=== PATIENT | male | born 1960 | race Caucasian/White ===

== ENCOUNTER 2021-11-18 15:20 | Outpatient (REF) | payer OTHER, SELFPAY ==
--- NOTE | ~2021-11-18 | XR_ITS ---
EXAMINATION: XR CHEST CLINICAL INFORMATION: Acute respiratory infection. COMPARISON: None TECHNIQUE: 2 views of the chest were obtained. FINDINGS: The lungs are well-expanded and clear of acute process. The heart size and pulmonary vascularity is normal. No gross bony abnormality seen. XR/XR chest 2V IMPRESSION: Unremarkable chest exam.
[2021-11-18 17:33] LABS: Influenza A PCR NEGATIVE (Negative); Influenza B PCR NEGATIVE (Negative); Resp Syncy Virus RNA Qual PCR NEGATIVE (Negative); SARS COV2 PCR INHOUSE NEGATIVE (Negative)
== END 2021-11-18 15:21 | disposition home or self-care (01) ==
LOC: HO.HMGCX 15:20
PROVIDERS: PCP Internal Medicine; Visit Provider Physician Assistant
DX: Z20.822 Contact with and (suspected) exposure to COVID-19 (principal); J06.9 Acute upper respiratory infection, unspecified
CPT/HCPCS: 0241U; 71046

== ENCOUNTER 2023-05-04 12:38 | Outpatient (AMB) | payer OTHER, SELFPAY ==
--- OUTSIDE RECORDS SUMMARY | 2023-05-04 12:39 | XMS_ITS | Continuity of Care Document ---
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 Name Role Phone Domenico Whitfield MD Primary Care Physician [facility]counter [facility] Date(s): 07/25/19 - 11/22/19 [facility] [place] Adult [address] [place] [address]- [facility] Attending Physician: Domenico Whitfield MD Allergies, Adverse Reactions, Alerts Substance Reaction Severity Status Bee Stings Active Immunizations Given and Recorded Vaccine Date Status Refusal Reason Influenza Virus Vaccine (oldterm) 04/22/19 Recorde d Influenza Virus Vaccine (oldterm) 1 04/14/09 Given zoster vaccine, inactivated 08/28/18 Recorded Hepatitis A Adult Vaccine 08/14/18 Given Hepatitis A Adult Vaccine 2 08/06/17 Given pneumococcal 13-valent vaccine 03/08/18 Given influenza virus vaccine, inactivated 3 03/08/18 Re corded influenza virus vaccine, inactivated 4 05/06/17 Re corded influenza virus vaccine, inactivated 5 03/14/15 Re corded influenza virus vaccine, inactivated 07/16/13 Give n tetanus/diphtheria/pertussis, acel(Tdap) 07/18/12 Given FluLaval (oldterm) 04/15/10 Given Pneumococcal Vaccine (oldterm) 6 04/29/08 Given Influenza Inactive (IM) (oldterm) 7 04/02/08 Given Influenza Inactive (IM) (oldterm) 8 04/30/07 Given Tetanus Toxoid Vaccine (oldterm) 06/11/00 Given 1Admin Note: rcvd at work 2Result Comment: [08/06/2017] [facility] [id number] 3Result Comment: [03/08/2018] [facility]-[id number] 4Result Comment: [08/06/2017] [facility] 5Result Comment: [03/16/2015] HIGH DOSE, RECIEVED AT [facility] 6Admin Note: rcvd at work 7Admin Note: rcvd elsewhere 8Admin Note: rcvd at work Medications AndroGel Pump 20.25 mg/actuation (1.62%) transdermal gel = 40.5 mg, Topically, Daily in AM, apply to clean, dry, intact skin, wash hands thoroughly after application, # 75 Gm, 2 Refills, Maintenance, 07/11/19 16:03:00 EST, [facility]/pharmacy #[id number], 177, cm, 06/16/19 11:25:00 EST, Height, 70.8, kg, 06/14/19 0:02:... Start Date: 07/11/19 Status: Ordered atovaquone 750 mg/5 mL oral suspension 10 mL = 1,500 mg, By Mouth, Daily, # 210 mL, 0 Refills, Maintenance, 06/13/19 2:10:00 EST, Suspension Start Date: 06/13/19 Status: Ordered budesonide 3 mg oral delayed release capsule 1 capsule = 3 mg, By Mouth, 3 times a day, # 180 capsule, 0 Refills, Maintenance, 04/23/19 9:50:07 EST, CR Capsule Start Date: 04/23/19 Status: Ordered cholecalciferol 50,000 intl units oral capsule 1 capsule = 50,000 International_Units, By Mouth, Every week, # 100 capsule, 0 Refills, Maintenance, 04/23/19 9:50:39 EST, Capsule Start Date: 04/23/19 Status: Ordered Compazine Tablet = 10 mg, By Mouth, Daily, 0 Refills, Maintenance, 06/13/19 2:13:00 EST, Tablet Start Date: 06/13/19 Status: Ordered decitabine 50 mg intravenous injection IV Infusion, Every 8 hours, 0 Refills, Maintenance, 08/14/18 7:12:16 EST Start Date: 08/14/18 Status: Ordered docusate sodium 100 mg oral tablet 1 tablet = 100 mg, By Mouth, 3 times a day, PRN for constipation, # 60 tablet, 0 Refills, Maintenance, 06/13/19 2:11:00 EST, Tablet Start Date: 06/13/19 Status: Ordered EpiPen 2-Jackson 0.3 mg injectable kit See Instructions, Intramuscular Once;if anaphylaxis lip tongue swelling;wheezing etc, # 1 each, 0 Refills, Soft Stop, 11/02/17 11:11:11 EDT Start Date: 11/02/17 Status: Ordered folic acid 1 mg oral tablet 1 mg, 1, tablet, By Mouth, Daily, Refills 0, Maintenance, 04/23/19 9:51:01 EST Start Date: 04/23/19 Status: Ordered Insulin NPH = 20 units, Subcutaneous Infusion, Daily in AM, U100, 0 Refills, Maintenance, 08/02/19 11:10:00 EST Start Date: 08/02/19 Status: Ordered LORazepam 0.5 mg oral tablet 1 tablet = 0.5 mg, By Mouth, 3 times a day, 0 Refills, Maintenance, 04/23/19 9:51:37 EST Start Date: 04/23/19 Status: Ordered magnesium citrate 133.3 mg oral capsule 2 capsule = 266.6 mg, By Mouth, Daily, 0 Refills, Maintenance, 04/23/19 9:52:14 EST Start Date: 04/23/19 Status: Ordered Noxafil 100 mg oral delayed release tablet 3 tablet = 300 mg, By Mouth, Daily, 0 Refills, Maintenance, 04/23/19 9:52:48 EST Start Date: 04/23/19 Status: Ordered Noxafil 100 mg oral delayed release tablet 3 tablet = 300 mg, By Mouth, Daily, # 90 tablet, 0 Refills, Maintenance, 06/13/19 2:12:00 EST, CR Tablet Start Date: 06/13/19 Status: Ordered pantoprazole 40 mg oral delayed release tablet 1 tablet = 40 mg, By Mouth, 2 times a day, # 60 tablet, 0 Refills, Maintenance, 04/23/19 9:53:21 EST, CR Tablet Start Date: 04/23/19 Status: Ordered predniSONE 10 mg oral tablet 1 tablet = 10 mg, By Mouth, 2 times a day, # 10 tablet, 0 Refills, Maintenance, 06/13/19 2:15:00 EST, Tablet Start Date: 06/13/19 Status: Ordered ruxolitinib 5 mg oral tablet 1 tablet = 5 mg, By Mouth, 2 times a day, # 60 tablet, 0 Refills, Maintenance, 06/13/19 2:08:00 EST, Tablet Start Date: 06/13/19 Status: Ordered sertraline 100 mg oral tablet 1 tablet = 100 mg, By Mouth, 2 times a day, # 30 tablet, 0 Refills, Maintenance, 06/13/19 2:09:00 EST, Tablet Start Date: 06/13/19 Status: Ordered tacrolimus 0.5 mg oral capsule 2 capsule = 1 mg, By Mouth, Daily, 0 Refills, Maintenance, 04/23/19 9:54:45 EST Start Date: 04/23/19 Status: Ordered traZODone 100 mg oral tablet 100 mg, 1, tablet, By Mouth, Daily at bedtime, PRN, # 60 tablet, Refills 0, Maintenance, Sleep, 06/13/19 2:10:00 EST Start Date: 06/13/19 Status: Ordered triamcinolone 0.1% topical cream 1 application, Topically, 2 times a day, # 15 Gm, 0 Refills, Maintenance, 06/13/19 2:13:00 EST, Cream Start Date: 06/13/19 Stop Date: 06/27/19 Status: Ordered ursodiol 300 mg oral capsule 300 mg, 1, capsule, By Mouth, 3 times a day, # 60 capsule, Refills 0, Maintenance, 06/13/19 2:13:00EST Start Date: 06/13/19 Status: Ordered valACYclovir 500 mg oral tablet 500 mg, 1, tablet, By Mouth, Daily, Refills 0, Maintenance, 04/23/19 9:55:17 EST Start Date: 04/23/19 Status: Ordered Problem List Condition Effective Dates Status Health Status Inform ant Adenomatous polyp of colon(C onfirmed) 1, 2, 3 Active Bee sting allergy(Confirmed) Active Cheilitis(Confirmed) Active CRD (chronic renal disease), stage III(Confirmed) Active Low vitamin D level(Confirmed) Active Ex-cigarette smoker referred LDCT no show(Confirmed) 4, 5 Active Familial hyperlipidemia(Confirmed) Active Hx of stem cell transplant;david(Confirmed) 11/29/18 Active Impaired fasting glucose(Con firmed) 6, 7 Active Klinefelter's Syndrome(Confirmed) 8 Active Multiple lipomas(Confirmed) 9 Active Hypogonadism, male(Confirmed) Active Cancer of prostate turp 2018(Confirmed) Active MDS (myelodysplastic syndrom e)/stem cell transplant 2018(Confirmed) 10 Active Pneumonia RUL(Confirmed) 06/12/19 Active Psoriasis(Confirmed) Active Fatty liver(Confirmed) 11, 12 Active 1+2014 2refer GI colonoscopy 3tubular adenoma 4quit 2012 [id number] kit 6reminded 7new onset;to contact advise of pre diabetes;increased risk diabetes 8758.7 9back,abd 10refer bone marrow biopsy [facility] 11Negative hepatitis C antibody negative hepatitis C surface antigen positive hepatitis B surface antibody, negative CHARLEE, normal SPEP, normal iron 12Sonogram May 2017 Procedures Procedure Date Related Diagnosis Body Site Status Reference laboratory A1c 7.3 08/01/19 Completed Social History Social History Type Response Smoking Status Current every day teri maldonado; Other: e-cig; entered on: 08/06/17 Sex
--- OUTSIDE RECORDS SUMMARY | 2023-05-04 12:39 | XMS_ITS | Continuity of Care Document ---
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 Name Role Phone Domenico Whitfield MD Primary Care Physician [facility]counter [facility] Date(s): 01/22/20 - 01/29/20 [facility] Adult [address] [place] [address]- [facility] Encounter Diagnosis Physical exam(Discharge Diagnosis) - 01/22/20 Steroid-induced diabetes [facility](Discharge Diagnosis) - 01/22/20 Familial hyperlipidemia(Discharge Diagnosis) - 01/22/20 Fatty liver(Discharge Diagnosis) - 01/22/20 Cancer of prostate turp 2019(Discharge Diagnosis) - 01/22/20 MDS (myelodysplastic syndrome)/stem cell transplant 2019(Discharge Diagnosis) - 01/22/20 Hx of stem cell transplant;mercy(Discharge Diagnosis) - 01/22/20 Ex-cigarette smoker referred LDCT no show(Discharge Diagnosis) - 01/22/20 Adenomatous polyp of colon(Discharge Diagnosis) - 01/22/20 Klinefelter's Syndrome(Discharge Diagnosis) - 01/22/20 Chronic kidney disease, stage 4 (severe)(Discharge Diagnosis) - 01/22/20 Attending Physician: Domenico Whitfield MD Allergies, Adverse [...] Note: rcvd at work 2Result Comment: [08/06/2017] [facility] [id number] 3Result Comment: [03/08/2018] [facility]-[id number] 4Result Comment: [08/06/2017] [facility] 5Result Comment: [03/16/2015] HIGH DOSE, RECIEVED AT [facility] [address] 6Admin Note: rcvd at work 7Admin Note: rcvd elsewhere 8Admin Note: rcvd at work Medications AndroGel Pump 20.25 mg/actuation (1.62%) transdermal gel = 40.5 mg, Topically, Daily in AM, apply to clean, dry, intact skin, wash hands thoroughly after application, # 75 Gm, 2 Refills, Maintenance, 07/11/19 16:03:00 EST, [facility]/pharmacy #[id number], 177, cm, 06/16/19 11:25:00 EST, Height, [...] Active Bee sting allergy(Confirmed) Active Cheilitis(Confirmed) Active Chronic kidney disease, stag e 4 (severe)(Confirmed) Active Low vitamin D level(Confirmed) Active Ex-cigarette smoker referred LDCT no show(Confirmed) 4, 5 Active Familial hyperlipidemia(Confirmed) Active Hx of stem cell transplant;mercy(Confirmed) 11/29/18 Active Klinefelter's Syndrome(Confirmed) 6 Active Multiple lipomas(Confirmed) 7 Active Hypogonadism, male(Confirmed) Active Cancer of prostate turp 2018(Confirmed) Active MDS (myelodysplastic syndrom e)/stem cell transplant 2018(Confirmed) 8 Active Pneumonia RUL(Confirmed) 06/12/19 Active Psoriasis(Confirmed) Active Fatty liver(Confirmed) 9, 10 [facility] Active 1+2014 2refer GI colonoscopy 3tubular adenoma 4quit 2012 [id number] kit 6758.7 7back,abd 8refer bone marrow biopsy [facility] 9Negative hepatitis C antibody negative hepatitis C surface antigen positive hepatitis B surface antibody, negative CHARLEE, normal SPEP, normal iron 10SonMay 2017 Diagnosis Diagnosis Type Effective Dates Health Status Clinical Service Informant Physical exam Discharge Diagnosis 01/22/20 Steroid-induced diabetes [facility] Discharge Diagnosis 01/22/20 Familial hyperlipidemia Discharge Diagnosis 01/22/20 Fatty liver Discharge Diagnosis 01/22/20 Cancer of prostate turp 2019 Discharge Diagnosis 01/22/20 MDS (myelodysplastic syndrome)/stem cell transplant 2019 Discharge Diagnosis 01/22/20 Hx of stem cell transplant;mercy Discharge Diagnosis 01/22/20 Ex-cigarette smoker referred LDCT no show Discharge Diagnosis 01/22/20 Adenomatous polyp of colon Discharge Diagnosis 01/22/20 Klinefelter's Syndrome Discharge Diagnosis 01/22/20 Chronic kidney disease, stage 4 (severe) Discharge Diagnosis 01/22/20 Vital Signs Most recent to oldest [Reference Range]: 1 Height 177 cm (01/22/20 3:15 PM) Weight 82.2 kg (01/22/20 3:15 PM) Pulse Rate [55-90 bpm] 90 bpm (01/22/20 3:15 PM) Body Mass Index [18.5-24.99] 26.24 *H* (01/22/20 3:15 PM) Blood Pressure [90-138/55-84 mm Hg] 106/ 60mm Hg (01/22/20 3:15 PM) Respiratory Rate [16-30 br/min] 18 br/mi n (01/22/20 3:15 PM) Temperature [96.8-100.4 DegF] 98.3 DegF (01/22/20 3:15 PM) Blood pressure sites Arm, left (01/22/20 3:15 PM) Temperature Route Oral (01/22/20 3:15 PM) Social History Social History Type Response Smoking Status Former smoker, quit more than 30 days ago entered on: 01/22/20 Sex
--- OUTSIDE RECORDS SUMMARY | 2023-05-04 12:39 | XMS_ITS | Continuity of Care Document ---
Author Name Unknown Organization [facility] ter Address [address] [place] [address]- Care Team Providers Care Edge Stainer Name Role Phone Roseann DILLON, Domenico Ramirez Primary Care Physician Encounter [facility] Date(s): 06/13/19 - 06/16/[address] [address] En[facility] Diagnosis Pneumonia(Final) - 06/12/19 Discharge Disposition: [facility] Attending Physician: Alex Burciaga Sr, MD Admitting Physician: Eduardo Das MD Referring Physician: Not on Staff, Referring MD Allergies, Adverse Reactions, Alerts Substance Reaction [...] Note: rcvd at work 2Result Comment: [08/06/2017] [facility] [id number] 3Result Comment: [03/08/2018] [facility]-[id number] 4Result Comment: [08/06/2017] [facility] 5Result Comment: [03/16/2015] HIGH DOSE, RECIEVED AT [facility] 6Admin Note: rcvd at work 7Admin Note: rcvd elsewhere 8Admin Note: rcvd at work Medications AndroGel Pump 20.25 mg/actuation (1.62%) transdermal gel = 40.5 mg, Topically, Daily in AM, apply to clean, dry, intact skin, wash hands thoroughly after application, # 75 Gm, 2 Refills, Maintenance, 11/14/18 12:13:29 EDT Start Date: 11/14/18 Status: Ordered atovaquone 750 mg/5 mL oral [...] 9:51:01 EST Start Date: 04/23/19 Status: Ordered LORazepam 0.5 mg oral tablet [...] Active MDS (myelodysplastic syndrom e)/stem cell transplant 2019(Confirmed) 10 Active Pneumonia RUL(Confirmed) 06/12/19 Active Psoriasis(Confirmed) Active Fatty liver(Confirmed) 11, 12 Active 1 2refer GI colonoscopy 3tubular adenoma 4quit 2012 [id number] kit 6reminded 7new onset;to contact advise of pre diabetes;increased risk diabetes 8758.7 9back,abd 10refer bone marrow biopsy [facility] 11Negative hepatitis C antibody negative hepatitis C surface antigen positive hepatitis B surface antibody, negative CHARLEE, normal SPEP, normal iron 12May 2017 Results Orders for Microbiology Reports Name Date AFB Culture w/ AFB Smear, Respiratory 06/15/19 Blood Culture 06/13/19 Blood Culture #2 06/13/19 Blood Culture 06/12/19 Blood Culture #2 06/12/19 Microbiology Reports TEST:AFB Culture w/AFB Smear, Respiratory STATUS:Unauthenticated BODY SITE: SOURCE:EXPECT COLLECTED DATE/TIME:06/15/19 10:49 AM AFB Culture w/AFB Smear, Respiratory SPECIMEN DESCRIPTION : EXPECTORATED SPUTUM SPUTUM SPECIAL REQUESTS : NONE DIRECT EXAM : NO ACID FAST BACILLI SEEN ON DIRECT SMEAR, TEST PERFORMED AT [facility] CULTURE : SPECIMEN SENT TO [facility], [place], [place] REPORT STATUS : PRELIMINARY REPORT TEST:Blood Culture, Second Order STATUS:Unauthenticated BODY SITE: SOURCE:Blood COLLECTED DATE/TIME:06/13/19 10:11 AM Blood Culture, Second Order SPECIMEN DESCRIPTION : BLOOD SPECIAL REQUESTS : NONE CULTURE : NO GROWTH 3 DAYS REPORT STATUS : PRELIMINARY REPORT TEST:Blood Culture STATUS:Unauthenticated BODY SITE: SOURCE:Blood COLLECTED DATE/TIME:06/13/19 9:40 AM Blood Culture SPECIMEN DESCRIPTION : BLOOD RIGHT ARM SPECIAL REQUESTS : NONE CULTURE : NO GROWTH 3 DAYS REPORT STATUS : PRELIMINARY REPORT TEST:Blood Culture, Second Order STATUS:Unauthenticated BODY SITE: SOURCE:Blood COLLECTED DATE/TIME:06/12/19 9:16 PM Blood Culture, Second Order SPECIMEN DESCRIPTION : BLOOD L SPECIAL REQUESTS : NONE CULTURE : NO GROWTH 4 DAYS REPORT STATUS : PRELIMINARY REPORT TEST:Blood Culture STATUS:Unauthenticated BODY SITE: SOURCE:Blood COLLECTED DATE/TIME:06/12/19 9:14 PM Blood Culture SPECIMEN DESCRIPTION : BLOOD LAC SPECIAL REQUESTS : NONE CULTURE : NO GROWTH 4 DAYS REPORT STATUS : PRELIMINARY REPORT Vital Signs Most recent to oldest [Reference Range]: 1 2 3 Height 177 cm (06/16/19 11:25 AM) 177 cm (06/16/19 4:01 AM) 177 cm (06/16/19 12:39 AM) Weight 69.2 kg (06/16/19 4:01 AM) 69.0 kg (06/15/19 5:45 AM) 69.4 kg (06/15/19 2:11 AM) Oxygen Saturation [94-100 %] 96 % (06/16/19 11:25 AM) 94 % (06/16/19 4:01 AM) 94 % (06/16/19 12:39 AM) Pulse Rate [55-90 bpm] 92 bpm *H* (06/16/19 11:25 AM) 79 bpm (06/16/19 4:01 AM) 84 bpm (06/16/19 12:39 AM) Body Mass Index [18.5-24.99] 22.09 (06/16/19 4:01 AM) 22.02 (06/15/19 5:45 AM) 22.15 (06/15/19 2:11 AM) Blood Pressure [90-138/55-84 mm Hg] 139/81mm Hg *H* (06/16/19 11:25 AM) 139/80mm Hg *H* (06/16/19 4:01 AM) 137/81mm Hg (06/16/19 12:39 AM) Respiratory Rate [16-30 br/min] 18 br/min (06/16/19 11:25 AM) 16 br/min (06/16/19 4:01 AM) 18 br/min (06/16/19 12:39 AM) Temperature [96.8-100.4 DegF] 98.3 DegF (06/16/19 11:25 AM) 98.2 DegF (06/16/19 4:01 AM) 99.1 DegF (06/16/19 12:39 AM) Mode of Delivery (Oxygen) Room air (06/16/19 11:25 AM) Room air (06/16/19 4:01 AM) Room air (06/16/19 12:39 AM) Blood pressure sites Arm, right (06/16/19 11:25 AM) Arm, right (06/16/19 4:01 AM) Arm, right (06/16/19 12:39 AM) Temperature Route Oral (06/16/19 11:25 AM) Oral (06/16/19 4:01 AM) Oral (06/16/19 12:39 AM) Dry Weight 70.8 kg (06/13/19 9:26 PM) Weight Obtained Via Bed scale (06/16/19 4:01 AM) Bed scale (06/15/19 5:45 AM) Bed scale (06/15/19 2:11 AM) Sensory deficits None (06/13/19 9:26 PM) Mobility assistance Independent (06/13/19 9:26 PM) Social History Social History Type Response Smoking Status Current every day teri maldonado; Other: e-cig; entered on: 08/06/17 Sex
--- OUTSIDE RECORDS SUMMARY | 2023-05-04 12:39 | XMS_ITS | Continuity of Care Document ---
Author Name Unknown Organization [facility] Address [address] [place] [address]- Care Team Providers Care Radio News Writer Name Role Phone Roseann DILLON, Domenico Ramirez Primary Care Physician Encounter [facility] [place] Date(s): 02/03/21 - 03/05/[address] [address] Attending Physician: Yefri Griggs Admitting Physician: AdmtrYefri Referring Physician: Admtr, Ar8 Allergies, Adverse Reactions, Alerts Substance Reaction Severity Status Bee Stings Active Immunizations Given and Recorded Vaccine Date Status Refusal Reason SARS-CoV-2 (COVID-19) mRNA BNT-162b2 vac 01/25/21 Recorded pneumococcal 13-valent vaccine 11/09/20 Recorded pneumococcal 13-valent vaccine 05/28/20 Recorded pneumococcal 13-valent vaccine 12/30/19 Recorded pneumococcal 13-valent vaccine 03/08/18 Given Measles/Mumps/Rubella Virus Vaccine 11/09/20 Recor ded Hepatitis A Adult Vaccine 11/09/20 Recorded Hepatitis A Adult Vaccine 12/30/19 Recorded Hepatitis A Adult Vaccine 08/14/18 Given Hepatitis A Adult Vaccine 1 08/06/17 Given Diphth/haemophilus/pertussis/tet/polio 11/09/20 Re corded Diphth/haemophilus/pertussis/tet/polio 05/28/20 Re corded Diphth/haemophilus/pertussis/tet/polio 12/30/19 Re corded zoster vaccine, inactivated 05/28/20 Recorded zoster vaccine, inactivated 12/30/19 Recorded zoster vaccine, inactivated 08/28/18 Recorded Meningococcal Conjugate Vaccine 05/28/20 Recorded Meningococcal Conjugate Vaccine 12/30/19 Recorded hepatitis B adult vaccine 05/28/20 Recorded hepatitis B adult vaccine 12/30/19 Recorded Influenza Virus Vaccine (oldterm) 04/22/19 Recorde d Influenza Virus Vaccine (oldterm) 2 04/14/09 Given influenza virus vaccine, inactivated 3 03/08/18 [...] Given Tetanus Toxoid Vaccine (oldterm) 06/11/00 Given 1Result Comment: [08/06/2017] [facility] [id number] 2Admin Note: rcvd at work 3Result Comment: [03/08/2018] [facility]-[id number] 4Result Comment: [08/06/2017] [facility] 5Result Comment: [03/16/2015] HIGH DOSE, RECIEVED AT [facility] [address] 6Admin Note: rcvd at work 7Admin Note: rcvd elsewhere 8Admin Note: rcvd at work Medications AndroGel Pump 20.25 mg/actuation (1.62%) transdermal gel = 40.5 mg, Topically, Daily in AM, apply to clean, dry, intact skin, wash hands thoroughly after application, # 75 Gm, 2 Refills, Maintenance, 07/11/19 16:03:00 EST, [facility]/pharmacy #[id number], 177, cm, 06/16/19 11:25:00 EST, Height, 70.8, kg, 06/14/19 0:02:... Start Date: 07/11/19 Status: Ordered atorvastatin 40 mg oral tablet 1 tablet = 40 mg, By Mouth, Daily, # 30 tablet, 6 Refills, Maintenance, 08/12/20 9:28:00 EST, Tablet, [facility]/pharmacy #[id number], Partial fill upon patient request if the prescription is for a schedule II opioid drug., 177, cm, 08/02/20 15:21:00 EST, Height,... Start Date: 08/12/20 Status: Ordered budesonide 3 mg oral delayed [...] EST, Capsule Start Date: 04/23/19 Status: Ordered docusate sodium 100 mg oral [...] 9:51:01 EST Start Date: 04/23/19 Status: Ordered Jakafi 5 mg oral tablet 1 tablet = 5 mg, By Mouth, 2 times a day, # 60 tablet, 0 Refills, Maintenance, 08/02/20 15:28:00 EST, Tablet, Partial fill upon patient request if the prescription is for a schedule II opioid drug. Start Date: 08/02/20 Status: Ordered LORazepam 0.5 mg oral tablet 1 tablet = 0.5 mg, By Mouth, 3 times a day, 0 Refills, Maintenance, 04/23/19 9:51:37 EST Start Date: 04/23/19 Status: Ordered predniSONE 10 mg oral tablet 1 tablet = 10 mg, By Mouth, 2 times a day, # 10 tablet, 0 Refills, Maintenance, 06/13/19 2:15:00 EST, Tablet Start Date: 06/13/19 Status: Ordered predniSONE 5 mg oral tablet 1 tablet = 5 mg, By Mouth, Daily, 0 Refills, Maintenance, 08/02/20 15:42:00 EST, Partial fill upon patient request if the prescription is for a schedule II opioid drug. Start Date: 08/02/20 Status: Ordered Procrit 91436 u/ml injectable solution = 2,000 units, Subcutaneous Injection, 0 Refills, Maintenance, 08/02/20 15:28:00 EST, Partial fill upon patient request if the prescription is for a schedule II opioid drug. Start Date: 08/02/20 Status: Ordered sertraline 100 mg oral tablet 1 tablet = 100 mg, By Mouth, 2 times a day, # 30 tablet, 0 Refills, Maintenance, 06/13/19 2:09:00 EST, Tablet Start Date: 06/13/19 Status: Ordered tacrolimus 0.5 mg oral capsule 2 capsule = 1 mg, By Mouth, Daily, 0 Refills, Maintenance, 04/23/19 9:54:45 EST Start Date: 04/23/19 Status: Ordered ursodiol 300 mg oral capsule 300 mg, 1, capsule, By Mouth, 3 times a day, # 60 capsule, Refills 0, Maintenance, 06/13/19 2:13:00EST Start Date: 06/13/19 Status: Ordered Problem List Condition Effective Dates Status Health Status Inform ant Adenomatous polyp of colon/c olonoscopy 2014(Confirmed) 1, 2, 3 Active Bee sting allergy(Confirmed) Active Cheilitis(Confirmed) Active Low vitamin D level(Confirmed) Active Ex-cigarette smoker referred LDCT no show(Confirmed) 4, 5 Active Familial hyperlipidemia(Confirmed) Active Hx of stem cell transplant [facility] 2018(Confirmed) 11/29/18 Active H/O prostate cancer TURP 2018(Confirmed) Active Impaired fasting blood sugar(Confirmed) Active Klinefelter's Syndrome(Confirmed) 6 Active Multiple lipomas(Confirmed) 7 Active Hypogonadism, male(Confirmed) Active MDS (myelodysplastic syndrom e)/stem cell transplant 2018(Confirmed) 8 Active Pneumonia RUL(Confirmed) 06/12/19 Active Psoriasis(Confirmed) Active Fatty liver(Confirmed) 9, 10 Active 1+2014 2refer GI colonoscopy 3tubular adenoma 4quit 2012 [id number] kit 6758.7 7back,abd 8refer bone marrow biopsy [facility] 9Negative hepatitis C antibody negative hepatitis C surface antigen positive hepatitis B surface antibody, negative CHARLEE, normal SPEP, normal iron 10Sonogram May 2017 Social History Social History Type Response Smoking Status Former smoker, quit more than 30 days ago entered on: 01/22/20 Sex
--- NOTE | 2023-05-04 12:40 | MHC.OFFWIV ---
Intake Vital Signs 05/04/23 12:42 Height 5 ft 10 in Weight 160 lb BMI 23.0 BP 122/72 Blood Pressure Location Lt brachial Position Sitting Pulse 126 H Pulse Source Pulse Oximeter Temp 98.3 F Temp Source Temporal Artery Scan Pulse Oximetry (%) 97 Oxygen Delivery Method Room Air Intake Visit Reasons: EP Diff breathing/Chest pain 3 days Intake Note: pt is here for c/o difficulty breathing, chest pain/tightness 3x days Patient Tobacco Use Status: Never used Tobacco Allergies No Known Allergies Allergy (Verified 05/04/23 13:09) Medication List - Last Reconciled 05/04/23 by Devon Nava MD amlodipine 10 mg PO DAILY budesonide ER mg PO DAILY PRN ergocalciferol (vitamin D2) PO folic acid 1 mg PO DAILY lorazepam mg PO neomycin-polymyxin B-dexameth 3.5 mg/g-10,000 unit/g-0.1 % ophthalmic (eye) BID prednisone mg PO ruxolitinib (Jakafi) 5 mg PO DAILY PRN sertraline 200 mg PO BEDTIME tacrolimus 0.5 mg PO DAILY PRN testosterone 40.5 mg topical QAM ursodiol 300 mg PO DAILY Do you need a note to return to daycare/school/sports/work: Yes HPI EP Diff breathing/Chest pain 3 days HPI Details 63-year-old male presents to the office for a sick visit. He is accompanied by his . Patient is experiencing sharp pain on breathing and on exertion. Symptoms have been going on for the past month or so and he has been reluctant to seek attention. Patient has had MDS and is status post a stem cell transplant. Taking a deep breath or cough provokes a very sharp pain in the chest. Patient is feeling tired. [facility] Patient Tobacco Use Status: Never used Tobacco Physical Exam Vital Signs: Last Vital Signs Temp 98.3 F 05/04/23 12:42 Pulse 126 H 05/04/23 12:42 BP 122/72 05/04/23 12:42 Pulse Ox 97 05/04/23 12:42 Oxygen Delivery Method Room Air 05/04/23 12:42 BMI result Body Mass Index 23.0 Const General: cooperative and healthy appearing Nutritional Appearance: well nourished Orientation/consciousness: patient oriented x3 Limitations: no limitations HEENT Head: Yes normal to inspection Eyes General: appearance normal, both eyes and all related structures Neck Neck: Yes normal visual inspection Chest Chest palpation & inspection: normal palpation of entire chest wall Resp Other: Diminished breath sounds on the right base Cardio Other: Tachycardia. Neuro General: patient oriented x3 Assessment & Plan Assessment & Plan (1) Chest pain: Code(s): R07.9 - Chest pain, unspecified Plan: Chest x-ray shows a large infiltrate on the right side. Bilateral pleural effusion. A large consolidation on the right lung. Patient needs an urgent CT scan head and has been referred to the emergency room for further evaluation. Triage nurse in the ER notified of patients arrival. Orders: Orders XR chest 2V Today R05.9 - Cough, unspecified AMB EKG-In Office Today R07.9 - Chest pain, unspecified Coding Level of Care Code Est Pt Level 4 (53057) Diagnoses Chest pain R07.9
--- OUTSIDE RECORDS SUMMARY | 2023-05-04 12:40 | XMS_ITS | Continuity of Care Document ---
Author Name Unknown Organization [facility] Address [address] [place] [address]- Care Team Providers Care Pail Tester Name Role Phone Roseann DILLON, Domenico Ramirez Primary Care Physician [place] [facility] [place]/22 [facility] [address] [place] [address]- Attending Physician: Not on Staff, Attending MD Allergies, Adverse Reactions, Alerts Substance Reaction [...] Vaccine (oldterm) 06/11/00 Given 1Result Comment: [08/06/2017] [facility] [id number] 2Admin Note: rcvd at work 3Result Comment: [03/08/2018] [facility]-[id number] 4Result Comment: [08/06/2017] [facility] 5Result Comment: [03/16/2015] HIGH DOSE, RECIEVED AT [facility] [address] 6Admin Note: rcvd at work 7Admin Note: rcvd elsewhere 8Admin Note: rcvd at work Medications AndroGel Pump 20.25 mg/actuation (1.62%) transdermal gel = 40.5 mg, Topically, Daily in AM, apply to clean, dry, intact skin, wash hands thoroughly after application, # 75 Gm, 2 Refills, Maintenance, 07/11/19 16:03:00 EST, [facility]/pharmacy #[id number], 177, cm, 06/16/19 11:25:00 EST, Height, 70.8, kg, 06/14/19 0:02:... Start Date: 07/11/19 Status: Ordered atorvastatin 40 mg oral tablet 1 tablet = 40 mg, By Mouth, Daily, # 30 tablet, 6 Refills, Maintenance, 08/12/20 9:28:00 EST, Tablet, [facility]/pharmacy #[id number], Partial fill upon patient [...] drug. Start Date: 08/02/20 Status: Ordered Procrit 45352 u/ml injectable solution = 2,000 units, Subcutaneous [...] Effective Dates Status Health Status Inform ant Acute COVID-(Confirmed) 02/06/22 Active Adenomatous polyp of colon/c olonoscopy 2014(Confirmed) 1, [...] 2refer GI colonoscopy 3tubular adenoma 4quit 2012 5muokuwpOsp4vykn kit 6758.7 7back,abd 8refer bone marrow biopsy [facility] 9Negative hepatitis C antibody negative hepatitis C surface antigen positive hepatitis B surface antibody, negative CHARLEE, normal SPEP, normal iron 10SonMay 2017 Social History Social History Type Response Smoking Status Former smoker, quit more than 30 days ago entered on: 01/22/20 Sex Care Team Personnel Name: Roseann DILLON, Domenico Ramirez Address: [address] [place] [address]
--- OUTSIDE RECORDS SUMMARY | 2023-05-04 12:40 | XMS_ITS | Continuity of Care Document ---
Author Name Unknown Organization [facility] Address [address] [place] [address]- Care Team Providers Care Bar Hostess Name Role Phone Roseann DILLON, Domenico Ramirez Primary Care Physician [phone] Encounter [facility] Date(s): 06/12/19 - 06/22/19 [facility] Adult [address] [place] [address]- [facility] Attending Physician: Admtr, Ar8 Allergies, Adverse Reactions, Alerts [...] Note: rcvd at work 2Result Comment: [08/06/2017] [facility] [id number] 3Result Comment: [03/08/2018] [facility]-[id number] 4Result Comment: [08/06/2017] [facility] 5Result Comment: [03/16/2015] HIGH DOSE, RECIEVED AT [facility] [address] 6Admin Note: rcvd at [...] Psoriasis(Confirmed) Active Fatty liver(Confirmed) 11, 12 Active +2014 2refer GI colonoscopy 3tubular adenoma 4quit 2012 2cgnquomEoo0rkoa kit 6reminded 7new onset;to contact advise of pre diabetes;increased risk diabetes 8758.7 9back,abd 10refer bone marrow biopsy [facility] 11Negative hepatitis C antibody negative hepatitis C surface antigen positive hepatitis B surface antibody, negative CHARLEE, normal SPEP, normal iron 12Sonogram May 2017 Procedures Procedure Date Related Diagnosis Body Site Status Colonoscopy, flexible, proxi mal to splenic flexure; diagnostic, with or without collection of specimen(s) by brushing or washing, with or without colon decompression (separate procedure) 1 07/02/11 Completed Reference (Outside) Laboratory 2 08/18/10 Completed laboratory 3 03/19/09 Completed 1large bsessile polyp 2low testosterone 3fbs 103,LDL 169, TC 281,TG 266,HDL 41 Social History Social History Type Response Smoking Status Current every day teri maldonado; Other: e-cig; entered on: 08/06/17 Sex
--- OUTSIDE RECORDS SUMMARY | 2023-05-04 12:40 | XMS_ITS | Continuity of Care Document ---
Author Name Unknown Organization [facility] Address [address] [place] [address]- Care Team Providers Care Web Services Developer Name Role Phone Roseann DILLON, Domenico Ramirez Primary Care Physician Encounter [facility] [place] Date(s): 01/20/21 - 03/10/[address] [address] [place] Discharge Disposition: A-D/C Home Attending Physician: Galilea Cardona NP Admitting Physician: Galilea Cardona NP Referring Physician: Galilea Cardona NP Allergies, Adverse Reactions, Alerts Substance Reaction Severity [...] vaccine, inactivated 12/30/19 Recorded zoster vaccine, inactivated 3/20/19 Recorded Meningococcal Conjugate Vaccine 05/28/20 Recorded Meningococcal [...] Vaccine (oldterm) 06/11/00 Given 1Result Comment: [08/06/2017] [facility] [id number] 2Admin Note: rcvd at work 3Result Comment: [03/08/2018] [facility]-[id number] 4Result Comment: [08/06/2017] [facility] 5Result Comment: [03/16/2015] HIGH DOSE, RECIEVED AT [facility] [address] 6Admin Note: rcvd at work 7Admin Note: rcvd elsewhere 8Admin Note: rcvd at work Medications AndroGel Pump 20.25 mg/actuation (1.62%) transdermal gel = 40.5 mg, Topically, Daily in AM, apply to clean, dry, intact skin, wash hands thoroughly after application, # 75 Gm, 2 Refills, Maintenance, 07/11/19 16:03:00 EST, [facility]/pharmacy #[id number], 177, cm, 06/16/19 11:25:00 EST, Height, 70.8, kg, 06/14/19 0:02:... Start Date: 07/11/19 Status: Ordered atorvastatin 40 mg oral tablet 1 tablet = 40 mg, By Mouth, Daily, # 30 tablet, 6 Refills, Maintenance, 08/12/20 9:28:00 EST, Tablet, [facility]/pharmacy #[id number], Partial fill upon patient request if [...] drug. Start Date: 08/02/20 Status: Ordered Procrit 92474 u/ml injectable solution = 2,000 units, Subcutaneous [...] Hx of stem cell transplant [facility] 2019(Confirmed) 11/29/18 Active H/O prostate cancer TURP 2019(Confirmed) Active Impaired fasting blood sugar(Confirmed) Active Klinefelter's Syndrome(Confirmed) 6 Active Multiple lipomas(Confirmed) 7 Active Hypogonadism, male(Confirmed) Active MDS (myelodysplastic syndrom e)/stem cell transplant 2018(Confirmed) 8 Active Pneumonia RUL(Confirmed) 06/12/19 Active Psoriasis(Confirmed) Active Fatty liver(Confirmed) 9, 10 Active 1+2014 2refer GI colonoscopy 3tubular adenoma 4quit 2012 4qiazqtfGxs9vamj kit 6758.7 7back,abd 8refer bone marrow biopsy [facility] 9Negative hepatitis C antibody negative hepatitis C surface antigen positive hepatitis B surface antibody, negative CHARLEE, normal SPEP, normal iron 10Sonogram May 2017 Social History Social History Type Response Smoking Status Former smoker, quit more than 30 days ago entered on: 01/22/20 Sex
--- OUTSIDE RECORDS SUMMARY | 2023-05-04 12:40 | XMS_ITS | Continuity of Care Document ---
Author Name Unknown Organization [facility] Address [address] [place] [address]- Care Team Providers Care Meat Cooler Name Role Phone Roseann DILLON, Domenico Ramirez Primary Care Physician Encounter [facility] Date(s): 08/08/19 - 10/10/19 [facility] Adult [address] [place] [address]- [facility] Attending Physician: Not on Staff, Attending MD [...] Note: rcvd at work 2Result Comment: [08/06/2017] [facility] [id number] 3Result Comment: [03/08/2018] [facility]-[id number] 4Result Comment: [08/06/2017] [facility] 5Result Comment: [03/16/2015] HIGH DOSE, RECIEVED AT [facility] [address] 6Admin Note: rcvd at work 7Admin Note: rcvd elsewhere 8Admin Note: rcvd at work Medications AndroGel Pump 20.25 mg/actuation (1.62%) transdermal gel = 40.5 mg, Topically, Daily in AM, apply to clean, dry, intact skin, wash hands thoroughly after application, # 75 Gm, 2 Refills, Maintenance, 07/11/19 16:03:00 EST, [facility]/pharmacy #[id number], 177, cm, 06/16/19 11:25:00 [...] 2refer GI colonoscopy 3tubular adenoma 4quit 2012 5zluvgvxXck1wctb kit 6reminded 7new onset;to contact advise of pre diabetes;increased risk diabetes 8758.7 9back,abd 10refer bone marrow biopsy [facility] 11Negative hepatitis C antibody negative hepatitis C surface antigen positive hepatitis B surface antibody, negative CHARLEE, normal SPEP, normal iron 12Sonogram May 2017 Social History Social History Type Response Smoking Status Current every day teri maldonado; Other: e-cig; entered on: 08/06/17 Sex
--- OUTSIDE RECORDS SUMMARY | 2023-05-04 12:40 | XMS_ITS | Continuity of Care Document ---
Author Name Unknown Organization [facility] Address [address] [place] [address]- Care Team Providers Care Chief Hydroelectric Station Operator Name Role Phone Roseann DILLON, Domenico Ramirez Primary Care Physician [phone] [place] [facility] [place]28[place] - 02/27/21 [facility] Adult [address] [place] [address]- Attending Physician: Admtr, Ar8 Allergies, Adverse Reactions, [...] Vaccine (oldterm) 06/11/00 Given 1Result Comment: [08/06/2017] [facility] [id number] 2Admin Note: rcvd at work 3Result Comment: [03/08/2018] [facility]-[id number] 4Result Comment: [08/06/2017] [facility] 5Result Comment: [03/16/2015] HIGH DOSE, RECIEVED AT [facility] [address] 6Admin Note: rcvd at work 7Admin Note: rcvd elsewhere 8Admin Note: rcvd at work Medications AndroGel Pump 20.25 mg/actuation (1.62%) transdermal gel = 40.5 mg, Topically, Daily in AM, apply to clean, dry, intact skin, wash hands thoroughly after application, # 75 Gm, 2 Refills, Maintenance, 07/11/19 16:03:00 EST, [facility]/pharmacy #[id number], 177, cm, 06/16/19 11:25:00 EST, Height, 70.8, kg, 06/14/19 0:02:... Start Date: 07/11/19 Status: Ordered atorvastatin 40 mg oral tablet 1 tablet = 40 mg, By Mouth, Daily, # 30 tablet, 6 Refills, Maintenance, 08/12/20 9:28:00 EST, Tablet, [facility]/pharmacy #[id number], Partial fill upon patient [...] drug. Start Date: 08/02/20 Status: Ordered Procrit 08717 u/ml injectable solution = 2,000 units, Subcutaneous [...] 2refer GI colonoscopy 3tubular adenoma 4quit 2012 7cgywzxtCqg2svrt kit 6758.7 7back,abd 8refer bone marrow biopsy [facility] 9Negative hepatitis C antibody negative hepatitis C surface antigen positive hepatitis B surface antibody, negative CHARLEE, normal SPEP, normal iron 10Sonogram May 2017 Procedures Procedure Date Related Diagnosis Body Site Status Bone marrow biopsy 01/03/21 Comple [facility] Reference laboratory a1c 6.0 1 01/03/21 Completed Reference laboratory 2 09/14/20 Co mpleted Colonoscopy, flexible, proxi mal to splenic flexure; diagnostic, with or without collection of specimen(s) by brushing or washing, with or without colon decompression (separate procedure) 3 07/02/11 Completed Reference (Outside) Laboratory 4 08/18/10 Completed laboratory 5 03/19/09 Completed 1Outside labs January 03, 2021 [facility] vitamin D 25-hydroxy is 30 sodium 138 potassium 3.7 chloride 106 bicarb 22 random glucose 130 creatinine 2.04 EGFR 34 calcium 9.1 total protein 6.3 AST elevated 46 ALT elevated 47 BUN 39 cholesterol total 257 triglycerides 264 HDL 60 LDL 144 non-HDL 197 white count 6.2 hemoglobin 10.1 platelets 200 and 1K A1c 6.0 2Blood work [facility] September 14, 2020 white count 4.9 hemoglobin 10.6 platelet one 84,000 sodium 139 potassium 4.2 chloride 108 bicarb 26 glucose 93 creatinine 1.84 liver function normal BUN 38 EGFR 38 magnesium 1.8 ABO blood type is O LDH 194 Testosterone low 48.2 3large bsessile polyp 4low testosterone 5fbs 103,LDL 169, TC 281,TG 266,HDL 41 Social History Social History Type Response Smoking Status Former smoker, quit more than 30 days ago entered on: 01/22/20 Sex
--- OUTSIDE RECORDS SUMMARY | 2023-05-04 12:40 | XMS_ITS | Continuity of Care Document ---
Author Name Unknown Organization [facility] Address [address] [place] [address]- Care Team Providers Care Milk House Worker Name Role Phone Tiago Greenberg DO Primary Care Physician Encounter [facility] Date(s): 03/02/23 - 04/01/23 [facility] Adult [address] [place] [address]- Attending Physician: Admtr, Ar8 Allergies, Adverse Reactions, [...] Vaccine (oldterm) 06/11/00 Given 1Result Comment: [08/06/2017] [facility] [id number] 2Admin Note: rcvd at work 3Result Comment: [03/08/2018] [facility]-[id number] 4Result Comment: [08/06/2017] [facility] 5Result Comment: [03/16/2015] HIGH DOSE, RECIEVED AT [facility] [address] 6Admin Note: rcvd at work 7Admin Note: rcvd elsewhere 8Admin Note: rcvd at work Medications AndroGel Pump 20.25 mg/actuation (1.62%) transdermal gel = 40.5 mg, Topically, Daily in AM, apply to clean, dry, intact skin, wash hands thoroughly after application, # 75 Gm, 2 Refills, Maintenance, 07/11/19 16:03:00 EST, [facility]/pharmacy #[id number], 177, cm, 06/16/19 11:25:00 EST, Height, 70.8, kg, 06/14/19 0:02:... Start Date: 07/11/19 Status: Ordered atorvastatin 40 mg oral tablet 1 tablet = 40 mg, By Mouth, Daily, # 30 tablet, 6 Refills, Maintenance, 08/12/20 9:28:00 EST, Tablet, [facility]/pharmacy #[id number], Partial fill upon patient request if [...] drug. Start Date: 08/02/20 Status: Ordered Procrit 70034 u/ml injectable solution = 2,000 units, Subcutaneous [...] Date: 06/13/19 Status: Ordered Problem List Condition Confirmation Course Effective Dates Status H ealth Status Informant Acute COVID-19 Confirmed 02/06/22 Active Adenomatous polyp of colon/colonoscopy 2014 1, 2, 3 Confirmed Active Bee sting allergy Confirmed Active Cheilitis Confirmed Active Low vitamin D level Confirmed Active Ex-cigarette smoker referred LDCT no show 4, 5 Confirmed Active Familial hyperlipidemia Confirmed Active Hx of stem cell transplant [facility] 2019 Confirmed 11/29/18 Active H/O prostate cancer TURP 2018 Confirmed Active Impaired fasting blood sugar Confirmed Active Klinefelter's Syndrome 6 Confirmed Active Multiple lipomas 7 Confirmed Active Hypogonadism, male Confirmed Active MDS (myelodysplastic syndrome)/stem cell transplant 2018 8 Confirmed Active Pneumonia RUL Confirmed 06/12/19 Active Psoriasis Confirmed Active Fatty liver 9, 10 Confirmed Active 1+2014 2refer GI colonoscopy 3tubular adenoma 4quit 2012 0xfldrogQrl4hixm kit 6758.7 7back,abd 8refer bone marrow biopsy [facility] 9Negative hepatitis C antibody negative hepatitis C surface antigen positive hepatitis B surface antibody, negative CHARLEE, normal SPEP, normal iron May 2017 Procedures Procedure Date Related Diagnosis [...] 03/19/09 Completed 1Outside labs January 03, 2021 [facility] [email or web address]] vitamin D 25-hydroxy is 30 sodium 138 potassium 3.7 chloride 106 bicarb 22 random glucose 130 creatinine 2.04 EGFR 34 calcium 9.1 total protein 6.3 AST elevated 46 ALT elevated 47 BUN 39 cholesterol total 257 triglycerides 264 HDL 60 LDL 144 non-HDL 197 white count 6.2 hemoglobin 10.1 platelets 200 and 1K A1c 6.0 2Blood work [facility] September 14, 2020 white count 4.9 [...] 30 days ago entered on: 01/22/20 Sex Cardiology * Event Display: Cardiology Office Note, Non-BH Authored Date: * Event Display: Non BH Cardiovascular Results Authored Date: * Event Display: Non BH Cardiovascular Results Authored Date: Laboratory * Event Display: Laboratory Result Scanned Authored Date: * Event Display: Non BH Lab Results Authored Date: * Event Display: Non BH Lab Results Authored Date: Radiology * Event Display: X-Ray Chest, Non- BH Authored Date: * Event Display: Ultrasound Lower Extremity, Non-BH Authored Date: * Event Display: IR Special Procedures, Non- Authored Date: * Event Display: Radiology Result Scanned Authored Date: * Larissa Lafleur: PERFORM Event Display: Radiology Results Scanned Authored Date: [id number] Patient Care team information Care Team Personnel Name: Susana Mariee RN Position: S RN Member Role: Primary Care Nurse Name: Christin Godinez NP Position: [facility] PCO Associate Professional Member Role: Lifetime Consulting Provider Address: Address: [address] [place] [address] - [place] Name: Tate Guerra MD Position: [facility] Renal MD Member Role: Lifetime Consulting Physician Address: Address: [address] [place] [address], [address] [facility] [place] [address]- [place] Name: Ramiro De RN Position: [facility] RN Member Role: Primary Care Nurse Name: Hannah Torres RN Position: [facility] ED RN W/OE and Tasks Member Role: Primary Care Nurse Name: Tiago Greenberg DO Position: [facility] Physician - Primary Care Member Role: PCP Address: Address: [address] [place] [address] [facility] [place], [place] - [place] Name: Litzy Ibarra RN Position: [facility] RN Member Role: Primary Care Nurse Care Team Related Persons Name: NANCY AVILA Address: [address] [place] [address]
--- OUTSIDE RECORDS SUMMARY | 2023-05-04 12:40 | XMS_ITS | Continuity of Care Document ---
Author Name Unknown Organization [facility] Dhaval lt Address [address] [place] [address]- Care Team Providers Care Machinist/Machine Builder Name Role Phone Tiago Greenberg DO Primary Care Physician [phone] [facility] Date(s): 03/01/23 - 03/31/23 [facility] Adult [address] [place] [address]- Allergies, Adverse Reactions, Alerts Substance Reaction Severity [...] Vaccine (oldterm) 06/11/00 Given 1Result Comment: [08/06/2017] [facility] 52008-261-93 2Admin Note: rcvd at work 3Result Comment: [03/08/2018] [facility]-[id number] 4Result Comment: [08/06/2017] [facility] 5Result Comment: [03/16/2015] HIGH DOSE, RECIEVED AT [facility] 6Admin Note: rcvd at work 7Admin Note: rcvd elsewhere 8Admin Note: rcvd at work Medications AndroGel Pump 20.25 mg/actuation (1.62%) transdermal gel = 40.5 mg, Topically, Daily in AM, apply to clean, dry, intact skin, wash hands thoroughly after application, # 75 Gm, 2 Refills, Maintenance, 07/11/19 16:03:00 EST, [facility]/pharmacy #[id number], 177, cm, 06/16/19 11:25:00 EST, Height, 70.8, kg, 06/14/19 0:02:... Start Date: 07/11/19 Status: Ordered atorvastatin 40 mg oral tablet 1 tablet = 40 mg, By Mouth, Daily, # 30 tablet, 6 Refills, Maintenance, 08/12/20 9:28:00 EST, Tablet, [facility]/pharmacy #[id number], Partial fill upon patient request [...] drug. Start Date: 08/02/20 Status: Ordered Procrit 91384 u/ml injectable solution = 2,000 units, Subcutaneous [...] 2refer GI colonoscopy 3tubular adenoma 4quit 2012 2adnhzojDlo6azqb kit 6758.7 7back,abd 8refer bone marrow biopsy [place] 9Negative hepatitis C antibody negative hepatitis C surface antigen positive hepatitis B surface antibody, negative CHARLEE, normal SPEP, normal iron 10Sonogram May 2017 Social History Social History Type Response Smoking Status Former smoker, quit more than 30 days ago entered on: 01/22/20 Sex Patient Care team information Care Team Personnel Name: Susana Mariee RN Position: [facility] RN Member Role: Primary Care Nurse Name: Christin Godinez NP Position: [facility] PCO Associate Professional Member Role: Lifetime Consulting Provider Address: Address: [address] [place] [address]- [place] Name: Tate Guerra MD Position: [facility] Renal MD Member Role: Lifetime Consulting Physician Address: Address: [address] [place] [address], [address] [facility] [place] [address]- [place] Name: Ramiro De RN Position: [facility] RN Member Role: Primary Care Nurse Name: Hannah Torres RN Position: [facility] ED RN W/OE and Tasks Member Role: Primary Care Nurse Name: Tiago Greenberg DO Position: [facility] Physician - Primary Care Member Role: PCP Address: Address: [address] [place] [address] [place] [address]- [place] Name: Litzy Ibarra RN Position: [facility] RN Member Role: Primary Care Nurse Care Team Related Persons Name: NANCY AVILA Address: home [address] [place] [address]
--- OUTSIDE RECORDS SUMMARY | 2023-05-04 12:40 | XMS_ITS | Continuity of Care Document ---
Author Name Unknown Organization [facility] Dhaval lt Address [address] [place] [address]- Care Team Providers Care 911 Emergency Dispatcher Name Role Phone Roseann DILLON, Domenico Ramirez Primary Care Physician [phone] [facility]counter [facility] Date(s): 06/09/21 - 07/09/21 [facility] Adult [address] [place] [address]- Allergies, Adverse Reactions, Alerts Substance Reaction Severity [...] Vaccine (oldterm) 06/11/00 Given 1Result Comment: [08/06/2017] [facility] [id number] 2Admin Note: rcvd at work 3Result Comment: [03/08/2018] [facility]-[id number] 4Result Comment: [08/06/2017] [facility] 5Result Comment: [03/16/2015] HIGH DOSE, RECIEVED AT [facility] 6Admin Note: rcvd at work 7Admin Note: rcvd elsewhere 8Admin Note: rcvd at work Medications AndroGel Pump 20.25 mg/actuation (1.62%) transdermal gel = 40.5 mg, Topically, Daily in AM, apply to clean, dry, intact skin, wash hands thoroughly after application, # 75 Gm, 2 Refills, Maintenance, 07/11/19 16:03:00 EST, [facility]/pharmacy #[id number], 177, cm, 06/16/19 11:25:00 EST, Height, 70.8, kg, 06/14/19 0:02:... Start Date: 07/11/19 Status: Ordered atorvastatin 40 mg oral tablet 1 tablet = 40 mg, By Mouth, Daily, # 30 tablet, 6 Refills, Maintenance, 08/12/20 9:28:00 EST, Tablet, [facility]/pharmacy #[id number], Partial fill upon patient request if [...] drug. Start Date: 08/02/20 Status: Ordered Procrit 58145 u/ml injectable solution = 2,000 units, Subcutaneous [...] MDS (myelodysplastic syndrom e)/stem cell transplant 2019(Confirmed) 8 Active Pneumonia RUL(Confirmed) 06/12/19 Active Psoriasis(Confirmed) Active Fatty liver(Confirmed) 9, 10 Active 1+2014 2refer GI colonoscopy 3tubular adenoma 4quit 2012 6ubttfckGmb9abok kit 6758.7 7back,abd 8refer bone marrow biopsy [place] 9Negative hepatitis C antibody negative hepatitis C surface antigen positive hepatitis B surface antibody, negative CHARLEE, normal SPEP, normal iron 10SonMay 2017 Social History Social History Type Response Smoking Status Former smoker, quit more than 30 days ago entered on: 01/22/20 Sex
--- OUTSIDE RECORDS SUMMARY | 2023-05-04 12:40 | XMS_ITS | Continuity of Care Document ---
Author Name Unknown Organization [facility] Address [address] [place] [address]- Care Team Providers Care Process Eng Name Role Phone Domenico Whitfield MD Primary Care Physician [facility] 07[facility]11[facility]19 - 08/14/19 [facility] [address] [place] [address]- [facility] Attending Physician: Johann Costa MD Admitting Physician: Johann Costa MD Referring Physician: Domenico Whitfield MD Allergies, Adverse Reactions, [...] Note: rcvd at work 2Result Comment: [08/06/2017] [facility] [id number] 3Result Comment: [03/08/2018] [facility]-[id number] 4Result Comment: [08/06/2017] [facility] 5Result Comment: [03/16/2015] HIGH DOSE, RECIEVED AT [facility] 6Admin Note: rcvd at work 7Admin Note: rcvd elsewhere 8Admin Note: rcvd at work Medications AndroGel Pump 20.25 mg/actuation (1.62%) transdermal gel = 40.5 mg, Topically, Daily in AM, apply to clean, dry, intact skin, wash hands thoroughly after application, # 75 Gm, 2 Refills, Maintenance, 07/11/19 16:03:00 EST, [facility]/pharmacy #[id number], 177, cm, 06/16/19 11:25:00 [...] 2refer GI colonoscopy 3tubular adenoma 4quit 2012 0lmvddtlZfd5muck kit 6reminded 7new onset;to contact advise of [...]
--- OUTSIDE RECORDS SUMMARY | 2023-05-04 12:40 | XMS_ITS | Continuity of Care Document ---
Author Name Unknown Organization [facility] Dhaval lt Address [address] [place] [address]- Care Team Providers Care Mid Level Game Designer Name Role Phone Roseann DILLON, Domenico Ramirez Primary Care Physician [facility] Date(s): 02/10/22 - 03/12/22 [facility] Adult [address] [place] [address]- Allergies, Adverse Reactions, Alerts Substance Reaction Severity [...] vaccine 05/28/20 Recorded hepatitis B adult vaccine 7/21/20 Recorded Influenza Virus Vaccine (oldterm) 04/22/19 Recorde [...] Vaccine (oldterm) 06/11/00 Given 1Result Comment: [08/06/2017] [facility] [id number] 2Admin Note: rcvd at work 3Result Comment: [03/08/2018] [facility]-[id number] 4Result Comment: [08/06/2017] [facility] 5Result Comment: [03/16/2015] HIGH DOSE, RECIEVED AT [facility] 6Admin Note: rcvd at work 7Admin Note: rcvd elsewhere 8Admin Note: rcvd at work Medications AndroGel Pump 20.25 mg/actuation (1.62%) transdermal gel = 40.5 mg, Topically, Daily in AM, apply to clean, dry, intact skin, wash hands thoroughly after application, # 75 Gm, 2 Refills, Maintenance, 07/11/19 16:03:00 EST, [facility]/pharmacy #[id number], 177, cm, 06/16/19 11:25:00 EST, Height, 70.8, kg, 06/14/19 0:02:... Start Date: 07/11/19 Status: Ordered atorvastatin 40 mg oral tablet 1 tablet = 40 mg, By Mouth, Daily, # 30 tablet, 6 Refills, Maintenance, 08/12/20 9:28:00 EST, Tablet, [facility]/pharmacy #[id number], Partial fill upon patient [...] drug. Start Date: 08/02/20 Status: Ordered Procrit 17702 u/ml injectable solution = 2,000 units, Subcutaneous [...] 2refer GI colonoscopy 3tubular adenoma 4quit 2012 2iyoqnabQfn4gerc kit 6758.7 7back,abd 8refer bone marrow biopsy [place] 9Negative hepatitis C antibody negative hepatitis C surface antigen positive hepatitis B surface antibody, negative CHARLEE, normal SPEP, normal iron 10SonMay 2017 Social History Social History Type Response Smoking Status Former smoker, quit more than 30 days ago entered on: 01/22/20 Sex Patient Care team information Personnel Name: Roseann DILLON, Domenico Ramirez Address: Address: [address] [place] [id number]
--- OUTSIDE RECORDS SUMMARY | 2023-05-04 12:40 | XMS_ITS | Continuity of Care Document ---
Author Name Unknown Organization [facility] Dhaval lt Address [address] [place] [address]- Care Team Providers Care Sales Service Professional Name Role Phone Tiago Greenberg DO Primary Care Physician [phone] [facility] Date(s): 03/02/23 - 04/01/23 [facility] Adult [address] [place] [address]- Allergies, Adverse Reactions, Alerts Substance Reaction Severity [...] Vaccine (oldterm) 06/11/00 Given 1Result Comment: [08/06/2017] [facility] [id number] 2Admin Note: rcvd at work 3Result Comment: [03/08/2018] [facility]-[id number] 4Result Comment: [08/06/2017] [facility] 5Result Comment: [03/16/2015] HIGH DOSE, RECIEVED AT [facility] 6Admin Note: rcvd at work 7Admin Note: rcvd elsewhere 8Admin Note: rcvd at work Medications AndroGel Pump 20.25 mg/actuation (1.62%) transdermal gel = 40.5 mg, Topically, Daily in AM, apply to clean, dry, intact skin, wash hands thoroughly after application, # 75 Gm, 2 Refills, Maintenance, 07/11/19 16:03:00 EST, [facility]/pharmacy #[id number], 177, cm, 06/16/19 11:25:00 EST, Height, 70.8, kg, 06/14/19 0:02:... Start Date: 07/11/19 Status: Ordered atorvastatin 40 mg oral tablet 1 tablet = 40 mg, By Mouth, Daily, # 30 tablet, 6 Refills, Maintenance, 08/12/20 9:28:00 EST, Tablet, [facility]/pharmacy #[id number], Partial fill upon [...] drug. Start Date: 08/02/20 Status: Ordered Procrit 91378 u/ml injectable solution = 2,000 units, Subcutaneous [...] 2refer GI colonoscopy 3tubular adenoma 4quit 2012 3snxgovqSuk7ezem kit 6758.7 7back,abd 8refer bone marrow biopsy [place] 9Negative hepatitis C antibody negative hepatitis C surface antigen positive hepatitis B surface antibody, negative CHARLEE, normal SPEP, normal iron 10SonMay 2017 Social History Social History Type Response Smoking Status Former smoker, quit more than 30 days ago entered on: 01/22/20 Sex Patient Care team information Care Team Personnel Name: Susana Mariee RN Position: [facility] RN Member Role: Primary Care Nurse Name: Christin Godinez NP Position: [facility] PCO Associate Professional Member Role: Lifetime Consulting Provider Address: Address: [address] [place] [address]- [place] Name: Tate Guerra MD Position: [facility] Renal MD Member Role: Lifetime Consulting Physician Address: Address: [address] [place] [address], [address] [facility] [address]- [place] Name: Ramiro De RN Position: [facility] RN Member Role: Primary Care Nurse Name: Hannah Torres RN Position: [facility] ED RN W/OE and Tasks Member Role: Primary Care Nurse Name: Tiago Greenberg DO Position: [facility] Physician - Primary Care Member Role: PCP Address: Address: [address] [place] [address] [place] [address]- [place] Name: Litzy Ibarra RN Position: [facility] RN Member Role: Primary Care Nurse Care Team Related Persons Name: NANCY AVILA Address: home [address] [place] [address] [place] [address]
--- OUTSIDE RECORDS SUMMARY | 2023-05-04 12:40 | XMS_ITS | Continuity of Care Document ---
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) - 08/01/20 Familial hyperlipidemia(Discharge Diagnosis) - 08/01/20 Adenomatous polyp of colon(Discharge Diagnosis) - 08/01/20 Fatty liver(Discharge Diagnosis) - 08/01/20 Hx of stem cell transplant;[facility]cy(Discharge Diagnosis) - 08/01/20 MDS (myelodysplastic syndrome)/stem cell transplant 2019(Discharge Diagnosis) - 08/01/20 Low vitamin D level(Discharge Diagnosis) - 08/01/20 Chronic renal impairment, stage 3 (moderate)(Discharge Diagnosis) - 08/02/20 Attending Physician: Domenico Whitfield MD Allergies, Adverse [...] Note: rcvd at work 2Result Comment: [08/06/2017] [facility] [id number] 3Result Comment: [03/08/2018] [facility]-[id number] 4Result Comment: [08/06/2017] [facility] 5Result Comment: [03/16/2015] HIGH DOSE, RECIEVED AT [...] 06/14/19 0:02:... Start Date: 07/11/19 Status: Ordered budesonide 3 mg oral delayed [...] drug. Start Date: 08/02/20 Status: Ordered Procrit 02123 u/ml injectable solution = 2,000 units, Subcutaneous [...] Hx of stem cell transplant;mercy(Confirmed) 11/29/18 Active Impaired fasting blood sugar(Confirmed) Active Klinefelter's Syndrome(Confirmed) 6 Active Multiple lipomas(Confirmed) 7 Active Hypogonadism, male(Confirmed) Active Cancer of prostate turp 2018(Confirmed) Active MDS (myelodysplastic syndrom e)/stem cell transplant 2019(Confirmed) 8 Active Pneumonia RUL(Confirmed) 06/12/19 Active Psoriasis(Confirmed) Active Fatty liver(Confirmed) 9, 10 Active 1+2014 2refer GI colonoscopy 3tubular adenoma 4quit 2012 7xtjhagcVlw1rewx kit 6758.7 7back,abd 8refer bone marrow biopsy [facility] 9Negative hepatitis C antibody negative hepatitis C surface antigen positive hepatitis B surface antibody, negative CHARLEE, normal SPEP, normal iron May 2017 Diagnosis Diagnosis Type Effective Dates Health Status Clinical Service Informant Steroid-induced diabetes [place] Discharge Diagnosis 08/01/20 Fatty liver Discharge Diagnosis 08/01/20 Adenomatous polyp of colon Discharge Diagnosis 08/01/20 Familial hyperlipidemia Discharge Diagnosis 08/01/20 Low vitamin D level Discharge Diagnosis 08/01/20 MDS (myelodysplastic syndrome)/stem cell transplant 2019 Discharge Diagnosis 08/01/20 Hx of stem cell transplant;mercy Discharge Diagnosis 08/01/20 Chronic renal impairment, stage 3 (moderate) Discharge Diagnosis 08/02/20 Procedures Procedure Date Related Diagnosis Body Site Status Reference laboratory 1 01/22/20 Co mpleted Reference laboratory 2 07/20/19 Co mpleted 1Labs drawn January 22, 2020 Sodium 138 potassium 4.2 chloride 107 bicarb 21 glucose 86 creatinine 2.53 EGFR 26 total cholesterol 284 triglycerides 334 LDL 159 2wbc 4.1 hg b8.8 plt 181 bun 34 creat 2.01 egfr 35 niesha 8.9alk phos 123 ast 38 alt 39 Vital Signs Most recent to oldest [Reference Range]: 1 Height 177 cm (08/02/20 3:21 PM) Weight 78.3 kg (08/02/20 3:21 PM) Oxygen Saturation [94-100 %] 98 % (08/02/20 3:21 PM) Pulse Rate [55-90 bpm] 84 bpm (08/02/20 3:21 PM) Body Mass Index [18.5-24.99] 24.99 (08/02/20 3:21 PM) Blood Pressure [90-138/55-84 mm Hg] 124/ 76mm Hg (08/02/20 3:21 PM) Respiratory Rate [16-30 br/min] 16 br/mi n (08/02/20 3:21 PM) Blood pressure sites Arm, left (08/02/20 3:21 PM) Social History Social History Type Response Smoking Status Former smoker, quit more than 30 days ago entered on: 01/22/20 Sex
--- OUTSIDE RECORDS SUMMARY | 2023-05-04 12:40 | XMS_ITS | Continuity of Care Document ---
Author Name Unknown Organization [facility] Dhaval lt Address [address] [place] [address]- Care Team Providers Care Test Fixture Designer Name Role Phone Roseann DILLON, Domenico Ramirez Primary Care Physician [phone] [facility] Date(s): 06/12/19 - 06/19/19 [facility] Adult [address] [place] [address]- [place] Encounter Diagnosis Back pain(Discharge Diagnosis) - 06/12/19 Attending Physician: Not on Staff, Attending MD [...] Note: rcvd at work 2Result Comment: [08/06/2017] [facility] [id number] 3Result Comment: [03/08/2018] [facility]-[id number] 4Result Comment: [08/06/2017] [facility] 5Result Comment: [03/16/2015] HIGH DOSE, RECIEVED AT [facility] 6Admin Note: rcvd at [...] 2refer GI colonoscopy 3tubular adenoma 4quit 2012 3nvyszybZhi8kjqe kit 6reminded 7new onset;to contact advise of pre diabetes;increased risk diabetes 8758.7 9back,abd 10refer bone marrow biopsy [place] 11Negative hepatitis C antibody negative hepatitis C surface antigen positive hepatitis B surface antibody, negative CHARLEE, normal SPEP, normal iron 12SonMay 2017 Diagnosis Diagnosis Type Effective Dates Health Status Clini niesha Service Informant Back pain Discharge Diagnosis 06/12/19 Vital Signs Most recent to oldest [Reference Range]: 1 Height 176.5 cm (06/12/19 3:38 PM) Weight 67.5 kg (06/12/19 3:38 PM) Oxygen Saturation [94-100 %] 96 % (06/12/19 3:38 PM) Pulse Rate [55-90 bpm] 118 bpm *H* (06/12/19 3:38 PM) Body Mass Index [18.5-24.99] 21.67 (06/12/19 3:38 PM) Blood Pressure [90-138/55-84 mm Hg] 128/ 84mm Hg (06/12/19 3:38 PM) Temperature [96.8-100.4 DegF] 99.3 DegF (06/12/19 3:38 PM) Blood pressure sites Arm, right (06/12/19 3:38 PM) Temperature Route Oral (06/12/19 3:38 PM) Social History Social History Type Response Smoking Status Current every day sm oker; Other: e-cig; entered on: 08/06/17 Sex
--- OUTSIDE RECORDS SUMMARY | 2023-05-04 12:40 | XMS_ITS | Continuity of Care Document ---
Author Name Unknown Organization [facility] Dhaval lt Address [address] [place] [address]- Care Team Providers Care Assistant Sales Center Manager Name Role Phone Roseann DILLON, Domenico Ramirez Primary Care Physician [facility] Date(s): 07/30/20 - 08/29/20 [facility] Adult [address] [place] [address]- Allergies, Adverse Reactions, Alerts Substance Reaction Severity [...] Note: rcvd at work 2Result Comment: [08/06/2017] [facility] [id number] 3Result Comment: [03/08/2018] [facility]-[id number] 4Result Comment: [08/06/2017] [facility] 5Result Comment: [03/16/2015] HIGH DOSE, RECIEVED AT [facility] 6Admin Note: rcvd at work 7Admin Note: rcvd elsewhere 8Admin Note: rcvd at work Medications AndroGel Pump 20.25 mg/actuation (1.62%) transdermal gel = 40.5 mg, Topically, Daily in AM, apply to clean, dry, intact skin, wash hands thoroughly after application, # 75 Gm, 2 Refills, Maintenance, 07/11/19 16:03:00 EST, [facility]/pharmacy #[id number], 177, cm, 06/16/19 11:25:00 EST, Height, 70.8, kg, 06/14/19 0:02:... Start Date: 07/11/19 Status: Ordered atorvastatin 40 mg oral tablet 1 tablet = 40 mg, By Mouth, Daily, # 30 tablet, 6 Refills, Maintenance, 08/12/20 9:28:00 EST, Tablet, [facility]/pharmacy #[id number], Partial fill upon patient request [...] drug. Start Date: 08/02/20 Status: Ordered Procrit 59472 u/ml injectable solution = 2,000 units, Subcutaneous [...] stem cell transplant;david(Confirmed) 11/29/18 Active Impaired fasting blood sugar(Confirmed) Active Klinefelter's Syndrome(Confirmed) 6 Active Multiple lipomas(Confirmed) 7 Active Hypogonadism, male(Confirmed) Active Cancer of prostate turp 2018(Confirmed) Active MDS (myelodysplastic syndrom e)/stem cell transplant 2018(Confirmed) 8 Active Pneumonia RUL(Confirmed) 06/12/19 Active Psoriasis(Confirmed) Active Fatty liver(Confirmed) 9, 10 Active 1+2014 2refer GI colonoscopy 3tubular adenoma 4quit 2012 5urqsywkGhy1qzwy kit 6758.7 7back,abd 8refer bone marrow biopsy [place] 9Negative hepatitis C antibody negative hepatitis C surface antigen positive hepatitis B surface antibody, negative CHARLEE, normal SPEP, normal iron 10Sonogram May 2017 Social History Social History Type Response Smoking Status Former smoker, quit more than 30 days ago entered on: 01/22/20 Sex
--- OUTSIDE RECORDS SUMMARY | 2023-05-04 12:40 | XMS_ITS | Continuity of Care Document ---
Author Name Unknown Organization [facility] Dhaval lt Address [address] [place] [address]- Care Team Providers Care Teacher Instrumental Name Role Phone Domenico Whitfield MD Primary Care Physician [facility] Date(s): 07/07/19 - 08/22/19 [facility] Adult [address] [place] [address]- [facility] Attending Physician: Domenico Whitfield MD Allergies, [...] Note: rcvd at work 2Result Comment: [08/06/2017] [facility] [id number] 3Result Comment: [03/08/2018] [facility]-[id number] 4Result Comment: [08/06/2017] [facility] 5Result Comment: [03/16/2015] HIGH DOSE, RECIEVED AT [facility] 6Admin Note: rcvd at work 7Admin Note: rcvd elsewhere 8Admin Note: rcvd at work Medications AndroGel Pump 20.25 mg/actuation (1.62%) transdermal gel = 40.5 mg, Topically, Daily in AM, apply to clean, dry, intact skin, wash hands thoroughly after application, # 75 Gm, 2 Refills, Maintenance, 07/11/19 16:03:00 EST, [facility]/pharmacy #[id number], 177, cm, 06/16/19 11:25:00 EST, Height, [...] 2refer GI colonoscopy 3tubular adenoma 4quit 2012 4oynycdhNig3uhyj kit 6reminded 7new onset;to contact advise of [...]
--- OUTSIDE RECORDS SUMMARY | 2023-05-04 12:40 | XMS_ITS | Continuity of Care Document ---
Author Name Unknown Organization [facility] Dhaval lt Address [address] [place] [address]- Care Team Providers Care Dealer Card Room Name Role Phone Tiago Greenberg DO Primary Care Physician Encounter [facility] Date(s): 03/02/23 - 03/09/23 [facility] Adult [address] [place] [address]- Encounter Diagnosis Acute cough(Discharge Diagnosis) - 03/02/23 Attending Physician: Not on Staff, Attending MD [...] Vaccine (oldterm) 06/11/00 Given 1Result Comment: [08/06/2017] [facility] [id number] 2Admin Note: rcvd at work 3Result Comment: [03/08/2018] [facility]-[id number] 4Result Comment: [08/06/2017] [facility] 5Result Comment: [03/16/2015] HIGH DOSE, RECIEVED AT [facility] 6Admin Note: rcvd at work 7Admin Note: rcvd elsewhere 8Admin Note: rcvd at work Medications AndroGel Pump 20.25 mg/actuation (1.62%) transdermal gel = 40.5 mg, Topically, Daily in AM, apply to clean, dry, intact skin, wash hands thoroughly after application, # 75 Gm, 2 Refills, Maintenance, 07/11/19 16:03:00 EST, [facility]/pharmacy #[id number], 177, cm, 06/16/19 11:25:00 EST, Height, 70.8, kg, 06/14/19 0:02:... Start Date: 07/11/19 Status: Ordered atorvastatin 40 mg oral tablet 1 tablet = 40 mg, By Mouth, Daily, # 30 tablet, 6 Refills, Maintenance, 08/12/20 9:28:00 EST, Tablet, [facility]/pharmacy #[id number], Partial fill upon patient request [...] drug. Start Date: 08/02/20 Status: Ordered Procrit 42753 u/ml injectable solution = 2,000 units, Subcutaneous [...] Confirmed 11/29/18 Active H/O prostate cancer TURP 2019 Confirmed Active Impaired fasting blood sugar Confirmed Active Klinefelter's Syndrome 6 Confirmed Active Multiple lipomas 7 Confirmed Active Hypogonadism, male Confirmed Active MDS (myelodysplastic syndrome)/stem cell transplant 2018 8 Confirmed Active Pneumonia RUL Confirmed 06/12/19 Active Psoriasis Confirmed Active Fatty liver 9, 10 Confirmed Active 1+2014 2refer GI colonoscopy 3tubular adenoma 4quit 2012 2pkwedsgSly6gtbq kit 6758.7 7back,abd 8refer bone marrow biopsy [place] 9Negative hepatitis C antibody negative hepatitis C surface antigen positive hepatitis B surface antibody, negative CHARLEE, normal SPEP, normal iron 10SonMay 2017 Diagnosis Diagnosis Type Effective Dates Health Status Clini niesha Service Informant Acute cough Discharge Diagnosis 03/02/23 Vital Signs Most recent to oldest [Reference Range]: 1 Height 177 cm (03/02/23 6:51 AM) Weight 75.2 kg (03/02/23 6:51 AM) Oxygen Saturation [94-100 %] 99 % (03/02/23 6:51 AM) Pulse Rate [55-90 bpm] 113 bpm *H* (03/02/23 6:51 AM) Body Mass Index [18.5-24.99 kg/m2] 24 kg /m2 (03/02/23 6:51 AM) Blood Pressure [90-138/55-84 mm Hg] 114/ 66mm Hg (03/02/23 6:51 AM) Temperature [96.8-100.4 DegF] 98.9 DegF (03/02/23 6:51 AM) Blood pressure sites Arm, left (03/02/23 6:51 AM) Temperature Route Oral (03/02/23 6:51 AM) Weight Obtained Via Standing scale (03/02/23 6:51 AM) Social History Social History Type Response Smoking Status Former smoker, quit more than 30 days ago entered on: 01/22/20 Sex Patient Care team information Care Team Personnel Name: Susana Mariee RN Position: [facility] RN Member Role: Primary Care Nurse Name: Christin Godinez NP Position: [facility] PCO Associate Professional Member Role: Lifetime Consulting Provider Address: Address: [address] [place] [address]- Name: Tate Guerra MD Position: [facility] Renal MD Member Role: Lifetime Consulting Physician Address: Address: [address] [place] [address], [address] [facility] [place], [place] [address] Name: Ramiro De RN Position: [facility] RN Member Role: Primary Care Nurse Name: Hannah Torres RN Position: [facility] ED RN W/OE and Tasks Member Role: Primary Care Nurse Name: Tiago Greenberg DO Position: [facility] Physician - Primary Care Member Role: PCP Address: Address: [address] [place] [address] Adult [place], [place] [address] Name: Litzy Ibarra RN Position: [facility] RN Member Role: Primary Care Nurse Care Team Related Persons Name: NANCY AVILA Address: home [address] [place] [place] [address]
--- OUTSIDE RECORDS SUMMARY | 2023-05-04 12:40 | XMS_ITS | Continuity of Care Document ---
Author Name Unknown Organization [facility] Ray Dhaval lt Address [address] [place] [address]- Care Team Providers Care Field Installer Name Role Phone Domenico Whitfield MD Primary Care Physician Encounter [facility] Date(s): 01/19/21 - 01/26/21 [facility] Adult [address] [place] [address]- Encounter Diagnosis Low back pain(Discharge Diagnosis) - 01/19/21 Attending Physician: Not on Staff, Attending MD Referring Physician: Domenico Whitfield MD Allergies, Adverse Reactions, Alerts Substance Reaction Severity Status Bee Stings Active Immunizations Given and Recorded Vaccine Date Status Refusal Reason pneumococcal 13-valent vaccine 11/09/20 Recorded pneumococcal 13-valent [...] Given 1Result Comment: [08/06/2017] [facility] [id number] 2Admin Note: rcvd at work 3Result Comment: [03/08/2018] [facility]-[id number] 4Result Comment: [08/06/2017] [facility] 5Result Comment: [03/16/2015] HIGH DOSE, RECIEVED AT [facility] [address] 6Admin Note: rcvd at work 7Admin Note: rcvd elsewhere 8Admin Note: rcvd at work Medications AndroGel Pump 20.25 mg/actuation (1.62%) transdermal gel = 40.5 mg, Topically, Daily in AM, apply to clean, dry, intact skin, wash hands thoroughly after application, # 75 Gm, 2 Refills, Maintenance, 07/11/19 16:03:00 EST, [facility]/pharmacy #[id number], 177, cm, 06/16/19 11:25:00 EST, Height, 70.8, kg, 06/14/19 0:02:... Start Date: 07/11/19 Status: Ordered atorvastatin 40 mg oral tablet 1 tablet = 40 mg, By Mouth, Daily, # 30 tablet, 6 Refills, Maintenance, 08/12/20 9:28:00 EST, Tablet, [facility]/pharmacy #[id number], Partial fill upon patient request if [...] EST, Capsule Start Date: 04/23/19 Status: Ordered cyclobenzaprine 10 mg oral tablet 10 mg, 1, tablet, By Mouth, 3 times a day, PRN, for 10 days, # 30 tablet, Refills 0, Tot. Refills 0, Acute 01/29/21 11:42:00 EDT, for spasm, 01/19/21 11:42:00 EDT, Route to Pharmacy Electronically, [facility]/pharmacy #[id number], Partial fill upon patient request... Start Date: 01/19/21 Stop Date: 01/29/21 Status: Ordered docusate sodium 100 mg oral [...] drug. Start Date: 08/02/20 Status: Ordered Procrit 74386 u/ml injectable solution = 2,000 units, Subcutaneous [...] 2refer GI colonoscopy 3tubular adenoma 4quit 2012 7ulvviixXsu1xyva kit 6758.7 7back,abd 8refer bone marrow biopsy [place] 9Negative hepatitis C antibody negative hepatitis C surface antigen positive hepatitis B surface antibody, negative CHARLEE, normal SPEP, normal iron 10SonMay 2017 Diagnosis Diagnosis Type Effective Dates Health Status Cl inical Service Informant Low back pain Discharge Diagnosis 01/19/21 Vital Signs Most recent to oldest [Reference Range]: 1 Height 177 cm (01/19/21 11:05 AM) Weight 78.7 kg (01/19/21 11:05 AM) Oxygen Saturation [94-100 %] 99 % (01/19/21 11:05 AM) Pulse Rate [55-90 bpm] 98 bpm *H* (01/19/21 11:05 AM) Body Mass Index [18.5-24.99] 25.12 *H* (01/19/21 11:05 AM) Blood Pressure [90-138/55-84 mm Hg] 129/ 84mm Hg (01/19/21 11:05 AM) Temperature [96.8-100.4 DegF] 97.7 DegF (01/19/21 11:05 AM) Blood pressure sites Arm, right (01/19/21 11:05 AM) Temperature Route Oral (01/19/21 11:05 AM) Weight Obtained Via Standing scale (01/19/21 11:05 AM) Social History Social History Type Response Smoking Status Former smoker, quit more than 30 days ago entered on: 01/22/20 Sex
--- OUTSIDE RECORDS SUMMARY | 2023-05-04 12:40 | XMS_ITS | Continuity of Care Document ---
Author Name Unknown Organization [facility] Dhaval lt Address [address] [place] [address]- Care Team Providers Care Land Surveyor Manager Name Role Phone Roseann DILLON, Domenico Ramirez Primary Care Physician [facility]counter [facility] Date(s): 02/07/22 - 03/09/22 [facility] Adult [address] [place] [address]- Allergies, Adverse Reactions, Alerts Substance Reaction Severity [...] Vaccine (oldterm) 06/11/00 Given 1Result Comment: [08/06/2017] [facility] [id number] 2Admin Note: rcvd at work 3Result Comment: [03/08/2018] [facility]-[id number] 4Result Comment: [08/06/2017] [facility] 5Result Comment: [03/16/2015] HIGH DOSE, RECIEVED AT [facility] 6Admin Note: rcvd at work 7Admin Note: rcvd elsewhere 8Admin Note: rcvd at work Medications AndroGel Pump 20.25 mg/actuation (1.62%) transdermal gel = 40.5 mg, Topically, Daily in AM, apply to clean, dry, intact skin, wash hands thoroughly after application, # 75 Gm, 2 Refills, Maintenance, 07/11/19 16:03:00 EST, [facility]/pharmacy #[id number], 177, cm, 06/16/19 11:25:00 EST, Height, 70.8, kg, 06/14/19 0:02:... Start Date: 07/11/19 Status: Ordered atorvastatin 40 mg oral tablet 1 tablet = 40 mg, By Mouth, Daily, # 30 tablet, 6 Refills, Maintenance, 08/12/20 9:28:00 EST, Tablet, [facility]/pharmacy #[id number], Partial fill upon [...] drug. Start Date: 08/02/20 Status: Ordered Procrit 11263 u/ml injectable solution = 2,000 units, Subcutaneous [...] 2refer GI colonoscopy 3tubular adenoma 4quit 2012 5ihddimmMgq6alpl kit 6758.7 7back,abd 8refer bone marrow biopsy [place] 9Negative hepatitis C antibody negative hepatitis C surface antigen positive hepatitis B surface antibody, negative CHARLEE, normal SPEP, normal iron 10SonMay 2017 Social History Social History Type Response Smoking Status Former smoker, quit more than 30 days ago entered on: 01/22/20 Sex Patient Care team information Personnel Name: Roseann DILLON, Domenico Ramirez Address: Address: [address] [place] [id number]
--- OUTSIDE RECORDS SUMMARY | 2023-05-04 12:40 | XMS_ITS | Continuity of Care Document ---
Author Name Unknown Organization [facility] Dhaval lt Address [address] [place] [address]- Care Team Providers Care Piano Mechanic Name Role Phone Tiago Greenberg DO Primary Care Physician [phone] Encounter [facility] Date(s): 03/02/23 - 04/01/23 [facility] Adult [address] [place] [address]- Allergies, Adverse Reactions, Alerts Substance Reaction Severity [...] Vaccine (oldterm) 06/11/00 Given 1Result Comment: [08/06/2017] [facility] [id number] 2Admin Note: rcvd at work 3Result Comment: [03/08/2018] [facility]-[id number] 4Result Comment: [08/06/2017] [facility] 5Result Comment: [03/16/2015] HIGH DOSE, RECIEVED AT [facility] 6Admin Note: rcvd at work 7Admin Note: rcvd elsewhere 8Admin Note: rcvd at work Medications AndroGel Pump 20.25 mg/actuation (1.62%) transdermal gel = 40.5 mg, Topically, Daily in AM, apply to clean, dry, intact skin, wash hands thoroughly after application, # 75 Gm, 2 Refills, Maintenance, 07/11/19 16:03:00 EST, [facility]/pharmacy #[id number], 177, cm, 06/16/19 11:25:00 EST, Height, 70.8, kg, 06/14/19 0:02:... Start Date: 07/11/19 Status: Ordered atorvastatin 40 mg oral tablet 1 tablet = 40 mg, By Mouth, Daily, # 30 tablet, 6 Refills, Maintenance, 08/12/20 9:28:00 EST, Tablet, [facility]/pharmacy #[id number], Partial fill upon patient [...] drug. Start Date: 08/02/20 Status: Ordered Procrit 08032 u/ml injectable solution = 2,000 units, Subcutaneous [...] 2refer GI colonoscopy 3tubular adenoma 4quit 2012 1conxtwhKcl6mrgu kit 6758.7 7back,abd 8refer bone marrow biopsy [place] 9Negative hepatitis C antibody negative hepatitis C surface antigen positive hepatitis B surface antibody, negative CHARLEE, normal SPEP, normal iron 10SonMay 2017 Social History Social History Type Response Smoking Status Former smoker, quit more than 30 days ago entered on: 01/22/20 Sex Patient Care team information Care Team Personnel Name: Susana Mariee RN Position: [facility] RN Member Role: Primary Care Nurse Name: Christin Godinez NP Position: [facility] PCO Associate Professional Member Role: Lifetime Consulting Provider Address: Address: [address] [place] [address]- [place] Name: Tate Guerra MD Position: [facility] Renal MD Member Role: Lifetime Consulting Physician Address: Address: [address] [place] [address], [address] [facility] [place] [address]- [place] Name: Ramiro De RN Position: [facility] RN Member Role: Primary Care Nurse Name: Hannah Torres RN Position: [facility] ED RN W/OE and Tasks Member Role: Primary Care Nurse Name: Tiago Greenberg DO Position: [facility] Physician - Primary Care Member Role: PCP Address: Address: [address] [place] [address] [place] [address]- [place] Name: Litzy Ibarra RN Position: [facility] RN Member Role: Primary Care Nurse Care Team Related Persons Name: NANCY AVILA Address: home [address] [place] [address] [place] [address]
--- OUTSIDE RECORDS SUMMARY | 2023-05-04 12:40 | XMS_ITS | Continuity of Care Document ---
Author Name Unknown Organization [facility] Dhaval lt Address [address] [place] [address]- Care Team Providers Care Wind Turbine Mechanical Engineer Name Role Phone Roseann DILLON, Domenico Ramirez Primary Care Physician [facility]counter [facility] Date(s): 08/02/20 - 09/01/20 [facility] Adult [address] [place] [address]- Allergies, Adverse Reactions, Alerts Substance Reaction Severity [...] Note: rcvd at work 2Result Comment: [08/06/2017] [facility] [id number] 3Result Comment: [03/08/2018] [facility]-[id number] 4Result Comment: [08/06/2017] [facility] 5Result Comment: [03/16/2015] HIGH DOSE, RECIEVED AT [facility] 6Admin Note: rcvd at work 7Admin Note: rcvd elsewhere 8Admin Note: rcvd at work Medications AndroGel Pump 20.25 mg/actuation (1.62%) transdermal gel = 40.5 mg, Topically, Daily in AM, apply to clean, dry, intact skin, wash hands thoroughly after application, # 75 Gm, 2 Refills, Maintenance, 07/11/19 16:03:00 EST, [facility]/pharmacy #[id number], 177, cm, 06/16/19 11:25:00 EST, Height, 70.8, kg, 06/14/19 0:02:... Start Date: 07/11/19 Status: Ordered atorvastatin 40 mg oral tablet 1 tablet = 40 mg, By Mouth, Daily, # 30 tablet, 6 Refills, Maintenance, 08/12/20 9:28:00 EST, Tablet, [facility]/pharmacy #[id number], Partial fill upon patient request if [...] drug. Start Date: 08/02/20 Status: Ordered Procrit 03073 u/ml injectable solution = 2,000 units, Subcutaneous [...] Familial hyperlipidemia(Confirmed) Active Hx of stem cell transplant;mercjerilyn(Confirmed) 11/29/18 Active Impaired fasting blood sugar(Confirmed) Active Klinefelter's Syndrome(Confirmed) 6 Active Multiple lipomas(Confirmed) 7 Active Hypogonadism, male(Confirmed) Active Cancer of prostate turp 2018(Confirmed) Active MDS (myelodysplastic syndrom e)/stem cell transplant 2018(Confirmed) 8 Active Pneumonia RUL(Confirmed) 06/12/19 Active Psoriasis(Confirmed) Active Fatty liver(Confirmed) 9, 10 Active 1+2014 2refer GI colonoscopy 3tubular adenoma 4quit 2012 6fbgzakpTmy8iwjs kit 6758.7 7back,abd 8refer bone marrow biopsy [place] 9Negative hepatitis C antibody negative hepatitis C surface antigen positive hepatitis B surface antibody, negative CHARLEE, normal SPEP, normal iron 10SonMay 2017 Social History Social History Type Response Smoking Status Former smoker, quit more than 30 days ago entered on: 01/22/20 Sex
--- OUTSIDE RECORDS SUMMARY | 2023-05-04 12:41 | XMS_ITS | Continuity of Care Document ---
Author Name Unknown Organization [facility] Dhaval lt Address [address] [place] [address]- Care Team Providers Care Diamond Polisher Name Role Phone Roseann DILLON, Domenico Ramirez Primary Care Physician [phone] [facility]counter [facility] Date(s): 06/14/21 - 07/14/21 [facility] Adult [address] [place] [address]- Allergies, Adverse Reactions, Alerts Substance Reaction Severity [...] Vaccine (oldterm) 06/11/00 Given 1Result Comment: [08/06/2017] [facility] [id number] 2Admin Note: rcvd at work 3Result Comment: [03/08/2018] [facility]-[id number] 4Result Comment: [08/06/2017] [facility] 5Result Comment: [03/16/2015] HIGH DOSE, RECIEVED AT [facility] [address] 6Admin Note: rcvd at work 7Admin Note: rcvd elsewhere 8Admin Note: rcvd at work Medications AndroGel Pump 20.25 mg/actuation (1.62%) transdermal gel = 40.5 mg, Topically, Daily in AM, apply to clean, dry, intact skin, wash hands thoroughly after application, # 75 Gm, 2 Refills, Maintenance, 07/11/19 16:03:00 EST, [facility]/pharmacy #[id number], 177, cm, 06/16/19 11:25:00 EST, Height, 70.8, kg, 06/14/19 0:02:... Start Date: 07/11/19 Status: Ordered atorvastatin 40 mg oral tablet 1 tablet = 40 mg, By Mouth, Daily, # 30 tablet, 6 Refills, Maintenance, 08/12/20 9:28:00 EST, Tablet, [facility]/pharmacy #[id number], Partial fill upon patient [...] drug. Start Date: 08/02/20 Status: Ordered Procrit 85912 u/ml injectable solution = 2,000 units, Subcutaneous [...] 2refer GI colonoscopy 3tubular adenoma 4quit 2012 4kydcysdGpb5knnw kit 6758.7 7back,abd 8refer bone marrow biopsy [place] 9Negative hepatitis C antibody negative hepatitis C surface antigen positive hepatitis B surface antibody, negative CHARLEE, normal SPEP, normal iron 10SonMay 2017 Social History Social History Type Response Smoking Status Former smoker, quit more than 30 days ago entered on: 01/22/20 Sex
--- OUTSIDE RECORDS SUMMARY | 2023-05-04 12:41 | XMS_ITS | Continuity of Care Document ---
Author Name Unknown Organization [facility] Adult Address [address] [place] [address]- Care Team Providers Care Devulcanizer Head Name Role Phone Roseann DILLON, Domenico Ramirez Primary Care Physician [facility] Date[facility]s): 08/12/20 - 09/11/20 [facility] Adult [address] [place] [address]- Allergies, Adverse Reactions, Alerts Substance Reaction Severity [...] Note: rcvd at work 2Result Comment: [08/06/2017] [facility] [id number] 3Result Comment: [03/08/2018] [facility]-[id number] 4Result Comment: [08/06/2017] [facility] 5Result Comment: [03/16/2015] HIGH DOSE, RECIEVED AT [facility] 6Admin Note: rcvd at work 7Admin Note: rcvd elsewhere 8Admin Note: rcvd at work Medications AndroGel Pump 20.25 mg/actuation (1.62%) transdermal gel = 40.5 mg, Topically, Daily in AM, apply to clean, dry, intact skin, wash hands thoroughly after application, # 75 Gm, 2 Refills, Maintenance, 07/11/19 16:03:00 EST, [facility]/pharmacy #[id number], 177, cm, 06/16/19 11:25:00 EST, Height, 70.8, kg, 06/14/19 0:02:... Start Date: 07/11/19 Status: Ordered atorvastatin 40 mg oral tablet 1 tablet = 40 mg, By Mouth, Daily, # 30 tablet, 6 Refills, Maintenance, 08/12/20 9:28:00 EST, Tablet, [facility]/pharmacy #[id number], Partial fill upon patient [...] drug. Start Date: 08/02/20 Status: Ordered Procrit 72382 u/ml injectable solution = 2,000 units, Subcutaneous [...] 2refer GI colonoscopy 3tubular adenoma 4quit 2012 1stmqqqyVst6ikvn kit 6758.7 7back,abd 8refer bone marrow biopsy [place] 9Negative hepatitis C antibody negative hepatitis C surface antigen positive hepatitis B surface antibody, negative CHARLEE, normal SPEP, normal iron 10SonMay 2017 Social History Social History Type Response Smoking Status Former smoker, quit more than 30 days ago entered on: 01/22/20 Sex
--- OUTSIDE RECORDS SUMMARY | 2023-05-04 12:41 | XMS_ITS | Continuity of Care Document ---
Author Name Unknown Organization [facility] Ray Dhaval lt Address [address] [place] [address]- Care Team Providers Care Ladder Operator Name Role Phone Roseann DILLON, Domenico Ramirez Primary Care Physician [facility] Date[facility]s): 09/10/19 - 09/20/19 [facility] Adult [address] [place] [address]- [facility] Attending Physician: Admtr, Ar8 Allergies, Adverse Reactions, [...] Comment: [08/06/2017] [facility] [id number] 3Result Comment: [03/08/2018] [facility]-[id number] 4Result Comment: [08/06/2017] [facility] 5Result Comment: [03/16/2015] HIGH DOSE, RECIEVED AT [facility] [address] 6Admin Note: rcvd [...] 2refer GI colonoscopy 3tubular adenoma 4quit 2012 3ctxcgxmJpm4vjka kit 6reminded 7new onset;to contact advise of [...]
--- OUTSIDE RECORDS SUMMARY | 2023-05-04 12:41 | XMS_ITS | Continuity of Care Document ---
Author Name Unknown Organization [facility] Address [address] [place] [address]- Care Team Providers Care Lacemaker Name Role Phone Roseann DILLON, Domenico Ramirez Primary Care Physician Encounter [facility] Date(s): 07/15/19 - 07/25/19 [facility] [address] [place] [address]- [facility] Attending Physician: Yefri Griggs Admitting Physician: AdmYefri rosas Referring Physician: AdmtrYefri Allergies, Adverse Reactions, Alerts Substance Reaction Severity [...] Note: rcvd at work 2Result Comment: [08/06/2017] [facility] [id number] 3Result Comment: [03/08/2018] [facility][NOTE 3]-[id number] 4Result Comment: [08/06/2017] [facility] 5Result Comment: [03/16/2015] HIGH DOSE, RECIEVED AT [facility] [address] 6Admin Note: rcvd at work 7Admin Note: rcvd elsewhere 8Admin Note: rcvd at work Medications AndroGel Pump 20.25 mg/actuation (1.62%) transdermal gel = 40.5 mg, Topically, Daily in AM, apply to clean, dry, intact skin, wash hands thoroughly after application, # 75 Gm, 2 Refills, Maintenance, 07/11/19 16:03:00 EST, [facility]/pharmacy #[id number], 177, cm, 06/16/19 11:25:00 EST, [...] 2refer GI colonoscopy 3tubular adenoma 4quit 2012 [id number] kit 6reminded 7new onset;to contact advise of pre diabetes;increased risk diabetes 8758.7 9back,abd 10refer bone marrow biopsy [facility] 11Negative hepatitis C antibody negative hepatitis C surface antigen positive hepatitis B surface antibody, negative CHARLEE, normal SPEP, normal iron 12Sonogram May 2017 Procedures Procedure Date Related Diagnosis Body Site Status Bone marrow biopsy 1 11/12/18 Comp leted Echocardiogram 2 11/12/18 Complete d 1maturing trilineage hematopoiesis with relative erythroid hyperplasia, atypical megakaryocytes and increased reticulin fibrosis 2normal LV systolic function. EF 51%, no significant valvular disease Social History Social History Type Response Smoking Status Current every day sm oker; Other: e-cig; entered on: 08/06/17 Sex
--- OUTSIDE RECORDS SUMMARY | 2023-05-04 12:41 | XMS_ITS | Continuity of Care Document ---
Author Name Unknown Organization [facility] Address [address] [place] [address]- Care Team Providers Care Clinical Associate Name Role Phone Roseann DILLON, Domenico Ramirez Primary Care Physician Encounter [facility] Date(s): 10/23/19 - 11/22/19 [facility] Adult [address] [place] [address]- [facility] Attending Physician: Admtr, Ar8 Allergies, Adverse Reactions, [...] Note: rcvd at work 2Result Comment: [08/06/2017] [facility] [place] [id number] 3Result Comment: [03/08/2018] [facility]-[id number] 4Result Comment: [08/06/2017] [facility] 5Result Comment: [03/16/2015] HIGH DOSE, RECIEVED AT [facility] 6Admin Note: rcvd at [...] 2refer GI colonoscopy 3tubular adenoma 4quit 2012 [id number] kit 6reminded 7new onset;to contact advise of pre diabetes;increased risk diabetes 8758.7 9back,abd 10refer bone marrow biopsy [facility] 11Negative hepatitis C antibody negative hepatitis C surface antigen positive hepatitis B surface antibody, negative CAHRLEE, normal SPEP, normal iron 12Sonogram May 2017 [...]
--- OUTSIDE RECORDS SUMMARY | 2023-05-04 12:41 | XMS_ITS | Continuity of Care Document ---
Author Name Unknown Organization [facility] Address [address] [place] [address]- Care Team Providers Care Toe Laster Name Role Phone Roseann DILLON, Domenico Ramirez Primary Care Physician Encounter [facility] Date(s): 02/07/22 - 03/09/22 [facility] [address] [place] [address]- Attending Physician: Yefri Griggs Admitting Physician: AdmYefri [...] Vaccine (oldterm) 06/11/00 Given 1Result Comment: [08/06/2017] [facility] [id number] 2Admin Note: rcvd at work 3Result Comment: [03/08/2018] [facility]-[id number] 4Result Comment: [08/06/2017] [facility] 5Result Comment: [03/16/2015] HIGH DOSE, RECIEVED AT [facility] [address] 6Admin Note: rcvd at work 7Admin Note: rcvd elsewhere 8Admin Note: rcvd at work Medications AndroGel Pump 20.25 mg/actuation (1.62%) transdermal gel = 40.5 mg, Topically, Daily in AM, apply to clean, dry, intact skin, wash hands thoroughly after application, # 75 Gm, 2 Refills, Maintenance, 07/11/19 16:03:00 EST, [facility]/pharmacy #[id number], 177, cm, 06/16/19 11:25:00 EST, Height, 70.8, kg, 06/14/19 0:02:... Start Date: 07/11/19 Status: Ordered atorvastatin 40 mg oral tablet 1 tablet = 40 mg, By Mouth, Daily, # 30 tablet, 6 Refills, Maintenance, 08/12/20 9:28:00 EST, Tablet, [facility]/pharmacy #[id number], Partial fill upon patient [...] drug. Start Date: 08/02/20 Status: Ordered Procrit 19002 u/ml injectable solution = 2,000 units, Subcutaneous [...] 2refer GI colonoscopy 3tubular adenoma 4quit 2012 [id number] kit 6758.7 7back,abd 8refer bone marrow biopsy [place] 9Negative hepatitis C antibody negative hepatitis C surface antigen positive hepatitis B surface antibody, negative CHARLEE, normal SPEP, normal iron 10Sonogram May 2017 Social History Social History Type Response Smoking Status Former smoker, quit more than 30 days ago entered on: 01/22/20 Sex Patient Care team information Personnel Name: Roseann DILLON, Domenico Ramirez Address: Address: [address] [place] [id number]
--- OUTSIDE RECORDS SUMMARY | 2023-05-04 12:41 | XMS_ITS | Continuity of Care Document ---
Author Name Unknown Organization [facility] Address [address] [place] [address]- Care Team Providers Care Watch Crystal Cutter Name Role Phone Domenico Whitfield MD Primary Care Physician [phone] Encounter [facility] Date(s): 10/30/20 - 02/27/21 [facility] Adult [address] [place] [address]- Encounter Diagnosis Physical exam(Discharge Diagnosis) - 01/25/21 MDS (myelodysplastic syndrome)/stem cell transplant 2018(Discharge Diagnosis) - 01/25/21 H/O prostate cancer TURP 2019(Discharge Diagnosis) - 01/25/21 Klinefelter's Syndrome(Discharge Diagnosis) - 01/25/21 Impaired fasting blood sugar(Discharge Diagnosis) - 01/25/21 Familial hyperlipidemia(Discharge Diagnosis) - 01/25/21 Fatty liver(Discharge Diagnosis) - 01/25/21 Adenomatous polyp of colon/colonoscopy 2014(Discharge Diagnosis) - 01/25/21 Attending Physician: Domenico Whitfield MD Allergies, Adverse [...] Vaccine (oldterm) 06/11/00 Given 1Result Comment: [08/06/2017] [facility] [id number] 2Admin Note: rcvd at work 3Result Comment: [03/08/2018] [facility]-[id number] 4Result Comment: [08/06/2017] [facility] 5Result Comment: [03/16/2015] HIGH DOSE, RECIEVED AT [facility] [address] 6Admin Note: rcvd at work 7Admin Note: rcvd elsewhere 8Admin Note: rcvd at work Medications AndroGel Pump 20.25 mg/actuation (1.62%) transdermal gel = 40.5 mg, Topically, Daily in AM, apply to clean, dry, intact skin, wash hands thoroughly after application, # 75 Gm, 2 Refills, Maintenance, 07/11/19 16:03:00 EST, [facility]/pharmacy #[id number], 177, cm, 06/16/19 11:25:00 EST, Height, 70.8, kg, 06/14/19 0:02:... Start Date: 07/11/19 Status: Ordered atorvastatin 40 mg oral tablet 1 tablet = 40 mg, By Mouth, Daily, # 30 tablet, 6 Refills, Maintenance, 08/12/20 9:28:00 EST, Tablet, [facility]/pharmacy #[id number], Partial fill upon patient request if [...] drug. Start Date: 08/02/20 Status: Ordered Procrit 70659 u/ml injectable solution = 2,000 units, Subcutaneous [...] 2018(Confirmed) 11/29/18 Active H/O prostate cancer TURP 2019(Confirmed) Active Impaired fasting blood sugar(Confirmed) Active Klinefelter's Syndrome(Confirmed) 6 Active Multiple lipomas(Confirmed) 7 Active Hypogonadism, male(Confirmed) Active MDS (myelodysplastic syndrom e)/stem cell transplant 2018(Confirmed) 8 Active Pneumonia RUL(Confirmed) 06/12/19 Active Psoriasis(Confirmed) Active Fatty liver(Confirmed) 9, 10 Active 1+2014 2refer GI colonoscopy 3tubular adenoma 4quit 2012 [id number] kit 6758.7 7back,abd 8refer bone marrow biopsy [place] 9Negative hepatitis C antibody negative hepatitis C surface antigen positive hepatitis B surface antibody, negative CHARLEE, normal SPEP, normal iron 10SonMay 2017 Diagnosis Diagnosis Type Effective Dates Health Status Clinical Service Informant Physical exam Discharge Diagnosis 01/25/21 MDS (myelodysplastic syndrome)/stem cell transplant 2018 Discharge Diagnosis 01/25/21 H/O prostate cancer TURP 2018 Discharge Diagnosis 01/25/21 Klinefelter's Syndrome Discharge Diagnosis 01/25/21 Impaired fasting blood sugar Discharge Diagnosis 01/25/21 Familial hyperlipidemia Discharge Diagnosis 01/25/21 Fatty liver Discharge Diagnosis 01/25/21 Adenomatous polyp of colon/colonoscopy 2014 Discharge Diagnosis 01/25/21 Social History Social History Type Response Smoking Status Former smoker, quit more than 30 days ago entered on: 01/22/20 Sex
[2023-05-04 12:42] VITALS: BP 122/72; PULSE 126; TEMP 36.8; O2SAT 97; BMI 23.0
== END 2023-05-04 13:53 | disposition home or self-care (01) ==
PROVIDERS: Visit Provider Internal Medicine
DX: R07.9 Chest pain, unspecified (principal)
CPT/HCPCS: 93000; 99214

== ENCOUNTER 2023-05-04 13:02 | Outpatient (REF) | payer OTHER, SELFPAY ==
--- NOTE | ~2023-05-04 | XR_ITS ---
EXAMINATION: XR CHEST CLINICAL INFORMATION: Cough. COMPARISON: None available. TECHNIQUE: 2 views of the chest were obtained. FINDINGS: There is blunting of bilateral CP angle from pleural effusion slightly greater on the right side. There is underlying atelectasis. The lungs are expanded and clear. Heart size is enlarged. Pulmonary vascularity is normal. No gross bony abnormality seen. XR/XR chest 2V IMPRESSION: Bilateral pleural effusions slightly greater on the right with underlying atelectasis. Mild cardiomegaly. The lungs are clear.
--- NOTE | 2023-05-04 19:24 | P.OP_ITS ---
Operative Note Operative Note Date of Service: 05/04/23 Narrative: Preoperative diagnosis: [] Massive pericardial effusion, early tamponade Postop diagnosis: [] Same Procedure [] subxiphoid pericardial window Surgeon: [] Kalen Chief Ultrasound Technologist: [] Roshan Type of Anesthesia: [] MAC Indication for surgery: [] Approximately 1500 cc of serous fluid was retrieved. Specimens sent for variety of cultures, cytology, pericardium sent for permanent pathology. Findings: [] Patient brought to the operating room, placed on operative table supine position, after adequate level of MAC anesthesia was induced, the patient's lower chest and upper abdomen were prepped and draped in usual sterile fashion. Proposed incision site was infiltrated 0.5% Marcaine/1% lidocaine. Using upper midline incision extending just to the left of midline, this carried down through skin, subcutaneous tissue, or extra perineal dissection to the subxiphoid area was approached. Pericardium was entered sharply were approximately 1500 cc total of fluid serous colored was retrieved. Right of cultures were sent as noted above. A small pericardial window was fascia using Bovie. Specimen sent to pathology. Through a separate left upper quadrant stab wound incision, 24 [place] Island[place] 5 cc balloon Portillo was placed into the pericardium, and secured to the skin using 2-0 nylon. Wound was irrigated, secured hemostasis. The was closed in mass closure fashion using looped PDS suture. Skin was closed using interrupted inverted dermal 3-0 Vicryl sutures followed by Steri-Strips and sterile dressings. Patient tolerated procedure well and emerged from anesthesia stable condition. EBL minimal
[2023-05-04 19:25] VITALS: BP 133/94; PULSE 133; RESP 25; TEMP 37; O2SAT 91
[2023-05-04 19:30] VITALS: BP 127/82; PULSE 125; RESP 28; O2SAT 87
[2023-05-04 19:35] VITALS: BP 133/80; PULSE 122; RESP 12; O2SAT 88
[2023-05-04 19:40] VITALS: BP 134/78; PULSE 123; RESP 16; TEMP 36.8; O2SAT 92
[2023-05-04 19:45] VITALS: BP 133/81; PULSE 120; RESP 18; O2SAT 94
[2023-05-04 19:50] VITALS: BP 144/84; PULSE 120; RESP 15; O2SAT 93
== END 2023-05-04 13:03 | disposition home or self-care (01) ==
LOC: HO.HMGCX 13:02
PROVIDERS: Surgery; Visit Provider Internal Medicine
PROC: (CPT 33025; principal; 2023-05-04 18:00)
DX: R05.9 Cough, unspecified (principal)
CPT/HCPCS: 71046; 87070; 87073; 87205; 88112; 88305

== ENCOUNTER 2023-05-04 13:45 | Inpatient (IN) | payer OTHER, MEDICARE, SELFPAY ==
[2023-05-04] VITALS (8 sets, daily range): BP systolic 114–132; BP diastolic 48–83; PULSE 108–125; RESP 16–31; TEMP 36.5–37.6; O2SAT 93–96; BMI 24.1; BMI 16.6; BMI 24.3
--- NOTE | 2023-05-04 | ECG_ITS ---
Test Reason : post op Blood Pressure : / mmHG Vent. Rate : 123 BPM Atrial Rate : 123 BPM P-R Int : 116 ms QRS Dur : 078 ms QT Int : 308 ms P-R-T Axes : 041 050 007 degrees QTc Int : 440 ms Sinus tachycardia Nonspecific ST abnormality Abnormal ECG ST more depressed Inferior leads Anterolateral leads Referred By: Sunshine Mckeon Electronically Signed By:DIAZ MENENDEZ MD
--- NOTE | ~2023-05-04 | XR_ITS ---
EXAMINATION: XR CHEST CLINICAL INFORMATION: Post pericardial window COMPARISON: 05/04/2023 TECHNIQUE: Frontal view of the chest was obtained. FINDINGS: Lungs are hypoinflated. Small pleural effusions appear to have decreased compared to 05/04/2023. No pneumothorax. Cardiomediastinal silhouette is enlarged and similar in size and contour compared to prior exam. Drainage tube projects over the lower mediastinum. Pulmonary vasculature and interstitium are not well evaluated due to the degree of lung hypoinflation. Hazy opacities at the bases are likely from layering of the small effusions and likely atelectasis. XR/XR chest 1V IMPRESSION: * The evaluation of the lungs is partially limited by hypoinflation. * Interval decrease in bilateral pleural effusions. * Large cardiopericardial silhouette is unchanged in size compared 05/04/2023.
--- NOTE | ~2023-05-04 | XR_ITS ---
EXAMINATION: XR CHEST CLINICAL INFORMATION: Follow-up shortness of breath. COMPARISON: 05/05/2023 TECHNIQUE: Frontal view of the chest was obtained. FINDINGS: Several EKG wires overlie the chest. Lungs are mildly hypoinflated. The large cardiopericardial silhouette has a stable appearance. Mild prominence of central pulmonary vessels without overt edema. Again noted is hazy opacity of the left mid and lower lung, likely due to combination of the small layering pleural effusion and lower lobe atelectasis. There appears to be linear opacity of atelectasis in the right perihilar area. The right lateral costophrenic sulcus is blunted from a persistent small pleural effusion. Drainage tube again seen projecting over the lower mediastinum. XR/XR chest 1V IMPRESSION: * Overall, no significant change compared to 05/05/2023. * Persistent small pleural effusions (left larger than right). The opacity in the retrocardiac region is likely from the pleural effusion and associated lobe passive atelectasis. * There is stable enlargement of the cardiopericardial silhouette in this patient who has undergone pericardial window for pericardial effusion.
--- NOTE | ~2023-05-04 | CT_ITS ---
EXAMINATION: CT CHEST WITHOUT CONTRAST CLINICAL INFORMATION: Cough, pleuritic left-sided pain COMPARISON: Chest x-ray 05/04/2023 TECHNIQUE: Multidetector volumetric CT imaging of the chest was done. Axial MIP volume rendering provided. Sagittal and coronal reformatted images were obtained. This CT examination was performed using dose optimization techniques as appropriate, variously including the following: *Automated exposure control *Adjustment of mA and/or kV according to patient size (this includes techniques or standardized protocols for targeted exams where dose is matched to indication/reason for exam; i.e. extremities or head) *Use of iterative reconstruction technique DLP: 461 mGy-cm FINDINGS: MANAGER SKILLED: Cardiac silhouette is enlarged. Right pleural effusion. LUNGS: Airspace and groundglass opacity in the posterior aspects of the bilateral lower lungs, adjacent to the pleural effusion, suggestive of atelectasis. Component of inflammatory/infectious process cannot be excluded. Peribronchial thickening and band of linear opacity in the right upper lobe, could be related to inflammatory/infectious process versus atelectasis/scarring. Emphysema in bilateral upper lobes.. MEDIASTINUM: Streak artifact limiting evaluation of the thyroid glands. Apparent hypodensity in the right thyroid gland could be artifactual versus nonspecific nodule, statistically likely to be nonaggressive. No adenopathy is identified in the mediastinum or dale. Moderate-large pericardial effusion. The heart size appears within normal limits. Valvular calcification present. CORONARY ARTERY CALCIFICATION: None visualized on this study. PLEURA: Small-moderate bilateral pleural effusions. AXILLA: No lymphadenopathy. UPPER ABDOMEN: Gallstone. No obvious pericholecystic inflammatory changes are seen. Fatty atrophy of the pancreas. No acute findings otherwise seen in the upper abdomen. OSSEOUS STRUCTURES: No acute fractures identified. Multilevel degenerative changes in the spine. No vertebral compression fractures is seen. CT/CT chest wo IV con IMPRESSION: 1. Moderate-large pericardial effusion. 2. Peribronchial thickening and linear band of opacity in the right upper lobe, could reflect infectious/inflammatory process versus atelectasis/scarring. 3. Small-moderate bilateral pleural effusions. Subjacent airspace opacities suggestive of atelectasis versus inflammatory/infectious process. 4. Gallstone. No obvious pericholecystic inflammatory changes seen. 5. Additional findings and details as above. Fleischner guidelines were followed.
--- NOTE | 2023-05-04 13:47 | ED_ITS ---
HPI - General Adult General Chief complaint: Dyspnea Stated complaint: fluid in lungs, sent by urgent care Time Seen by Provider: 05/04/23 13:59 Source: patient and family Mode of arrival: ambulatory Limitations: no limitations History of Present Illness HPI narrative: 63 yo male with PMH of HTN, anxiety, s/p stem cell transplant 2019 for MDS at [facility] who is on daily prednisone 5mg and tacrolimus. Follows with [facility] regularly. He notes 2 weeks ago developed cough and URI symptoms, seemed to be okay had a CXR with PCP and started on tessalon. This Sunday noted chills, increased shortness of breath, pleuritic L sided chest pain. Sent by who noted bilateral pleural effusions and ? possible mass on new side. MD complaint: pleuritic L sided chest pain Onset (ago): day(s) (4) Location: chest Radiation: non-radiation Severity: moderate Quality: stabbing Pain Consistency: intermittent Relieving factors: rest Exacerbating factors: movement and other (breathing) Related Data Home Medications Medication Instructions Recorded Confirmed amlodipine 10 mg tablet 10 mg PO DAILY 11/18/21 budesonide 3 mg mg PO DAILY PRN 11/18/21 capsule,delayed,extended release ergocalciferol (vitamin D2) 1,250 PO 11/18/21 mcg (50,000 unit) capsule folic acid 1 mg tablet 1 mg PO DAILY 11/18/21 lorazepam 0.5 mg tablet mg PO 11/18/21 neomycin 3.5 mg/g-polymyxin B ophthalmic (eye) BID 11/18/21 10,000 unit/g-dexameth 0.1 % eye oint prednisone 5 mg tablet mg PO 11/18/21 ruxolitinib 5 mg tablet (Jakafi) 5 mg PO DAILY PRN 11/18/21 sertraline 100 mg tablet 200 mg PO BEDTIME 11/18/21 tacrolimus 0.5 mg capsule, 0.5 mg PO DAILY PRN 11/18/21 immediate-release testosterone 40.5 mg topical QAM 11/18/21 ursodiol 300 mg capsule 300 mg PO DAILY 05/04/23 Allergies Allergy/AdvReac Type Severity Reaction Status Date / Time No Known Allergies Allergy Verified 05/04/23 13:52 Review of Systems 2 Review of Systems: Constitutional : No Weight loss, No Fever, pos Chills ENT/Mouth : No sore throat, No Rhinorrhea Eyes: No Eye Pain, No Swelling Cardiovascular : pos Chest Pain, pos SOB, no Dyspnea on Exertion, No Orthopnea, No Edema, No Palpitations Respiratory : No Cough, No Sputum Gastrointestinal : pos Nausea, No Vomiting, No Diarrhea, No abdominal Pain, No Hematochezia, No Melena Genitourinary : No Dysuria, No Urinary Frequency Musculoskeletal : No joint pain, No Myalgias, No Joint Swelling Skin : No Skin Lesions, No rash Neuro : No Weakness, No Numbness, No Dizziness, No Headache Psych : No Anxiety/Panic, No Depression Heme/Lymph: No Bruising, No Lymphadenopathy Endocrine : No Polyuria, No Polydipsia All other systems reviewed and are negative [facility] Past Medical History Attestation statement: The following information was validated with the patient. Medical History (Updated 05/04/23 @ 15:54 by Ramona Rojo DO) Anxiety HTN (hypertension) MDS (myelodysplastic syndrome) Surgical History (Updated 05/04/23 @ 14:53 by Ramona Rojo DO) H/O stem cell transplant Social History Patient Tobacco Use Status: Never used Tobacco Advance Directives: No Advance Directives Information Provided: No Physical Exam ED Vital Signs: Vital Signs - 24 hr 05/04/23 13:49 05/04/23 13:53 05/04/23 15:48 Temperature 98.2 F 99.6 F Pulse Rate 125 H 108 H Respiratory Rate 20 16 Blood Pressure 117/77 120/78 Pulse Oximetry 95 93 Oxygen Delivery Method Room Air Room Air BMI result Body Mass Index 16.6 Appearance: Alert. Oriented X3. No acute distress. Eyes: Pupils equal, round and reactive to light. ENT: Pharynx normal. Neck: Normal inspection. Neck supple. CVS: tachycardic heart rate and rhythm. decreased heart sounds. Pulses normal. Respiratory: No respiratory distress. Breath sounds diminished L side with splinting Abdomen: Soft and nontender. Skin: Skin warm and dry. Normal skin color. Normal skin turgor. Extremities: No lower extremity edema. No calf ttp Neuro: Oriented X 3. No motor deficit. No sensory deficit. Course Course Course Narrative: This is a rapid medical exam: Additional HPI, ROS, PE not included below will be deferred to primary provider. Patient is a 63-year-old male with history of CKD, stem cell transplant currently on anti-rejection medications presenting to the ED from urgent care with complaint of left sided pain and worsening shortness of breath. States it is difficult to breathe due to pain. Patient had a chest x-ray at which showed bilateral effusions. Patient denies fevers. States has not taken any of his medications in 3 days. Tachycardic in triage, normotensive, afebrile. Plan: EKG, labs including cultures, relief charge nurse notified and patient brought directly to main ED Reevaluation(s) Reevaluation #1: on review of dry CT scan I can see pericardial effusion moderate with left sided effusion and likely consolidation given these findings will touch base with thoracic/cards - no signs of clinical tamponade at this time Reevaluation #2: discussed with Kalen will get ECHO and see if we can manage here, message sent to Dr. Jaramillo can get ECHO now Reevaluation #3: signed out to Dr. Murrieta Medications Administered Discontinued Medications Generic Name Dose Route Start Last Admin Trade Name Camille PRN Reason Stop Dose Admin Acetaminophen 650 mg 05/04/23 14:35 05/04/23 14:48 Acetaminophen 325 Mg Tablet PO 05/04/23 14:36 650 mg ONCE ONE Administration Hydromorphone HCl 0.5 mg 05/04/23 14:35 05/04/23 14:50 Hydromorphone Hcl 0.5 Mg/0.5 Ml Syringe IVPUSH 05/04/23 14:36 0.5 mg ONCE ONE Administration Protocol Cefepime HCl 2 gm/ Sodium 50 mls @ 100 mls/hr 05/04/23 14:22 05/04/23 15:23 Chloride IV 05/04/23 14:51 Infused ONCE ONE Infusion Sodium Chloride 500 mls @ 500 mls/hr 05/04/23 14:45 05/04/23 15:51 Ns IV 05/04/23 15:44 Infused .Q1H SOLE Infusion Medical Decision Making Medical Decision Making MDM Narrative: 63 yo male with PMH of HTN, anxiety, s/p stem cell transplant 2019 for MDS at [facility] who is on daily prednisone 5mg and tacrolimus here with recent URI that resolved now 4 days of worsening dyspnea, L sided pleuritic chest pain he is tachycardic with low grade temps - at this time labs, EKG, CT scan - need to obtain basic labs from [facility], will need VQ scan as well, empiric cefepime, Likely admit possible mass/pneumonia/VTE. Differential Diagnosis Differential Diagnoses: The differential diagnosis associated with the presentation includes mass, pneumonia, VTE Admission/Observation Consideration of admission/observation: Escalation of care including admission/observation considered Consult Healthcare Provider Management of the patient was discussed with: Labor Delivery Specialist Lab Data MDM Lab Attestation statement: I reviewed the patient's lab results. 05/04/23 14:06 05/04/23 14:06 Labs: Lab Results 05/04/23 05/04/23 Range/Units 14:06 14:39 WBC 14.6 H (4.8-10.8) X10*3/uL RBC 3.32 L (4.60-5.80) X10*6/uL Hgb 10.7 L (14.0-18.0) g/dl Hct 32.4 L (42.0-52.0) % MCV 97.6 (80.0-98.0) fL MCH 32.2 (27.0-33.0) pg MCHC 33.0 (31.0-36.0) g/dl RDW 14.2 (11.0-16.0) % Plt Count 348 (160-400) X10*3/uL MPV 9.6 (9.4-12.4) fL Immature Gran % (Auto) 0.8 H (0.0-0.4) % Neut % (Auto) 78.3 H (45-73) % Lymph % (Auto) 10.3 L (20-40) % [place] % (Auto) 9.8 (2-11) % Eos % (Auto) 0.5 (0-4) % Baso % (Auto) 0.3 (0-2) % Lymph # (Auto) 1.5 (1.2-4.9) X10*3/uL [place] # (Auto) 1.4 H (0.1-1.2) X10*3/uL Eos # (Auto) 0.1 (0.0-0.4) X10*3/uL Baso # (Auto) 0.0 (0.0-0.2) X10*3/uL Abs Immat Gran (auto) 0.12 H (0.00-0.03) X10*3/uL Absolute Neuts (auto) 11.4 H (2.0-8.3) x10*3/uL Absolute Nucleated RBC 0.000 (0.0-0.012) X10*3/uL Nucleated RBC % (auto) 0.0 (0.0-0.2) /100WBC Sodium 137 (135-145) mmol/L Potassium 4.4 (3.3-5.1) mmol/L Chloride 104 (96-108) mmol/L Carbon Dioxide 22 (22-29) mmol/L Anion Gap 15 (12-20) BUN 41 H (9-16) mg/dL Creatinine 2.06 H (0.5-1.4) mg/dL Estim Creat Clear Calc 26.6 Estimated GFR 33 Random Glucose 179 H (60-115) mg/dL Lactic Acid 1.5 (0.5-2.0) mmol/L Calcium 9.5 (8.4-10.2) mg/dL Total Bilirubin 0.5 (0.0-1.0) mg/dL AST 25 (5-37) U/L ALT 20 (0-40) U/L Alkaline Phosphatase 111 (39-117) U/L B-Natriuretic Peptide 152 H (<100) pg/mL Total Protein 8.4 H (6.5-8.0) g/dL Albumin 3.5 (3.5-5.0) g/dL Procalcitonin 1.27 ng/mL Influenza Type A (PCR) NEGATIVE (Negative) Influenza Type B (PCR) NEGATIVE (Negative) RSV RNA Qual (PCR) NEGATIVE (Negative) SARS-CoV-2 RNA (RT-PCR) NEGATIVE (Negative) Independent Interpretation I performed an independent interpretation of an: EKG (sinus tachycardia) and CT Scan (pericardial effusion) Interpretation: Rate: 121 Rhythm: sinus tachycardia [place]: normal Normal P waves. Normal DAGOBERTO. Normal QRS complex. ST T wave : no SHER, nonspecific ST T wave changes inf leads qTC: normal prior studies: tachycardia no ischemia The study has been interpreted contemporaneously by me. . Radiology Impression Discussion of test interpretation with radiology: I have reviewed the radiologist's reading. Independent Historian Clinical information obtained from an independent historian. History obtained from or confirmed by: Spouse Critical Care Time Critical Care Time Critical Care Time: Yes Total Critical Care Time: 35 Attestation: medical consults, IV dilaudid improved pain I attest to this time spent taking care of the patient Discharge Plan Discharge Clinical Impression: Chest pain, pleuritic, Acute pericardial effusion Patient Disposition: Still a Patient Prescriptions: No Action ursodiol 300 mg capsule 300 mg PO DAILY Jakafi 5 mg tablet 5 mg PO DAILY PRN ergocalciferol (vitamin D2) 1,250 mcg (50,000 unit) capsule PO tacrolimus 0.5 mg capsule 0.5 mg PO DAILY PRN lorazepam 0.5 mg tablet PO budesonide 3 mg capsule,delayed,extend.release PO DAILY PRN folic acid 1 mg tablet 1 mg PO DAILY amlodipine 10 mg tablet 10 mg PO DAILY prednisone 5 mg tablet PO testosterone 20.25 mg/1.25 gram (1.62 %) gel in metered-dose pump 40.5 mg topical QAM sertraline 100 mg tablet 200 mg PO BEDTIME neomycin-polymyxin B-dexameth 3.5 mg/g-10,000 unit/g-0.1 % ointment ophthalmic (eye) BID
--- NOTE | 2023-05-04 13:51 | ECG_ITS ---
Test Reason : DYSPNEA Blood Pressure : / mmHG Vent. Rate : 121 BPM Atrial Rate : 121 BPM P-R Int : 114 ms QRS Dur : 078 ms QT Int : 316 ms P-R-T Axes : 034 046 -27 degrees QTc Int : 448 ms Sinus tachycardia Nonspecific T wave abnormality Abnormal ECG No previous ECGs available Referred By: Clare Boyd Electronically Signed By:DIAZ MENENDEZ MD
[2023-05-04 14:12] LABS: MANUAL DIFF FLAG NO
[2023-05-04 14:13] LABS: Basophils Percent Auto 0.3 % (0-2); Eosinophils Absolute Auto 0.1 X10*3/uL (0.0-0.4); Eosinophils Percent Auto 0.5 % (0-4); Hematocrit 32.4 % (42.0-52.0); Hemoglobin 10.7 g/dl (14.0-18.0); Imm Gran Abs Auto 0.12 X10*3/uL (0.00-0.03); Imm Gran Pct Auto 0.8 % (0.0-0.4); Lymphocytes Absolute Auto 1.5 X10*3/uL (1.2-4.9); Lymphocytes Percent Auto 10.3 % (20-40); Mean Corpuscular Hemoglobin 32.2 pg (27.0-33.0); Mean Corpuscular Volume 97.6 fL (80.0-98.0); Mean Platelet Volume 9.6 fL (9.4-12.4); Monocytes Absolute Auto 1.4 X10*3/uL (0.1-1.2); Monocytes Percent Auto 9.8 % (2-11); Neutrophils Absolute Auto 11.4 x10*3/uL (2.0-8.3); Neutrophils Percent Auto 78.3 % (45-73); Platelet Count 348 X10*3/uL (160-400); Red Blood Count 3.32 X10*6/uL (4.60-5.80); Red Cell Distribution Width 14.2 % (11.0-16.0); White Blood Count 14.6 X10*3/uL (4.8-10.8)
[2023-05-04 14:32] LABS: Alanine Aminotransferase 20 U/L (0-40); Albumin Level 3.5 g/dL (3.5-5.0); Alkaline Phosphatase 111 U/L (39-117); Anion Gap 15 (12-20); Aspartate Amino Transferase 25 U/L (5-37); Bilirubin Total 0.5 mg/dL (0.0-1.0); Blood Urea Nitrogen 41 mg/dL (9-16); Calcium 9.5 mg/dL (8.4-10.2); Carbon Dioxide 22 mmol/L (22-29); Chloride 104 mmol/L (96-108); Creatinine Clr Calc Pharmacy 26.6; Estimated Glomerular Filt Rate 33; Glucose Random 179 mg/dL (60-115); Potassium 4.4 mmol/L (3.3-5.1); Sodium 137 mmol/L (135-145); Total Protein 8.4 g/dL (6.5-8.0)
[2023-05-04 14:38] LABS: B Type Natriuretic Peptide 152 pg/mL (<100)
[2023-05-04] MEDS: 0.9 % Sodium Chloride 500 ML IV (14:47)
[2023-05-04] MEDS: Acetaminophen 325 MG TABLET 650 MG PO (14:48)
[2023-05-04 14:49] LABS: Influenza A PCR NEGATIVE (Negative); Influenza B PCR NEGATIVE (Negative); Resp Syncy Virus RNA Qual PCR NEGATIVE (Negative); SARS COV2 PCR INHOUSE NEGATIVE (Negative)
[2023-05-04] MEDS: HYDROmorphone HCl 0.5 MG/0.5 ML SYRINGE IVPUSH ×2 (14:50→21:36)
[2023-05-04] MEDS: cefEPime HCl 2 GM in 0.9 % Sodium Chloride 50 ML IV (14:52)
--- NOTE | 2023-05-04 14:52 | PC.NURSE ---
pt reports 10/10 when breathing, which usually happens several hours post exertion. IV started - 20g left AC. medicated for pain. Oral temp 98.7 - per DO hold rectal temp and medicate per AUG with tylenol for presumed fever.
[2023-05-04 14:55] LABS: Lactic Acid 1.5 mmol/L (0.5-2.0)
[2023-05-04 15:20] LABS: Procalcitonin 1.27 ng/mL
--- NOTE | 2023-05-04 15:46 | CA_ITS ---
Transthoracic Echocardiogram Patient (Last, First, Middle): Carrington Rogers J Gender: Male Date of : 1960 Age: 63 Procedure Date: 05/04/2023 Procedure Type: Transthoracic Echocardiogram Location: ER Height: 177.8 cm Weight: 52.62 kg BSA: 1.66 m2 Heart Rate: bpm BP: 120 / 78 mmHg Personal Counselor: TO Referring MD: Ramona Rojo DO Symptoms: pericardial effusion, dyspnea Study Quality: Fair Conclusions: - Normal left ventricular size, thickness, systolic function, and wall motion. The visually estimated ejection fraction is between 55-60%. - Normal right ventricular cavity size and systolic function. - There is a large circumferential pericardial effusion. There are echocardiographic findings consistent with tamponade physiology. The inferior vena cava is dilated with reduced respiratory variability. Findings Left Ventricle Normal left ventricular size, thickness, systolic function, and wall motion. The visually estimated ejection fraction is between 55-60%. Diastolic function is indeterminate on the basis of available data. Right Ventricle Normal right ventricular cavity size and systolic function. Atria The left atrium was not well visualized. Aortic Valve There is moderate calcification of the aortic valve. Mitral Valve Normal mitral valve structure and function. There is no mitral valve regurgitation. There is no mitral valve stenosis. Pulmonic Valve The pulmonic valve was not well visualized. Tricuspid Valve Normal tricuspid valve structure. There is trace tricuspid valve regurgitation. Tricuspid regurgitation envelope is inadequate for calculation of right ventricular systolic pressure. Significantly elevated right atrial pressure. Great Vessels All visible segments of the aorta are normal in size. Venous The inferior vena cava is dilated and does not collapse with inspiration. Pericardium/Pleural There is a large circumferential pericardial effusion. There are echocardiographic findings consistent with tamponade physiology. The inferior vena cava is dilated with reduced respiratory variability. Prior Study Comparison No prior study available for comparison. Measurements 2D Linear Measurements IVSd: 0.98 0.6-0.9/0.6-1.0 cm LVIDd: 4.17 3.9-5.3/4.2-5.9 cm LVIDd Index: 2.51 2.4-3.2/2.2-3.1 cm/m2 LVIDs: 3.27 2.0-3.6 cm LVPWd: 0.96 0.7-1.1 cm LA Diam: 2.80 2.7-3.8/3.0-4.0 cm LAIDs Index: 1.69 1.5-2.3 cm/m2 LV Mass: 161.58 67-162/88-224 g LV Mass Index: 97.34 43-95/49-115 g/m2 LVOT Diam: 2.00 3.0+(-)1.3 cm LVOT LVOT Pk Ward: 1.00 LVOT Mn Ward: 0.64 LVOT VTI: 0.14 LVOT Pk Grad: 4.00 LVOT Mn Grad: 2.00 LVOT Diam: 2.00 LVOT Area: 3.14 Right Ventricle TAPSE (mm): 18.00 TVS' Ward: 14.70 Tricuspid Valve RA Press: 15.00 Great Vessels Aorta Sinus of Valsalva: 3.08 2.0-3.5 cm Ao Asc: 2.50 2.1-3.4 cm Updated in Other Vendor System with Status of Final Juvenal Jaramillo MD electronically signed on 05/04/2023 9:41:51 PM with status of Final
[2023-05-04 17:14] LABS: INTERNATIONAL NORM RATIO 1.2 (0.9-1.1); Prothrombin Time 14.1 SEC (11.1-13.3)
[2023-05-04 17:16] LABS: Partial Thromboplastin Time 28.7 SEC (26.0-36.4)
[2023-05-04 17:19] LABS: Troponin-I High Sensitivity 19.3 ng/L (<3.5-35.0)
--- NOTE | 2023-05-04 17:57 | P.CONAN_ITS ---
HPI - Anesthesia Eval Consult details Narrative: Pericardial tamponade PMFSH Active Problems Active Problems: All Active Problems (Updated 05/04/23 @ 15:54 by Ramona Rojo DO) Acute pericardial effusion (Acute) Chest pain, pleuritic (Acute) Past Medical History Medical History (Updated 05/04/23 @ 20:22 by Sunshine Mckeon NP) Anxiety HTN (hypertension) MDS (myelodysplastic syndrome) Family History Family history of problems with anesthesia: No Surgical History Surgical History (Updated 05/04/23 @ 14:53 by Ramona Rojo DO) H/O stem cell transplant History of Problems with Anesthesia: No Social History Household Members: Spouse Housing: House Do you presently have visiting nurse or other home services: No Patient Tobacco Use Status: Never used Tobacco Use of substances other than those prescribed or required for medical reasons: No Have you been hit, kicked, punched, or otherwise hurt by someone within the past year? If so, by whom?: No Do you feel safe in your current relationship?: No Is there a partner from a previous relationship who is making you feel unsafe now?: No Are you made to feel afraid or neglected: No Advance Directives: No Advance Directives Information Provided: No Do you have thoughts of harming others: None Do you have a plan to hurt others: No Plan Poor oral hygiene: No Meds Allergies Allergy/AdvReac Type Severity Reaction Status Date / Time No Known Allergies Allergy Verified 05/04/23 13:52 Home Medications Medication Instructions Recorded Confirmed Last Taken Type amlodipine 10 mg tablet 10 mg PO DAILY 11/18/21 05/04/23 04/30/23 History budesonide 3 mg 3 mg PO TID 11/18/21 05/04/23 04/30/23 History capsule,delayed,extended release ergocalciferol (vitamin D2) 1,250 1,250 mcg PO Mo@1200 11/18/21 05/04/23 04/30/23 History mcg (50,000 unit) capsule folic acid 1 mg tablet 1 mg PO DAILY 11/18/21 05/04/23 04/30/23 History lorazepam 0.5 mg tablet 0.5 mg PO Q6H PRN ANXIETY 11/18/21 05/04/2305/02/23 History prednisone 5 mg tablet 5 mg PO Q48H 11/18/21 05/04/23 04/30/23 History sertraline 100 mg tablet 200 mg PO BEDTIME 11/18/21 05/04/23 04/30/23 History testosterone 40.5 mg topical DAILY 11/18/21 05/04/23 04/30/23 History ruxolitinib 5 mg tablet (Jakafi) 5 mg PO DAILY 05/04/23 05/04/23 04/30/23 History tacrolimus 0.5 mg capsule, 0.5 mg PO DAILY@1200 05/04/23 05/04/23 04/30/23 History immediate-release ursodiol 300 mg capsule 300 mg PO DAILY@1200 05/04/23 05/04/23 04/30/23 History Exam Airway Mallampati Class: II TM Dist: >3cm Neck ROM: Full Loose/Missing/Broken Teeth: No Heart: RRR Lungs: CTA Assessment and Plan Assessment Anesthesia Assessment: Anesthesia Plan Discussed and Chart Reviewed Final Anesthetic Review Family History of Problems with Anesthesia: No History of Problems with Anesthesia: No NPO: No ASA Class: III and Emergency Final Preanesthetic Review: No Changes in Pt Med Stat, Meds/Allgs Chart Reviewed, Consent Obtained/Reviewed and Anes Risks/Benef Reviewed Patient Risk: Intermediate Procedure Risk: Intermediate Anesthetic Plan Anesthetic Plan: GA Disposition: Standard PACU
--- NOTE | 2023-05-04 18:00 | HO.THORCONS ---
History of Present Illness Consult details Consult date: 05/04/23 Narrative: Patient is a 63-year-old male with a plethora of medical problems including stem cell transplant was on his immunosuppression. He has been sick for approximately 2 weeks time with a viral-like syndrome. Presents emerged department because of progressive symptoms, pleuritic chest pain and on workup was found have significant pericardial effusion. Further workup leading cardiac echo demonstrated tamponade findings. Patient presents for emergent pericardial window . Chart was reviewed patient evaluated [facility] Past Medical History Medical History (Updated 05/04/23 @ 18:02 by Freeman Higuera MD) Anxiety HTN (hypertension) MDS (myelodysplastic syndrome) Surgical History Surgical History (Updated 05/04/23 @ 14:53 by Ramona Rojo DO) H/O stem cell transplant Social History Patient Tobacco Use Status: Never used Tobacco Advance Directives: No Advance Directives Information Provided: No Meds Allergies Allergy/AdvReac Type Severity Reaction Status Date / Time No Known Allergies Allergy Verified 05/04/23 13:52 Home Medications Medication Instructions Recorded Confirmed Last Taken Type amlodipine 10 mg tablet 10 mg PO DAILY 11/18/21 Unknown History budesonide 3 mg mg PO DAILY PRN 11/18/21 Unknown History capsule,delayed,extended release ergocalciferol (vitamin D2) 1,250 PO 11/18/21 Unknown History mcg (50,000 unit) capsule folic acid 1 mg tablet 1 mg PO DAILY 11/18/21 Unknown History lorazepam 0.5 mg tablet mg PO 11/18/21 Unknown History neomycin 3.5 mg/g-polymyxin B ophthalmic (eye) BID 11/18/21 Unknown History 10,000 unit/g-dexameth 0.1 % eye oint prednisone 5 mg tablet mg PO 11/18/21 Unknown History ruxolitinib 5 mg tablet (Jakafi) 5 mg PO DAILY PRN 11/18/21 Unknown History sertraline 100 mg tablet 200 mg PO BEDTIME 11/18/21 Unknown History tacrolimus 0.5 mg capsule, 0.5 mg PO DAILY PRN 11/18/21 Unknown History immediate-release testosterone 40.5 mg topical QAM 11/18/21 Unknown History ursodiol 300 mg capsule 300 mg PO DAILY 05/04/23 Unknown History Physical Exam Vital Signs: Vital Signs: Last Vital Signs Temp 99.6 F 05/04/23 13:53 Pulse 108 H 05/04/23 15:48 Resp 16 05/04/23 15:48 BP 120/78 05/04/23 15:48 Pulse Ox 93 05/04/23 15:48 O2 Del Method Room Air 05/04/23 15:48 BMI result Body Mass Index 16.6 Chest: Other: Chest sounds bilaterally, HS 1 and 2. No significant JVD. GI: Other: Abdomen soft, benign Extrem: Other: Grossly intact Results Labs 05/04/23 14:06 05/04/23 14:06 Labs: Abnormal lab results 05/04/23 05/04/23 Range/Units 14:06 16:54 WBC 14.6 H (4.8-10.8) X10*3/uL RBC 3.32 L (4.60-5.80) X10*6/uL Hgb 10.7 L (14.0-18.0) g/dl Hct 32.4 L (42.0-52.0) % Immature Gran % (Auto) 0.8 H (0.0-0.4) % Neut % (Auto) 78.3 H (45-73) % Lymph % (Auto) 10.3 L (20-40) % [place] # (Auto) 1.4 H (0.1-1.2) X10*3/uL Abs Immat Gran (auto) 0.12 H (0.00-0.03) X10*3/uL Absolute Neuts (auto) 11.4 H (2.0-8.3) x10*3/uL PT 14.1 H (11.1-13.3) SEC INR 1.2 H (0.9-1.1) BUN 41 H (9-16) mg/dL Creatinine 2.06 H (0.5-1.4) mg/dL Random Glucose 179 H (60-115) mg/dL B-Natriuretic Peptide 152 H (<100) pg/mL Total Protein 8.4 H (6.5-8.0) g/dL Short CBC 05/04/23 Range/Units 14:06 WBC 14.6 H (4.8-10.8) X10*3/uL Hgb 10.7 L (14.0-18.0) g/dl Hct 32.4 L (42.0-52.0) % Plt Count 348 (160-400) X10*3/uL BMP 05/04/23 14:06 Sodium 137 Potassium 4.4 Chloride 104 Carbon Dioxide 22 BUN 41 H Creatinine 2.06 H Calcium 9.5 Liver Function 05/04/23 Range/Units 14:06 Total Bilirubin 0.5 (0.0-1.0) mg/dL AST 25 (5-37) U/L ALT 20 (0-40) U/L Alkaline Phosphatase 111 (39-117) U/L Albumin 3.5 (3.5-5.0) g/dL All other labs normal. Assessment and Plan (1) Acute pericardial effusion: Status: Acute (2) Pericardial effusion with cardiac tamponade: Status: Acute Plan Patient and patient's was also present and I discussed the risks, benefits, alternatives of subxiphoid pericardial window which included but not limited to bleeding, infection, recurrence, numbness, pain, scarring the patient was to proceed. All questions were answered. Imp range meds for emergent pericardial window will be made for this late afternoon. Procedures Date of Service Date of Service: 05/04/23
--- NOTE | 2023-05-04 19:24 | P.OP_ITS ---
Operative Note Operative Note Date of Service: 05/04/23 Narrative: Preoperative diagnosis: [] Massive pericardial effusion, early tamponade Postop diagnosis: [] Same Procedure [] subxiphoid pericardial window Surgeon: [] Kalen Histologist: [] Roshan Type of Anesthesia: [] MAC Indication for surgery: [] Approximately 1500 cc of serous fluid was retrieved. Specimens sent for variety of cultures, cytology, pericardium sent for permanent pathology. Findings: [] Patient brought to the operating room, placed on operative table supine position, after adequate level of MAC anesthesia was induced, the patient's lower chest and upper abdomen were prepped and draped in usual sterile fashion. Proposed incision site was infiltrated 0.5% Marcaine/1% lidocaine. Using upper midline incision extending just to the left of midline, this carried down through skin, subcutaneous tissue, or extra perineal dissection to the subxiphoid area was approached. Pericardium was entered sharply were approximately 1500 cc total of fluid serous colored was retrieved. Right of cultures were sent as noted above. A small pericardial window was fascia using Bovie. Specimen sent to pathology. Through a separate left upper quadrant stab wound incision, 24 [place] 5 cc balloon Portillo was placed into the pericardium, and secured to the skin using 2-0 nylon. Wound was irrigated, secured hemostasis. The was closed in mass closure fashion using looped PDS suture. Skin was closed using interrupted inverted dermal 3-0 Vicryl sutures followed by Steri-Strips and sterile dressings. Patient tolerated procedure well and emerged from anesthesia stable condition. EBL minimal
--- NOTE | 2023-05-04 20:17 | P.HPCC_ITS ---
History of Present Illness Date of Service: 05/04/23 <Sunshine Mckeon NP - Last Filed: 05/04/23 20:25> Attending physician on admission: Dontrell Bradford <Sunshine Mckeon NP - Last Filed: 05/04/23 20:25> Chief Complaint: Viral symptoms <Sunshine Mckeon NP - Last Filed: 05/04/23 20:25> ?The patient is a 63-year-old male with a past medical history? of hypertension, anxiety? and myelodysplastic syndromes s/p stem cell transplant ( 2019)? who presented to the emergency room with evaluation of 2 weeks of viral- like symptoms.? Patient reported fatigue, pleuritic chest pain x4 days? that is worse when laying down and when coughing.?? CTA of chest? revealed a large left-sided pleural effusion.? Cardiologists,? Dr Gage,? consulted by the emergency room staff and performed an echo that showed cardiac tamponade.? Thoracic surgeon, Dr Higuera,? consulted,? and took the patient to the operating room for a subxiphoid pericardial window? where he drained approximately 1500 ml of serous fluid.? ?Patient admitted to ICU for hemodynamically monitoring <Sunshine Mckeon NP - Last Filed: 05/04/23 20:25> Review of Systems 2 Review of Systems: As per HPI <Sunshine Mckeon NP - Last Filed: 05/04/23 20:25> Yes all other systems are reviewed and are negative <Sunshine Mckeon NP - Last Filed: 05/04/23 20:25> PMFSH Past Medical History Medical History: Medical History (Updated 05/04/23 @ 20:22 by Sunshine Mckeon NP) Anxiety HTN (hypertension) MDS (myelodysplastic syndrome) <Sunshine Mckeon NP - Last Filed: 05/04/23 20:25> Surgical History Surgical History: Surgical History (Updated 05/04/23 @ 14:53 by Ramona Rojo DO) H/O stem cell transplant <Sunshine Mckeon NP - Last Filed: 05/04/23 20:25> Social History Social History: Household Members: Spouse Housing: House Do you presently have visiting nurse or other home services: No Patient Tobacco Use Status: Never used Tobacco Use of substances other than those prescribed or required for medical reasons: No Currently Displaying Signs/Symptoms of Drug Intoxication Withdrawal: No Have you been hit, kicked, punched, or otherwise hurt by someone within the past year? If so, by whom?: No Do you feel safe in your current relationship?: No Is there a partner from a previous relationship who is making you feel unsafe now?: No Are you made to feel afraid or neglected: No Advance Directives: No Advance Directives Information Provided: No Do you have thoughts of harming others: None Do you have a plan to hurt others: No Plan Poor oral hygiene: No <Sunshine Mckeon NP - Last Filed: 05/04/23 20:25> Meds Allergies/Adverse reactions: Allergies Allergy/AdvReac Type Severity Reaction Status Date / Time No Known Allergies Allergy Verified 05/04/23 13:52 <Sunshine Mckeon NP - Last Filed: 05/04/23 20:25> Active Medications: Current Medications Diphenhydramine HCl (Diphenhydramine Hcl 50 Mg/Ml Vial) 25 mg IVPUSH Q4H PRN PRN Reason: Itching Fentanyl (Fentanyl Citrate/Pf 100 Mcg/2 Ml Vial) 50 mcg IVPUSH Q5M PRN; Protocol PRN Reason: Pain, Severe (Pain Scale 7-10) Fentanyl (Fentanyl Citrate/Pf 100 Mcg/2 Ml Vial) 50 mcg IVPUSH Q5M PRN; Protocol PRN Reason: Pain, Severe (Pain Scale 7-10) Hydromorphone HCl (Hydromorphone Hcl 0.5 Mg/0.5 Ml Syringe) 0.5 mg IVPUSH Q5M PRN; Protocol PRN Reason: Pain, Severe (Pain Scale 7-10) Hydromorphone HCl (Hydromorphone Hcl 0.5 Mg/0.5 Ml Syringe) 0.5 mg IVPUSH Q5M PRN; Protocol PRN Reason: Pain, Severe (Pain Scale 7-10) Promethazine HCl 12.5 mg/ (Sodium Chloride) 50.5 mls @ 202 mls/hr IV ONCE PRN PRN Reason: Nausea and Vomiting <Sunshine Mckeon NP - Last Filed: 05/04/23 20:25> Home medications: Home Medications Medication Instructions Recorded Confirmed Last Taken Type amlodipine 10 mg tablet 10 mg PO DAILY 11/18/21 05/04/23 04/30/23 History budesonide 3 mg 3 mg PO TID 11/18/21 05/04/23 04/30/23 History capsule,delayed,extended release ergocalciferol (vitamin D2) 1,250 1,250 mcg PO Mo@1200 11/18/21 05/04/23 04/30/23 History mcg (50,000 unit) capsule folic acid 1 mg tablet 1 mg PO DAILY 11/18/21 05/04/23 04/30/23 History lorazepam 0.5 mg tablet 0.5 mg PO Q6H PRN ANXIETY 11/18/21 05/04/23 05/02/23 History prednisone 5 mg tablet 5 mg PO Q48H 11/18/21 05/04/23 04/30/23 History sertraline 100 mg tablet 200 mg PO BEDTIME 11/18/21 05/04/23 04/30/23 History testosterone 40.5 mg topical DAILY 11/18/21 05/04/23 04/30/23 History ruxolitinib 5 mg tablet (Jakafi) 5 mg PO DAILY 05/04/23 05/04/23 04/30/23 History tacrolimus 0.5 mg capsule, 0.5 mg PO DAILY@1200 05/04/23 05/04/23 04/30/23 History immediate-release ursodiol 300 mg capsule 300 mg PO DAILY@1200 05/04/23 05/04/23 04/30/23 History <Sunshine Mckeon NP - Last Filed: 05/04/23 20:25> Physical Exam 2 Vital Signs: Vital Signs: Last Vital Signs Temp 99.6 F 05/04/23 13:53 Pulse 108 H 05/04/23 15:48 Resp 16 05/04/23 15:48 BP 120/78 05/04/23 15:48 Pulse Ox 93 05/04/23 15:48 O2 Del Method Room Air 05/04/23 15:48 BMI result Body Mass Index 16.6 <Sunshine Mckeon NP - Last Filed: 05/04/23 20:25> ?General:? Alert oriented x3 no acute distress.? Speaking full sentences.? Speech is well articulated, thought process is coherent.? Following all commands. ?HEENT:? Head is normocephalic, atraumatic, pupils equal round reactive to light accommodation bilaterally.? Extraocular movements appear intact.? Buccal mucosa is moist, Neck is supple ?Cardiac:? sinus tachycardia 110 - 120s. Clear S1-S2, no murmurs rubs or gallops. No edema ?Pulmonary:? Clear to auscultation, no wheezes, rales or rhonchi. ?Abdomen:? ?Abdomen soft, non-tender, non-distended. Normal bowel sounds. No pulsatile mass. No hepatosplenomegaly. ?Musculoskeletal:? Moving all 4 extremities upon request a major joints, there is no crepitus or tenderness.? The strength is 5/5 bilaterally and throughout all 4 extremities.? Gait not assessed at this point. ?Neurologic:? cranial nerves 2-12 are grossly intact.? No focal deficits noted.Motor strength as above.?? ?Skin:?Post surgical drain anterior chest. No ulcers Vascular:? 2+ pulses upper and lower extremities distally.? <Sunshine Mckeon NP - Last Filed: 05/04/23 20:25> Results Labs CBC and Chem 7: 05/05/23 05:18 05/05/23 05:18 <Sunshine Mckeon NP - Last Filed: 05/04/23 20:25> Labs: Laboratory Results - last 24 hr 05/04/23 05/04/23 05/04/23 14:06 14:39 16:54 MCV 97.6 MCH 32.2 MCHC 33.0 RDW 14.2 Plt Count 348 MPV 9.6 Immature Gran % (Auto) 0.8 H Neut % (Auto) 78.3 H Lymph % (Auto) 10.3 L [place] % (Auto) 9.8 Eos % (Auto) 0.5 Baso % (Auto) 0.3 Lymph # (Auto) 1.5 [place] # (Auto) 1.4 H Eos # (Auto) 0.1 Baso # (Auto) 0.0 Abs Immat Gran (auto) 0.12 H Absolute Neuts (auto) 11.4 H Absolute Nucleated RBC 0.000 Nucleated RBC % (auto) 0.0 PT 14.1 H INR APTT Anion Gap 15 Estim Creat Clear Calc 26.6 Estimated GFR 33 Random Glucose 179 H Lactic Acid 1.5 Calcium 9.5 Total Bilirubin 0.5 AST 25 ALT 20 Alkaline Phosphatase 111 B-Natriuretic Peptide 152 H Total Protein 8.4 H Albumin 3.5 Procalcitonin 1.27 Influenza Type A (PCR) NEGATIVE Influenza Type B (PCR) NEGATIVE RSV RNA Qual (PCR) NEGATIVE SARS-CoV-2 RNA (RT-PCR) NEGATIVE Blood Type Antibody Screen 05/04/23 05/04/23 05/04/23 16:54 16:54 16:54 MCV MCH MCHC RDW Plt Count MPV Immature Gran % (Auto) Neut % (Auto) Lymph % (Auto) [place] % (Auto) Eos % (Auto) Baso % (Auto) Lymph # (Auto) [place] # (Auto) Eos # (Auto) Baso # (Auto) Abs Immat Gran (auto) Absolute Neuts (auto) Absolute Nucleated RBC Nucleated RBC % (auto) PT Cancelled INR 1.2 H Cancelled APTT 28.7 Cancelled Anion Gap Estim Creat Clear Calc Estimated GFR Random Glucose Lactic Acid Calcium Total Bilirubin AST ALT Alkaline Phosphatase B-Natriuretic Peptide Total Protein Albumin Procalcitonin Influenza Type A (PCR) Influenza Type B (PCR) RSV RNA Qual (PCR) SARS-CoV-2 RNA (RT-PCR) Blood Type Antibody Screen 05/04/23 16:59 MCV MCH MCHC RDW Plt Count MPV Immature Gran % (Auto) Neut % (Auto) Lymph % (Auto) [place] % (Auto) Eos % (Auto) Baso % (Auto) Lymph # (Auto) [place] # (Auto) Eos # (Auto) Baso # (Auto) Abs Immat Gran (auto) Absolute Neuts (auto) Absolute Nucleated RBC Nucleated RBC % (auto) PT INR APTT Anion Gap Estim Creat Clear Calc Estimated GFR Random Glucose Lactic Acid Calcium Total Bilirubin AST ALT Alkaline Phosphatase B-Natriuretic Peptide Total Protein Albumin Procalcitonin Influenza Type A (PCR) Influenza Type B (PCR) RSV RNA Qual (PCR) SARS-CoV-2 RNA (RT-PCR) Blood Type O Positive Antibody Screen NEGATIVE <Sunshine Mckeon NP - Last Filed: 05/04/23 20:25> Imaging Radiologist's Impressions: Impressions Chest CT 05/04/23 15:33 IMPRESSION: 1. Moderate-large pericardial effusion. 2. Peribronchial thickening and linear band of opacity in the right upper lobe, could reflect infectious/inflammatory process versus atelectasis/scarring. 3. Small-moderate bilateral pleural effusions. Subjacent airspace opacities suggestive of atelectasis versus inflammatory/infectious process. 4. Gallstone. No obvious pericholecystic inflammatory changes seen. 5. Additional findings and details as above. Fleischner guidelines were followed. <Sunshine Mckeon NP - Last Filed: 05/04/23 20:25> Assessment and Plan (1) Pericardial effusion with cardiac tamponade: Status: Acute <Sunshine Mckeon NP - Last Filed: 05/04/23 20:25> (2) ODESSA (acute kidney injury): Status: Acute <Sunshine Mckeon NP - Last Filed: 05/04/23 20:25> 63-year-old male past medical history of hypertension, myelodysplastic syndromes s/p stem cell transplant in 2019, and anxiety who presented with cardiac tamponade with pericardial effusion s/p pericardial window Neuro:? No acute issues. Cardiac:?? Cardiac tamponade with pericardial effusion- ? pericardial effusion noted on? CTA,? cardiac tamponade evident on echocardiogram, ? patient now is status post pericardial window but approximately 1500 ML output? by Dr. Higuera.? Appreciate surgical and? cardiology? recommendations.? Will continue to monitor closely.? Repeat EKG? and labs? Pulmonary:? ?No acute issues Renal:? ODESSA-? ? nonoliguric. ? Due to? hypoperfusion.? Continue to monitor renal indices Endo:? No acute issues.?? GI:? No acute issues. ID:? ? leukocytosis-? no evidence of acute infection,? lactic is normal, vitals are normal. Will cont to trend? Heme/Onc:? No acute issues. Psych:? No acute issues. Miscellaneous:? No acute issues. Prophylaxis: ? compression therapy Diet:? per surgery? Critical care time spent:? 30 minutes Case discussed with Dr Bradford <Sunshine Mckeon NP - Last Filed: 05/04/23 20:25> 63-year-old male past medical history of hypertension, myelodysplastic syndromes s/p stem cell transplant in 2019, and anxiety who presented with cardiac tamponade with pericardial effusion s/p pericardial window Neuro:? No acute issues. Cardiac:?? Cardiac tamponade with pericardial effusion- ? pericardial effusion noted on? CTA,? cardiac tamponade evident on echocardiogram, ? patient now is status post pericardial window but approximately 1500 ML output? by Dr. Higuera.? Appreciate surgical and? cardiology? recommendations.? Will continue to monitor closely.? Repeat EKG? and labs? Pulmonary:? ?No acute issues Renal:? ODESSA-? ? nonoliguric. ? Due to? hypoperfusion.? Continue to monitor renal indices Endo:? No acute issues.?? GI:? No acute issues. ID:? ? leukocytosis-? no evidence of acute infection,? lactic is normal, vitals are normal. Will cont to trend? Heme/Onc:? No acute issues. Psych:? No acute issues. Miscellaneous:? No acute issues. Prophylaxis: ? compression therapy Diet:? per surgery? Case discussed with Dr Bradford <Dontrell Bradford MD - Last Filed: 05/05/23 10:04>
[2023-05-04] MEDS: diphenhydrAMINE HCL 50 MG/ML VIAL 25 MG IVPUSH (20:24)
[2023-05-04 20:25] LABS: MANUAL DIFF FLAG NO
[2023-05-04 20:26] LABS: Basophils Percent Auto 0.2 % (0-2); Eosinophils Absolute Auto 0.1 X10*3/uL (0.0-0.4); Eosinophils Percent Auto 0.7 % (0-4); Hematocrit 33.3 % (42.0-52.0); Imm Gran Abs Auto 0.14 X10*3/uL (0.00-0.03); Imm Gran Pct Auto 1.2 % (0.0-0.4); Lymphocytes Absolute Auto 0.8 X10*3/uL (1.2-4.9); Lymphocytes Percent Auto 6.2 % (20-40); Mean Corpuscular Hemoglobin 32.1 pg (27.0-33.0); Mean Corpuscular Volume 97.1 fL (80.0-98.0); Mean Platelet Volume 9.4 fL (9.4-12.4); Monocytes Absolute Auto 0.5 X10*3/uL (0.1-1.2); Neutrophils Absolute Auto 10.7 x10*3/uL (2.0-8.3); Neutrophils Percent Auto 87.7 % (45-73); Platelet Count 320 X10*3/uL (160-400); Red Blood Count 3.43 X10*6/uL (4.60-5.80); Red Cell Distribution Width 14.2 % (11.0-16.0); White Blood Count 12.1 X10*3/uL (4.8-10.8)
[2023-05-04 20:33] LABS: INTERNATIONAL NORM RATIO 1.1 (0.9-1.1); Prothrombin Time 13.8 SEC (11.1-13.3)
[2023-05-04 20:43] LABS: Alanine Aminotransferase 30 U/L (0-40); Albumin Level 3.3 g/dL (3.5-5.0); Alkaline Phosphatase 122 U/L (39-117); Anion Gap 13 (12-20); Aspartate Amino Transferase 43 U/L (5-37); Bilirubin Total 0.6 mg/dL (0.0-1.0); Blood Urea Nitrogen 37 mg/dL (9-16); Carbon Dioxide 21 mmol/L (22-29); Chloride 106 mmol/L (96-108); Creatinine Clr Calc Pharmacy 29.6; Estimated Glomerular Filt Rate 37; Glucose Random 107 mg/dL (60-115); Magnesium 1.9 mg/dL (1.6-2.6); Phosphorus 4.4 mg/dL (2.7-4.5); Potassium 3.8 mmol/L (3.3-5.1); Sodium 136 mmol/L (135-145); Total Protein 7.7 g/dL (6.5-8.0)
--- NOTE | 2023-05-04 20:55 | PHA.MEDREC ---
Pharmacy Consult ? Medication Reconciliation Pharmacy has completed the medication reconciliation.SPOKE TO PT AND NANCY AT [facility]EDSIDE ([phone]) TO CONFIRM MEDICATIONS. PT HAS NOT FELT WELL FOR SOME TIME SO HASN'T TAKEN HOME MEDS SINCE SUNDAY. SAYS WE CAN CALL HER WITH QUESTIONS. SHE IS AWARE WE WILL PROBABLY ASK HER TO BRING IN JAKAFI AND IS BRINGING IT IN TOMORROW.
[2023-05-04] MEDS: Albumin Human 25 % 100 ML IV (21:35)
[2023-05-05] VITALS (21 sets, daily range): BP systolic 85–147; BP diastolic 44–77; PULSE 110–130; RESP 14–28; TEMP 36.2–38.6; O2SAT 90–95; BMI 24.1
[2023-05-05] MEDS: HYDROmorphone HCl 0.5 MG/0.5 ML SYRINGE IVPUSH ×3 (00:31→08:43)
[2023-05-05] MEDS: Albumin Human 25 % 100 ML IV ×3 (03:29→15:06)
[2023-05-05 05:26] LABS: MANUAL DIFF FLAG NO
[2023-05-05 05:27] LABS: VBG Base Excess -5.7 mmol/L; VBG HCO3 18 mmol/L (22-26); VBG pCO2 32 mmHg; VBG pH 7.36 (7.32-7.43); VBG pO2 32 mmHg
[2023-05-05 05:30] LABS: Venous Blood Gas Refer to POC result
[2023-05-05 05:31] LABS: Basophils Percent Auto 0.2 % (0-2); Eosinophils Absolute Auto 0.1 X10*3/uL (0.0-0.4); Eosinophils Percent Auto 0.7 % (0-4); Hematocrit 27.8 % (42.0-52.0); Hemoglobin 9.4 g/dl (14.0-18.0); Imm Gran Abs Auto 0.16 X10*3/uL (0.00-0.03); Imm Gran Pct Auto 1.1 % (0.0-0.4); Lymphocytes Absolute Auto 0.6 X10*3/uL (1.2-4.9); Lymphocytes Percent Auto 3.9 % (20-40); Mean Corpuscular HGB Conc 33.8 g/dl (31.0-36.0); Mean Corpuscular Hemoglobin 33.3 pg (27.0-33.0); Mean Corpuscular Volume 98.6 fL (80.0-98.0); Mean Platelet Volume 9.9 fL (9.4-12.4); Monocytes Absolute Auto 0.6 X10*3/uL (0.1-1.2); Monocytes Percent Auto 4.4 % (2-11); Neutrophils Absolute Auto 12.9 x10*3/uL (2.0-8.3); Neutrophils Percent Auto 89.7 % (45-73); Platelet Count 248 X10*3/uL (160-400); Red Blood Count 2.82 X10*6/uL (4.60-5.80); Red Cell Distribution Width 14.1 % (11.0-16.0); White Blood Count 14.4 X10*3/uL (4.8-10.8)
[2023-05-05 05:37] LABS: INTERNATIONAL NORM RATIO 1.3 (0.9-1.1); Prothrombin Time 15.6 SEC (11.1-13.3)
[2023-05-05 05:45] LABS: Alanine Aminotransferase 21 U/L (0-40); Albumin Level 3.6 g/dL (3.5-5.0); Alkaline Phosphatase 84 U/L (39-117); Anion Gap 14 (12-20); Aspartate Amino Transferase 32 U/L (5-37); Bilirubin Total 1.2 mg/dL (0.0-1.0); Blood Urea Nitrogen 38 mg/dL (9-16); Calcium 8.5 mg/dL (8.4-10.2); Carbon Dioxide 18 mmol/L (22-29); Chloride 104 mmol/L (96-108); Creatinine Clr Calc Pharmacy 36.5; Estimated Glomerular Filt Rate 32; Glucose Random 97 mg/dL (60-115); Magnesium 1.9 mg/dL (1.6-2.6); Phosphorus 4.1 mg/dL (2.7-4.5); Potassium 4.3 mmol/L (3.3-5.1); Sodium 132 mmol/L (135-145); Total Protein 6.8 g/dL (6.5-8.0)
[2023-05-05 05:51] LABS: B Type Natriuretic Peptide 373 pg/mL (<100)
--- NOTE | 2023-05-05 05:55 | PC.NURSE ---
ASSUMED CARE OF PT AT 0000. PT A&O X3. NO RESP DISTRESS. O2 ON AT 6L VIA NC. O2 SAT 92-95%. RESP RATE MID TO UPPER 20'S. LUNGS CLEAR. PERICARDIAL DRAIN IN PLACE MID ANTERIOR CHEST. DRAINED 100 ML SINCE ARRIVAL TO ICU APPROXIMATELY 1999. DSG IS D&I. SLIGHT SWELLING TO LEFT CHEST NOTED BUT DID NOT INCREASE OVERNIGHT. ICE PACK APPLIED. SBP 110'S-140'S BUT PRESENTLY 106/58. MONITOR SHOWS ST, RATE 110'S-120'S. PT VOIDING IN URINOL. PROVIDER AWARE OF TACHYPNEA, TACHYCARDIA AND DROP IN BP. LABS ORDERED WITH PCXR THIS MORNING.
--- NOTE | 2023-05-05 08:57 | P.POSTANES_ITS ---
Post Anesthesia Evaluation Post Anesthesia Evaluation Date of Service: 05/05/23 Anesthesia: Monitored Mental Status: Awake Pain Control: Satisfactory Nausea/Vomiting: None Hydration: Adequate Anesthesia-Related Issues: No Anes. Related Issues
--- NOTE | 2023-05-05 10:09 | PM.CCPN ---
Subjective Subjective Date of Service: 05/05/23 Interval History: 63-year-old gentleman with underlying history of myelodysplastic syndrome status post stem cell transplant in 2019, hypertension diet admitted 05/04/2023 with 2 weeks of viral like syndrome with and worsening dyspnea. On ER evaluation patient with large pericardial effusion with tamponade t signs on 2D echocardiogram. Patient taken to OR for pericardial window with drainage of approximately 1.5 L of pericardial fluid with fluid studies sent. Patient monitored in the intensive care unit postprocedure. Empirically covered with broad-spectrum antibiotics. No events overnight. Critical Care Time (minutes): 0 Physical Exam Vital Signs: Vital Signs: Last Vital Signs Temp 98.4 F 05/05/23 08:00 Pulse 120 H 05/05/23 09:00 Resp 16 05/05/23 09:00 BP 101/61 05/05/23 09:00 Pulse Ox 91 L 05/05/23 09:00 O2 Del Method Nasal Cannula 05/05/23 09:00 O2 Flow Rate 6 05/05/23 09:00 Oxygen Flow Rate 6 05/04/23 19:27 BMI result Body Mass Index 24.1 Const: General: no acute distress, alert and awake Eyes: Sclerae: sclerae normal EOM: EOMs intact bilaterally Neck: Neck: Yes no lymphadenopathy, Yes trachea midline and Yes supple Chest: Chest palpation & inspection: other ( pericardial drain with serous output) Resp: Effort & Inspection: normal respiratory effort and no respiratory distress Auscultation: crackles ( bilateral) Cardio: Rate: tachycardic Rhythm: regular rhythm Heart sounds: no gallops, no murmurs and no rubs GI: Palpation (GI): Soft to palpation and Other GI palpation findings present ( Nontender) Auscultation: normal bowel sounds Extrem: General: Yes no pedal edema, No clubbing and No cyanosis Objective Data Labs 05/05/23 05:18 05/05/23 05:18 Labs: Laboratory Results - last 24 hr 05/04/23 05/04/23 05/04/23 14:06 14:39 16:54 WBC 14.6 H RBC 3.32 L Hgb 10.7 L Hct 32.4 L MCV 97.6 MCH 32.2 MCHC 33.0 RDW 14.2 Plt Count 348 MPV 9.6 Immature Gran % (Auto) 0.8 H Neut % (Auto) 78.3 H Lymph % (Auto) 10.3 L Mason % (Auto) 9.8 Eos % (Auto) 0.5 Baso % (Auto) 0.3 Lymph # (Auto) 1.5 Mason # (Auto) 1.4 H Eos # (Auto) 0.1 Baso # (Auto) 0.0 Abs Immat Gran (auto) 0.12 H Absolute Neuts (auto) 11.4 H Absolute Nucleated RBC 0.000 Nucleated RBC % (auto) 0.0 PT 14.1 H INR APTT VBG pH VBG pCO2 VBG pO2 VBG HCO3 VBG O2 Saturation VBG Base Excess Sodium 137 Potassium 4.4 Chloride 104 Carbon Dioxide 22 Anion Gap 15 BUN 41 H Creatinine 2.06 H Estim Creat Clear Calc 26.6 Estimated GFR 33 Random Glucose 179 H Lactic Acid 1.5 Calcium 9.5 Phosphorus Magnesium Total Bilirubin 0.5 AST 25 ALT 20 Alkaline Phosphatase 111 Troponin I High Sens 19.3 B-Natriuretic Peptide 152 H Total Protein 8.4 H Albumin 3.5 Procalcitonin 1.27 Influenza Type A (PCR) NEGATIVE Influenza Type B (PCR) NEGATIVE RSV RNA Qual (PCR) NEGATIVE SARS-CoV-2 RNA (RT-PCR) NEGATIVE Blood Type Antibody Screen 05/04/23 05/04/23 05/04/23 16:54 16:54 16:54 WBC RBC Hgb Hct MCV MCH MCHC RDW Plt Count MPV Immature Gran % (Auto) Neut % (Auto) Lymph % (Auto) [place] % (Auto) Eos % (Auto) Baso % (Auto) Lymph # (Auto) Mason # (Auto) Eos # (Auto) Baso # (Auto) Abs Immat Gran (auto) Absolute Neuts (auto) Absolute Nucleated RBC Nucleated RBC % (auto) PT Cancelled INR 1.2 H Cancelled APTT 28.7 Cancelled VBG pH VBG pCO2 VBG pO2 VBG HCO3 VBG O2 Saturation VBG Base Excess Sodium Potassium Chloride Carbon Dioxide Anion Gap BUN Creatinine Estim Creat Clear Calc Estimated GFR Random Glucose Lactic Acid Calcium Phosphorus Magnesium Total Bilirubin AST ALT Alkaline Phosphatase Troponin I High Sens B-Natriuretic Peptide Total Protein Albumin Procalcitonin Influenza Type A (PCR) Influenza Type B (PCR) RSV RNA Qual (PCR) SARS-CoV-2 RNA (RT-PCR) Blood Type Antibody Screen 05/04/23 05/04/23 05/05/23 16:59 20:19 05:18 WBC 12.1 H 14.4 H RBC 3.43 L 2.82 L Hgb 11.0 L 9.4 L Hct 33.3 L 27.8 L MCV 97.1 98.6 H MCH 32.1 33.3 H MCHC 33.0 33.8 RDW 14.2 14.1 Plt Count 320 248 MPV 9.4 9.9 Immature Gran % (Auto) 1.2 H 1.1 H Neut % (Auto) 87.7 H 89.7 H Lymph % (Auto) 6.2 L 3.9 L Mason % (Auto) 4.0 4.4 Eos % (Auto) 0.7 0.7 Baso % (Auto) 0.2 0.2 Lymph # (Auto) 0.8 L 0.6 L Mason # (Auto) 0.5 0.6 Eos # (Auto) 0.1 0.1 Baso # (Auto) 0.0 0.0 Abs Immat Gran (auto) 0.14 H 0.16 H Absolute Neuts (auto) 10.7 H 12.9 H Absolute Nucleated RBC 0.000 0.000 Nucleated RBC % (auto) 0.0 0.0 PT 13.8 H 15.6 H INR 1.1 1.3 H APTT VBG pH VBG pCO2 VBG pO2 VBG HCO3 VBG O2 Saturation VBG Base Excess Sodium 136 132 L Potassium 3.8 4.3 Chloride 106 104 Carbon Dioxide 21 L 18 L Anion Gap 13 14 BUN 37 H 38 H Creatinine 1.85 H 2.08 H Estim Creat Clear Calc 29.6 36.5 Estimated GFR 37 32 Random Glucose 107 97 Lactic Acid Calcium 9.0 8.5 Phosphorus 4.4 4.1 Magnesium 1.9 1.9 Total Bilirubin 0.6 1.2 H AST 43 H 32 ALT 30 21 Alkaline Phosphatase 122 H 84 Troponin I High Sens B-Natriuretic Peptide 373 H Total Protein 7.7 6.8 Albumin 3.3 L 3.6 Procalcitonin Influenza Type A (PCR) Influenza Type B (PCR) RSV RNA Qual (PCR) SARS-CoV-2 RNA (RT-PCR) Blood Type O Positive Antibody Screen NEGATIVE 05/05/23 05:21 WBC RBC Hgb Hct MCV MCH MCHC RDW Plt Count MPV Immature Gran % (Auto) Neut % (Auto) Lymph % (Auto) Mason % (Auto) Eos % (Auto) Baso % (Auto) Lymph # (Auto) Mason # (Auto) Eos # (Auto) Baso # (Auto) Abs Immat Gran (auto) Absolute Neuts (auto) Absolute Nucleated RBC Nucleated RBC % (auto) PT INR APTT VBG pH 7.36 VBG pCO2 32 VBG pO2 32 VBG HCO3 18 L VBG O2 Saturation 57.0 VBG Base Excess -5.7 Sodium Potassium Chloride Carbon Dioxide Anion Gap BUN Creatinine Estim Creat Clear Calc Estimated GFR Random Glucose Lactic Acid Calcium Phosphorus Magnesium Total Bilirubin AST ALT Alkaline Phosphatase Troponin I High Sens B-Natriuretic Peptide Total Protein Albumin Procalcitonin Influenza Type A (PCR) Influenza Type B (PCR) RSV RNA Qual (PCR) SARS-CoV-2 RNA (RT-PCR) Blood Type Antibody Screen Progress Note: A&P Assessment and plan (1) ODESSA (acute kidney injury): Status: Acute (2) Pericardial effusion with cardiac tamponade: Status: Acute (3) Pulmonary edema: Status: Acute (4) MDS (myelodysplastic syndrome): Status: Acute Plan Assessment: 63-year-old gentleman admitted with large pericardial effusion with early signs of tamponade, now status post pericardial window Plan: Neuro: No acute issues. Cardiac: large pericardial effusion, likely secondary to pericarditis. Status post pericardial window with drainage of approximately on 0.5 L of cells fluid. Thoracic surgery and cardiology services care appreciated. Pulmonary: acute hypoxic respiratory failure secondary to pulmonary edema on the background of initial tamponade. Diuresis is limited by requirements for opioids for pain control. Renal: No acute issues. Endo: No acute issues. GI: No acute issues. ID: Empirically covered with broad-spectrum antibiotics. Cultures are pending. Heme/Onc: Underlying history of mild dysplastic syndrome status post stem cell transplant. Continue on home regimen. Psych: No acute issues. Miscellaneous: No acute issues. Prophylaxis: Pneumatic compression Diet: regular Quality Stroke Does the patient have a stroke diagnosis?: No VTE Prior VTE?: No VTE Risk Level:: Medical - moderate - high VTE Device Contraindication: N/A - Device Ordered VTE Drug Contraindication: Treatment Not Indicated
[2023-05-05] MEDS: cefEPime HCl 1 GM in 0.9 % Sodium Chloride 50 ML IV ×2 (10:22→20:32)
[2023-05-05] MEDS: fentaNYL citrate/PF 100 MCG/2 ML VIAL 50 MCG IVPUSH ×2 (12:04→17:14)
[2023-05-05] MEDS: predniSONE 5 MG TABLET PO (16:35)
[2023-05-05] MEDS: Tacrolimus 0.5 MG CAPSULE PO (16:35)
[2023-05-05] MEDS: UrsodioL 300 MG CAPSULE PO (16:35)
[2023-05-05] MEDS: Acetaminophen 325 MG TABLET 650 MG PO (17:14)
[2023-05-05] MEDS: Sertraline HCL 100 MG TABLET 200 MG PO (20:32)
--- NOTE | 2023-05-05 22:00 | PM.PNGS ---
Subjective Subjective Date of Service: 05/06/23 Interval history: pt doing well Physical Exam Vital Signs: Vital Signs: Last Vital Signs Temp 97.2 F 05/05/23 19:29 Pulse 110 H 05/05/23 19:29 Resp 20 05/05/23 19:29 BP 112/55 L 05/05/23 19:29 Pulse Ox 94 05/05/23 19:29 O2 Del Method Nasal Cannula 05/05/23 19:29 O2 Flow Rate 9.0 05/05/23 19:29 Oxygen Flow Rate 6 05/05/23 18:01 BMI result Body Mass Index 24.1 Chest: Other: pericardial drain IN PLACE DRESSINGS CLEAN Objective Data Active Medications Acetaminophen (Acetaminophen 325 Mg Tablet) 650 mg PO Q4H PRN PRN Reason: fever Last Admin: 05/05/23 17:14 Dose: 650 mg Documented By: LAXMI Diphenhydramine HCl (Diphenhydramine Hcl 50 Mg/Ml Vial) 25 mg IVPUSH Q4H PRN PRN Reason: Itching Last Admin: 05/04/23 20:24 Dose: 25 mg Documented By: YNES Fentanyl (Fentanyl Citrate/Pf 100 Mcg/2 Ml Vial) 50 mcg IVPUSH Q2H PRN; Protocol PRN Reason: Pain, Moderate(Pain Scale 4-6) Last Admin: 05/05/23 17:14 Dose: 50 mcg Documented By: LAXMI Folic Acid (Folic Acid 1 Mg Tablet) 1 mg PO DAILY [facility] Cefepime HCl 1 gm/ Sodium (Chloride) 50 mls @ 100 mls/hr IV Q12H [facility] Last Infusion: 05/05/23 21:16 Dose: Infused Documented By: PRIMO Morphine Sulfate (Morphine Sulfate 2 Mg/Ml Cartridge) 2 mg IVPUSH Q2H PRN; Protocol PRN Reason: moderate pain Non-Formulary Medication (Budesonide) 3 mg PO TID [facility] Non-Formulary Medication (Ruxolitinib [Jakafi]) 5 mg PO DAILY [facility] Prednisone (Prednisone 5 Mg Tablet) 5 mg PO Q48H [facility] Last Admin: 05/05/23 16:35 Dose: 5 mg Documented By: LAXMI Sertraline HCl (Sertraline Hcl 100 Mg Tablet) 200 mg PO BEDTIME [facility] Last Admin: 05/05/23 20:32 Dose: 200 mg Documented By: PRIMO Tacrolimus (Tacrolimus 0.5 Mg Capsule) 0.5 mg PO DAILY@1200 SOLE Last Admin: 05/05/23 16:35 Dose: 0.5 mg Documented By: LAXMI Ursodiol (Ursodiol 300 Mg Capsule) 300 mg PO DAILY@1200 SOLE Last Admin: 05/05/23 16:35 Dose: 300 mg Documented By: LAXMI Labs 05/06/23 05:45 05/06/23 05:45 Labs: Laboratory Results - last 24 hr 05/05/23 05/05/23 05:18 05:21 MCV 98.6 H MCH 33.3 H MCHC 33.8 RDW 14.1 Plt Count 248 MPV 9.9 Immature Gran % (Auto) 1.1 H Neut % (Auto) 89.7 H Lymph % (Auto) 3.9 L [place] % (Auto) 4.4 Eos % (Auto) 0.7 Baso % (Auto) 0.2 Lymph # (Auto) 0.6 L [place] # (Auto) 0.6 Eos # (Auto) 0.1 Baso # (Auto) 0.0 Abs Immat Gran (auto) 0.16 H Absolute Neuts (auto) 12.9 H Absolute Nucleated RBC 0.000 Nucleated RBC % (auto) 0.0 PT 15.6 H INR 1.3 H VBG pH 7.36 VBG pCO2 32 VBG pO2 32 VBG HCO3 18 L VBG O2 Saturation 57.0 VBG Base Excess -5.7 Anion Gap 14 Estim Creat Clear Calc 36.5 Estimated GFR 32 Random Glucose 97 Calcium 8.5 Phosphorus 4.1 Magnesium 1.9 Total Bilirubin 1.2 H AST 32 ALT 21 Alkaline Phosphatase 84 B-Natriuretic Peptide 373 H Total Protein 6.8 Albumin 3.6 Microbiology Microbiology Results: Microbiology 05/04/23 14:39 Blood Culture - Preliminary Blood - Venous No growth after 24 hours. 05/04/23 14:06 Blood Culture - Preliminary Blood - Venous No growth after 24 hours. Procedures Date of Service Date of Service: 05/06/23 Progress Note: A&P Assessment and plan (1) Pericardial effusion with cardiac tamponade: Status: Acute Assessment and Plan: pt s/p pericardial window for pericardial tamponade- doing well, HD stable Time Spent With Patient Time: Total time managing care of this patient today ____ minutes. Quality Stroke Does the patient have a stroke diagnosis?: No VTE Prior VTE?: No VTE Risk Level:: Medical - moderate - high VTE Device Contraindication: N/A - Device Ordered VTE Drug Contraindication: Treatment Not Indicated
[2023-05-06] VITALS (9 sets, daily range): BP systolic 102–133; BP diastolic 53–67; PULSE 94–190; RESP 18–20; TEMP 36.1–37.5; O2SAT 91–96
--- NOTE | 2023-05-06 | ECG_ITS ---
Test Reason : cp Blood Pressure : / mmHG Vent. Rate : 173 BPM Atrial Rate : 000 BPM P-R Int : 000 ms QRS Dur : 082 ms QT Int : 248 ms P-R-T Axes : 000 036 257 degrees QTc Int : 420 ms Atrial fibrillation with rapid ventricular response ST & T wave abnormality, consider inferior ischemia ST & T wave abnormality, consider anterolateral ischemia Abnormal ECG When compared with ECG of 04-MAY-2023 20:05, Atrial fibrillation has replaced Sinus rhythm T wave inversion now evident in Inferior leads T wave inversion now evident in Anterolateral leads Heart rate has increased Referred By: Hayden Ge Electronically Signed By:DIAZ MEENNDEZ MD
[2023-05-06] MEDS: diphenhydrAMINE HCL 50 MG/ML VIAL 25 MG IVPUSH (00:35)
[2023-05-06 06:44] LABS: Basophils Absolute Auto 0.1 X10*3/uL (0.0-0.2); Basophils Percent Auto 0.3 % (0-2); Eosinophils Absolute Auto 0.3 X10*3/uL (0.0-0.4); Eosinophils Percent Auto 2.2 % (0-4); Hematocrit 28.9 % (42.0-52.0); Hemoglobin 9.7 g/dl (14.0-18.0); Imm Gran Abs Auto 0.12 X10*3/uL (0.00-0.03); Imm Gran Pct Auto 0.8 % (0.0-0.4); Lymphocytes Absolute Auto 0.3 X10*3/uL (1.2-4.9); MANUAL DIFF FLAG SCAN; Mean Corpuscular HGB Conc 33.6 g/dl (31.0-36.0); Mean Corpuscular Hemoglobin 31.9 pg (27.0-33.0); Mean Corpuscular Volume 95.1 fL (80.0-98.0); Mean Platelet Volume 10.2 fL (9.4-12.4); Monocytes Absolute Auto 0.4 X10*3/uL (0.1-1.2); Monocytes Percent Auto 2.6 % (2-11); Neutrophils Absolute Auto 13.2 x10*3/uL (2.0-8.3); Neutrophils Percent Auto 92.1 % (45-73); Platelet Count 238 X10*3/uL (160-400); Red Blood Count 3.04 X10*6/uL (4.60-5.80); Red Cell Distribution Width 13.9 % (11.0-16.0); SCAN SMEAR FLAG 1; White Blood Count 14.3 X10*3/uL (4.8-10.8)
[2023-05-06 06:45] LABS: Anion Gap 15 (12-20); Blood Urea Nitrogen 49 mg/dL (9-16); Calcium 8.7 mg/dL (8.4-10.2); Carbon Dioxide 18 mmol/L (22-29); Chloride 103 mmol/L (96-108); Creatinine Clr Calc Pharmacy 30.2; Estimated Glomerular Filt Rate 26; Glucose Random 110 mg/dL (60-115); Potassium 4.2 mmol/L (3.3-5.1); Sodium 132 mmol/L (135-145)
[2023-05-06 07:25] LABS: SLIDE REVIEW VERIFIED
--- NOTE | 2023-05-06 08:51 | HO.PM.IMPN ---
Subjective Subjective Date of Service: 05/06/23 Interval History: sob, epigastric and chest pain Physical Exam Vital Signs: Vital Signs: Last Vital Signs Temp 97.7 F 05/06/23 07:33 Pulse 125 H 05/06/23 07:33 Resp 20 05/06/23 07:33 BP 130/67 05/06/23 07:33 Pulse Ox 94 05/06/23 07:33 O2 Del Method Nasal Cannula 05/06/23 07:33 O2 Flow Rate 9 05/06/23 07:33 Oxygen Flow Rate 6 05/05/23 18:01 BMI result Body Mass Index 24.1 General: AO X 3, in some discomfort Resp: CTA bilateral, no accessory muscles used CVS: S1,S2,RRR, pericardial drain in place GI: soft, non tender, non distended Neuro: motor grossly intact, alert Psych: appropriate affect, appropriate insight Objective Data Active Medications Acetaminophen (Acetaminophen 325 Mg Tablet) 650 mg PO Q4H PRN PRN Reason: fever Last Admin: 05/05/23 17:14 Dose: 650 mg Documented By: LAXMI Diphenhydramine HCl (Diphenhydramine Hcl 50 Mg/Ml Vial) 25 mg IVPUSH Q4H PRN PRN Reason: Itching Last Admin: 05/06/23 00:35 Dose: 25 mg Documented By: MARY GRACE Fentanyl (Fentanyl Citrate/Pf 100 Mcg/2 Ml Vial) 50 mcg IVPUSH Q2H PRN; Protocol PRN Reason: Pain, Moderate(Pain Scale 4-6) Last Admin: 05/05/23 17:14 Dose: 50 mcg Documented By: LAXMI Folic Acid (Folic Acid 1 Mg Tablet) 1 mg PO DAILY [facility] Cefepime HCl 1 gm/ Sodium (Chloride) 50 mls @ 100 mls/hr IV Q12H [facility] Last Infusion: 05/05/23 21:16 Dose: Infused Documented By: PRIMO Morphine Sulfate (Morphine Sulfate 2 Mg/Ml Cartridge) 2 mg IVPUSH Q2H PRN; Protocol PRN Reason: moderate pain Non-Formulary Medication (Budesonide) 3 mg PO TID [facility] Non-Formulary Medication (Ruxolitinib [Jakafi]) 5 mg PO DAILY [facility] Prednisone (Prednisone 5 Mg Tablet) 5 mg PO Q48H [facility] Last Admin: 05/05/23 16:35 Dose: 5 mg Documented By: LAXMI Sertraline HCl (Sertraline Hcl 100 Mg Tablet) 200 mg PO BEDTIME [facility] Last Admin: 05/05/23 20:32 Dose: 200 mg Documented By: PRIMO Tacrolimus (Tacrolimus 0.5 Mg Capsule) 0.5 mg PO DAILY@1200 SOLE Last Admin: 05/05/23 16:35 Dose: 0.5 mg Documented By: LAXMI Ursodiol (Ursodiol 300 Mg Capsule) 300 mg PO DAILY@1200 SOLE Last Admin: 05/05/23 16:35 Dose: 300 mg Documented By: LAXMI Labs 05/06/23 05:45 05/06/23 05:45 Labs: Laboratory Results - last 24 hr 05/06/23 05:45 MCV 95.1 MCH 31.9 MCHC 33.6 RDW 13.9 Plt Count 238 MPV 10.2 Immature Gran % (Auto) 0.8 H Neut % (Auto) 92.1 H Lymph % (Auto) 2.0 L [place] % (Auto) 2.6 Eos % (Auto) 2.2 Baso % (Auto) 0.3 Lymph # (Auto) 0.3 L [place] # (Auto) 0.4 Eos # (Auto) 0.3 Baso # (Auto) 0.1 Abs Immat Gran (auto) 0.12 H Absolute Neuts (auto) 13.2 H Absolute Nucleated RBC 0.000 Nucleated RBC % (auto) 0.0 Smear Tech's Comments VERIFIED Anion Gap 15 Estim Creat Clear Calc 30.2 Estimated GFR 26 Random Glucose 110 Calcium 8.7 Phosphorus 5.0 H Magnesium 2.0 Microbiology Microbiology Results: Microbiology 05/04/23 14:39 Blood Culture - Preliminary Blood - Venous No growth after 24 hours. 05/04/23 14:06 Blood Culture - Preliminary Blood - Venous No growth after 24 hours. 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 due to viral pericarditis follow up cardio thoracic MDS s/p transplant continue immunosuppresant and jakafi dvt prophylaxis - mechanical due to pericardial window full code reason for continued hospitalization:managing pericardial effusion Quality Stroke Does the patient have a stroke diagnosis?: No VTE Prior VTE?: No VTE Risk Level:: Medical - moderate - high VTE Device Contraindication: N/A - Device Ordered VTE Drug Contraindication: Treatment Not Indicated
[2023-05-06] MEDS: cefEPime HCl 1 GM in 0.9 % Sodium Chloride 50 ML IV ×2 (09:03→22:17)
[2023-05-06] MEDS: Folic Acid 1 MG TABLET PO (09:04)
--- NOTE | 2023-05-06 09:25 | MHC.CM.PN ---
Interview conducted w/; Pt lives w/. Owns a walker but does not use it, he is independent. He drives himself to where he needs to go. No previous services. No designated PCP; but he is an active Pt w/[facility]. D/C plan is return home w/ via . CM to follow.
[2023-05-06] MEDS: Tacrolimus 0.5 MG CAPSULE PO (12:32)
[2023-05-06] MEDS: UrsodioL 300 MG CAPSULE PO (12:32)
--- NOTE | 2023-05-06 12:44 | P.CONCA_ITS ---
History of Present Illness History of Present Illness Date of Service: 05/06/23 Requesting physician: Hayden Ge Chief complaint: CARDIAC TAMPONADE Narrative: [age] gentleman who was known history of MDS with previous stem cell transplant and chronic immunosuppression. He is presenting for sharp chest pains and shortness of breath which is ongoing for [address] scan followed by echocardiography showing large pericardial effusion with tamponade physiology. He was subsequently taken by thoracic surgery for pericardial window. We have been asked to help management of pericardial effusion. It appears this started few weeks ago and potentially this is secondary to viral illness. He did not have any LV dysfunction or any signs of myocarditis. He is short of breath and the ICU documentation is that he had some pulmonary edema after the pericardial window to. His blood pressure was not high and he did not get significant diuresis at that time. He is short of breath but mostly in pain on the left side after surgery. He is unable to take deep breaths. He also has been empirically treated in the ICU with cefepime and continues to get that. [facility] Past Medical History Medical History (Updated 05/06/23 @ 08:50 by Hayden Ge MD) Chronic kidney disease, stage IV (severe) Anxiety HTN (hypertension) MDS (myelodysplastic syndrome) Surgical History Surgical History (Updated 05/04/23 @ 14:53 by Ramona Rojo DO) H/O stem cell transplant Social History Household Members: Spouse Housing: House Do you presently have visiting nurse or other home services: No Patient Tobacco Use Status: Never used Tobacco Use of substances other than those prescribed or required for medical reasons: No Currently Displaying Signs/Symptoms of Drug Intoxication Withdrawal: No Have you been hit, kicked, punched, or otherwise hurt by someone within the past year? If so, by whom?: No Do you feel safe in your current relationship?: No Is there a partner from a previous relationship who is making you feel unsafe now?: No Are you made to feel afraid or neglected: No Advance Directives: No Advance Directives Information Provided: No Do you have thoughts of harming others: None Do you have a plan to hurt others: No Plan Poor oral hygiene: No Meds Allergies Allergy/AdvReac Type Severity Reaction Status Date / Time No Known Allergies Allergy Verified 05/04/23 13:52 Active Medications: Current Medications Acetaminophen (Acetaminophen 325 Mg Tablet) 650 mg PO Q4H PRN PRN Reason: fever Last Admin: 05/05/23 17:14 Dose: 650 mg Diphenhydramine HCl (Diphenhydramine Hcl 50 Mg/Ml Vial) 25 mg IVPUSH Q4H PRN PRN Reason: Itching Last Admin: 05/06/23 00:35 Dose: 25 mg Fentanyl (Fentanyl Citrate/Pf 100 Mcg/2 Ml Vial) 50 mcg IVPUSH Q2H PRN; Protocol PRN Reason: Pain, Moderate(Pain Scale 4-6) Last Admin: 05/05/23 17:14 Dose: 50 mcg Folic Acid (Folic Acid 1 Mg Tablet) 1 mg PO DAILY [facility] Last Admin: 05/06/23 09:04 Dose: 1 mg Cefepime HCl 1 gm/ Sodium (Chloride) 50 mls @ 100 mls/hr IV Q12H [facility] Last Infusion: 05/06/23 09:36 Dose: Infused Morphine Sulfate (Morphine Sulfate 2 Mg/Ml Cartridge) 2 mg IVPUSH Q2H PRN; Protocol PRN Reason: moderate pain Non-Formulary Medication (Budesonide) 3 mg PO TID [facility] Non-Formulary Medication (Ruxolitinib [Jakafi]) 5 mg PO DAILY [facility] Last Admin: 05/06/23 09:04 Dose: 5 mg Prednisone (Prednisone 5 Mg Tablet) 5 mg PO Q48H [facility] Last Admin: 05/05/23 16:35 Dose: 5 mg Sertraline HCl (Sertraline Hcl 100 Mg Tablet) 200 mg PO BEDTIME [facility] Last Admin: 05/05/23 20:32 Dose: 200 mg Tacrolimus (Tacrolimus 0.5 Mg Capsule) 0.5 mg PO DAILY@1200 [facility] Last Admin: 05/06/23 12:32 Dose: 0.5 mg Ursodiol (Ursodiol 300 Mg Capsule) 300 mg PO DAILY@1200 [facility] Last Admin: 05/06/23 12:32 Dose: 300 mg Home Medications Medication Instructions Recorded Confirmed Last Taken Type amlodipine 10 mg tablet 10 mg PO DAILY 11/18/21 05/04/23 04/30/23 History budesonide 3 mg 3 mg PO TID 11/18/21 05/04/23 04/30/23 History capsule,delayed,extended release ergocalciferol (vitamin D2) 1,250 1,250 mcg PO Mo@1200 11/18/21 05/04/23 04/30/23 History mcg (50,000 unit) capsule folic acid 1 mg tablet 1 mg PO DAILY 11/18/21 05/04/23 04/30/23 History lorazepam 0.5 mg tablet 0.5 mg PO Q6H PRN ANXIETY 11/18/21 05/04/23 05/02/23 History prednisone 5 mg tablet 5 mg PO Q48H 11/18/21 05/04/23 04/30/23 History sertraline 100 mg tablet 200 mg PO BEDTIME 11/18/21 05/04/23 04/30/23 History testosterone 40.5 mg topical DAILY 11/18/21 05/04/23 04/30/23 History ruxolitinib 5 mg tablet (Jakafi) 5 mg PO DAILY 05/04/23 05/04/23 04/30/23 History tacrolimus 0.5 mg capsule, 0.5 mg PO DAILY@1200 05/04/23 05/04/23 04/30/23 History immediate-release ursodiol 300 mg capsule 300 mg PO DAILY@1200 05/04/23 05/04/23 04/30/23 History Physical Exam 2 Vital Signs: Vital Signs: Last Vital Signs Temp 99.5 F 05/06/23 11:21 Pulse 114 H 05/06/23 11:21 Resp 20 05/06/23 11:21 BP 102/58 L 05/06/23 11:21 Pulse Ox 93 05/06/23 11:21 O2 Del Method Oxymask 05/06/23 11:21 O2 Flow Rate 4 05/06/23 11:21 Oxygen Flow Rate 6 05/05/23 18:01 BMI result Body Mass Index 24.1 GENERAL APPEARANCE: Short of breath, on supplemental oxygen. NECK: no carotid bruit, ++ jugular venous distention. SKIN: no suspicious lesions, warm and dry. HEART: no murmurs, regular rate and rhythm. Tachycardic. LUNGS: clear to auscultation bilaterally. ABDOMEN: soft, nontender. EXTREMITIES: no edema. PERIPHERAL PULSES: equal. NEUROLOGIC: No gross deficits, AAO X 3 Objective Labs and Meds 05/06/23 05:45 11/26/23 05:45 Lab results: Laboratory Results - last 24 hr 05/06/23 05:45 WBC 14.3 H RBC 3.04 L Hgb 9.7 L Hct 28.9 L MCV 95.1 MCH 31.9 MCHC 33.6 RDW 13.9 Plt Count 238 MPV 10.2 Immature Gran % (Auto) 0.8 H Neut % (Auto) 92.1 H Lymph % (Auto) 2.0 L Bent % (Auto) 2.6 Eos % (Auto) 2.2 Baso % (Auto) 0.3 Lymph # (Auto) 0.3 L Bent # (Auto) 0.4 Eos # (Auto) 0.3 Baso # (Auto) 0.1 Abs Immat Gran (auto) 0.12 H Absolute Neuts (auto) 13.2 H Absolute Nucleated RBC 0.000 Nucleated RBC % (auto) 0.0 Smear Tech's Comments VERIFIED Sodium 132 L Potassium 4.2 Chloride 103 Carbon Dioxide 18 L Anion Gap 15 BUN 49 H Creatinine 2.51 H Estim Creat Clear Calc 30.2 Estimated GFR 26 Random Glucose 110 Calcium 8.7 Phosphorus 5.0 H Magnesium 2.0 Assessment and Plan (1) Chronic kidney disease, stage IV (severe): Status: Acute (2) Pericardial effusion with cardiac tamponade: Status: Acute Plan 63-year-old gentleman who is presenting for sharp chest pains and shortness of breath ongoing for few weeks. He was noticed to have a large pericardial effusion and went pericardial window by thoracic surgery. He continues to have distended neck veins and blood pressure is borderline low. He is getting empiric antibiotics given immunosuppressed state. Lungs are clear to auscultation but he has distended neck veins. Would avoid diuretics currently. Check a chest x-ray to rule out any infection. I have advised him to use incentive spirometry as much as he can. Add colchicine if there is no interaction with other medications. We will do a limited echocardiogram tomorrow morning. Thank you for allowing me to participate in the care of your patient. Please feel free to contact me if you have any questions. Procedures Date of Service Date of Service: 05/06/23
[2023-05-06] MEDS: Colchicine 0.6 MG TABLET 0.3 MG PO (12:52)
--- NOTE | 2023-05-06 14:47 | PM.PNGS ---
Subjective Subjective Date of Service: 05/06/23 Interval history: patient is feeling well definitely more awake and alert today denies any chest pain no shortness of breath. Physical Exam Vital Signs: Vital Signs: Last Vital Signs Temp 99.5 F 05/06/23 11:21 Pulse 114 H 05/06/23 11:21 Resp 20 05/06/23 11:21 BP 102/58 L 05/06/23 11:21 Pulse Ox 93 05/06/23 11:21 O2 Del Method Oxymask 05/06/23 11:21 O2 Flow Rate 4 05/06/23 11:21 Oxygen Flow Rate 6 05/05/23 18:01 BMI result Body Mass Index 24.1 Cardio: Rate: regular rate Rhythm: regular rhythm Objective Data Active Medications Acetaminophen (Acetaminophen 325 Mg Tablet) 650 mg PO Q4H PRN PRN Reason: fever Last Admin: 05/05/23 17:14 Dose: 650 mg Documented By: LAXMI Colchicine (Colchicine 0.6 Mg Tablet) 0.3 mg PO DAILY [facility] Last Admin: 05/06/23 12:52 Dose: 0.3 mg Documented By: LAXMI Diphenhydramine HCl (Diphenhydramine Hcl 50 Mg/Ml Vial) 25 mg IVPUSH Q4H PRN PRN Reason: Itching Last Admin: 05/06/23 00:35 Dose: 25 mg Documented By: MARY GRACE Fentanyl (Fentanyl Citrate/Pf 100 Mcg/2 Ml Vial) 50 mcg IVPUSH Q2H PRN; Protocol PRN Reason: Pain, Moderate(Pain Scale 4-6) Last Admin: 05/05/23 17:14 Dose: 50 mcg Documented By: LAXMI Folic Acid (Folic Acid 1 Mg Tablet) 1 mg PO DAILY [facility] Last Admin: 05/06/23 09:04 Dose: 1 mg Documented By: LAXMI Cefepime HCl 1 gm/ Sodium (Chloride) 50 mls @ 100 mls/hr IV Q12H [facility] Last Infusion: 05/06/23 09:36 Dose: Infused Documented By: LAXMI Morphine Sulfate (Morphine Sulfate 2 Mg/Ml Cartridge) 2 mg IVPUSH Q2H PRN; Protocol PRN Reason: moderate pain Non-Formulary Medication (Budesonide) 3 mg PO TID [facility] Non-Formulary Medication (Ruxolitinib [Jakafi]) 5 mg PO DAILY [facility] Last Admin: 05/06/23 09:04 Dose: 5 mg Documented By: LAXMI Prednisone (Prednisone 5 Mg Tablet) 5 mg PO Q48H [facility] Last Admin: 05/05/23 16:35 Dose: 5 mg Documented By: LAXMI Sertraline HCl (Sertraline Hcl 100 Mg Tablet) 200 mg PO BEDTIME [facility] Last Admin: 05/05/23 20:32 Dose: 200 mg Documented By: PRIMO Tacrolimus (Tacrolimus 0.5 Mg Capsule) 0.5 mg PO DAILY@1200 [facility] Last Admin: 05/06/23 12:32 Dose: 0.5 mg Documented By: LAXMI Ursodiol (Ursodiol 300 Mg Capsule) 300 mg PO DAILY@1200 [facility] Last Admin: 05/06/23 12:32 Dose: 300 mg Documented By: LAXMI Labs 05/06/23 05:45 05/06/23 05:45 Labs: Laboratory Results - last 24 hr 05/06/23 05:45 MCV 95.1 MCH 31.9 MCHC 33.6 RDW 13.9 Plt Count 238 MPV 10.2 Immature Gran % (Auto) 0.8 H Neut % (Auto) 92.1 H Lymph % (Auto) 2.0 L [place] % (Auto) 2.6 Eos % (Auto) 2.2 Baso % (Auto) 0.3 Lymph # (Auto) 0.3 L [place] # (Auto) 0.4 Eos # (Auto) 0.3 Baso # (Auto) 0.1 Abs Immat Gran (auto) 0.12 H Absolute Neuts (auto) 13.2 H Absolute Nucleated RBC 0.000 Nucleated RBC % (auto) 0.0 Smear Tech's Comments VERIFIED Anion Gap 15 Estim Creat Clear Calc 30.2 Estimated GFR 26 Random Glucose 110 Calcium 8.7 Phosphorus 5.0 H Magnesium 2.0 Microbiology Microbiology Results: Microbiology 05/04/23 14:39 Blood Culture - Preliminary Blood - Venous No growth after 24 hours. 05/04/23 14:06 Blood Culture - Preliminary Blood - Venous No growth after 24 hours. Procedures Date of Service Date of Service: 05/06/23 Progress Note: A&P Assessment and plan (1) Pericardial effusion with cardiac tamponade: Status: Acute Assessment and Plan: Patient is a 63-year-old male who is status post 2 days now from pericardial window after earlycardiac tamponade-- he is doing very well and denies any symptoms of concern. The drain continues to be in place and there is some serosanguineous fluid more serous coming out into the bag. Uncertain total volume as it seems like nursing has not been documenting that totals but will have them continue to do that from now on. Time Spent With Patient Time: Total time managing care of this patient today ____ minutes. Quality Stroke Does the patient have a stroke diagnosis?: No VTE Prior VTE?: No VTE Risk Level:: Medical - moderate - high VTE Device Contraindication: N/A - Device Ordered VTE Drug Contraindication: Treatment Not Indicated
--- NOTE | 2023-05-06 17:57 | PC.NURSE ---
Assumed care 0700- patient maintaining Sinus tach 100s-120s, no ectopy. Approx 1615 pt. HR up afib 140s-160s with frequent PVCs- non sustained, breaking back to sinus tach 100s-Patient asymptomatic, MD notified. Patient with 5 beat run VT-MD notified, no new orders at this time.
[2023-05-06] MEDS: Sertraline HCL 100 MG TABLET 200 MG PO (22:17)
[2023-05-06] MEDS: Morphine Sulfate 2 MG/ML CARTRIDGE IVPUSH (22:27)
[2023-05-06 23:51] LABS: Glucose, Whole Blood 110 mg/dL (60-115)
[2023-05-07] VITALS (12 sets, daily range): BP systolic 95–120; BP diastolic 53–68; PULSE 76–177; RESP 18–112; TEMP 36–37.5; O2SAT 90–93
[2023-05-07] MEDS: Digoxin 0.5 MG/2 ML AMPUL 0.25 MG IVPUSH (00:10)
[2023-05-07] MEDS: dilTIAZem HCL 125 MG in 0.9 % Sodium Chloride 100 ML IVCONT ×2 (01:16→16:08)
--- NOTE | 2023-05-07 06:18 | PM.EVENT ---
Event Note Date of Service: 05/07/23 Event Note: Response was called overnight for this patient for tachycardia with SVT heart rate reaching 200s. Patient was hemodynamically stable throughout, awake, conversing. Received metoprolol which reduced his heart rate slightly, an EKG was obtained which showed AFib. Adenosine was not administered, patient was started on diltiazem and was given 1 L of fluid after his blood pressure slightly became soft. His heart rate improved, as well as blood pressure stabilized. Patient is now on diltiazem, Cardiology is already on consult Time Spent With Patient Time: Total time managing care of this patient today ____ minutes.
[2023-05-07 06:51] LABS: Hemoglobin 9.4 g/dl (14.0-18.0); Mean Corpuscular HGB Conc 34.8 g/dl (31.0-36.0); Mean Corpuscular Hemoglobin 32.2 pg (27.0-33.0); Mean Corpuscular Volume 92.5 fL (80.0-98.0); Mean Platelet Volume 10.2 fL (9.4-12.4); NRBC Pct Auto 0.1 /100WBC (0.0-0.2); Platelet Count 215 X10*3/uL (160-400); Red Blood Count 2.92 X10*6/uL (4.60-5.80); Red Cell Distribution Width 13.5 % (11.0-16.0); White Blood Count 14.2 X10*3/uL (4.8-10.8)
--- NOTE | 2023-05-07 07:00 | CA_ITS ---
Transthoracic Echocardiogram Patient (Last, First, Middle): Carrington Rogers J Gender: Male Date of : 1960 Age: 63 Procedure Date: 05/07/2023 Procedure Type: Transthoracic [place] [facility] [place]: 177.8 cm Weight: 75.75 kg BSA: 1.93 m2 Heart Rate: bpm Ob/Gyn Nurse: SB Referring MD: Hayden Ge MD Marketing Secretary: Elliott Villegas MD Symptoms: pericardial effusion Study Quality: Technically Difficult/supine/limited ordered ECG Rhythm: Tachycardia Conclusions: - 1. Normal LV ejection fraction of 65-70% 2. Small pericardial effusion with collapsible IVC Findings Procedure Information The quality of the study was technically difficult. The study quality is limited by the presence of bandages and the presence of chest tubes. Left Ventricle The visually estimated ejection fraction is between 65-70%. Regional wall motion abnormalities can not be excluded due to suboptimal endocardial definition. Pericardium/Pleural There is a small circumferential pericardial effusion. There is a left sided pleural effusion. There are no definitive echocardiographic findings of tamponade physiology. The inferior vena cava is normal in size with preserved respiratory variability. Prior Study Comparison Changes noted compared to prior study dated: 05/04/2023. Significant improvement in pericardial effusion with no tamponade physiology on this study Measurements 2D Linear Measurements IVSd: 0.96 0.6-0.9/0.6-1.0 cm LVIDd: 4.54 3.9-5.3/4.2-5.9 cm LVIDd Index: 2.35 2.4-3.2/2.2-3.1 cm/m2 LVIDs: 2.72 2.0-3.6 cm LVPWd: 0.90 0.7-1.1 cm LV Mass: 175.57 67-162/88-224 g LV Mass Index: 90.97 43-95/49-115 g/m2 LVOT Diam: 2.00 3.0+(-)1.3 cm 2D Systolic Function EF Teich: 70.00 >55% Mitral Valve MV Pk E: 0.69 E'Lateral: 5.98 E'Medial: 6.20 E/E' Med: 11.20 E/E' Lat: 11.60 LVOT LVOT Pk Ward: 0.95 LVOT Mn Ward: 0.63 LVOT VTI: 0.15 LVOT Pk Grad: 4.00 LVOT Mn Grad: 2.00 LVOT Diam: 2.00 LVOT Area: 3.14 Diastolic Function MV Pk E: 0.69 E'Medial: 6.20 E/E' Med: 11.20 E' Laterial: 5.98 E/E' Lat: 11.60 Tricuspid Valve RA Press: 3.00 Updated in Other Vendor System with Status of Final Elliott Villegas MD electronically signed on 05/07/2023 11:18:50 AM with status of Final
[2023-05-07 07:04] LABS: Anion Gap 13 (12-20); Blood Urea Nitrogen 52 mg/dL (9-16); C Reactive Protein 20.42 mg/dL (< or = 0.50); Calcium 8.4 mg/dL (8.4-10.2); Carbon Dioxide 17 mmol/L (22-29); Chloride 103 mmol/L (96-108); Creatinine Clr Calc Pharmacy 35.2; Estimated Glomerular Filt Rate 31; Glucose Fasting 103 mg/dL (60-99); Potassium 3.9 mmol/L (3.3-5.1); Sodium 129 mmol/L (135-145)
[2023-05-07 07:10] LABS: B Type Natriuretic Peptide 501 pg/mL (<100)
--- NOTE | 2023-05-07 07:30 | PC.NURSE ---
Pt. Stach with PAC's freq. Pt. with 5 bt. run of vtach, last evening, reported to Dr. Mcginnis last night. Pt. HR 120 but goies up to 140-170 ?afib. Pt. denies symptoms. 2353 Metoprolol 5mg IV given with some decresase in HR. Dig 0.25mg IV given at 0010. Pt. converted to SR 90's on monitor but then SR with freq PAC with rate back up to 110's. At 0116, started on Cardizem drip and by 0540 pt. at 10mg/hr d/t HR ST with freq. PAC with HR 110. .
[2023-05-07] MEDS: Colchicine 0.6 MG TABLET 0.3 MG PO (07:58)
[2023-05-07] MEDS: cefEPime HCl 1 GM in 0.9 % Sodium Chloride 50 ML IV ×2 (07:58→20:56)
[2023-05-07] MEDS: Folic Acid 1 MG TABLET PO (07:58)
--- NOTE | 2023-05-07 10:39 | HE.PHANOTE ---
RE: amiodarone/diltiazem drip Dr. Ge called to clarify the diltiazem drip will be D/C'd today but first dose of amiodarone is wanted now
--- NOTE | 2023-05-07 10:49 | HO.PM.IMPN ---
Subjective Subjective Date of Service: 05/07/23 Interval History: sob, in rapid afib Physical Exam Vital Signs: Vital Signs: Last Vital Signs Temp 98.9 F 05/07/23 07:21 Pulse 107 H 05/07/23 07:21 Resp 20 05/07/23 07:21 BP 108/57 L 05/07/23 07:21 Pulse Ox 91 L 05/07/23 07:21 O2 Del Method Nasal Cannula 05/07/23 07:21 O2 Flow Rate 3 05/07/23 07:21 Oxygen Flow Rate 2.5 05/07/23 00:46 BMI result Body Mass Index 24.1 General: AO X 3, in some discomfort, ill appearing Resp: CTA bilateral, no accessory muscles used CVS: S1,S2, irregular, pericardial drain in place GI: soft, non tender, non distended Neuro: motor grossly intact, alert Psych: appropriate affect, appropriate insight Objective Data Active Medications Acetaminophen (Acetaminophen 325 Mg Tablet) 650 mg PO Q4H PRN PRN Reason: fever Last Admin: 05/05/23 17:14 Dose: 650 mg Documented By: LAXMI Amiodarone HCl (Amiodarone Hcl 200 Mg Tablet) 400 mg PO BID [facility] Diphenhydramine HCl (Diphenhydramine Hcl 50 Mg/Ml Vial) 25 mg IVPUSH Q4H PRN PRN Reason: Itching Last Admin: 05/06/23 00:35 Dose: 25 mg Documented By: MARY GRACE Fentanyl (Fentanyl Citrate/Pf 100 Mcg/2 Ml Vial) 50 mcg IVPUSH Q2H PRN; Protocol PRN Reason: Pain, Moderate(Pain Scale 4-6) Last Admin: 05/05/23 17:14 Dose: 50 mcg Documented By: LAXMI Folic Acid (Folic Acid 1 Mg Tablet) 1 mg PO DAILY [facility] Last Admin: 05/07/23 07:58 Dose: 1 mg Documented By: JUAN Cefepime HCl 1 gm/ Sodium (Chloride) 50 mls @ 100 mls/hr IV Q12H [facility] Last Infusion: 05/07/23 08:37 Dose: Infused Documented By: JUAN Diltiazem HCl 125 mg/ Sodium (Chloride) 125 mls @ 0 mls/hr IVCONT .Q0M [facility]; Protocol Last Titration: 05/07/23 05:40 Dose: 10 mg/hr, 10 mls/hr Documented By: DURAN Morphine Sulfate (Morphine Sulfate 2 Mg/Ml Cartridge) 2 mg IVPUSH Q2H PRN; Protocol PRN Reason: moderate pain Last Admin: 05/06/23 22:27 Dose: 2 mg Documented By: DURAN Non-Formulary Medication (Budesonide) 3 mg PO TID [facility] Non-Formulary Medication (Ruxolitinib [Jakafi]) 5 mg PO DAILY [facility] Last Admin: 05/07/23 07:58 Dose: 5 mg Documented By: JUAN Prednisone (Prednisone 20 Mg Tablet) 40 mg PO DAILY [facility] Sertraline HCl (Sertraline Hcl 100 Mg Tablet) 200 mg PO BEDTIME [facility] Last Admin: 05/06/23 22:17 Dose: 200 mg Documented By: DURAN Tacrolimus (Tacrolimus 0.5 Mg Capsule) 0.5 mg PO DAILY@1200 [facility] Last Admin: 05/06/23 12:32 Dose: 0.5 mg Documented By: LAXMI Ursodiol (Ursodiol 300 Mg Capsule) 300 mg PO DAILY@1200 [facility] Last Admin: 05/06/23 12:32 Dose: 300 mg Documented By: LAXMI Labs 05/07/23 06:34 05/07/23 06:34 Labs: Laboratory Results - last 24 hr 05/06/23 05/07/23 23:47 06:34 MCV 92.5 MCH 32.2 MCHC 34.8 RDW 13.5 Plt Count 215 MPV 10.2 Absolute Nucleated RBC 0.020 H Nucleated RBC % (auto) 0.1 Anion Gap 13 Estim Creat Clear Calc 35.2 Estimated GFR 31 POC Glucose 110 Fasting Glucose 103 H Calcium 8.4 C-Reactive Protein 20.42 H B-Natriuretic Peptide 501 H Microbiology Microbiology Results: Microbiology 05/04/23 14:39 Blood Culture - Preliminary Blood - Venous No growth after 48 hours. 05/04/23 14:06 Blood Culture - Preliminary Blood - Venous No growth after 48 hours. 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 due to viral pericarditis vs mds thoracic following stop colchiicne, start prednisone 40mg daily new onset afib with rvr amio load MDS s/p transplant continue immunosuppresant and jakafi dvt prophylaxis - mechanical due to pericardial window full code reason for continued hospitalization:managing pericardial effusion Quality Stroke Does the patient have a stroke diagnosis?: No VTE Prior VTE?: No VTE Risk Level:: Medical - moderate - high VTE Device Contraindication: N/A - Device Ordered VTE Drug Contraindication: Treatment Not Indicated
--- NOTE | 2023-05-07 10:58 | P.PNCA_ITS ---
Subjective Subjective Date of Service: 05/07/23 Principal diagnosis: Paroxysmal atrial fibrillation, pericardial effusion. Interval history: Patient overnight developed rapid heart rate with, consider currently noted to have atrial fibrillation. Started on IV Cardizem drip. Overnight converted back to sinus rhythm. Does not have any symptoms at current time. Denies any significant chest pain at this point time. Blood pressure is stable. Review of Systems Constitutional: Reports weakness Eyes: Reports no additional eye complaints Reports system reviewed and no additional complaints, except as documented Cardiovascular: Reports no additional cardiovascular complaints Respiratory: Reports no additional respiratory complaints Reports system reviewed and no additional complaints, except as documented and Reports weakness Physical Exam Vital Signs: Last Vital Signs Temp 97.9 F 05/07/23 10:53 Pulse 92 05/07/23 10:53 Resp 20 05/07/23 10:53 BP 111/57 L 05/07/23 10:53 Pulse Ox 92 05/07/23 10:53 O2 Del Method Nasal Cannula 05/07/23 10:53 O2 Flow Rate 3 05/07/23 10:53 Oxygen Flow Rate 2.5 05/07/23 00:46 BMI result Body Mass Index 24.1 GENERAL APPEARANCE: Short of breath, on supplemental oxygen. NECK: no carotid bruit, ++ jugular venous distention. SKIN: no suspicious lesions, warm and dry. HEART: no murmurs, regular rate and rhythm. Tachycardic. LUNGS: clear to auscultation bilaterally. ABDOMEN: soft, nontender. EXTREMITIES: no edema. PERIPHERAL PULSES: equal. NEUROLOGIC: No gross deficits, AAO X 3 Const General: ill appearing Objective Labs and Meds 05/07/23 06:34 05/07/23 06:34 Lab results: Laboratory Results - last 24 hr 05/06/23 05/07/23 23:47 06:34 WBC 14.2 H RBC 2.92 L Hgb 9.4 L Hct 27.0 L MCV 92.5 MCH 32.2 MCHC 34.8 RDW 13.5 Plt Count 215 MPV 10.2 Absolute Nucleated RBC 0.020 H Nucleated RBC % (auto) 0.1 Sodium 129 L Potassium 3.9 Chloride 103 Carbon Dioxide 17 L Anion Gap 13 BUN 52 H Creatinine 2.16 H Estim Creat Clear Calc 35.2 Estimated GFR 31 POC Glucose 110 Fasting Glucose 103 H Calcium 8.4 C-Reactive Protein 20.42 H B-Natriuretic Peptide 501 H Imaging Radiologist's impression: Impressions Chest X-Ray 05/06/23 13:05 IMPRESSION: * Overall, no significant change compared to 05/05/2023. * Persistent small pleural effusions (left larger than right). The opacity in the retrocardiac region is likely from the pleural effusion and associated lobe passive atelectasis. * There is stable enlargement of the cardiopericardial silhouette in this patient who has undergone pericardial window for pericardial effusion. Progress Note: A&P Assessment and plan (1) Pericardial effusion with cardiac tamponade: Status: Acute Assessment and Plan: Patient present with chest pain with pericardial tamponade with large pericardial effusion status post pericardial window and drain. Has presence of drain. Bedside echocardiogram shows small effusion, limited study due to surgical bandages. Most likely inflammatory pericardial effusion given high CRP. Require anti-inflammatory therapy. 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 Consider stopping colchicine in that scenario. Once anti-inflammatory therapy is been started would consider repeating limited echo in 1-2 days and consider removing his pericardial drain if he has truly going to window. There were no cytology or cell count sent with pericardial fluid. Pericardial pathology specimen reports are pending. (2) Paroxysmal atrial fibrillation: Status: Acute Assessment and Plan: Paroxysmal atrial fibrillation secondary to pericardial inflammation and pericardial drain. Would like to suppressed with antiarrhythmic drug therapy to avoid recurrent atrial fibrillation. Confirm with pharmacy about use of amiodarone therapy which would be ideal. Also consider early removal of his pericardial drain to reduce mechanical irritation. Given transient nature of atrial fibrillation and secondary to underlying pericardial involvement would hold off on oral anticoagulation therapy given his multiple comorbidities including advanced kidney disease, recent surgery as well as anemia. Will follow up with the patient Time Spent With Patient Time: Total time managing care of this patient today ____ minutes. Progress Note: Quality Stroke Does the patient have a stroke diagnosis?: No Procedures Date of Service Date of Service: 05/07/23
[2023-05-07] MEDS: UrsodioL 300 MG CAPSULE PO (11:03)
[2023-05-07] MEDS: predniSONE 20 MG TABLET 40 MG PO (11:03)
[2023-05-07] MEDS: Amiodarone HCL 200 MG TABLET 400 MG PO ×2 (11:03→20:56)
--- NOTE | 2023-05-07 11:09 | MHC.CM.PN ---
EMR reviewed and per MD rounds, pt is not medically cleared for D/C due to continued management of pericardial effusion. CM will continue to follow.
[2023-05-07] MEDS: Morphine Sulfate 2 MG/ML CARTRIDGE IVPUSH ×2 (11:12→16:07)
[2023-05-07] MEDS: Tacrolimus 0.5 MG CAPSULE PO (12:37)
--- NOTE | 2023-05-07 12:50 | P.PNGS_ITS ---
Subjective Subjective Date of Service: 05/07/23 Interval history: Feeling better. Denies shortness of breath. Tolerating some solid food but no appetite. Has not been OOB yet. Physical Exam 2 Vital Signs: Vital Signs: Last Vital Signs Temp 97.9 F 05/07/23 10:53 Pulse 92 05/07/23 10:53 Resp 20 05/07/23 10:53 BP 111/57 L 05/07/23 10:53 Pulse Ox 92 05/07/23 10:53 O2 Del Method Nasal Cannula 05/07/23 10:53 O2 Flow Rate 3 05/07/23 10:53 Oxygen Flow Rate 2.5 05/07/23 00:46 BMI result Body Mass Index 24.1 Const: General: comfortable, no acute distress and alert O rientation/consciousness: patient oriented x3 Chest: Other: pericardial drainage remains moderate, serosanguineous subxyphoid incision clean, steris intact Resp: Effort & Inspection: normal respiratory effort Skin: General skin exam: no rashes or lesions noted Neuro: General: patient oriented x3 Objective Data Active Medications Acetaminophen (Acetaminophen 325 Mg Tablet) 650 mg PO Q4H PRN PRN Reason: fever Last Admin: 05/05/23 17:14 Dose: 650 mg Documented By: LAXMI Amiodarone HCl (Amiodarone Hcl 200 Mg Tablet) 400 mg PO BID [facility] Last Admin: 05/07/23 11:03 Dose: 400 mg Documented By: JUAN Diphenhydramine HCl (Diphenhydramine Hcl 50 Mg/Ml Vial) 25 mg IVPUSH Q4H PRN PRN Reason: Itching Last Admin: 05/06/23 00:35 Dose: 25 mg Documented By: MARY GRACE Fentanyl (Fentanyl Citrate/Pf 100 Mcg/2 Ml Vial) 50 mcg IVPUSH Q2H PRN; Protocol PRN Reason: Pain, Moderate(Pain Scale 4-6) Last Admin: 05/05/23 17:14 Dose: 50 mcg Documented By: LAXMI Folic Acid (Folic Acid 1 Mg Tablet) 1 mg PO DAILY [facility] Last Admin: 05/07/23 07:58 Dose: 1 mg Documented By: JUAN Cefepime HCl 1 gm/ Sodium (Chloride) 50 mls @ 100 mls/hr IV Q12H [facility] Last Infusion: 05/07/23 08:37 Dose: Infused Documented By: JUAN Diltiazem HCl 125 mg/ Sodium (Chloride) 125 mls @ 0 mls/hr IVCONT .Q0M [facility]; Protocol Last Titration: 05/07/23 12:24 Dose: 8.5 mg/hr, 8.5 mls/hr Documented By: JUAN Morphine Sulfate (Morphine Sulfate 2 Mg/Ml Cartridge) 2 mg IVPUSH Q2H PRN; Protocol PRN Reason: moderate pain Last Admin: 05/07/23 11:12 Dose: 2 mg Documented By: JUAN Non-Formulary Medication (Budesonide) 3 mg PO TID [facility] Non-Formulary Medication (Ruxolitinib [Jakafi]) 5 mg PO DAILY [facility] Last Admin: 05/07/23 07:58 Dose: 5 mg Documented By: JUAN Prednisone (Prednisone 20 Mg Tablet) 40 mg PO DAILY [facility] Last Admin: 05/07/23 11:03 Dose: 40 mg Documented By: JUAN Sertraline HCl (Sertraline Hcl 100 Mg Tablet) 200 mg PO BEDTIME [facility] Last Admin: 05/06/23 22:17 Dose: 200 mg Documented By: DURAN Tacrolimus (Tacrolimus 0.5 Mg Capsule) 0.5 mg PO DAILY@1200 [facility] Last Admin: 05/07/23 12:37 Dose: 0.5 mg Documented By: JUAN Ursodiol (Ursodiol 300 Mg Capsule) 300 mg PO DAILY@1200 [facility] Last Admin: 05/07/23 11:03 Dose: 300 mg Documented By: JUAN Labs 05/07/23 06:34 05/07/23 06:34 Labs: Laboratory Results - last 24 hr 05/06/23 05/07/23 23:47 06:34 MCV 92.5 MCH 32.2 MCHC 34.8 RDW 13.5 Plt Count 215 MPV 10.2 Absolute Nucleated RBC 0.020 H Nucleated RBC % (auto) 0.1 Anion Gap 13 Estim Creat Clear Calc 35.2 Estimated GFR 31 POC Glucose 110 Fasting Glucose 103 H Calcium 8.4 C-Reactive Protein 20.42 H B-Natriuretic Peptide 501 H Microbiology Microbiology Results: Microbiology 05/04/23 14:39 Blood Culture - Preliminary Blood - Venous No growth after 48 hours. 05/04/23 14:06 Blood Culture - Preliminary Blood - Venous No growth after 48 hours. Procedures Date of Service Date of Service: 05/07/23 Progress Note: A&P Assessment and plan (1) Pericardial effusion with cardiac tamponade: Status: Acute Plan 63 year old male POD #3 s/p pericardial window. Doing very well post op. Drain output slowly decreasing, likely remove tomorrow am. Encouraged OOB to recliner and ambulation, incentive spirometer. Time Spent With Patient Time: Total time managing care of this patient today ____ minutes. Quality Stroke Does the patient have a stroke diagnosis?: No VTE Prior VTE?: No VTE Risk Level:: Medical - moderate - high VTE Device Contraindication: N/A - Device Ordered VTE Drug Contraindication: Treatment Not Indicated
[2023-05-07] MEDS: Sertraline HCL 100 MG TABLET 200 MG PO (20:56)
[2023-05-08] VITALS (7 sets, daily range): BP systolic 114–140; BP diastolic 59–74; PULSE 80–98; RESP 18–20; TEMP 35.9–36.6; O2SAT 90–96
[2023-05-08 07:31] LABS: Hematocrit 25.3 % (42.0-52.0); Hemoglobin 8.9 g/dl (14.0-18.0); Mean Corpuscular HGB Conc 35.2 g/dl (31.0-36.0); Mean Corpuscular Hemoglobin 31.9 pg (27.0-33.0); Mean Corpuscular Volume 90.7 fL (80.0-98.0); Platelet Count 212 X10*3/uL (160-400); Red Blood Count 2.79 X10*6/uL (4.60-5.80); Red Cell Distribution Width 13.2 % (11.0-16.0); White Blood Count 13.4 X10*3/uL (4.8-10.8)
[2023-05-08 07:54] LABS: Blood Urea Nitrogen 63 mg/dL (9-16); Calcium 8.6 mg/dL (8.4-10.2); Creatinine Clr Calc Pharmacy 37.2; Estimated Glomerular Filt Rate 33; Glucose Fasting 142 mg/dL (60-99)
[2023-05-08 08:46] LABS: Anion Gap 13 (12-20); Carbon Dioxide 18 mmol/L (22-29); Chloride 106 mmol/L (96-108); Potassium 3.6 mmol/L (3.3-5.1); Sodium 133 mmol/L (135-145)
[2023-05-08] MEDS: Amiodarone HCL 200 MG TABLET 400 MG PO ×2 (08:51→21:27)
[2023-05-08] MEDS: predniSONE 20 MG TABLET 40 MG PO (08:51)
[2023-05-08] MEDS: Folic Acid 1 MG TABLET PO (08:51)
[2023-05-08] MEDS: cefEPime HCl 1 GM in 0.9 % Sodium Chloride 50 ML IV (08:52)
--- NOTE | 2023-05-08 08:57 | PM.PNTS ---
Subjective Subjective Date of Service: 05/08/23 Interval history: Feeling a little better this morning. Has yet to get OOB. Physical Exam Vital Signs: Vital Signs: Last Vital Signs Temp 97.8 F 05/08/23 07:40 Pulse 87 05/08/23 07:40 Resp 20 05/08/23 07:40 BP 125/62 05/08/23 07:40 Pulse Ox 94 05/08/23 07:40 O2 Del Method Nasal Cannula 05/08/23 07:40 O2 Flow Rate 4 05/08/23 07:40 Oxygen Flow Rate 4 05/07/23 19:00 BMI result Body Mass Index 24.1 Const: General: comfortable, no acute distress and alert Orientation/consciousness: patient oriented x3 Chest: Other: subxyphoid incision site clean, steris intact; pericardial drain with some serosanguineous output Resp: Effort & Inspection: normal respiratory effort Skin: General skin exam: no rashes or lesions noted Neuro: General: patient oriented x3 and moves all extremities Procedures Date of Service Date of Service: 05/08/23 Progress Note: A&P Assessment and plan (1) Pericardial effusion with cardiac tamponade: Status: Acute Plan 63 year old male POD #4 s/p pericardial window. Doing well post op from surgical standpoint. Incision clean. Drain output decreasing and now low, removed at bedside and sterile dressing placed. Patient tolerated well. Need to increase activity, get OOB at least to recliner today. Time Spent With Patient Time: Total time managing care of this patient today ____ minutes. Quality Stroke Does the patient have a stroke diagnosis?: No VTE Prior VTE?: No VTE Risk Level:: Medical - moderate - high VTE Device Contraindication: N/A - Device Ordered VTE Drug Contraindication: Treatment Not Indicated
--- NOTE | 2023-05-08 09:44 | HO.PM.IMPN ---
Subjective Subjective Date of Service: 05/08/23 Interval History: feeling better today Physical Exam Vital Signs: Vital Signs: Last Vital Signs Temp 97.8 F 05/08/23 07:40 Pulse 87 05/08/23 07:40 Resp 20 05/08/23 07:40 BP 125/62 05/08/23 07:40 Pulse Ox 94 05/08/23 07:40 O2 Del Method Nasal Cannula 05/08/23 07:40 O2 Flow Rate 4 05/08/23 07:40 Oxygen Flow Rate 4 05/07/23 19:00 BMI result Body Mass Index 24.1 General: AO X 3, no acute distress Resp: CTA bilateral, no accessory muscles used CVS: S1,S2,RRR GI: soft, non tender, non distended Neuro: motor grossly intact, alert Psych: appropriate affect, appropriate insight Const: General: comfortable, no acute distress and alert Orientation/consciousness: patient oriented x3 Chest: Other: subxyphoid incision site clean, steris intact; pericardial drain with some serosanguineous output Resp: Effort & Inspection: normal respiratory effort Skin: General skin exam: no rashes or lesions noted Neuro: General: patient oriented x3 and moves all extremities Objective Data Active Medications Acetaminophen (Acetaminophen 325 Mg Tablet) 650 mg PO Q4H PRN PRN Reason: fever Last Admin: 05/05/23 17:14 Dose: 650 mg Documented By: LAXMI Amiodarone HCl (Amiodarone Hcl 200 Mg Tablet) 400 mg PO BID [facility] Last Admin: 05/08/23 08:51 Dose: 400 mg Documented By: JUAN Diphenhydramine HCl (Diphenhydramine Hcl 50 Mg/Ml Vial) 25 mg IVPUSH Q4H PRN PRN Reason: Itching Last Admin: 05/06/23 00:35 Dose: 25 mg Documented By: MARY GRACE Fentanyl (Fentanyl Citrate/Pf 100 Mcg/2 Ml Vial) 50 mcg IVPUSH Q2H PRN; Protocol PRN Reason: Pain, Moderate(Pain Scale 4-6) Last Admin: 05/05/23 17:14 Dose: 50 mcg Documented By: LAXMI Folic Acid (Folic Acid 1 Mg Tablet) 1 mg PO DAILY [facility] Last Admin: 05/08/23 08:51 Dose: 1 mg Documented By: JUAN Cefepime HCl 1 gm/ Sodium (Chloride) 50 mls @ 100 mls/hr IV Q12H [facility] Last Infusion: 05/08/23 09:22 Dose: Infused Documented By: JUAN Diltiazem HCl 125 mg/ Sodium (Chloride) 125 mls @ 0 mls/hr IVCONT .Q0M [facility]; Protocol Last Titration: 05/07/23 21:01 Dose: 0 mg/hr, 0 mls/hr Documented By: ANNALISA Morphine Sulfate (Morphine Sulfate 2 Mg/Ml Cartridge) 2 mg IVPUSH Q2H PRN; Protocol PRN Reason: moderate pain Last Admin: 05/07/23 16:07 Dose: 2 mg Documented By: JUAN Non-Formulary Medication (Budesonide) 3 mg PO TID [facility] Non-Formulary Medication (Ruxolitinib [Jakafi]) 5 mg PO DAILY [facility] Last Admin: 05/08/23 08:51 Dose: 5 mg Documented By: JUAN Prednisone (Prednisone 20 Mg Tablet) 40 mg PO DAILY [facility] Last Admin: 05/08/23 08:51 Dose: 40 mg Documented By: JUAN Sertraline HCl (Sertraline Hcl 100 Mg Tablet) 200 mg PO BEDTIME [facility] Last Admin: 05/07/23 20:56 Dose: 200 mg Documented By: ANNALISA Tacrolimus (Tacrolimus 0.5 Mg Capsule) 0.5 mg PO DAILY@1200 [facility] Last Admin: 05/07/23 12:37 Dose: 0.5 mg Documented By: JUAN Ursodiol (Ursodiol 300 Mg Capsule) 300 mg PO DAILY@1200 [facility] Last Admin: 05/07/23 11:03 Dose: 300 mg Documented By: JUAN Labs 05/08/23 07:17 05/08/23 07:17 Labs: Laboratory Results - last 24 hr 05/08/23 07:17 MCV 90.7 MCH 31.9 MCHC 35.2 RDW 13.2 Plt Count 212 MPV 10.0 Absolute Nucleated RBC 0.000 Nucleated RBC % (auto) 0.0 Anion Gap 13 Estim Creat Clear Calc 37.2 Estimated GFR 33 Fasting Glucose 142 H Calcium 8.6 Assessment and Plan (1) Pericardial effusion with cardiac tamponade: Status: Acute Plan 59M PMH MDS s/p BM stem cell transplant, CKD IV, prostate ca s/p turp, klinefelters on testosterone, preDM, presented with sob, found to have large pericardial effusion with tamponade, was admitted to ICU, underwent pericardial window, now downgraded to medical floor cardiac tamponade with large pericardial effusion ? due to viral pericarditis vs mds POD 4 pericardial window, fluid and blood culture negative - will dc cefepime, sent out for viral pcr (under misc) drain removed at bedside today continue prednisone 40mg daily new onset afib with rvr amio load now in sinus MDS s/p transplant continue immunosuppresant and jakafi dvt prophylaxis - mechanical due to pericardial window full code reason for continued hospitalization:managing pericardial effusion Quality Stroke Does the patient have a stroke diagnosis?: No VTE Prior VTE?: No VTE Risk Level:: Medical - moderate - high VTE Device Contraindication: N/A - Device Ordered VTE Drug Contraindication: Treatment Not Indicated
[2023-05-08] MEDS: Tacrolimus 0.5 MG CAPSULE PO (11:47)
[2023-05-08] MEDS: UrsodioL 300 MG CAPSULE PO (11:47)
--- NOTE | 2023-05-08 14:11 | P.PNCA_ITS ---
Subjective Subjective Date of Service: 05/08/23 Principal diagnosis: Paroxysmal atrial fibrillation, pericardial effusion. Interval history: Patient status post pericardial window. Drain was removed this morning. Overnight no significant arrhythmia or atrial fibrillation. Cardizem drip was stopped last night. Patient has no chest pain. Currently started on prednisone therapy. Tolerating amiodarone therapy. Out of bed to chair and shortness of breath has improved Review of Systems Constitutional: Reports no additional constitutional complaints Eyes: Reports no additional eye complaints Cardiovascular: Denies chest pain, Denies leg edema, Denies lightheadedness and Denies palpitations Gastrointestinal: Reports no additional gastrointestinal complaints Genitourinary: Reports no additional male genitourinary complaints Musculoskeletal: Reports no additional musculoskeletal complaints Skin/Breast: Reports system reviewed and no additional complaints, except as docu Reports system reviewed and no additional complaints, except as documented Psychiatric: Reports no additional psychiatric complaints Endocrine: Denies palpitations Physical Exam Vital Signs: Last Vital Signs Temp 97.2 F 05/08/23 11:38 Pulse 83 05/08/23 11:38 Resp 20 05/08/23 11:38 BP 114/60 05/08/23 11:38 Pulse Ox 95 05/08/23 11:38 O2 Del Method Nasal Cannula 05/08/23 11:38 O2 Flow Rate 4 05/08/23 11:38 Oxygen Flow Rate 4 05/07/23 19:00 BMI result Body Mass Index 24.1 GENERAL APPEARANCE: Short of breath, on supplemental oxygen. NECK: no carotid bruit, ++ jugular venous distention. SKIN: no suspicious lesions, warm and dry. HEART: no murmurs, regular rate and rhythm. Tachycardic. LUNGS: clear to auscultation bilaterally. ABDOMEN: soft, nontender. EXTREMITIES: no edema. PERIPHERAL PULSES: equal. NEUROLOGIC: No gross deficits, AAO X 3 Const General: ill appearing Resp Auscultation: diminished lung sounds Objective Labs and Meds 05/08/23 07:17 05/08/23 07:17 Lab results: Laboratory Results - last 24 hr 05/08/23 07:17 WBC 13.4 H RBC 2.79 L Hgb 8.9 L Hct 25.3 L MCV 90.7 MCH 31.9 MCHC 35.2 RDW 13.2 Plt Count 212 MPV 10.0 Absolute Nucleated RBC 0.000 Nucleated RBC % (auto) 0.0 Sodium 133 L Potassium 3.6 Chloride 106 Carbon Dioxide 18 L Anion Gap 13 BUN 63 H Creatinine 2.04 H Estim Creat Clear Calc 37.2 Estimated GFR 33 Fasting Glucose 142 H Calcium 8.6 Progress Note: A&P Assessment and plan (1) Paroxysmal atrial fibrillation: Status: Acute Assessment and Plan: Patient paroxysmal atrial fibrillation secondary to pericardial inflammation and/or mechanical irritation. Currently doing well on amiodarone therapy will consider amiodarone therapy for about 4-6 weeks and can be followed up with outpatient Holter monitor. Amiodarone is not a long-term treatment for him. Does not require oral anticoagulation was atrial fibrillation with short lasting episodes given his multiple comorbidities. 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 Most likely post viral syndrome. Agree with increasing prednisone does as an anti- inflammatory therapy as her limited other options. She new immunosuppressive therapy. Discussed with transplant service at [facility] regarding his viral infection. Pericardial drain has been removed. Follow-up limited echocardiogram tomorrow. Will continue to follow with you Time Spent With Patient Time: Total time managing care of this patient today ____ minutes. Progress Note: Quality Stroke Does the patient have a stroke diagnosis?: No Procedures Date of Service Date of Service: 05/08/23
[2023-05-08 14:28] LABS: Other Ref Test - Misc SEE COMMENTS
[2023-05-08] MEDS: Sertraline HCL 100 MG TABLET 200 MG PO (21:27)
[2023-05-09] MEDS: Morphine Sulfate 2 MG/ML CARTRIDGE IVPUSH (02:17)
[2023-05-09 03:51] VITALS: BP 137/65; PULSE 96; RESP 18; TEMP 36.8; O2SAT 90
--- NOTE | 2023-05-09 07:00 | CA_ITS ---
Transthoracic Echocardiogram Patient (Last, First, Middle): Carrington Rogers J Gender: Male Date of : 1960 Age: 63 Procedure Date: 05/09/2023 Procedure Type: Transthoracic Echocardiogram Location: [facility] Height: 177.8 cm Weight: 75.75 kg BSA: 1.93 m2 Heart Rate: 92 bpm BP: 136 / 70 mmHg Solar Crew Member: Referring MD: Hayden Ge MD Vehicle Calibration Engineer: Elliott Villegas MD Symptoms: follow up pericardial effusion Study Quality: Adequate ECG Rhythm: Sinus Conclusions: - Trivial pericardial effusion with constrictive physiology Findings Left Ventricle The visually estimated ejection fraction is between 60-65%. Pericardium/Pleural There is a trivial circumferential pericardial effusion. Septal bounce is noted. There is excessive respiratory variation of the mitral valve Doppler velocities. Prior Study Comparison Changes noted compared to prior study dated: 05/07/2023. Pericardial effusion has improved. Constrictive physiology is noted Measurements 2D Linear Measurements IVSd: 0.86 0.6-0.9/0.6-1.0 cm LVIDd: 4.60 3.9-5.3/4.2-5.9 cm LVIDd Index: 2.38 2.4-3.2/2.2-3.1 cm/m2 LVIDs: 3.03 2.0-3.6 cm LVPWd: 0.91 0.7-1.1 cm LV Mass: 167.33 67-162/88-224 g LV Mass Index: 86.70 43-95/49-115 g/m2 Updated in Other Vendor System with Status of Final Elliott Villegas MD electronically signed on 05/09/2023 2:05:01 PM with status of Final
[2023-05-09 07:09] VITALS: BP 136/70; PULSE 94; RESP 18; TEMP 36.9; O2SAT 93
[2023-05-09 07:45] LABS: Hematocrit 25.6 % (42.0-52.0); Hemoglobin 9.1 g/dl (14.0-18.0); Mean Corpuscular HGB Conc 35.5 g/dl (31.0-36.0); Mean Corpuscular Hemoglobin 31.9 pg (27.0-33.0); Mean Corpuscular Volume 89.8 fL (80.0-98.0); Mean Platelet Volume 10.4 fL (9.4-12.4); NRBC Pct Auto 0.1 /100WBC (0.0-0.2); Platelet Count 243 X10*3/uL (160-400); Red Blood Count 2.85 X10*6/uL (4.60-5.80); Red Cell Distribution Width 13.2 % (11.0-16.0); White Blood Count 19.8 X10*3/uL (4.8-10.8)
[2023-05-09 08:03] LABS: Anion Gap 14 (12-20); Blood Urea Nitrogen 69 mg/dL (9-16); Calcium 9.1 mg/dL (8.4-10.2); Carbon Dioxide 17 mmol/L (22-29); Chloride 107 mmol/L (96-108); Estimated Glomerular Filt Rate 36; Glucose Fasting 93 mg/dL (60-99); Potassium 3.5 mmol/L (3.3-5.1); Sodium 134 mmol/L (135-145)
[2023-05-09] MEDS: Amiodarone HCL 200 MG TABLET 400 MG PO (08:51)
[2023-05-09] MEDS: Folic Acid 1 MG TABLET PO (08:51)
[2023-05-09] MEDS: predniSONE 20 MG TABLET 40 MG PO (08:51)
--- NOTE | 2023-05-09 09:49 | PM.PNCARD ---
Subjective Subjective Date of Service: 05/09/23 Principal diagnosis: Paroxysmal atrial fibrillation, pericardial effusion. Interval history: Patient did not sleep well last night due to probably prednisone. Not having any chest pain. Off oxygen currently and breathing well. No recurrent atrial fibrillation. His pericardial fluid PCR was positive for HHV 6. Review of Systems Review of Systems Yes all other systems are reviewed and are negative Physical Exam Vital Signs: Last Vital Signs Temp 98.5 F 05/09/23 07:09 Pulse 94 05/09/23 07:09 Resp 18 05/09/23 07:09 BP 136/70 05/09/23 07:09 Pulse Ox 93 05/09/23 07:09 O2 Del Method Room Air 05/09/23 07:09 O2 Flow Rate 4 05/08/23 19:17 Oxygen Flow Rate 4 05/08/23 19:00 BMI result Body Mass Index 24.1 Const General: cooperative, comfortable, no acute distress, alert and awake Nutritional Appearance: average body habitus Orientation/consciousness: patient oriented x3 Neck Neck: Yes trachea midline, Yes supple and Yes no JVD Resp Effort & Inspection: normal respiratory effort Auscultation: diminished lung sounds bilateral in the lower lung mejia Cardio Jugular venous distension: no JVD Palpation: normal PMI Rate: regular rate Rhythm: regular rhythm Heart sounds: S1 normal heart sound present, S2 normal heart sound present and no click Skin General skin exam: no rashes or lesions noted Neuro General: patient oriented x3 Objective Labs and Meds 05/09/23 06:54 05/09/23 06:54 Lab results: Laboratory Results - last 24 hr 05/07/23 05/09/23 14:23 06:54 WBC 19.8 H RBC 2.85 L Hgb 9.1 L Hct 25.6 L MCV 89.8 MCH 31.9 MCHC 35.5 RDW 13.2 Plt Count 243 MPV 10.4 Absolute Nucleated RBC 0.020 H Nucleated RBC % (auto) 0.1 Sodium 134 L Potassium 3.5 Chloride 107 Carbon Dioxide 17 L Anion Gap 14 BUN 69 H Creatinine 1.90 H Estim Creat Clear Calc 40.0 Estimated GFR 36 Fasting Glucose 93 Calcium 9.1 Ref Lab Test Result SEE COMMENTS Progress Note: A&P Assessment and plan (1) Pericardial effusion with cardiac tamponade: Status: Acute Assessment and Plan: Pericardial effusion related to most likely viral infection with HHV6. He is currently on an 10 fluid therapy with prednisone. Continue with the same and taper over time gradually over the next 6 weeks. Continues other immunosuppressive drug. Status post pericardial window. Repeat limited echo today and if pericardial fluid is stable will potentially plan for discharge later today and follow up with his own primary care physician as outpatient. (2) Paroxysmal atrial fibrillation: Status: Acute Assessment and Plan: Paroxysmal atrial fibrillation due to pericardial irritation inflammation. Continue amiodarone for 4-6 weeks. Follow-up with his primary care physician as outpatient. Will require Holter monitor in in 3-4 weeks. Will set up for outpatient follow-up. No indication for anticoagulation. Thank you for allowing me to partake in his care Time Spent With Patient Time: Total time managing care of this patient today ____ minutes. Progress Note: Quality Stroke Does the patient have a stroke diagnosis?: No Procedures Date of Service Date of Service: 05/09/23
[2023-05-09 11:21] VITALS: BP 158/77; PULSE 88; RESP 18; TEMP 36.6; O2SAT 94
[2023-05-09] MEDS: UrsodioL 300 MG CAPSULE PO (12:10)
[2023-05-09] MEDS: Tacrolimus 0.5 MG CAPSULE PO (12:10)
--- NOTE | 2023-05-09 13:33 | PM.DS ---
DS: Providers Provider Date of Service: 05/09/23 Date of admission: 05/04/23 19:34 Primary care physician: Unknown Physician Consults: 05/06/23 07:03 Consult to Cardiology Routine Consulting Provider: [facility] Cardiovascular Services Reason for consultation: tamponade DS: Diagnosis Discharge Diagnosis (1) Pericardial effusion with cardiac tamponade: Status: Acute (2) Paroxysmal atrial fibrillation: Status: Acute (3) Chest pain, pleuritic: Status: Acute (4) Acute pericardial effusion: Status: Acute DS: Summary Hospital Course Hospital Course: Admission note HPI ?The patient is a 63-year-old male with a past medical history? of hypertension, anxiety? and myelodysplastic syndromes s/p stem cell transplant ( 2019)? who presented to the emergency room with evaluation of 2 weeks of viral-like symptoms.? Patient reported fatigue, pleuritic chest pain x4 days? that is worse when laying down and when coughing.?? CTA of chest? revealed a large left-sided pleural effusion.? Cardiologists,? Dr Gage,? consulted by the emergency room staff and performed an echo that showed cardiac tamponade.? Thoracic surgeon, Dr Higuera,? consulted,? and took the patient to the operating room for a subxiphoid pericardial window? 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 Patient taken to OR for pericardial window with drainage of approximately 1.5 L of pericardial fluid with fluid studies sent for culture and analysis showing inflammatory reaction and Viral panel was positive for HHV-6. fluid and blood culture negative. Was Kept on empirical Cefepime. drain removed at bedside the day before discharge with good tolerance as the ECHO was repeated showing no significant fluid collection around the heart. # new onset afib with rvr He was also diagnosed with brief episode of Afib RvR which was evaluated by loss prevention manager who recommended no blood thinners at this stage and to treat with Amiodarone. Load started with good response as he converted back to sinuse. To follow for Holtor monitoring as outpatient with dr Villegas. Amiodarone 400 mg for 5 more days then 200 mg twice daily until you see Dr Villegas in office Continue tapering dose Prednisone as prescribed Follow with PCP as outpatient come back to the hospital with any chest pain or fever Time Attestation Discharge coordination time: Greater than 30 minutes Quality: Safe Use of Opioids Does Pt have an Active Cancer Diagnosis on the Problem List?: No Quality: Stroke Does the patient have a stroke diagnosis?: No Physical Exam Vital Signs: Vital Signs: Last Vital Signs Temp 97.9 F 05/09/23 11:21 Pulse 88 05/09/23 11:21 Resp 18 05/09/23 11:21 BP 158/77 H 05/09/23 11:21 Pulse Ox 94 05/09/23 11:21 O2 Del Method Room Air 05/09/23 11:21 O2 Flow Rate 4 05/08/23 19:17 Oxygen Flow Rate 4 05/08/23 19:00 BMI result Body Mass Index 24.1 Const: Other: Constitutional : Awake, interactive, not in distress Neck : Normal inspection, Supple Cardiovascular : RRR, no JVP, no lower extremity edema Respiratory : good bilateral air entry, no crackles, wheezes or rhonchi Gastrointestinal: soft, lax, Normal bowel sounds, Non tender Skin : Warm, Dry, epigastric surgical wound covered and clean. Neurological : Alert & oriented x3, No focal deficit DS: Data Data Completed and Pending Labs on day of discharge: Laboratory Results - last 24 hr 05/07/23 05/09/23 14:23 06:54 WBC 19.8 H RBC 2.85 L Hgb 9.1 L Hct 25.6 L MCV 89.8 MCH 31.9 MCHC 35.5 RDW 13.2 Plt Count 243 MPV 10.4 Absolute Nucleated RBC 0.020 H Nucleated RBC % (auto) 0.1 Sodium 134 L Potassium 3.5 Chloride 107 Carbon Dioxide 17 L Anion Gap 14 BUN 69 H Creatinine 1.90 H Estim Creat Clear Calc 40.0 Estimated GFR 36 Fasting Glucose 93 Calcium 9.1 Ref Lab Test Result SEE COMMENTS Preliminary micro results at discharge 05/04/23 14:39 Blood Culture - Preliminary Blood - Venous No growth after 48 hours. 05/04/23 14:06 Blood Culture - Preliminary Blood - Venous No growth after 48 hours. Imaging Chest x-ray: Radiologist's impression: ITS Impressions Chest CT 05/04/23 15:33 IMPRESSION: 1. Moderate-large pericardial effusion. 2. Peribronchial thickening and linear band of opacity in the right upper lobe, could reflect infectious/inflammatory process versus atelectasis/scarring. 3. Small-moderate bilateral pleural effusions. Subjacent airspace opacities suggestive of atelectasis versus inflammatory/infectious process. 4. Gallstone. No obvious pericholecystic inflammatory changes seen. 5. Additional findings and details as above. Fleischner guidelines were followed. Chest X-Ray 05/05/23 06:14 IMPRESSION: * The evaluation of the lungs is partially limited by hypoinflation. * Interval decrease in bilateral pleural effusions. * Large cardiopericardial silhouette is unchanged in size compared 05/04/2023. Chest X-Ray 05/06/23 13:05 IMPRESSION: * Overall, no significant change compared to 05/05/2023. * Persistent small pleural effusions (left larger than right). The opacity in the retrocardiac region is likely from the pleural effusion and associated lobe passive atelectasis. * There is stable enlargement of the cardiopericardial silhouette in this patient who has undergone pericardial window for pericardial effusion. Discharge Plan Discharge Anticipated Discharge Date/Time: 05/09/23 13:18 Patient Disposition: Home, Self-Care Discharge Diagnosis: Pericarditis with cardiac tamponade Referrals: Freeman Higuera MD [Physician] - 1 Week Physician,Maria Eugenia J [Primary Care Provider] - 1 Week Discharge Medications: New amiodarone 200 mg Tablet 400 mg PO BID Qty: 20 0RF amiodarone 200 mg tablet 200 mg PO BID Qty: 60 0RF prednisone 10 mg tablet See Taper PO DIRECTED Qty: 115 0RF Taper: Prednisone 40 mg daily for 7 Days and 0 Hour 35 mg daily for 7 Days and 0 Hour 30 mg daily for 7 Days and 0 Hour 25 mg daily for 7 Days and 0 Hour 20 mg daily for 7 Days and 0 Hour 10 mg daily for 7 Days and 0 Hour Rx Instructions: see taper instructions Continued tacrolimus 0.5 mg capsule 0.5 mg PO DAILY@1200 Jakafi 5 mg tablet 5 mg PO DAILY ursodiol 300 mg capsule 300 mg PO DAILY@1200 ergocalciferol (vitamin D2) 1,250 mcg (50,000 unit) capsule 1,250 mcg PO Mo@1200 lorazepam 0.5 mg tablet 0.5 mg PO Q6H PRN (Reason: ANXIETY ) folic acid 1 mg tablet 1 mg PO DAILY amlodipine 10 mg tablet 10 mg PO DAILY prednisone 5 mg tablet 5 mg PO Q48H testosterone 20.25 mg/1.25 gram (1.62 %) gel in metered-dose pump 40.5 mg topical DAILY sertraline 100 mg tablet 200 mg PO BEDTIME Held budesonide 3 mg capsule,delayed,extend.release 3 mg PO TID Hold Instructions: Hold while on Prednisone. discuss with PCP if to restart it before finishing Prednisone Discharge Orders: Discharge Order (Routine); Ordered 05/09/23 Ordered By: Giulia Garcia Diet: Advance to usual diet Activity on Discharge: No heavy lifting Stand Alone Forms: Patient Portal Discharge page Activity Restrictions/Additional Instructions: Apply an ice pack for short intervals (20 minutes on, followed by at least 20 minutes off). Do not apply heat. Do not use creams, lotions, or topical antibiotics. These can cause infection or allergic reaction. Ok to shower. You have steri strips (small white cloth strips) covering your incision- these will fall off ~1 week. Keep a dressing on the drain site until the site closes or drainage stops. Follow up in office with Dr. Higuera in 1 week. ([phone]) No heavy lifting (>10lbs) or strenuous activity! Call Your Doctor If: -Your temperature exceeds 101.5? F -You experience excessive pain or swelling -You have an unexpected reaction to medication -You have excessive bleeding -You experience continued vomiting/nausea -Your incision begins to separate -Your incision shows signs of infection such as increased redness, swelling, excessive pain, drainage (light blood or clear fluid is normal) or heat Care Plan Goals: Read below Health Concerns: Read below Plan of Treatment: Read below Assessment: You were evaluated for chest pain and found to have fluid collection around your heart that was drained and showed evidence of inflammatory reaction post HumanHerpes virus infection. treated with drainage of the fluids and Steroids therapy as you were monitored by Warehouse Production Worker during hospital stay. Amiodarone 400 mg for 5 more days then 200 mg twice daily until you see Dr Villegas in office Hold Budenoside while on Prednisone Continue tapering dose Prednisone as prescribed Follow with PCP as outpatient come back to the hospital with any chest pain or fever
--- NOTE | 2023-05-09 15:04 | MHC.CM.PN ---
Pt is medically cleared for D/C home self-care. Pts to transport him home.
[2023-05-10 12:03] LABS: CMV DNA PCR Qn Source BLOOD; CMV DNA Qn PCR NOT DETECTED Log IU/mL (NOT DETECTED); CMV DNA Qn Real Time PCR NOT DETECTED (NOT DETECTED)
== END 2023-05-09 15:39 | disposition home or self-care (01) | DRG 270 ==
LOC: HO.ED 16:03 → HO.SSS 17:12 → HO.EDOVER 19:41 → HO.ICU 19:45 → HO.IMC 05-05 16:47
PROVIDERS: Emergency Medicine; Internal Medicine; Internal Medicine Pulmonary Disease; Registered Nurse Community Health; Registered Nurse Emergency; Admitting Provider Surgery; Emergency Provider Emergency Medicine Emergency Medical Services; Visit Provider Student in an Organized Health Care Education/Training Program
DX: I30.1 Infective pericarditis (principal); J96.01 Acute respiratory failure with hypoxia; I12.0 Hypertensive chronic kidney disease with stage 5 chronic kidney disease or end stage renal disease; N18.4 Chronic kidney disease, stage 4 (severe); Z94.84 Stem cells transplant status; N17.9 Acute kidney failure, unspecified; D84.821 Immunodeficiency due to drugs; I47.10 Supraventricular tachycardia, unspecified; A00-B99 Certain infectious and parasitic diseases; I30.9 Acute pericarditis, unspecified; Q98.4 Klinefelter syndrome, unspecified; I31.4 Cardiac tamponade; I48.0 Paroxysmal atrial fibrillation; D46.9 Myelodysplastic syndrome, unspecified; Z20.822 Contact with and (suspected) exposure to COVID-19; Z79.52 Long term (current) use of systemic steroids; Z79.621 Long term (current) use of calcineurin inhibitor; Z79.899 Other long term (current) drug therapy
CPT/HCPCS: 0241U; 36415; 71045; 71046; 71250; 80048; 80053; 82803; 82947; 83605; 83735; 83880; 84100; 84145; 84484; 85025; 85027; 85610; 85730; 86140; 86850; 86900; 86901; 87040; 87070; 87073; 87205; 87483; 87497; 87633; 88112; 88305; 93005; 93306; 93308; 99285; J0665; J0692; J1160; J1170; J1200; J2250; J2270; J2405; J2704; J3010; P9047; Q9957

== ENCOUNTER → 2023-05-04 15:46 | Outpatient (BNV) | payer OTHER, SELFPAY | PROVIDERS: Admitting Provider Surgery; Emergency Provider Emergency Medicine Emergency Medical Services; Visit Provider Internal Medicine Cardiovascular Disease | DX: I31.39 Other pericardial effusion (noninflammatory) (principal); I35.8 Other nonrheumatic aortic valve disorders | CPT/HCPCS: 93306 ==

== ENCOUNTER → 2023-05-04 17:11 | Outpatient (BNV) | payer OTHER, SELFPAY | PROVIDERS: Emergency Provider Emergency Medicine Emergency Medical Services; Visit Provider Surgery | DX: I31.39 Other pericardial effusion (noninflammatory) (principal); I31.4 Cardiac tamponade | CPT/HCPCS: 33025; 99024; 99223 ==

== ENCOUNTER 2023-05-04 19:34 | Outpatient (BNV) | payer OTHER, SELFPAY | END 2023-05-09 07:00 | PROVIDERS: Admitting Provider Surgery; Emergency Provider Emergency Medicine Emergency Medical Services; Visit Provider Internal Medicine Cardiovascular Disease | DX: I31.39 Other pericardial effusion (noninflammatory) (principal) | CPT/HCPCS: 93308 ==

== ENCOUNTER 2023-05-04 19:34 | Outpatient (BNV) | payer OTHER, SELFPAY | END 2023-05-07 07:00 | PROVIDERS: Admitting Provider Surgery; Emergency Provider Emergency Medicine Emergency Medical Services; Visit Provider Internal Medicine Cardiovascular Disease | DX: I31.39 Other pericardial effusion (noninflammatory) (principal) | CPT/HCPCS: 93308 ==

== ENCOUNTER → 2023-05-04 19:34 | Outpatient (BNV) | payer OTHER, SELFPAY | PROVIDERS: Admitting Provider Surgery; Emergency Provider Emergency Medicine Emergency Medical Services; Visit Provider Internal Medicine Pulmonary Disease | DX: N17.9 Acute kidney failure, unspecified (principal); I31.39 Other pericardial effusion (noninflammatory); I31.4 Cardiac tamponade; J81.1 Chronic pulmonary edema; D46.9 Myelodysplastic syndrome, unspecified | CPT/HCPCS: 99232 ==

== ENCOUNTER → 2023-05-04 19:34 | Outpatient (BNV) | payer OTHER, SELFPAY | PROVIDERS: Admitting Provider Surgery; Emergency Provider Emergency Medicine Emergency Medical Services; Visit Provider Internal Medicine | DX: I31.39 Other pericardial effusion (noninflammatory) (principal); I31.4 Cardiac tamponade; I48.0 Paroxysmal atrial fibrillation; R07.81 Pleurodynia; I30.9 Acute pericarditis, unspecified | CPT/HCPCS: 99232; 99233; 99239; 99499 ==

== ENCOUNTER → 2023-05-04 19:34 | Outpatient (BNV) | payer OTHER, SELFPAY | PROVIDERS: Admitting Provider Surgery; Emergency Provider Emergency Medicine Emergency Medical Services; Visit Provider Registered Nurse Community Health | DX: N17.9 Acute kidney failure, unspecified (principal); I31.39 Other pericardial effusion (noninflammatory); I31.4 Cardiac tamponade | CPT/HCPCS: 99222 ==

== ENCOUNTER → 2023-05-04 19:34 | Outpatient (BNV) | payer OTHER, SELFPAY | PROVIDERS: Admitting Provider Surgery; Emergency Provider Emergency Medicine Emergency Medical Services; Visit Provider Internal Medicine Cardiovascular Disease | DX: I31.39 Other pericardial effusion (noninflammatory) (principal); I31.4 Cardiac tamponade; I48.0 Paroxysmal atrial fibrillation | CPT/HCPCS: 99223; 99233 ==

== ENCOUNTER 2023-05-15 15:26 | Outpatient (AMB) | payer OTHER, SELFPAY ==
--- NOTE | 2023-05-15 15:28 | MHC.OFFVIS ---
Intake Vital Signs 05/15/23 15:33 BP 111/56 L Blood Pressure Location Rt brachial Position Sitting Pulse 91 Intake Visit Reasons: s/p subxiphoid pericardial window Allergies No Known Allergies Allergy (Verified 05/11/23 15:04) HPI HPI Comments History of Present Illness Details Patient presents for follow-up. This with his . He is doing quite well status post pericardial window. He is tolerating his diet. Having regular bowel habits daily increase activity level. He has minimal incisional discomfort PFSH Medical History (Updated 05/12/23 @ 00:03 by Lio Hammond) Paroxysmal atrial fibrillation Chronic kidney disease, stage IV (severe) Anxiety HTN (hypertension) MDS (myelodysplastic syndrome) Surgical History (Updated 05/15/23 @ 15:38 by Freeman Higuera MD) H/O stem cell transplant Social History (System 05/11/23 @ 15:04 by Danelle Whipple) Household Members: Spouse Housing: House Do you presently have visiting nurse or other home services: No Patient Tobacco Use Status: Never used Tobacco Physical Exam Vital Signs: Last Vital Signs Pulse 91 05/15/23 15:33 BP 111/56 L 05/15/23 15:33 GI Other: Abdomen soft. Wound clean dry and intact. Assessment & Plan Assessment & Plan (1) Status post creation of pericardial window: Code(s): Z98.890 - Other specified postprocedural states Plan From surgical affective, patient is doing well. He is scheduled to see Cardiology for follow-up a well. Patient has been given local instructions including a stress activities explored 5 weeks and will follow-up with me p.r.n.. All questions answered. Coding Level of Care Code Global (09119) Diagnoses Status post creation of pericardial window Z98.890
[2023-05-15 15:33] VITALS: BP 111/56; PULSE 91
== END 2023-05-15 15:48 | disposition home or self-care (01) ==
PROVIDERS: Visit Provider Surgery
DX: Z98.890 Other specified postprocedural states (principal)
CPT/HCPCS: 99024

== ENCOUNTER → 2023-05-15 15:26 | Outpatient (BNVA) | payer OTHER, SELFPAY | PROVIDERS: Visit Provider Surgery ==

== ENCOUNTER → 2023-05-29 09:54 | Outpatient (REF) | payer OTHER, SELFPAY ==
--- NOTE | 2023-05-29 09:57 | HM_ITS ---
* Total monitoring time 2 days. * Underlying rhythm is sinus with an average rate of 96/Min. Range 77-141/Min. * Rare supraventricular and ventricular ectopy. * No sustained arrhythmias. * No significant pauses or AV blocks. * No patient markers or diary events. MTDD
--- NOTE | 2023-05-29 09:57 | CA_ITS ---
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 Normal LV ejection fraction of 60 65% 2. No significant pericardial effusion Findings Procedure Information Contrast agent, definity, is being given per protocol without apparent complications. Left Ventricle Normal left ventricular size, thickness, and systolic function. The visually estimated ejection fraction is between 60-65%. Spectral Doppler is indicative of an impaired relaxation filling pattern. Pericardium/Pleural There is no evidence of pericardial effusion. Prior Study Comparison Changes noted compared to prior study dated: 05/09/2023. pericardial effusion is improved Measurements 2D Linear Measurements IVSd: 0.98 0.6-0.9/0.6-1.0 cm LVIDd: 4.85 3.9-5.3/4.2-5.9 cm LVIDd Index: 2.61 2.4-3.2/2.2-3.1 cm/m2 LVIDs: 3.54 2.0-3.6 cm LVPWd: 0.92 0.7-1.1 cm LA Diam: 3.20 2.7-3.8/3.0-4.0 cm LAIDs Index: 1.72 1.5-2.3 cm/m2 LV Mass: 201.34 67-162/88-224 g LV Mass Index: 108.25 43-95/49-115 g/m2 LVOT Diam: 2.10 3.0+(-)1.3 cm 2D Systolic Function EF 4C: 54.30 >55% EF 2C: 67.30 >55% EF BiP: 60.60 >55% Mitral Valve MV Pk E: 0.54 MV PK A: 0.61 MV Decel Time: 165.00 E/A: 0.90 E'Lateral: 5.44 E'Medial: 5.00 E/E' Med: 10.90 E/E' Lat: 10.00 PHT: 48.00 MVA PHT: 4.58 Decel Wolfe: 3.30 LVOT LVOT Pk Ward: 0.77 LVOT Mn Ward: 0.51 LVOT VTI: 0.16 LVOT Pk Grad: 2.00 LVOT Mn Grad: 1.00 LVOT Diam: 2.10 LVOT Area: 3.46 Diastolic Function MV Pk E: 0.54 MV Pk A: 0.61 E/A: 0.90 E'Medial: 5.00 E/E' Med: 10.90 E' Laterial: 5.44 E/E' Lat: 10.00 Right Ventricle TAPSE (mm): 18.00 TVS' Ward: 10.70 Tricuspid Valve TR Pk Ward: 2.46 TR Pk Grad: 24.00 Updated in Other Vendor System with Status of Final Elliott Villegas MD electronically signed on 05/30/2023 5:31:58 PM with status of Final
== END ==
LOC: HO.CARD 09:54
PROVIDERS: Visit Provider Internal Medicine Cardiovascular Disease
DX: I48.0 Paroxysmal atrial fibrillation (principal); I30.9 Acute pericarditis, unspecified; J81.1 Chronic pulmonary edema
CPT/HCPCS: 93225; 93308; Q9957

== ENCOUNTER → 2023-05-29 09:57 | Outpatient (BNV) | payer OTHER, SELFPAY | PROVIDERS: Visit Provider Internal Medicine Cardiovascular Disease | DX: I47.10 Supraventricular tachycardia, unspecified (principal) | CPT/HCPCS: 93227; 93308 ==

== ENCOUNTER 2023-07-04 11:11 | Outpatient (AMB) | payer OTHER, SELFPAY ==
--- NOTE | 2023-07-04 11:20 | MHC.OFFVIS ---
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[employer] Erection Required: No Allergies No Known Allergies Allergy (Verified 05/11/23 15:04) Medication List - Last Reconciled 07/04/23 by Elliott Villegas MD amlodipine 10 mg PO DAILY budesonide ER 3 mg PO TID ergocalciferol (vitamin D2) 1,250 mcg PO Mo@1200 folic acid 1 mg PO DAILY lorazepam 0.5 mg PO Q6H PRN prednisone 5 mg PO Q48H ruxolitinib (Jakafi) 5 mg PO DAILY sertraline 200 mg PO BEDTIME tacrolimus 0.5 mg PO DAILY@1200 testosterone 40.5 mg topical DAILY ursodiol 300 mg PO DAILY@1200 HPI HPI Comments History of Present Illness Details Carrington comes for follow-up after hospitalization for pericardial tamponade and requiring pericardial window urgently and then postoperative developing brief episodes of atrial fibrillation. Since then he is currently off amiodarone therapy. He had a Holter monitor in May which had shown no recurrent arrhythmias or atrial fibrillation. Repeat echocardiogram showed no pericardial effusion. He is currently on his immunosuppressive agent for bone marrow transplant. He has not had any recurrent palpitation irregular heartbeat. No shortness of breath or orthopnea PND. He does complain of fatigue. Follows with bone marrow transplant [facility] Medical History Paroxysmal atrial fibrillation Chronic kidney disease, stage IV (severe) Anxiety HTN (hypertension) MDS (myelodysplastic syndrome) Surgical History H/O stem cell transplant Social History Household Members: Spouse Housing: House Do you presently have visiting nurse or other home services: No Patient Tobacco Use Status: Never used Tobacco Review of Systems Const Denies chills, Denies fatigue, Denies fever(s), Denies frequent falls, Denies weakness, Denies weight gain and Denies weight loss ENT Denies dizziness Card Denies chest pain, Denies leg edema, Denies lightheadedness, Denies palpitations, Denies dyspnea, Denies dyspnea on exertion, Denies orthopnea and Denies other (loss of consciousness) Resp Denies cough, Denies dyspnea and Denies dyspnea on exertion GI Denies hematochezia and Denies change in stool character Musc Denies abnormal gait, Denies muscle weakness, Denies numbness, Denies radiating pain into limb and Denies tingling Neuro Denies abnormal gait, Denies dizziness, Denies frequent falls, Denies numbness, Denies tingling and Denies weakness Endo Denies fatigue and Denies palpitations Physical Exam Vital Signs: Last Vital Signs Pulse 95 07/04/23 11:22 BP 114/72 07/04/23 11:22 BMI result Body Mass Index 23.4 Const General: cooperative, comfortable, no acute distress, alert and awake Nutritional Appearance: thin Orientation/consciousness: patient oriented x3 Neck Neck: Yes trachea midline, Yes supple and Yes no JVD Resp Effort & Inspection: normal respiratory effort Auscultation: clear to auscultation bilaterally and diminished lung sounds Cardio Jugular venous distension: no JVD Rate: regular rate Rhythm: regular rhythm Heart sounds: S1 normal heart sound present, S2 normal heart sound present, no click, no gallops, no murmurs and no rubs GI Auscultation: normal bowel sounds Skin General skin exam: no rashes or lesions noted Neuro General: patient oriented x3 and no focal motor deficits Extrem General: Yes no clubbing, cyanosis or edema Office Procedures EKG Details: EKG shows normal sinus rhythm with nonspecific ST T wave changes in inferior leads, could represent repolarization abnormality [id number], Complete Assessment & Plan Assessment & Plan (1) Pericardial effusion: Code(s): I31.39 - Other pericardial effusion (noninflammatory) Plan: 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 Status post pericardial window. Had follow-up echocardiogram shows no pericardial effusion. Currently on low-dose steroids for immunosuppression therapy. Continue the same. Risk of recurrent pericardial tamponade as low due to the presence of window. This was discussed with him. However given his immunocompromised state he remains at risk for infections. This was discussed with him. No further follow-up is indicated at this point in time. (2) Paroxysmal atrial fibrillation: Code(s): I48.0 - Paroxysmal atrial fibrillation Plan: Paroxysmal atrial fibrillation which is not uncommon in patient with pericardial inflammation as well as surgery. This has not recurred since he has been off amiodarone therapy clinically. Signs and symptoms of atrial fibrillation were discussed. Continue aggressive blood pressure control which is optimized. No other interventions required at this point time. No indication for blood thinners. Will follow up in the clinic if need be. Thank you for allowing me to partake in his care Orders: Orders CRP High Sensitivity Today I31.39 - Other pericardial effusion (noninflammatory) B Type Natriuretic Peptide Today I31.39 - Other pericardial effusion (noninflammatory) Coding Level of Care Code Est Pt Level 4 (17080) Diagnoses Pericardial effusion I31.39 Paroxysmal atrial fibrillation I48.0 CPT Codes EKG - CPT: [id number], Complete ([id number])
[2023-07-04 11:22] VITALS: BP 114/72; PULSE 95; BMI 23.4
== END 2023-07-04 11:44 | disposition home or self-care (01) ==
PROVIDERS: Visit Provider Internal Medicine Cardiovascular Disease
DX: I31.39 Other pericardial effusion (noninflammatory) (principal); I48.0 Paroxysmal atrial fibrillation
CPT/HCPCS: 93010; 99214

== ENCOUNTER 2023-07-04 11:11 | Outpatient (REF) | payer OTHER, SELFPAY ==
[2023-07-04 13:51] LABS: B Type Natriuretic Peptide 51 pg/mL (<100)
[2023-07-06 18:28] LABS: CRP High Sensitivity 7.3 mg/L
== END 2023-07-04 11:12 | disposition home or self-care (01) ==
LOC: HO.LAB 11:11
PROVIDERS: Visit Provider Internal Medicine Cardiovascular Disease
DX: I48.0 Paroxysmal atrial fibrillation (principal); I31.39 Other pericardial effusion (noninflammatory); J81.1 Chronic pulmonary edema
CPT/HCPCS: 36415; 83880; 86141; 93005

== ENCOUNTER 2024-02-16 09:26 | Outpatient (AMB) | payer OTHER, SELFPAY ==
--- OUTSIDE RECORDS SUMMARY | 2024-02-16 09:28 | XMS_ITS | Continuity of Care Document ---
Author Organization [facility] Tomy Bell Dhaval lt Address [address] [place] [address]- Care Team Providers Care Planer Operator Name Role Phone Tiago Greenberg DO Primary Care Physician [phone] [facility] Date[facility]s): 05/14/23 - 06/13/23 [facility] Adult [address] [place] [address]- Allergies, Adverse Reactions, Alerts Substance Reaction Severity Status Bee Stings Active Immunizations Given and Recorded Vaccine Date Status Refusal Reason RSV vaccine preF3, recombinant 04/23/23 Recorded SARS-CoV-2(COVID-19)mRNA-LNP vac([id number]) 04/23/23 Recorded [id number] bivalent booster vax 12/23/22 Recorded [id number]-HyR-3wYOA 12y+ bivalent booster vax 06/17/22 Recorded influenza virus vaccine, inactivated 03/14/22 Kush rded influenza virus vaccine, inactivated 1 03/08/18 Re corded influenza virus vaccine, inactivated 2 05/06/17 Re corded influenza virus vaccine, inactivated 3 03/14/15 Re corded influenza virus vaccine, inactivated 07/16/13 Give n SARS-CoV-2 mRNA (ududbkn-ubjb-ubwdc) vax 08/07/21 Recorded pneumococcal 23-valent vaccine 07/01/21 Recorded SARS-CoV-2 (COVID-19) mRNA BNT-162b2 vac 01/25/21 Recorded pneumococcal 13-valent vaccine 11/09/20 Recorded pneumococcal 13-valent vaccine 05/28/20 Recorded pneumococcal 13-valent vaccine 12/30/19 Recorded pneumococcal 13-valent vaccine 03/08/18 Given Measles/Mumps/Rubella Virus Vaccine 11/09/20 Recor ded Hepatitis A Adult Vaccine 11/09/20 Recorded Hepatitis A Adult Vaccine 12/30/19 Recorded Hepatitis A Adult Vaccine 08/14/18 Given Hepatitis A Adult Vaccine 4 08/06/17 Given Diphth/haemophilus/pertussis/tet/polio 11/09/20 Re corded Diphth/haemophilus/pertussis/tet/polio 05/28/20 Re corded Diphth/haemophilus/pertussis/tet/polio 12/30/19 Re corded zoster vaccine, inactivated 05/28/20 Recorded zoster vaccine, inactivated 12/30/19 Recorded zoster vaccine, inactivated 08/28/18 Recorded Meningococcal Conjugate Vaccine 05/28/20 Recorded Meningococcal Conjugate Vaccine 12/30/19 Recorded hepatitis B adult vaccine 05/28/20 Recorded hepatitis B adult vaccine 12/30/19 Recorded Influenza Virus Vaccine (oldterm) 04/22/19 Recorde d Influenza Virus Vaccine (oldterm) 5 04/14/09 Given tetanus/diphtheria/pertussis, acel(Tdap) 07/18/12 Given FluLaval (oldterm) 04/15/10 Given Pneumococcal Vaccine (oldterm) 6 04/29/08 Given Influenza Inactive (IM) (oldterm) 7 04/02/08 Given Influenza Inactive (IM) (oldterm) 8 04/30/07 Given Tetanus Toxoid Vaccine (oldterm) 06/11/00 Given 1Result Comment: [03/08/2018] [facility]-[id number] 2Result Comment: [08/06/2017] [facility] 3Result Comment: [03/16/2015] HIGH DOSE, RECIEVED AT [facility] [address] 4Result Comment: [08/06/2017] [facility] [id number] 5Admin Note: rcvd at work 6Admin Note: rcvd at work 7Admin Note: rcvd elsewhere 8Admin Note: rcvd at work Medications AndroGel Pump 20.25 mg/actuation (1.62%) transdermal gel = 40.5 mg, Topically, Daily in AM, apply to clean, dry, intact skin, wash hands thoroughly after application, # 75 Gm, 2 Refills, Maintenance, 07/11/19 16:03:00 EST, [facility]/pharmacy #[id number], 177, cm, 06/16/19 11:25:00 EST, Height, 70.8, kg, 06/14/19 0:02:... Start Date: 07/11/19 Status: Ordered atorvastatin 40 mg oral tablet 1 tablet = 40 mg, By Mouth, Daily, # 30 tablet, 6 Refills, Maintenance, 08/12/20 9:28:00 EST, Tablet, [facility]/pharmacy #[id number], Partial fill upon [...] EST, Capsule Start Date: 04/23/19 Status: Ordered Crestor 5 mg oral tablet 1 tablet = 5 mg, By Mouth, Daily, # 30 tablet, 0 Refills, Maintenance, 05/28/23 11:28:00 EST, Tablet, [facility]/pharmacy #[id number], Partial fill upon patient request if the prescription is for a schedule II opioid drug., 177, cm, 05/28/23 11:06:00 EST, Height Start Date: 05/28/23 Status: Ordered docusate sodium 100 mg oral [...] drug. Start Date: 08/02/20 Status: Ordered Procrit 24882 u/ml injectable solution = 2,000 units, Subcutaneous [...] Effective Dates Status H ealth Status Informant Adenomatous polyp of colon/colonoscopy 2014 1, 2, 3 Confirmed Active Bee sting allergy Confirmed Active New onset a-fib Confirmed Active Cardiac tamponade Confirmed Active Low vitamin D level Confirmed Active Ex-cigarette smoker referred LDCT no show 4, 5 Confirmed Active Familial hyperlipidemia Confirmed Active TEOFILO (generalized anxiety disorder) Confirmed Active Elevated glucose Confirmed Active Hx of stem cell transplant [facility] 2018 Confirmed 11/29/18 Active H/O prostate cancer T[facility]P 2019 Confirmed Active Impaired fasting blood sugar Confirmed Active Klinefelter's Syndrome 6 Confirmed Active Multiple lipomas 7 Confirmed Active Hypogonadism, male Confirmed Active Mixed hyperlipidemia Confirmed Active MDS (myelodysplastic syndrome)/stem cell transplant 2018 8 Confirmed Active Pericardial effusion Confirmed Active Pneumonia RUL Confirmed 06/12/19 Active Psoriasis Confirmed Active Fatty liver 9, 10 Confirmed Active 1+2014 2refer GI colonoscopy 3tubular adenoma 4quit 2012 9jnnlzddTia5ayxh kit 6758.7 7back,abd 8refer bone marrow biopsy [facility] 9Negative hepatitis C antibody negative hepatitis C surface antigen positive hepatitis B surface antibody, negative CHARLEE, normal SPEP, normal iron 10SonMay 2017 Social History Social History Type Response Smoking Status Former smoker, quit more than 30 days ago entered on: 01/22/20 Sex Patient Care team information Care Team Personnel Name: Susana Mariee RN Position: [facility] RN Member Role: Primary Care Nurse Name: Christin Godinez NP Position: [facility] PCO Associate Professional Member Role: Lifetime Consulting Provider Address: Address: [address] [place] [address]- Name: Tate Guerra MD Position: [facility] Renal MD Member Role: Lifetime Consulting Physician Address: Address: [address] [place] [address] [address] [facility] [place], [place] - Name: Ramiro De RN Position: [facility] RN Member Role: Primary Care Nurse Name: Hannah Torres RN Position: [facility] ED RN W/OE and Tasks Member Role: Primary Care Nurse Name: Tiago Greenberg DO Position: [facility] Physician - Primary Care Member Role: PCP Address: Address: [address] [place] [address] [place] [address]- [place] Name: Litzy Ibarra RN Position: [facility] RN Member Role: Primary Care Nurse Care Team Related Persons Name: NANCY AVILA Address: [address] [address]
--- OUTSIDE RECORDS SUMMARY | 2024-02-16 09:28 | XMS_ITS | Continuity of Care Document ---
Author Organization [facility] Tomy Bell Dhaval Address [address] [place] [address]- Care Team Providers Care [place] Tribunal Member Name Role Phone Tiago Greenberg DO Primary Care Physician Encounter [facility] Date(s): 08/10/23 - 08/17/23 [facility] Tomy Arandaley Adult [address] [place] [address]- Encounter Diagnosis Cough(Discharge Diagnosis) - 08/10/23 Attending Physician: Ada Juarez Allergies, Adverse Reactions, Alerts Substance Reaction Severity Status Bee Stings Active Immunizations Given and Recorded Vaccine Date Status Refusal Reason RSV vaccine preF3, recombinant 04/23/23 Recorded SARS-CoV-2(COVID-19)mRNA-LNP vac([id number]) 04/23/23 Recorded [id number] bivalent booster vax 12/23/22 Recorded HHYJ-KaY-4mGUW 12y+ bivalent booster vax 06/17/22 Recorded influenza virus vaccine, inactivated 03/14/22 Kush rded influenza virus vaccine, inactivated 1 03/08/18 Re corded influenza virus vaccine, inactivated 2 05/06/17 Re corded influenza virus vaccine, inactivated 3 03/14/15 Re corded influenza virus vaccine, inactivated 07/16/13 Give n SARS-CoV-2 mRNA (fsuktqq-rycj-nodla) vax 08/07/21 Recorded pneumococcal 23-valent vaccine 07/01/21 [...] Vaccine (oldterm) 06/11/00 Given 1Result Comment: [03/08/2018] [facility]-[id number] 2Result Comment: [08/06/2017] [facility] 3Result Comment: [03/16/2015] HIGH DOSE, RECIEVED AT [facility] [address] 4Result Comment: [08/06/2017] [facility] [id number] 5Admin Note: rcvd at work 6Admin Note: rcvd at work 7Admin Note: rcvd elsewhere 8Admin Note: rcvd at work Medications AndroGel Pump 20.25 mg/actuation (1.62%) transdermal gel = 40.5 mg, Topically, Daily in AM, apply to clean, dry, intact skin, wash hands thoroughly after application, # 75 Gm, 2 Refills, Maintenance, 07/11/19 16:03:00 EST, [facility]/pharmacy #[id number], 177, cm, 06/16/19 11:25:00 EST, Height, [...] = 5 mg, By Mouth, Daily, # 90 tablet, 1 Refills, Maintenance, 06/24/23 16:50:00 EST, Tablet, [facility]/pharmacy #[id number], Partial fill upon patient request if the prescription is for a schedule II opioid drug., 177, cm, 05/28/23 11:06:00 EST, Height Start Date: 06/24/23 Status: Ordered docusate sodium 100 mg oral [...] drug. Start Date: 08/02/20 Status: Ordered Procrit 11465 u/ml injectable solution = 2,000 units, Subcutaneous [...] 2refer GI colonoscopy 3tubular adenoma 4quit 2012 2sytfaghHuh6xfct kit 6758.7 7back,abd 8refer bone marrow biopsy [facility] 9Negative hepatitis C antibody negative hepatitis C surface antigen positive hepatitis B surface antibody, negative CHARLEE, normal SPEP, normal iron 10Sonogram May 2017 Diagnosis Diagnosis Type Effective Dates Health Status Clini niesha Service Informant Cough Discharge Diagnosis 08/10/23 Vital Signs Most recent to oldest [Reference Range]: 1 Height 177 cm (08/10/23 8:40 AM) Social History Social History Type Response Smoking Status Former smoker, quit more than 30 days ago entered on: 01/22/20 Sex Note * Shayna Giang: PERFORM, SIGN, VERIFY Event Display: Patient Education/Instruction Authored Date: [id number] [facility] *BMP So Ray Alvarado Clinical Summary Name TOMEKA AVILA Age 63 Years 1960 PCP Tiago Greenberg DO PCP Visit Date 08/10/2023 08:40:00 Additional Instructions: Scheduled Appointments?? Future Appointments ?No Future Appointments Scheduled Follow-Up Instructions ?? Diagnosis Cough, unspecified Medications: Please continue your medications until treatment is completed or stopped by your provider. Discuss any questions related to medications with your provider. New Medications [id number], [address] [place] [id number], [phone] Benzonatate (benzonatate 100 mg oral capsule) 1 capsule Oral 3 times a day as needed as needed for cough for 7 Days. Refills: 0. Next Dose: MethylPREDNISolone (Medrol Dosepak 4 mg oral tablet) 1 pack/packet Oral Daily for 6 Days. as directed on package labeling. Refills: 0. Next Dose: Medications to Continue with No Changes These medications were not printed or sent to your pharmacy Budesonide (budesonide 3 mg oral delayed release capsule) 1 capsule Oral 3 times a day. Next Dose: Cholecalciferol (cholecalciferol 50,000 intl units oral capsule) 1 capsule Oral every week. Next Dose: Docusate (docusate sodium 100 mg oral tablet) 1 tab(s) Oral 3 times a day as needed for constipation. Next Dose: Epinephrine (EpiPen 2-Jackson 0.3 mg injectable kit) Intramuscular Once;if anaphylaxis lip tongue swelling;wheezing etc. Refills: 0. Next Dose: Epoetin Jerman (Procrit 07299 u/ml injectable solution) 2,000 unit(s) Subcutaneous Injection. Next Dose: Folic Acid (folic acid 1 mg oral tablet) 1 tab(s) Oral Daily. Next Dose: Lorazepam (LORazepam 0.5 mg oral tablet) 1 tab(s) Oral 3 times a day. Next Dose: PredniSONE (predniSONE 10 mg oral tablet) 1 tab(s) Oral twice a day. Next Dose: PredniSONE (predniSONE 5 mg oral tablet) 1 tab(s) Oral Daily. Next Dose: Rosuvastatin (Crestor 5 mg oral tablet) 1 tab(s) Oral Daily. Refills: 1. Next Dose: ruxolitinib (Jakafi 5 mg oral tablet) 1 tab(s) Oral twice a day. Next Dose: Sertraline (sertraline 100 mg oral tablet) 1 tab(s) Oral twice a day. Next Dose: Tacrolimus (tacrolimus 0.5 mg oral capsule) 2 capsule Oral Daily. Next Dose: Testosterone (AndroGel Pump 20.25 mg/actuation (1.62%) transdermal gel) 40.5 Milligram Topically Daily in the morning. apply to clean, dry, intact skin, wash hands thoroughly after application. Refills: 2. Next Dose: Ursodiol (ursodiol 300 mg oral capsule) 1 capsule Oral 3 times a day. Next Dose: Allergy Info:?? Bee Stings Medications Given This Visit Future Orders ?No future orders Vital Signs Height 177 cm Weight BMI Blood Pressure / Temperature Pulse Rate Respiratory Rate 02 Sat Mode of Delivery / You can now view a summary of your hospital visit from the comfort of your home through a free online portal called [employer]. [employer] is a website that allows you to securely view your medical information including discharge summary, medications and follow-up visits. ??You can alsosend a secure electronic message to your doctor???s office to request appointments, renew medications or just ask a question. You can enroll at [email or web address] or register during your next office visit. Disclaimer:?? The information provided is of a general nature and is intended to be used in conjunction with the recommendations and advice of your health care practitioner. ??Every effort has been made to ensure that the information provided is accurate and complete at the time it is provided to you however, as your needs change, or, as new ??information becomes available, different or additional instructions may be required. If you have questions, please consult with your primary care provider or pharmacist, as appropriate. ??This information is not intended to serve as substitution for assessment and evaluation by a qualified health care provider. If you do not have a primary care provider, you may find a [facility] provider by calling [facility] [employer] at [phone]. [facility], in keeping with [facility] guidance, no longer requires face masks for staff, patientsor visitors in most situations. Similar to time spent indoors at other locations, there is the chance that you were exposed to respiratory viruses during your time with us (such as flu or COVID-19).? If you develop symptoms concerning for a viral respiratory infection, please seek testing (and treatment if indicated) from your medical provider or home test kit. For information about the plan of care including goals and instructions for your diagnosis, please see the patient education orders section of this document. Patient Education Materials?? The content of this educational material or handout may have been modified, supplemented, or adapted from its original content and format to support your individualized medical care. Patient Care team information Care Team Personnel Name: Susana Mariee RN Position: [facility] RN Member Role: Primary Care Nurse Name: Christin Godinez NP Position: [facility] PCO Associate Professional Member Role: Lifetime Consulting Provider Address: Address: [address] [place] [address] - Name: Tate Guerra MD Position: [facility] Renal MD Member Role: Lifetime Consulting Physician Address: Address: [address] [place] [address] [address] [place] [address]- [place] Name: Ramiro De RN Position: [facility] RN Member Role: Primary Care Nurse Name: Hannah Torres RN Position: [facility] ED RN W/OE and Tasks Member Role: Primary Care Nurse Name: Tiago Greenberg DO Position: [facility] Physician - Primary Care Member Role: PCP Address: Address: [address] [place] [address] [place] [address]- Name: Litzy Ibarra RN Position: [facility] RN Member Role: Primary Care Nurse Care Team Related Persons Name: LIDYANANCY COWART Address: home [address] [place] [address]
--- OUTSIDE RECORDS SUMMARY | 2024-02-16 09:29 | XMS_ITS | Continuity of Care Document ---
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 Role Phone Tiago Greenberg DO Primary Care Physician [facility] Date(s): 08/08/23 - 09/07/23 [facility] Adult [address] [place] [address]- Allergies, Adverse Reactions, Alerts Substance Reaction Severity Status Bee Stings Active Immunizations Given and Recorded Vaccine Date Status Refusal Reason RSV vaccine preF3, recombinant 04/23/23 Recorded SARS-CoV-2(COVID-19)mRNA-LNP vac(roc215) 04/23/23 Recorded [id number] bivalent booster vax 12/23/22 Recorded [id number] 12y+ bivalent booster vax 06/17/22 Recorded influenza virus vaccine, inactivated 03/14/22 Kush rded influenza virus vaccine, inactivated 1 03/08/18 Re corded influenza virus vaccine, inactivated 2 05/06/17 Re corded influenza virus vaccine, inactivated 3 03/14/15 Re corded influenza virus vaccine, inactivated 07/16/13 Give n SARS-CoV-2 mRNA (ycxaopn-atwm-gubjr) vax 08/07/21 Recorded pneumococcal 23-valent vaccine 07/01/21 [...] Vaccine (oldterm) 06/11/00 Given 1Result Comment: [03/08/2018] [facility]-[id number] 2Result Comment: [08/06/2017] [facility] 3Result Comment: [03/16/2015] HIGH DOSE, RECIEVED AT [facility] [address] 4Result Comment: [08/06/2017] [facility] [id number] 5Admin Note: rcvd at work 6Admin Note: rcvd at work 7Admin Note: rcvd elsewhere 8Admin Note: rcvd at work Medications AndroGel Pump 20.25 mg/actuation (1.62%) transdermal gel = 40.5 mg, Topically, Daily in AM, apply to clean, dry, intact skin, wash hands thoroughly after application, # 75 Gm, 2 Refills, Maintenance, 07/11/19 16:03:00 EST, [facility]/pharmacy #[id number], 177, cm, 06/16/19 11:25:00 [...] 1 Refills, Maintenance, 06/24/23 16:50:00 EST, Tablet, [facility]/pharmacy #[id number], Partial fill upon patient [...] drug. Start Date: 08/02/20 Status: Ordered Procrit 14910 u/ml injectable solution = 2,000 units, Subcutaneous [...] 2refer GI colonoscopy 3tubular adenoma 4quit 2012 4ysztlifKze1juua kit 6758.7 7back,abd 8refer bone marrow biopsy [facility] 9Negative hepatitis C antibody negative hepatitis C surface antigen positive hepatitis B surface antibody, negative CHARLEE, normal SPEP, normal iron 10SonMay 2017 Social History Social History Type Response Smoking Status Former smoker, quit more than 30 days ago entered on: 01/22/20 Sex Patient Care team information Care Team Personnel Name: Susana Mariee RN Position: [facility] RN Member Role: Primary Care Nurse Name: Christin Godinez NP Position: [facility] PCO Associate Professional Member Role: Lifetime Consulting Provider Address: Address: [address] [place] [address]- [place] Name: Tate Guerra MD Position: [facility] Renal MD Member Role: Lifetime Consulting Physician Address: Address: [address] [place] [address] [address] [place] [address]- [place] Name: Ramiro De RN Position: [facility] RN Member Role: Primary Care Nurse Name: Hannah Torres RN Position: [facility] ED RN W/OE and Tasks Member Role: Primary Care Nurse Name: Tiago Greenberg DO Position: [facility] Physician - Primary Care Member Role: PCP Address: Address: [address] [place] [address] [place] [address]- Name: Litzy Ibarra RN Position: [facility] RN Member Role: Primary Care Nurse Care Team Related Persons Name: NANCY AVILA Address: home [address] [place] [id number]
--- OUTSIDE RECORDS SUMMARY | 2024-02-16 09:29 | XMS_ITS | Continuity of Care Document ---
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 Adult [address] [place] [address]- Encounter Diagnosis Physical exam(Discharge Diagnosis) - 11/26/23 Hx of stem cell transplant [facility] 2019(Discharge Diagnosis) - 11/26/23 MDS (myelodysplastic syndrome)/stem cell transplant 2019(Discharge Diagnosis) - 11/26/23 New onset a-fib(Discharge Diagnosis) - 11/26/23 Pericardial effusion(Discharge Diagnosis) - 11/26/23 Mixed hyperlipidemia(Discharge Diagnosis) - 11/26/23 Impaired fasting blood sugar(Discharge Diagnosis) - 11/26/23 H/O prostate cancer TURP 2018(Discharge Diagnosis) - 11/26/23 TEOFILO (generalized anxiety disorder)(Discharge Diagnosis) - 11/26/23 Adenomatous polyp of colon/colonoscopy 2014(Discharge Diagnosis) - 11/26/23 Ex-cigarette smoker referred LDCT no show(Discharge Diagnosis) - 11/26/23 Attending Physician: Tiago Greenberg DO Allergies, Adverse Reactions, Alerts Substance Reaction Severity Status Bee Stings Active Immunizations Given and Recorded Vaccine Date Status Refusal Reason RSV vaccine preF3, recombinant 04/23/23 Recorded SARS-CoV-2(COVID-19)mRNA-LNP vac([id number]) 04/23/23 Recorded [id number] bivalent booster vax 12/23/22 Recorded LDZU-CpJ-2mLVW 12y+ bivalent booster vax 06/17/22 Recorded influenza virus vaccine, inactivated 03/14/22 Kush rded influenza virus vaccine, inactivated 1 03/08/18 Re corded influenza virus vaccine, inactivated 2 05/06/17 Re corded influenza virus vaccine, inactivated 3 03/14/15 Re corded influenza virus vaccine, inactivated 07/16/13 Give n SARS-CoV-2 mRNA (oaewrlk-wffq-osggn) vax 08/07/21 Recorded pneumococcal 23-valent vaccine 07/01/21 [...] Vaccine (oldterm) 06/11/00 Given 1Result Comment: [03/08/2018] [facility]-[id number] 2Result Comment: [08/06/2017] [facility] 3Result Comment: [03/16/2015] HIGH DOSE, RECIEVED AT [facility] 4Result Comment: [08/06/2017] [facility] [id number] 5Admin Note: rcvd at work 6Admin Note: rcvd at work 7Admin Note: rcvd elsewhere 8Admin Note: rcvd at work Medications AndroGel Pump 20.25 mg/actuation (1.62%) transdermal gel = 40.5 mg, Topically, Daily in AM, apply to clean, dry, intact skin, wash hands thoroughly after application, # 75 Gm, 2 Refills, Maintenance, 07/11/19 16:03:00 EST, [facility]/pharmacy #[id number], 177, cm, 06/16/19 11:25:00 EST, [...] drug. Start Date: 08/02/20 Status: Ordered Procrit 54123 u/ml injectable solution = 2,000 units, Subcutaneous Injection, 0 Refills, Maintenance, 08/02/20 15:28:00 EST, Partial fill upon patient request if the prescription is for a schedule II opioid drug. Start Date: 08/02/20 Status: Ordered rosuvastatin 5 mg oral tablet 1 tablet, By Mouth, Daily, # 90 tablet, 1 Refills, Maintenance, 12/21/23 13:45:00 EDT, [facility] STORE [id number], 177, cm, 08/10/23 8:54:00 EST, Height Start Date: 12/21/23 Status: Ordered sertraline 100 mg oral tablet [...] LDCT no show 4, 5 Confirmed Active TEOFILO (generalized anxiety disorder) Confirmed Active Elevated glucose Confirmed Active Hx of stem cell transplant [facility] 2018 Confirmed 11/29/18 Active H/O prostate cancer TURP 2018 Confirmed Active Impaired fasting blood sugar Confirmed Active Klinefelter's Syndrome 6 Confirmed Active Multiple lipomas 7 Confirmed Active Hypogonadism, male Confirmed Active Mixed hyperlipidemia Confirmed Active MDS (myelodysplastic syndrome)/stem cell transplant 2018 8 Confirmed Active Physical exam Confirmed Active Pericardial effusion Confirmed Active Pneumonia RUL Confirmed 06/12/19 Active Psoriasis Confirmed Active Fatty liver 9, 10 Confirmed Active 1+2014 2refer GI colonoscopy 3tubular adenoma 4quit 2012 3aycprqkMfs3gnae kit 6758.7 7back,abd 8refer bone marrow biopsy [facility] 9Negative hepatitis C antibody negative hepatitis C surface antigen positive hepatitis B surface antibody, negative CHARLEE, normal SPEP, normal iron 10SonMay 2017 Diagnosis Diagnosis Type Effective Dates Health Status Clinical Service Informant Physical exam Discharge Diagnosis 11/26/23 Hx of stem cell transplant [facility] 2018 Discharge Diagnosis 11/26/23 MDS (myelodysplastic syndrome)/stem cell transplant 2018 Discharge Diagnosis 11/26/23 New onset a-fib Discharge Diagnosis 11/26/23 Pericardial effusion Discharge Diagnosis 11/26/23 Mixed hyperlipidemia Discharge Diagnosis 11/26/23 Impaired fasting blood sugar Discharge Diagnosis 11/26/23 H/O prostate cancer TURP 2018 Discharge Diagnosis 11/26/23 TEOFILO (generalized anxiety disorder) Discharge Diagnosis 11/26/23 Adenomatous polyp of colon/colonoscopy 2014 Discharge Diagnosis 11/26/23 Ex-cigarette smoker referred LDCT no show Discharge Diagnosis 11/26/23 Social History Social History Type Response Smoking Status Former smoker, quit more than 30 days ago entered on: 01/22/20 Sex Note * Tiago Greenberg DO: PERFORM Event Display: Patient Education Leaflets Authored Date: [id number] Health Screening??Guidelines, Men Ages 65 and Older ?? [address] Health Screening??Guidelines, Men Ages 65 and Older Screening tests and health counseling are a penny part of managing your health. A screening test is done to find disorders or diseases in people who don't have any symptoms. Screening tests are not used to diagnose. They are used to find out if more testing is needed. The goal may be to find a disease early so it can be treated with more success. Or the goal may be to find a disease early so you can make lifestyle changes. You may need regular checkups to help you reduce your risk of disease. Below are guidelines for men ages 65 and older. Talk with your healthcare provider. Make sure you???re up-to-date on what you need. ?? Screening Who needs it How often Abdominal aortic aneurysm Men ages 65 to 75 who have ever smoked. Men in this age group who have never smoked could still be screened. This depends on their family history or other risk factors they may have. 1-time ultrasound Unhealthy alcohol use All men in this age group At routine exams Blood pressure All men in this age group Once a year if your blood pressure is normal. Normal blood pressure is less than 120/80 mm Hg. If your blood pressure is higher than this, follow the advice of your healthcare provider. Colorectal cancer All men at average risk in this age group through age 75. For men ages 76 to 85, ask your healthcare provider if you need to keep screening. For men older than 85, screening is not advised. Talk with your healthcare provider about which test below is right for you: ??? Colonoscopy every 10 years ??? Flexible sigmoidoscopy every 5 years (or every 10 years with yearly fecal immunochemical test (FIT) stool test) ??? CT colonography (virtual colonoscopy) every 5 years ??? Yearly fecal occult blood test ??? Yearly FIT ??? Stool DNA test every 1 to 3 years If you have a test that is not a colonoscopy and have an abnormal test result, you will need a colonoscopy. You may need to be screened more or less often. This is based on personal or family health history.Talk with your healthcare provider. Depression All men in this age group At routine exams Type 2 diabetes or prediabetes All men up to age 70 who are overweight or obese At least every 3 years (yearly if your blood sugar has already begun to rise) Type 2 diabetes All men with prediabetes Every year Hepatitis C All men ages 18 to 79 At routine exams. Ask your healthcare provider about how often you need to be screened based on your risk factors. High cholesterol or triglycerides All men in this age group At least every 5 years. Ask your healthcare provider about your risk factors. HIV Men at higher risk of infection At routine exams. Talk with your healthcare provider. Lung cancer Men between the ages 50 and 80 who are in fairly good health and who: ??? Smoke or quit in the past 15 years ??? Have a 20-pack per year smoking history (1 pack a day for 20 years or 2 packs a day for 10 years) Expert groups vary in their advice. Talk with your healthcare provider. Yearly lung cancer screening with low-dose CT scan (LDCT). Talk with your healthcare provider aboutyour risk factors. Obesity All men in this age group At yearly routine exams Prostate cancer All men in this age group, talk to your healthcare provider about the risks and benefits of a digital rectal exam (DIANNA) and prostate-specific antigen (PSA) screening1 At routine exams, if you decide to be tested Syphilis Men at higher risk of infection At routine exams. Talk with your healthcare provider. Tuberculosis Men at higher risk of infection Talk with your healthcare provider Vision All men in this age group Every 1 to 2 years. If you have a chronic health condition, ask your healthcare provider if you need exams more often. Health counseling Who needs it How often Diet and exercise All men in this age group At routine exams Fall prevention (exercise, vitamin D supplements) All men in this age group At yearly routine exams Sexually transmitted infection (STI) prevention Men at higher risk for infection At routine exams. Talk with your healthcare provider. Use of tobacco and the health effects it can cause All men in this age group Every visit Last Reviewed Date: 2021 ?? 7816-7770 [employer]. All rights reserved. This information is not intended as a substitute for professional medical care. Always follow your healthcare professional's instructions. ?? Patient Care team information Care Team Personnel Name: Susana Mariee RN Position: [facility] RN Member Role: Primary Care Nurse Name: Christin Godinez NP Position: [facility] PCO Associate Professional Member Role: Lifetime Consulting Provider Address: Address: [address] [place] [address]- Name: Tate Guerra MD Position: [facility] Renal MD Member Role: Lifetime Consulting Physician Address: Address: [address] [place] [address] [address] [facility] [place] [address]- [place] Name: Ramiro De RN Position: S RN Member Role: Primary Care Nurse Name: Hannah Torres RN Position: [facility] ED RN W/OE and Tasks Member Role: Primary Care Nurse Name: Tiago Greenberg DO Position: [facility] Physician - Primary Care Member Role: PCP Address: Address: [address] [place] [address]- [place] Name: Litzy Ibarra RN Position: [facility] RN Member Role: Primary Care Nurse Care Team Related Persons Name: NANCY AVILA Address: home [address] [place] [address]
--- OUTSIDE RECORDS SUMMARY | 2024-02-16 09:29 | XMS_ITS | Continuity of Care Document ---
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 Role Phone Tiago Greenberg DO Primary Care Physician [facility]23 - 07/22/23 [facility] Adult [address] [place] [address]- Allergies, Adverse Reactions, Alerts Substance Reaction Severity Status Bee Stings Active Immunizations Given and Recorded Vaccine Date Status Refusal Reason RSV vaccine preF3, recombinant 04/23/23 Recorded SARS-CoV-2(COVID-19)mRNA-LNP vac([id number]) 04/23/23 Recorded [id number] bivalent booster vax 12/23/22 Recorded RRUH-DyV-9bKOY 12y+ bivalent booster vax 06/17/22 Recorded influenza virus vaccine, inactivated 03/14/22 Kush rded influenza virus vaccine, inactivated 1 03/08/18 Re corded influenza virus vaccine, inactivated 2 05/06/17 Re corded influenza virus vaccine, inactivated 3 03/14/15 Re corded influenza virus vaccine, inactivated 07/16/13 Give n SARS-CoV-2 mRNA (rveukna-yeyy-ozgbu) vax 08/07/21 Recorded pneumococcal 23-valent vaccine 07/01/21 [...] Vaccine (oldterm) 06/11/00 Given 1Result Comment: [03/08/2018] [facility]-[id number] 2Result Comment: [08/06/2017] [facility] 3Result Comment: [03/16/2015] HIGH DOSE, RECIEVED AT [facility] [address] 4Result Comment: [08/06/2017] [facility] [id number] 5Admin Note: rcvd at work 6Admin Note: rcvd at work 7Admin Note: rcvd elsewhere 8Admin Note: rcvd at work Medications AndroGel Pump 20.25 mg/actuation (1.62%) transdermal gel = 40.5 mg, Topically, Daily in AM, apply to clean, dry, intact skin, wash hands thoroughly after application, # 75 Gm, 2 Refills, Maintenance, 07/11/19 16:03:00 EST, [facility]/pharmacy #[id number], 177, cm, 06/16/19 11:25:00 EST, Height, [...] 1 Refills, Maintenance, 06/24/23 16:50:00 EST, Tablet, [facility]/pharmacy #[id number], Partial fill upon patient request if the [...] drug. Start Date: 08/02/20 Status: Ordered Procrit 02213 u/ml injectable solution = 2,000 units, Subcutaneous [...] 2refer GI colonoscopy 3tubular adenoma 4quit 2012 0ksxdtrrQgc4ycgi kit 6758.7 7back,abd 8refer bone marrow biopsy [facility] 9Negative hepatitis C antibody negative hepatitis C surface antigen positive hepatitis B surface antibody, negative CHARLEE, normal SPEP, normal iron 10SonMay 2017 Social History Social History Type Response Smoking Status Former smoker, quit more than 30 days ago entered on: 01/22/20 Sex Patient Care team information Care Team Personnel Name: Susana Mariee RN Position: [facility] RN Member Role: Primary Care Nurse Name: Christin Godinez NP Position: [facility] PCO Associate Professional Member Role: Lifetime Consulting Provider Address: Address: [address] [place] [address]- Name: Tate Guerra MD Position: [facility] Renal MD Member Role: Lifetime Consulting Physician Address: Address: [address] [place] [address] [address] [facility] [address]- [place] Name: Ramiro De RN Position: [facility] RN Member Role: Primary Care Nurse Name: Hannah Torres RN Position: [facility] ED RN W/OE and Tasks Member Role: Primary Care Nurse Name: Tiago Greenberg DO Position: [facility] Physician - Primary Care Member Role: PCP Address: Address: [address] [place] [address] [place] [address]- [place] Name: Litzy Ibarra RN Position: [facility] RN Member Role: Primary Care Nurse Care Team Related Persons Name: NANCY AVILA Address: home [address] [place] [address]
--- OUTSIDE RECORDS SUMMARY | 2024-02-16 09:29 | XMS_ITS | Continuity of Care Document ---
Author Organization [facility] Tomy Bell Dhaval lt Address [address] [place] [address]- Care Team Providers Care Medical Referral Coordinator Name Role Phone Tiago Greenberg DO Primary Care Physician [phone] [facility]23 - 06/04/23 [facility] Tomy Arandaley Adult [address] [place] [address]- Encounter Diagnosis Cardiac tamponade(Discharge Diagnosis) - 05/23/23 New onset a-fib(Discharge Diagnosis) - 05/23/23 Pericardial effusion(Discharge Diagnosis) - 05/23/23 Hx of stem cell transplant [facility] 2019(Discharge Diagnosis) - 05/23/23 MDS (myelodysplastic syndrome)/stem cell transplant 2019(Discharge Diagnosis) - 05/23/23 TEOFILO (generalized anxiety disorder)(Discharge Diagnosis) - 05/23/23 Mixed hyperlipidemia(Discharge Diagnosis) - 05/28/23 Elevated glucose(Discharge Diagnosis) - 05/28/23 Attending Physician: Tiago Greenberg DO Allergies, Adverse Reactions, Alerts Substance Reaction Severity Status Bee Stings Active Immunizations Given and Recorded Vaccine Date Status Refusal Reason RSV vaccine preF3, recombinant 04/23/23 Recorded SARS-CoV-2(COVID-19)mRNA-LNP vac([id number]) 04/23/23 Recorded [id number] bivalent booster vax 12/23/22 Recorded FZBE-VuK-4aZUD 12y+ bivalent booster vax 06/17/22 Recorded influenza virus vaccine, inactivated 03/14/22 Kush rded influenza virus vaccine, inactivated 1 03/08/18 Re corded influenza virus vaccine, inactivated 2 05/06/17 Re corded influenza virus vaccine, inactivated 3 03/14/15 Re corded influenza virus vaccine, inactivated 07/16/13 Give n SARS-CoV-2 mRNA (wwiabyv-zezf-olsxu) vax 08/07/21 Recorded pneumococcal 23-valent vaccine 07/01/21 [...] Vaccine (oldterm) 06/11/00 Given 1Result Comment: [03/08/2018] [facility]-[id number] 2Result Comment: [08/06/2017] [facility] 3Result Comment: [03/16/2015] HIGH DOSE, RECIEVED AT [facility] [address] 4Result Comment: [08/06/2017] [facility] [id number] 5Admin Note: rcvd at work 6Admin Note: rcvd at work 7Admin Note: rcvd elsewhere 8Admin Note: rcvd at work Medications AndroGel Pump 20.25 mg/actuation (1.62%) transdermal gel = 40.5 mg, Topically, Daily in AM, apply to clean, dry, intact skin, wash hands thoroughly after application, # 75 Gm, 2 Refills, Maintenance, 07/11/19 16:03:00 EST, [id number], 177, cm, 06/16/19 11:25:00 EST, Height, 70.8, kg, 06/14/19 0:02:... Start Date: 07/11/19 Status: Ordered atorvastatin 40 mg oral tablet 1 tablet = 40 mg, By Mouth, Daily, # 30 tablet, 6 Refills, Maintenance, 08/12/20 9:28:00 EST, Tablet, [id number], Partial fill upon patient request if [...] 0 Refills, Maintenance, 05/28/23 11:28:00 EST, Tablet, [id number], Partial fill upon patient request if [...] drug. Start Date: 08/02/20 Status: Ordered Procrit 54558 u/ml injectable solution = 2,000 units, Subcutaneous [...] 2refer GI colonoscopy 3tubular adenoma 4quit 2012 3izodfckLqo8nhea kit 6758.7 7back,abd 8refer bone marrow biopsy [facility] 9Negative hepatitis C antibody negative hepatitis C surface antigen positive hepatitis B surface antibody, negative CHARLEE, normal SPEP, normal iron 10Sonogram May 2017 Diagnosis Diagnosis Type Effective Dates Health Status Clinical Service Informant Cardiac tamponade Discharge Diagnosis 05/23/23 New onset a-fib Discharge Diagnosis 05/23/23 Pericardial effusion Discharge Diagnosis 05/23/23 Hx of stem cell transplant [facility] 2018 Discharge Diagnosis 05/23/23 MDS (myelodysplastic syndrome)/stem cell transplant 2019 Discharge Diagnosis 05/23/23 TEOFILO (generalized anxiety disorder) Discharge Diagnosis 05/23/23 Mixed hyperlipidemia Discharge Diagnosis 05/28/23 Elevated glucose Discharge Diagnosis 05/28/23 Vital Signs Most recent to oldest [Reference Range]: 1 Height 177 cm (05/28/23 11:06 AM) Weight 73.8 kg (05/28/23 11:06 AM) Oxygen Saturation [94-100 %] 100 % (05/28/23 11:06 AM) Pulse Rate [55-90 bpm] 91 bpm *H* (05/28/23 11:06 AM) Body Mass Index [18.5-24.99 kg/m2] 23.56 kg/m2 (05/28/23 11:06 AM) Blood Pressure [90-138/55-84 mm Hg] 132/ 88mm Hg (05/28/23 11:06 AM) Blood pressure sites Arm, right (05/28/23 11:06 AM) Social History Social History Type Response Smoking Status Former smoker, quit more than 30 days ago entered on: 01/22/20 Sex Note * Ade David: PERFORM, SIGN, VERIFY Event Display: Patient Education/Instruction Authored Date: [id number] [facility] *BMP So Ray Alvarado Clinical Summary Name TOMEKA AVILA Age 63 Years 1960 PCP Tiago Greenberg DO PCP Visit Date 05/28/2023 10:59:00 Patient Instructions Follow-up with cardiology as planned Seek care if symptoms recur fasting lab in late Jun?? continue to check Home??blood sugars?? Recommend updated flu??And Prevnar 20 vaccines??at your local pharmacy Additional Instructions: Scheduled Appointments?? Future Appointments ?No Future Appointments Scheduled Follow-Up Instructions ?? With: Address: When: 6 months CPE With: Address: When: 6 months CPE Comments: CPE A-fib??mild dysplastic syndrome TEOFILO Diagnosis Myelodysplastic syndrome, unspecified; Mixed hyperlipidemia; Cardiac tamponade; Other pericardial effusion (noninflammatory); Stem cells transplant status; Generalized anxiety disorder; Other abnormal glucose; Unspecified atrial fibrillation Medications: Please continue your medications until treatment is completed or stopped by your provider. Discuss any questions related to medications with your provider. New Medications [facility]/pharmacy #[id number], [address] [place] [phone], [phone] Rosuvastatin (Crestor 5 mg oral tablet) 1 tab(s) Oral Daily. Refills: 0. Next Dose: Medications to Continue with No Changes These medications were not printed or sent to your pharmacy Atorvastatin (atorvastatin 40 mg oral tablet) 1 tab(s) Oral Daily. Refills: 6. Next Dose: Budesonide (budesonide 3 mg oral delayed release [...] Refills: 0. Next Dose: Epoetin Jerman (Procrit 77485 u/ml injectable solution) 2,000 unit(s) Subcutaneous Injection. [...] tablet) 1 tab(s) Oral Daily. Next Dose: ruxolitinib (Jakafi 5 mg oral [...] Stings Medications Given This Visit Future Orders ?Lipid Panel? Order Date:05/28/23?- Complete on or after?05/28/23 ?Comprehensive Metabolic Panel? Order Date:05/28/23?- Complete on or after?05/28/23 Vital Signs Height 177 cm Weight 73.8 kg BMI 23.56 kg/m2 Blood Pressure 132 mm Hg/88 mm Hg Temperature Pulse Rate 91 bpm Respiratory Rate 02 Sat Mode of Delivery 100 %/ You can now view a summary of your hospital visit from the comfort of your home through a free online portal called [employer]. [employer] is a website that allows you to securely view your medical information including discharge summary, medications and follow-up visits. ??You can alsosend a secure electronic message to your doctor???s office to request appointments, renew medications or just ask a question. You can enroll at [email or web address] or register during your next office visit. [...] a [facility] provider by calling [facility] [employer] Link at [phone]. [facility], in keeping with [facility] guidance, no longer requires face [...] Team Personnel Name: Susana Mariee RN Position: [facility] RN Member Role: Primary Care Nurse Name: Christin Godinez NP Position: [facility] PCO Associate Professional Member Role: Lifetime Consulting Provider Address: Address: [address] [place] [address]- [place] Name: Tate Guerra MD Position: [facility] Renal MD Member Role: Lifetime Consulting Physician Address: Address: [address] [place] [address] [address] [facility] [place] [address]- [place] Name: Ramiro De RN Position: S RN Member Role: Primary Care Nurse Name: Hannah Torres RN Position: [facility] ED RN W/OE and Tasks Member Role: Primary Care Nurse Name: Tiago Greenberg DO Position: [facility] Physician - Primary Care Member Role: PCP Address: Address: [address] [place] [address]- Name: Litzy Ibarra RN Position: [facility] RN Member Role: Primary Care Nurse Care Team Related Persons Name: NANCY AVILA Address: [address] [address]
--- OUTSIDE RECORDS SUMMARY | 2024-02-16 09:29 | XMS_ITS | Continuity of Care Document ---
Author Organization [facility] Ray Dhaval lt Address [address] [place] [address]- Care Team Providers Care Quality Control Engineering Technician Name Role Phone Tiago Greenberg DO Primary Care Physician [facility]): [facility]16/23 - 06/15/23 [facility] Adult [address] [place] [address]- Allergies, Adverse Reactions, Alerts Substance Reaction Severity Status Bee Stings Active Immunizations Given and Recorded Vaccine Date Status Refusal Reason RSV vaccine preF3, recombinant 04/23/23 Recorded SARS-CoV-2(COVID-19)mRNA-LNP vac([id number]) 04/23/23 Recorded [id number]-[id number] bivalent booster vax 12/23/22 Recorded DTNV-XvC-4rFZB 12y+ bivalent booster vax 06/17/22 Recorded influenza virus vaccine, inactivated 03/14/22 Kush rded influenza virus vaccine, inactivated 1 03/08/18 Re corded influenza virus vaccine, inactivated 2 05/06/17 Re corded influenza virus vaccine, inactivated 3 03/14/15 Re corded influenza virus vaccine, inactivated 07/16/13 Give n SARS-CoV-2 mRNA (rmoehnb-erjf-xqabq) vax 08/07/21 Recorded pneumococcal 23-valent vaccine 07/01/21 [...] Vaccine (oldterm) 06/11/00 Given 1Result Comment: [03/08/2018] [facility]-[id number] 2Result Comment: [08/06/2017] [facility] 3Result Comment: [03/16/2015] HIGH DOSE, RECIEVED AT [facility] [address] 4Result Comment: [08/06/2017] [facility] [id number] 5Admin Note: rcvd at work 6Admin Note: [...] 0 Refills, Maintenance, 05/28/23 11:28:00 EST, Tablet, [facility]/pharmacy #[id number], [...] drug. Start Date: 08/02/20 Status: Ordered Procrit 23491 u/ml injectable solution = 2,000 units, Subcutaneous [...] 2refer GI colonoscopy 3tubular adenoma 4quit 2012 4jvsvvkzHku0aisv kit 6758.7 7back,abd 8refer bone marrow biopsy [facility] 9Negative hepatitis C antibody negative hepatitis C surface antigen positive hepatitis B surface antibody, negative CHARLEE, normal SPEP, normal iron 10Sonogram May 2017 Social History Social History Type Response Smoking Status Former smoker, quit more than 30 days ago entered on: 01/22/20 Sex Patient Care team information Care Team Personnel Name: Susana Mariee RN Position: [facility] RN Member Role: Primary Care Nurse Name: Christin Godinez NP Position: [facility] PCO Associate Professional Member Role: Lifetime Consulting Provider Address: Address: [address] [place] [address]- Name: Tate Guerra MD Position: [facility] Renal MD Member Role: Lifetime Consulting Physician Address: Address: [address] [place] [address] [address] [facility] [place], [place] - [place] Name: Ramiro De RN Position: [facility] RN Member Role: Primary Care Nurse Name: Hannah Torres RN Position: [facility] ED RN W/OE and Tasks Member Role: Primary Care Nurse Name: Tiago Greenberg DO Position: [facility] Physician - Primary Care Member Role: PCP Address: Address: [address] [place] [address] [place] [address]- [place] Name: Litzy Ibarra RN Position: [facility] RN Member Role: Primary Care Nurse Care Team Related Persons Name: NANCY AVILA Address: [address] [address]
--- OUTSIDE RECORDS SUMMARY | 2024-02-16 09:29 | XMS_ITS | Continuity of Care Document ---
Author Organization [facility] ter Address [address] [place] [address]- Care Team Providers Care Therapeutic Riding Instructor Name Role Phone Tiago Greenberg DO Primary Care Physician [facility]s): 08/[facility]/23 - 08/31/[address] [address] Attending Physician: Declan Jaime MD Allergies, Adverse Reactions, Alerts Substance Reaction Severity Status Bee Stings Active Immunizations Given and Recorded Vaccine Date Status Refusal Reason RSV vaccine preF3, recombinant 04/23/23 Recorded SARS-CoV-2(COVID-19)mRNA-LNP vac([id number]) 04/23/23 Recorded AFYQ-ViR-2cSGI-1273 bivalent booster vax 12/23/22 Recorded TOLC-QuG-5jRGX 12y+ bivalent booster vax 06/17/22 Recorded influenza virus vaccine, inactivated 03/14/22 Kush rded influenza virus vaccine, inactivated 1 03/08/18 Re corded influenza virus vaccine, inactivated 2 05/06/17 Re corded influenza virus vaccine, inactivated 3 03/14/15 Re corded influenza virus vaccine, inactivated 07/16/13 Give n SARS-CoV-2 mRNA (xnkaopd-xcwk-ryowe) vax 08/07/21 Recorded pneumococcal 23-valent vaccine 07/01/21 [...] Vaccine (oldterm) 06/11/00 Given 1Result Comment: [03/08/2018] [facility]-[id number] 2Result Comment: [08/06/2017] [facility] 3Result Comment: [03/16/2015] HIGH DOSE, RECIEVED AT [facility] [address] 4Result Comment: [08/06/2017] [facility] 40658-849-51 5Admin Note: rcvd at work 6Admin Note: rcvd at work 7Admin Note: rcvd elsewhere 8Admin Note: rcvd at work Medications AndroGel Pump 20.25 mg/actuation (1.62%) transdermal gel = 40.5 mg, Topically, Daily in AM, apply to clean, dry, intact skin, wash hands thoroughly after application, # 75 Gm, 2 Refills, Maintenance, 07/11/19 16:03:00 EST, [facility]/pharmacy #[id number], 177, cm, 06/16/19 11:25:00 EST, Height, [...] Maintenance, 06/24/23 16:50:00 EST, Tablet, [facility]/pharmacy #[id number], Partial fill upon patient request if the [...] drug. Start Date: 08/02/20 Status: Ordered Procrit 94020 u/ml injectable solution = 2,000 units, Subcutaneous [...] 2refer GI colonoscopy 3tubular adenoma 4quit 2012 9gwqzuicCpc8fyvl kit 6758.7 7back,abd 8refer bone marrow biopsy [facility] 9Negative hepatitis C antibody negative hepatitis C surface antigen positive hepatitis B surface antibody, negative CHARLEE, normal SPEP, normal iron 10SonMay 2017 Social History Social History Type Response Smoking Status Former smoker, quit more than 30 days ago entered on: 01/22/20 Sex Surgical pathology study * Event Display: Surgical Pathology Authored Date: [id number] Patient Name: TOMEKA AVILA Lab Patient : 1960 (Age: 63) Collection Date: 08/31/2023 Accession Date: 08/31/2023 Sign Out Date: 09/04/2023 Tissue Source: 1:LEFT RING PROXIMAL INTERPHALANGEAL JOINT Final Diagnosis: Skin, left ring proximal interphalangeal joint, shave: - Palmoplantar wart. Primary Pathologist:Benji Tena M.D. electronically signed out by: Benji Tena M.D. / [facility] Clinical History: Left ring proximal interphalangeal joint skin lesion, Morphology: Verrucous papule, DDx: Wart Gross Description: Labeled left ring proximal interphalangeal joint . Received in formalin is a shave biopsy of a 1.2x 1.0 x 0.5 cm sharply circumscribed raised stewart-white indurated verrucoid skin lesion. The margin is marked with green ink and the specimen is trisected and entirely submitted in 1 cassette, 3 pieces. (KD)* As of August 18, 2023, the specimen processing and staining is performed at [facility], [address] [place] [address] (CLIA#[id number]). Its performance characteristics are determined by [employer]. Phone #: [phone], On-Call Pathologist: [id number] Patient Care team information Care Team Personnel Name: Susana Mariee RN Position: S RN Member Role: Primary Care Nurse Name: Christin Godinez NP Position: [facility] PCO Associate Professional Member Role: Lifetime Consulting Provider Address: Address: [address] [place] [address] [place] [address]- [place] Name: Tate Guerra MD Position: [facility] Renal MD Member Role: Lifetime Consulting Physician Address: Address: [address] [place] [address] [address] [facility] [address]- [place] Name: Ramiro De RN Position: [facility] RN Member Role: Primary Care Nurse Name: Hannah Torres RN Position: [facility] ED RN W/OE and Tasks Member Role: Primary Care Nurse Name: Tiago Greenberg DO Position: [facility] Physician - Primary Care Member Role: PCP Address: Address: [address] [place] [address] [place] [address]- [place] Name: Litzy Ibarra RN Position: [facility] RN Member Role: Primary Care Nurse Care Team Related Persons Name: NANCY AVILA Address: [address] [place] [address]
--- OUTSIDE RECORDS SUMMARY | 2024-02-16 09:29 | XMS_ITS | Continuity of Care Document ---
Author Organization [facility] Ray Dhaval lt Address [address] [place] [address]- Care Team Providers Care Biological Photographer Name Role Phone Tiago Greenberg DO Primary Care Physician [facility]): 05/16/23 - 06/15/23 [facility] Adult [address] [place] [address]- Allergies, Adverse Reactions, Alerts Substance Reaction Severity Status Bee Stings Active Immunizations Given and Recorded Vaccine Date Status Refusal Reason RSV vaccine preF3, recombinant 04/23/23 Recorded SARS-CoV-2(COVID-19)mRNA-LNP vac(fiz243) 04/23/23 Recorded LNQJ-[id number] bivalent booster vax 12/23/22 Recorded ICTP-EtY-0kTKZ 12y+ bivalent booster vax 06/17/22 Recorded influenza virus vaccine, inactivated 03/14/22 Kush rded influenza virus vaccine, inactivated 1 03/08/18 Re corded influenza virus vaccine, inactivated 2 05/06/17 Re corded influenza virus vaccine, inactivated 3 03/14/15 Re corded influenza virus vaccine, inactivated 07/16/13 Give n SARS-CoV-2 mRNA (nuvmazf-pyvz-lxmvc) vax 08/07/21 Recorded pneumococcal 23-valent vaccine 07/01/21 [...] Vaccine (oldterm) 06/11/00 Given 1Result Comment: [03/08/2018] [facility]-[id number] 2Result Comment: [08/06/2017] [facility] 3Result Comment: [03/16/2015] HIGH DOSE, RECIEVED AT [facility] [address] 4Result Comment: [08/06/2017] [facility] [id number] 5Admin Note: rcvd at work 6Admin Note: rcvd at work 7Admin Note: rcvd elsewhere 8Admin Note: rcvd at work Medications AndroGel Pump 20.25 mg/actuation (1.62%) transdermal gel = 40.5 mg, Topically, Daily in AM, apply to clean, dry, intact skin, wash hands thoroughly after application, # 75 Gm, 2 Refills, Maintenance, 07/11/19 16:03:00 EST, [facility]/pharmacy #0693, 177, cm, 06/16/19 11:25:00 EST, Height, 70.8, kg, 06/14/19 0:02:... Start Date: 07/11/19 Status: Ordered atorvastatin 40 mg oral tablet 1 tablet = 40 mg, By Mouth, Daily, # 30 tablet, 6 Refills, Maintenance, 08/12/20 9:28:00 EST, Tablet, [facility]/pharmacy #0693, Partial fill upon patient [...] 0 Refills, Maintenance, 05/28/23 11:28:00 EST, Tablet, [facility]/pharmacy #0693, Partial fill upon patient [...] drug. Start Date: 08/02/20 Status: Ordered Procrit 54170 u/ml injectable solution = 2,000 units, Subcutaneous [...] 2refer GI colonoscopy 3tubular adenoma 4quit 2012 9pjnwsztOcv2qcrc kit 6758.7 7back,abd 8refer bone marrow biopsy [facility] 9Negative hepatitis C antibody negative hepatitis C surface antigen positive hepatitis B surface antibody, negative CHARLEE, normal SPEP, normal iron 10Sonogram May 2017 Social History Social History Type Response Smoking Status Former smoker, quit more than 30 days ago entered on: 01/22/20 Sex Patient Care team information Care Team Personnel Name: Susana Mariee RN Position: [facility] RN Member Role: Primary Care Nurse Name: Christin Godinez NP Position: [facility] PCO Associate Professional Member Role: Lifetime Consulting Provider Address: Address: [address] [place] [address]- Name: Tate Guerra MD Position: [facility] Renal MD Member Role: Lifetime Consulting Physician Address: Address: [address] [place] [address] [address] [facility] [place], [place] - [place] Name: Ramiro De RN Position: [facility] RN Member Role: Primary Care Nurse Name: Hannah Torres RN Position: [facility] ED RN W/OE and Tasks Member Role: Primary Care Nurse Name: Tiago Greenberg DO Position: [facility] Physician - Primary Care Member Role: PCP Address: Address: [address] [place] [address] [place] [address]- [place] Name: Litzy Ibarra RN Position: [facility] RN Member Role: Primary Care Nurse Care Team Related Persons Name: NANCY AVILA Address: [address] [address]
--- OUTSIDE RECORDS SUMMARY | 2024-02-16 09:29 | XMS_ITS | Continuity of Care Document ---
Author Organization [facility] Dhaval lt Address [address] [place] [address]- Care Team Providers Care Safety Sealer Name Role Phone Tiago Greenberg DO Primary Care Physician [facility] 11/27/23 - 12/27/23 [facility] Adult [address] [place] [address]- Attending Physician: Admtr, Ar8 Allergies, Adverse Reactions, Alerts Substance Reaction Severity Status Bee Stings Active Immunizations Given and Recorded Vaccine Date Status Refusal Reason RSV vaccine preF3, recombinant 04/23/23 Recorded SARS-CoV-2(COVID-19)mRNA-LNP vac(tor633) 04/23/23 Recorded MVJU-[id number] bivalent booster vax 12/23/22 Recorded KGBX-UsE-2sXHN 12y+ bivalent booster vax 06/17/22 Recorded influenza virus vaccine, inactivated 03/14/22 Kush rded influenza virus vaccine, inactivated 1 03/08/18 Re corded influenza virus vaccine, inactivated 2 05/06/17 Re corded influenza virus vaccine, inactivated 3 03/14/15 Re corded influenza virus vaccine, inactivated 07/16/13 Give n SARS-CoV-2 mRNA (hbbqgti-oovc-kpurt) vax 08/07/21 Recorded pneumococcal 23-valent vaccine 07/01/21 [...] Vaccine (oldterm) 06/11/00 Given 1Result Comment: [03/08/2018] [facility]-[id number] 2Result Comment: [08/06/2017] [facility] 3Result Comment: [03/16/2015] HIGH DOSE, RECIEVED AT [facility] [address] 4Result Comment: [08/06/2017] [facility] [id number] 5Admin Note: rcvd at work 6Admin Note: rcvd at work 7Admin Note: rcvd elsewhere 8Admin Note: rcvd at work Medications AndroGel Pump 20.25 mg/actuation (1.62%) transdermal gel = 40.5 mg, Topically, Daily in AM, apply to clean, dry, intact skin, wash hands thoroughly after application, # 75 Gm, 2 Refills, Maintenance, 07/11/19 16:03:00 EST, [facility]/pharmacy #0693, 177, cm, 06/16/19 11:25:00 EST, Height, [...] drug. Start Date: 08/02/20 Status: Ordered Procrit 93098 u/ml injectable solution = 2,000 units, Subcutaneous Injection, 0 Refills, Maintenance, 08/02/20 15:28:00 EST, Partial fill upon patient request if the prescription is for a schedule II opioid drug. Start Date: 08/02/20 Status: Ordered rosuvastatin 5 mg oral tablet 1 tablet, By Mouth, Daily, # 90 tablet, 1 Refills, Maintenance, 12/21/23 13:45:00 EDT, [facility], 177, cm, 08/10/23 8:54:00 EST, Height Start [...] 2refer GI colonoscopy 3tubular adenoma 4quit 2012 7zxuazctBqu2jlmz kit 6758.7 7back,abd 8refer bone marrow biopsy [facility] 9Negative hepatitis C antibody negative hepatitis C surface antigen positive hepatitis B surface antibody, negative CHARLEE, normal SPEP, normal iron 10SonMay 2017 Procedures Procedure Date Related Diagnosis Body [...] 03/19/09 Completed 1Outside labs January 03, 2021 [facility] vitamin D 25-hydroxy is 30 sodium 138 potassium 3.7 chloride 106 bicarb 22 random glucose 130 creatinine 2.04 EGFR 34 calcium 9.1 total protein 6.3 AST elevated 46 ALT elevated 47 BUN 39 cholesterol total 257 triglycerides 264 HDL 60 LDL 144 non-HDL 197 white count 6.2 hemoglobin 10.1 platelets 200 and 1K A1c 6.0 2Blood work [facility] September 14, 2020 white count 4.9 [...] 30 days ago entered on: 01/22/20 Sex Hospital Consult note * Event Display: Inpatient Consult Note, Non-BH Authored Date: * Event Display: Inpatient Consult Note, Non- Authored Date: Cardiology * Event Display: Cardiology Office Note, Non-BH Authored Date: * Event Display: Non Cardiovascular Results Authored Date: * Event Display: Non BH Cardiovascular Results Authored Date: Laboratory * Event Display: Non BH Lab Results Authored Date: * Event Display: Non BH Lab Results Authored Date: * Event Display: Laboratory Result Scanned Authored Date: Radiology * Event Display: X-Ray Chest, Non- BH Authored Date: * Event Display: Ultrasound Lower Extremity, Non-BH Authored Date: * Event Display: IR Special Procedures, Non-BH Authored Date: * Event Display: Radiology Result Scanned Authored Date: * Larissa Lafleur: PERFORM Event Display: Radiology Results Scanned Authored Date: Patient Care team information Care Team Personnel Name: Susana Mariee RN Position: S RN Member Role: Primary Care Nurse Name: Christin Godinez NP Position: [facility] PCO Associate Professional Member Role: Lifetime Consulting Provider Address: Address: [address] [place] [address] - [place] Name: Tate Guerra MD Position: [facility] Renal MD Member Role: Lifetime Consulting Physician Address: Address: [address] [place] [address] [address] [place] [address]- [place] Name: Ramiro De RN Position: [facility] RN Member Role: Primary Care Nurse Name: Hannah Torres RN Position: [facility] ED RN W/OE and Tasks Member Role: Primary Care Nurse Name: Tiago Greenberg DO Position: [facility] Physician - Primary Care Member Role: PCP Address: Address: [address] [place] [address] [place] [address]- [place] Name: Litzy Ibarra RN Position: [facility] RN Member Role: Primary Care Nurse Care Team Related Persons Name: NANCY AVILA Address: [address] [place] [address]
--- OUTSIDE RECORDS SUMMARY | 2024-02-16 09:29 | XMS_ITS | Continuity of Care Document ---
Author Organization [facility] Ray Dhaval lt Address [address] [place] [address]- Care Team Providers Care Silver Steward Name Role Phone Tiago Greenberg DO Primary Care Physician [facility] 12/21/23 - 01/20/24 [facility] Adult [address] [place] [address]- Allergies, Adverse Reactions, Alerts Substance Reaction Severity Status Bee Stings Active Immunizations Given and Recorded Vaccine Date Status Refusal Reason RSV vaccine preF3, recombinant 04/23/23 Recorded SARS-CoV-2(COVID-19)mRNA-LNP vac(nzo585) 04/23/23 Recorded TJYV-[id number]-1273 bivalent booster vax 12/23/22 Recorded LXGS-NhM-1eHYZ 12y+ bivalent booster vax 06/17/22 Recorded influenza virus vaccine, inactivated 03/14/22 Kush rded influenza virus vaccine, inactivated 1 03/08/18 Re corded influenza virus vaccine, inactivated 2 05/06/17 Re corded influenza virus vaccine, inactivated 3 03/14/15 Re corded influenza virus vaccine, inactivated 07/16/13 Give n SARS-CoV-2 mRNA (ovfqboe-mmdp-tfatn) vax 08/07/21 Recorded pneumococcal 23-valent vaccine 07/01/21 [...] Vaccine (oldterm) 06/11/00 Given 1Result Comment: [03/08/2018] [facility]-[id number] 2Result Comment: [08/06/2017] [facility] 3Result Comment: [03/16/2015] HIGH DOSE, RECIEVED AT [facility] [address] 4Result Comment: [08/06/2017] [facility] [id number] 5Admin Note: rcvd at work 6Admin Note: rcvd at work 7Admin Note: rcvd elsewhere 8Admin Note: rcvd at work Medications AndroGel Pump 20.25 mg/actuation (1.62%) transdermal gel = 40.5 mg, Topically, Daily in AM, apply to clean, dry, intact skin, wash hands thoroughly after application, # 75 Gm, 2 Refills, Maintenance, 07/11/19 16:03:00 EST, [facility]/pharmacy #0693, 177, cm, 06/16/19 11:25:00 [...] drug. Start Date: 08/02/20 Status: Ordered Procrit 48748 u/ml injectable solution = 2,000 units, Subcutaneous Injection, 0 Refills, Maintenance, 08/02/20 15:28:00 EST, Partial fill upon patient request if the prescription is for a schedule II opioid drug. Start Date: 08/02/20 Status: Ordered rosuvastatin 5 mg oral tablet 1 tablet, By Mouth, Daily, # 90 tablet, 1 Refills, Maintenance, 12/21/23 13:45:00 EDT, [facility], 177, cm, 08/10/23 8:54:00 EST, Height Start [...] 2refer GI colonoscopy 3tubular adenoma 4quit 2012 9bogqawvDnd3mjmk kit 6758.7 7back,abd 8refer bone marrow biopsy [facility] 9Negative hepatitis C antibody negative hepatitis C surface antigen positive hepatitis B surface antibody, negative CHARLEE, normal SPEP, normal iron 10Sonogram May 2017 Social History Social History Type Response Smoking Status Former smoker, quit more than 30 days ago entered on: 01/22/20 Sex Patient Care team information Care Team Personnel Name: Kodi VICTORIA, Susana Position: [facility] RN Member Role: Primary Care Nurse Name: Herbert AGRICULTURAL PRODUCE SORTERChristin Position: [facility] PCO Associate Professional Member Role: Lifetime Consulting Provider Address: Address: [address] [place] [address]- Name: Tate Guerra MD Position: [facility] Renal MD Member Role: Lifetime Consulting Physician Address: Address: [address] [place] [address] [address] [place] [address]- [place] Name: Ramiro De RN Position: [facility] RN Member Role: Primary Care Nurse Name: Hannah Torres RN Position: [facility] ED RN W/OE and Tasks Member Role: Primary Care Nurse Name: Tiago Greenberg DO Position: [facility] Physician - Primary Care Member Role: PCP Address: Address: [address] [place] [address] [place] [address]- Name: Litzy Ibarra RN Position: [facility] RN Member Role: Primary Care Nurse Care Team Related Persons Name: NANCY AVILA Address: home [address] [place] [address]
--- OUTSIDE RECORDS SUMMARY | 2024-02-16 09:29 | XMS_ITS | Continuity of Care Document ---
Author Organization [facility] Tomy Bell Dhaval lt Address [address] [place] [address]- Care Team Providers Care Allergist Immunologist Name Role Phone Tiago Greenberg DO Primary Care Physician [facility]counter [facility] Date(s): 05/11/23 - 06/10/23 [facility] Adult [address] [place] [address]- Allergies, Adverse Reactions, Alerts Substance Reaction Severity Status Bee Stings Active Immunizations Given and Recorded Vaccine Date Status Refusal Reason RSV vaccine preF3, recombinant 04/23/23 Recorded SARS-CoV-2(COVID-19)mRNA-LNP vac([id number]) 04/23/23 Recorded [id number] bivalent booster vax 12/23/22 Recorded [id number] 12y+ bivalent booster vax 06/17/22 Recorded influenza virus vaccine, inactivated 03/14/22 Kush rded influenza virus vaccine, inactivated 1 03/08/18 Re corded influenza virus vaccine, inactivated 2 05/06/17 Re corded influenza virus vaccine, inactivated 3 03/14/15 Re corded influenza virus vaccine, inactivated 07/16/13 Give n SARS-CoV-2 mRNA ([id number]) vax 08/07/21 Recorded pneumococcal 23-valent vaccine 07/01/21 [...] Vaccine (oldterm) 06/11/00 Given 1Result Comment: [03/08/2018] [facility]-[id number] 2Result Comment: [08/06/2017] [facility] 3Result Comment: [03/16/2015] HIGH DOSE, RECIEVED AT [facility] [address] 4Result Comment: [08/06/2017] [facility] [place] [id number] 5Admin Note: rcvd at work 6Admin Note: rcvd at work 7Admin Note: rcvd elsewhere 8Admin Note: rcvd at work Medications AndroGel Pump 20.25 mg/actuation (1.62%) transdermal gel = 40.5 mg, Topically, Daily in AM, apply to clean, dry, intact skin, wash hands thoroughly after application, # 75 Gm, 2 Refills, Maintenance, 07/11/19 16:03:00 EST, [facility]/pharmacy #[id number], 177, cm, 06/16/19 11:25:00 EST, Height, 70.8, kg, 06/14/19 0:02:... Start Date: 07/11/19 Status: Ordered atorvastatin 40 mg oral tablet 1 tablet = 40 mg, By Mouth, Daily, # 30 tablet, 6 Refills, Maintenance, 08/12/20 9:28:00 EST, Tablet, [facility]/pharmacy #[id number], Partial fill upon patient [...] 0 Refills, Maintenance, 05/28/23 11:28:00 EST, Tablet, [facility]/pharmacy #[id number], Partial fill upon patient [...] drug. Start Date: 08/02/20 Status: Ordered Procrit 52840 u/ml injectable solution = 2,000 units, Subcutaneous [...] 2refer GI colonoscopy 3tubular adenoma 4quit 2012 7nhzudtxQpn5ltlj kit 6758.7 7back,abd 8refer bone marrow biopsy [place] 9Negative hepatitis C antibody negative hepatitis C surface antigen positive hepatitis B surface antibody, negative CHARLEE, normal SPEP, normal iron 10SonMay 2017 Social History Social History Type Response Smoking Status Former smoker, quit more than 30 days ago entered on: 01/22/20 Sex Patient Care team information Care Team Personnel Name: Susana Mariee RN Position: [facility] RN Member Role: Primary Care Nurse Name: Christin Godinez NP Position: [facility] PCO Associate Professional Member Role: Lifetime Consulting Provider Address: Address: [address] [place] [address]- Name: Tate Guerra MD Position: [facility] Renal MD Member Role: Lifetime Consulting Physician Address: Address: [address] [place] [address] [id number] [facility] [place], [place] - Name: Ramiro De RN Position: [facility] RN Member Role: Primary Care Nurse Name: Hannah Torres RN Position: [facility] ED RN W/OE and Tasks Member Role: Primary Care Nurse Name: Tiago Greenberg DO Position: [facility] Physician - Primary Care Member Role: PCP Address: Address: [address] [place] [address] [place] [address]- [place] Name: Litzy Ibarra RN Position: [facility] RN Member Role: Primary Care Nurse Care Team Related Persons Name: NANCY AVILA Address: [address] [address]
[2024-02-16 10:47] VITALS: BP 110/88; PULSE 87; TEMP 36.7; O2SAT 97; BMI 24.4
--- NOTE | 2024-02-16 10:47 | AM.OFFWIN_ITS ---
Intake Vital Signs 02/16/24 10:47 Height 5 ft 10 in Weight 170 lb BMI 24.4 BP 110/88 Blood Pressure Location Lt brachial Position Sitting Pulse 87 Pulse Source Pulse Oximeter Temp 98.0 F Temp Source Oral Pulse Oximetry (%) 97 Oxygen Delivery Method Room Air Intake Visit Reasons: EP chest cold Intake Note: Pt is here today chest congestion and coughing x4days and h/a Patient Tobacco Use Status: Never used Tobacco Allergies No Known Allergies Allergy (Verified 02/16/24 10:50) Medication List - Last Reconciled 02/16/24 by Yovana Fagan, PROJECT MANAGEMENT ANALYST-BC amlodipine 10 mg PO DAILY budesonide DR-ER 3 mg PO TID folic acid 1 mg PO DAILY lorazepam 0.5 mg PO Q6H PRN ruxolitinib (Jakafi) 5 mg PO DAILY ursodiol 300 mg PO DAILY@1200 HPI HPI Comments History of Present Illness Details 64-year-old male with CKD 4 and myelodys plastic syndrome here today for flu-like symptoms that started 4 days ago. Symptoms 1st started with a severe sore throat. Then developed into a cough with chest congestion, headache and low energy. He does report his symptoms are mildly better since onset. He has been using Advil avje-hzf-zwxfmvv cough medications. He reports that the Advil does provide relief however the sceu-tlq-qlmxxjg cough medications do not. He did home COVID test on Sunday which was negative. Does state that his daughter was COVID positive about 1 week ago. He denies any fever, chills, ear pain. No longer has a sore throat. Denies any chest pain Exam Awake alert NAD Sclera and conjunctiva clear bilat Nares patent, turbinates within normal limits, no sinus tenderness with palpation bilat TM intact and clear bilat MMM, pharynx WNL RRR LS with very faint wheezing throughout, mild cough, no respiratory distress Plan Viral swab obtained today. If he is positive for COVID he cannot take Paxil that given the medications that he is currently on. Will treat him with albuterol to help with the wheezing, prednisone which he reports he has taken in the past and tolerated quite well along with Tessalon she also reports that he has taken in the past with great effect to help with cough. Educated on reasons to return to the office. Pt called w/ negative results at 1454. This note is constructed using voice recognition software. While every effort has been made to ensure accuracy in sanding supervisor, still errors may have been included Sometimes, these errors may affect the content or meaning of the given sentence . Total time spent caring for the patient today was 30 minutes. This includes time spent before the visit reviewing the chart, time spent during the visit, and time spent after the visit on documentation [facility] Medical History (Updated 02/16/24 @ 11:33 by [facility] Paroxysmal atrial fibrillation Anxiety HTN (hypertension) MDS (myelodysplastic syndrome) Surgical History H/O stem cell transplant Social History Household Members: Spouse Housing: House Do you presently have visiting nurse or other home services: No Patient Tobacco Use Status: Never used Tobacco Physical Exam Vital Signs: Last Vital Signs Temp 98.0 F 02/16/24 10:47 Pulse 87 02/16/24 10:47 BP 110/88 02/16/24 10:47 Pulse Ox 97 02/16/24 10:47 Oxygen Delivery Method Room Air 02/16/24 10:47 BMI result Body Mass Index 24.4 Results Reviewed Results Reviewed: [facility] [address] [place] [id number] Associate Loan Officer: Stuart Calov M.D. Specimen Inquiry Name: Gerardo Rogers Jr Age/Sex: 64/M : 1960 Unit#: [id number] Attend Dr: Yovana Fagan Re02/16/24 Status: REG REF Location: [facility]: SPEC : [id number] MICKY: 02/16/24 STATUS: COMP REQ : [id number] RECD: 02/16/[address] [facility] [address]: Yovana Fagan [facility]- COMP: 02/16/24 ENTERED: 02/16/[address] [facility] [address]: ORDERED: SARS/FLU/RSV Test Result Flag Reference Influenza A PCR NEGATIVE Negative Influenza B PCR NEGATIVE Negative RSV RNA QualPCR NEGATIVE Negative SARSCOV2 RT-PCR NEGATIVE Negative All test results must be correlated with clinical findings. Negative results do not preclude SARS-CoV2, influenza A virus, influenza B virus and/or RSV infection and should not be used as the sole basis for treatment or other patient management decisions. Negative results must be combined with clinical observations, patient history, and epidemiological information. This test has not been evaluated for monitoring treatment of infection. This test has been authorized by the FDA under an Emergency Use Authorization (EUA) for use by authorized laboratories. Testing performed on the [employer] GeneXpert utilizing real-time RT-PCR. All SARS CoV2 and positive influenza A/B results are reported to [facility]. Assessment & Plan Assessment & Plan (1) Flu-like symptoms: Code(s): R68.89 - Other general symptoms and signs (2) Inspiratory wheezing determined by examination: Code(s): R06.2 - Wheezing Plan: . (3) Chronic kidney disease, stage IV (severe): Code(s): N18.4 - Chronic kidney disease, stage 4 (severe) Plan . Orders: Orders SARS-CoV2/FLU/RSV Today R09.89 - Other specified symptoms and signs involving the circulatory and respiratory systems Medications: New benzonatate 100 mg PO TID 10 days PRN 30 caps 1RF cough albuterol sulfate 90 mcg/actuation 2 puffs inhalation Q4-6H 30 days PRN 8.5 grams 0RF shortness of breath or wheezing prednisone 20 mg PO DAILY 5 tabs 0RF Coding Level of Care Code Est Pt Level 4 (29799) Diagnoses Flu-like symptoms R68.89 Inspiratory wheezing determined by examination R06.2 Chronic kidney disease, stage IV (severe) N18.4
== END 2024-02-16 11:34 | disposition home or self-care (01) ==
PROVIDERS: Visit Provider Nurse Practitioner Family
DX: R68.89 Other general symptoms and signs (principal); R06.2 Wheezing; N18.4 Chronic kidney disease, stage 4 (severe)
CPT/HCPCS: 99051; 99214

== ENCOUNTER 2024-02-16 13:27 | Outpatient (REF) | payer OTHER, SELFPAY ==
[2024-02-16 14:28] LABS: Influenza A PCR NEGATIVE (Negative); Influenza B PCR NEGATIVE (Negative); Resp Syncy Virus RNA Qual PCR NEGATIVE (Negative); SARS COV2 PCR INHOUSE NEGATIVE (Negative)
== END 2024-02-16 13:28 | disposition home or self-care (01) ==
LOC: HO.HMGCLNP 13:27
PROVIDERS: Visit Provider Nurse Practitioner Family
DX: J11.1 Influenza due to unidentified influenza virus with other respiratory manifestations (principal); Z11.52 Encounter for screening for COVID-19
CPT/HCPCS: 0241U

== ENCOUNTER 2025-03-27 08:33 | Outpatient (REF) | payer MEDICARE, SELFPAY ==
--- NOTE | ~2025-03-27 | XR_ITS ---
EXAMINATION: XR ELBOW, LEFT CLINICAL INFORMATION: M25.522 - Pain in left elbow COMPARISON: None available. TECHNIQUE: AP, lateral, and oblique views of the left elbow. FINDINGS: No fracture, dislocation, or suspicious bone lesion. There is normal alignment. Joint spaces appear preserved. The epicondyles appear normal. There is no evidence of joint effusion. Soft tissues appear normal. XR/XR elbow LT min 3V IMPRESSION: Normal left elbow. Electronically signed by: Onofre Petersen MD 03/27/2025 10:55 AM EDT
--- OUTSIDE RECORDS SUMMARY | 2025-03-27 08:55 | XMS_ITS | Clinical Summary ---
Author Organization [facility] Address [address] [place] [address] Care Team Providers Care Private Banker Name Role Phone Domenico Whitfield MD Primary Care Provider [phone]- [phone] Allergies No known active allergies Medications Medication Sig Dispensed Refills Start Date End Date Status tamsulosin (FLOMAX) 0.4 MG CAPS Take 0.4 mg by mouth daily. 0 Active pravastatin (PRAVACHOL) tablet 40 mg Take 40 mg by mouth daily. 0 Active triamcinolone acetonide (KENALOG-40) 40 MG/ML injection Inject 40 mg into the muscle every 3 (three) months. 0 Active lidocaine-priloca ine (EMLA) cream Apply topically as needed. 30 g 0 06/17/2018 Active testosterone (ANDROGEL) gel pump 1.62% (20.25 mg testosterone/1.25 g gel) APPLY 2 PUMPS TO CLEAN,DRY, INTACT SKIN TOPICALLY DAILY IN THE MORNING. WASH HANDS THOROUGHLY AFTER 5 06/19/2018 Active EPINEPHrine (EPIPEN 2-IMMANUEL) 0.3 MG/0.3ML SOAJ INJECT 1 DOSE INTRAMUSCULARLY ONCE IF ANAPHYLAXIS LIP TONGUE SWELLING WHEEZING ETC 0 10/31/2017 Active Cholecalciferol (D3-50) 27394 units capsule Take 50,000 Units by mouth. 0 08/03/2018 Active furosemide (LASIX) 20 MG tablet Take 1 tablet (20 mg total) by mouth daily. 30 tablet 0 09/30/2018 Active diphenhydrAMINE (BENADRYL) 25 mg capsule Take 25 mg by mouth every night at bedtime as needed for itching. 0 Active Cholecalciferol (D3-50) 20053 units capsule TAKE 1 CAPSULE BY MOUTH ONCE A WEEK 0 10/28/2018 Active Active Problems Problem Noted Date Diagnosed Date Aplastic anemia 04/01/2018 Family History Medical History Relation Name Comments COPD Father coped cause of Dementia Father Diabetes Father Diabetes Mother Cancer Paternal Uncle 1 brain cance r Cancer Paternal Uncle 2 stomach can cer Cancer Sister 1 skin cancer on her face No Sig Med Hx Sister 2 No Sig Med Hx Sister 3 Relation Name Status Comments Father (Age 73) Mother (Age 73) Paternal Uncle 1 Paternal Uncle 2 Sister 1 Alive Sister 2 Alive Sister 3 Alive Social History Tobacco Use Types Packs/Day Years Used Date Smoking Tobacco: Former Cigarettes 1 30 Smokeless Tobacco: Never Comments:E- cigarettes Alcohol Use Standard Drinks/Week Comments Yes 0 (1 standard drink = 0.6 oz pur e alcohol) occasionaly Sex and Gender Information Value Date Recorded Sex Assigned at Not on file Gender Identity Not on file Sexual Orientation Not on file Last Filed Vital Signs Vital Sign Reading Time Taken Comments Blood Pressure 118/82 11/15/2018 9:00 AM EDT Pulse 115 11/15/2018 9:00 AM EDT Temperature 36.7 C (98.1 F) 11/15/2018 9:00 AM EDT Respiratory Rate - - Oxygen Saturation - - Inhaled Oxygen Concentration - - Weight 87.1 kg (192 lb) 11/15/2018 9:00 AM EDT Height 177.8 cm (5' 10 ) 10/24/2018 3:23 PM EDT Body Mass Index 27.55 10/24/2018 3:23 PM EDT Plan of Treatment Health Maintenance Due Date Last Done Comments COVID-19 Vaccine (#1) 1960 Depression Screening 1970 Preventative Health Evaluation 01/25/1976 DTap / Tdap / Td (1 - Tdap) 1977 Colon Cancer Screening (Colonoscopy) 2003 Shingrix-Zoster Vaccine (1 of 2) 01/25/2008 Fall Risk Assessment 2023 Pneumococcal Vaccine (1 of 1 - PCV) 2023 Influenza Vaccine (#1) 2025 RSV Adult > 60+ Yrs or Pregn ant (1 - 1-dose 75+ series) 2033 Hepatitis C Screening Completed 11/12/2018 Hepatitis B Vaccines Aged Out No long er eligible based on patient's age to complete this topic RSV Ped < 20 months Aged Out No longe r eligible based on patient's age to complete this topic Care Teams Private Banker Relationship Specialty Start Date End Date Domenico Whitfield MD [address] [place] [address] PCP - General Airplane Designer 03/19/18
--- OUTSIDE RECORDS SUMMARY | 2025-03-27 08:55 | XMS_ITS | Patient Health Record ---
[facility] Address [address] [place] [address] Care Team Providers Care Pcat Instructor Name Role Phone Roseann DILLON, Domenico Primary Care Provider Unava ilable Sakina Meadows Unavailable [phone] Reason For Referral No Information Medications Medication SIG (Take, Route, Frequency, Duration) Notes Start Date End Date Status Pravastatin Sodium 40 MG 1 tablet Orally Once a day Active Problems Problem Type SNOMED Code ICD Code Onset Dates Problem Status W/U Status Risk Notes Problem Pain in limb (10577090) Pain in Limb (729.5) Active confirmed Problem Congenital pes cavus (912441375) Cavus Foot (754.71) Active confirmed Problem Hammer toe (156636047) Hammer toe (735.4) Active confirmed Problem Plantar fasciitis (823185944) Plantar Fasciitis (728.71) Active confirmed Plan Of Treatment No Information Insurance Providers Payer Name Payer Address Payer Phone Subscriber Number Group Number Insured Name Patient Relationship to Insured Coverage Start Date Coverage End Date [facility] [id number] 0 [address] [place] [phone] [id number] Carrington Rogers Self - patient is the insured 3 Medical (General) History Medical History History ICD Code Measles Mumps Chicken pox Surgical History Surgery Date(Month/Year) appendectomy 1990
--- OUTSIDE RECORDS SUMMARY | 2025-03-27 08:55 | XMS_ITS | Clinical Summary ---
Author Organization [employer] [facility] Address [address] [place] [address] Care Team Providers Care Direct Support Professional Home Health Name Role Phone Domenico Whitfield MD Primary Care Provider +1- [phone] Surgical History Surgery Date Site/Laterality Comments APPENDECTOMY 1981 PROCEDURE:APPENDECTOMY PROSTATE BIOPSY 12/2017 PROCEDURE:PROSTATE BIOPSY Medical History Medical History Date Comments Rash 2013 DX:Rash;COMMENT: Unknown etiology - hands and lips, Lip was biopsied- no results Low testosterone in male 1989 DX:Low testosterone in male Klinefelter syndrome DX:Klinefel ter syndrome BPH (benign prostatic hyperplasia) DX:BPH (benign prostatic hyperplasia);COMMENT:on Flomax Hyperlipemia DX:Hyperlipemia Glaucoma DX:Glaucoma;COMM ENT:Questionable history. Patient stateshe underwent a laser procedure unclear reasons Family History Medical History Relation Name Comments COPD Father coped cause of Dementia Father Diabetes Father Cancer Father's Brother 1 brain can cer Cancer Father's Brother 2 stomach c ancer Diabetes Mother Cancer Sister 1 skin cancer on her face No Known Problems Sister 2 No Known Problems Sister 3 Relation Name Status Comments Father (Age 73) Father's Brother 1 Father's Brother 2 Mother (Age 73) Sister 1 Alive Sister 2 Alive Sister 3 Alive Social History Tobacco Use Types Packs/Day Years Used Date Smoking Tobacco: Former Cigarettes Smokeless Tobacco: Never Alcohol Use Standard Drinks/Week Comments Yes 0 (1 standard drink = 0.6 oz pur e alcohol) Sex and Gender Information Value Date Recorded Sex Assigned at Not on file Legal Sex Male 9:39 PM EST Gender Identity Not on file Sexual Orientation Not on file Obstetrics History Plan of Treatment Health Maintenance Due Date Last Done Comments IPV Vaccines (3 of 3 - Adult catch-up series) 05/11/2021 11/09/2020, 05/28/2020, 12/30/2019 Depression Screening 06/11/2024 COVID-19 Vaccine (4 - 2024- season) 2025 04/23/2023, 08/07/2021, 01/25/2021 Influenza Vaccine (#1) 2025 , 04/22/2019, 04/22/2019, Additional history exists DTaP,Tdap,and Td Vaccines (5 - Td or Tdap) 11/09/2030 11/09/2020, 05/28/2020, 12/30/2019, Additional history exists Hepatitis B Vaccines Completed 05/28/2020, 12/30/19 Meningococcal ACWY Vaccine Aged Out 05/28/2020, No longer eligible based on patient's age to complete this topic Zoster Vaccines Completed 05/28/2020, 12/10, 08/28/2018 HIB Vaccines Aged Out 11/09/2020, 05/11, 12/30/2019 No longer eligible based on patient's age to complete this topic Hepatitis A Vaccines Completed 11/09/2020, 12/30/2019, 08/14/2018, Additional history exists MMR Vaccines Aged Out 11/09/2020 No longer eligi ble based on patient's age to complete this topic Pneumococcal Vaccine: 50+ Years Completed 07/01/2021, 11/09/2020, 05/28/2020, Additional history exists RSV Immunization Adult Patients Completed 04/23/2023 HPV Vaccines Aged Out No longer eligi ble based on patient's age to complete this topic Meningococcal B Vaccine Aged Out No l onger eligible based on patient's age to complete this topic RSV Immunization Patients Under 20 months Aged Out No longer eligible based on patient's age to complete this topic Varicella Vaccines Aged Out No longer eligible based on patient's age to complete this topic Care Teams Direct Support Professional Home Health Relationship Specialty Start Date End Date Domenico Whitfield MD [facility] [address] [place] PCP - General Certified Nurses' Aide 03/19/18
== END 2025-03-27 08:34 | disposition home or self-care (01) ==
LOC: HO.HOSX 08:33
PROVIDERS: Visit Provider Physician Assistant
DX: M70.31 Other bursitis of elbow, right elbow (principal); M70.32 Other bursitis of elbow, left elbow
CPT/HCPCS: 73080; 99202

== ENCOUNTER 2025-03-27 10:11 | Outpatient (AMB) | payer MEDICARE, SELFPAY ==
--- NOTE | 2025-03-27 10:15 | MHC.OFFVIS ---
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 Patient was referred by PCP for lump on elbow, suggested ice and compression, and a referral to orthopedics. Today patient reports lump in left left elbow is basically gone. He now has complaints of mass just below his right elbow. He has numbness and tingling with applying pressure. Denies injury. Allergies bee pollen (bee stings) Allergy (Verified 03/27/25 10:25) Anaphylaxis Medication List - Last Reconciled 03/27/25 by Caroline Silva PA-C albuterol sulfate 90 mcg/actuation 2 puffs inhalation Q4-6H PRN 30 days amlodipine 10 mg PO DAILY budesonide DR-ER 3 mg PO TID Held on 05/09/23. Instructions: Hold while on Prednisone. 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 States the left elbow had swelling along the olecranon over a month ago and it has since resolved. The right elbow he has similar findings where he has swelling over the olecranon but also a lump distal to that. No pain. No fever chills. No injury noted. 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 No swelling over the olecranon bursa. He has full range of motion. He can supinate pronate without pain. Neurovascularly intact. Right elbow swelling over the olecranon bursa without redness or pain. He can perform range of motion without limitations. Supination pronation without pain. Neurovascularly intact. Results Reviewed Results Reviewed: X-rays of the left elbow obtained in the office today and reviewed by me are negative for any acute or chronic abnormalities. Assessment & Plan Assessment & Plan (1) Bursitis of both elbows: Code(s): M70.31 - Other bursitis of elbow, right elbow; M70.32 - Other bursitis of elbow, left elbow Category: Medical Plan I explained to the patient bursitis is often treated with modification of activity and compression. If at any point he develops redness, worsening swelling and pain he should present to the emergency department for evaluation otherwise he will follow up as needed. Orders: Orders XR elbow LT min 3V Today M25.522 - Pain in left elbow Coding Level of Care Code New Pt Level 3 (81655) Complex EM visit Add On G2211 Diagnoses Bursitis of both elbows M70.31; M70.32
[2025-03-27 10:27] VITALS: BMI 24.4
--- OUTSIDE RECORDS SUMMARY | 2025-03-27 12:01 | XMS_ITS | Encounter Summary ---
Author Organization [facility] Address [address] [place] [address] Care Team Providers Care Skilled Nursing Facilities Professional Name Role Phone Ref, Has No Pcp Or Primary Care Provider Unavail able Encounter Details Date Type Department Care Team (Late st Contact Info) Description 08/30/2022 Orders Only [facility] [address] [place] [address] Mynor Chaudhari, PharmD Social History Tobacco Use Types Packs/Day Years Used Date Smoking Tobacco: Former E-Cigarettes 11/25/1977 - 11/21/2018 Smokeless Tobacco: Never Comments:Pt to start on jadiel thu patch Alcohol Use Standard Drinks/Week Comments Yes 3 (1 standard drink = 0.6 oz pur e alcohol) 3-6/week Sex and Gender Information Value Date Recorded Sex Assigned at Male 11/21/2018 6:42 PM EDT Legal Sex Male 9:11 AM EST Gender Identity Male 11/21/2018 6:42 PM EDT Sexual Orientation Straight 11/21/2018 6: 42 PM EDT documented as of this encounter Plan of Treatment Upcoming Encounters Date Type Department Care Team (Late st Contact Info) Description 06/09/2025 1:30 PM EST Lab [facility] [address] [place] [address] 06/09/2025 2:30 PM EST Follow-Up [facility] [address] [place] [address] Charlie Reich MD [address] [place] [address] documented as of this encounter Visit Diagnoses Not on filedocumented in this encounter Care Teams Skilled Nursing Facilities Professional Relationship Specialty Start Date End Date Ref, Has No Pcp Or DO NOT EDIT THIS RECORD VIA PROVIDER ON THE FLY PCP - General Pipe Fitter Helper 06/20/24 documented as of this encounter
--- OUTSIDE RECORDS SUMMARY | 2025-03-27 12:01 | XMS_ITS | Encounter Summary ---
Author Organization [facility] Address [address] [place] [address] Care Team Providers Care Bingo Cashier Name Role Phone Ref, Has No Pcp Or Primary Care Provider Unavail able Encounter Details Date Type Department Care Team (Late st Contact Info) Description 05/03/2020 Orders Only [facility] [address] [place] [address] Mynor Chaudhari, PharmD Social History Tobacco Use [...] Info) Description 06/09/2025 1:30 PM EST Lab [facility] [address] [place] [address] 06/09/2025 2:30 PM EST Follow-Up [facility] [address] [place] [address] Charlie Reich MD [address] [place] [address] documented as of this encounter Visit Diagnoses Not on filedocumented in this encounter Additional Health Concerns Infection Onset Date Last Indicated Resolved Time COVID-19 - Confirmed infection 02/07/2022 02/07/2022 03/13/2022 8:41 AM EDT COVID-19 - Suspected infection 03/14/2022 03/14/2022 03/14/2022 3:09 PM EDT documented as of this encounter Care Teams Bingo Cashier Relationship Specialty Start Date End Date Ref, Has No Pcp Or DO NOT EDIT THIS RECORD VIA PROVIDER ON THE FLY PCP - General Refuse Collector 06/20/24 documented as of this encounter
--- OUTSIDE RECORDS SUMMARY | 2025-03-27 12:01 | XMS_ITS | Encounter Summary ---
Author Organization [facility] Address [address] [place] [address] Care Team Providers Care Paper Cone Machine Tender Name Role Phone Ref, Has No Pcp Or Primary Care Provider Unavail able Encounter Details Date Type Department Care Team (Late st Contact Info) Description 07/06/2020 Orders Only [facility] [address] [place] [address] Chanel Mcneal, PharmD [address] [place] [address] Social History Tobacco Use Types Packs/Day Years [...] Info) Description 06/09/2025 1:30 PM EST Lab [facility] [address] [place] [address] 06/09/2025 2:30 PM EST Follow-Up [facility] [address] [place] [address] Charlie Reich MD [address] [place] [address] documented as of this encounter Visit Diagnoses Not on filedocumented in this encounter Additional Health Concerns Infection Onset Date Last Indicated Resolved Time COVID-19 - Confirmed infection 02/07/2022 02/07/2022 03/13/2022 8:41 AM EDT COVID-19 - Suspected infection 03/14/2022 03/14/2022 03/14/2022 3:09 PM EDT documented as of this encounter Care Teams Paper Cone Machine Tender Relationship Specialty Start Date End Date Ref, Has No Pcp Or DO NOT EDIT THIS RECORD VIA PROVIDER ON THE FLY PCP - General Rn Navigator 06/20/24 documented as of this encounter
--- OUTSIDE RECORDS SUMMARY | 2025-03-27 12:01 | XMS_ITS | Encounter Summary ---
Author Organization [facility] Address [address] [id number] Care Team Providers Care Food And Nutrition Professor Name Role Phone Ref, Has No Pcp Or Primary Care Provider Unavail able Reason for Visit * Reason Onset Date Comments Prior Authorization 03/15/2022 Renewal APOLLO carmona Encounter Details Date Type Department Care Team (Late st Contact Info) Description 03/15/2022 Telephone [facility] [place] [address] Barbra Jones Prior Authorization (Renewal APOLLO Kapadia) Social History Tobacco Use Types Packs/Day Years [...] PM EDT documented as of this encounter Miscellaneous Notes * Telephone Encounter - Barbra Jones - 03/15/2022 10:49 AM EDT APOLLO Denied for Procrit through [employer] due to Patient needs to be currently receiving a Erythropoiesis- simulating agent and has a Hemoglobin of less then 11.5g/ld. Our next steps for moving forward are Reconsideration is able to show needed info or an Appeal. How would the MD like to proceed with the requested medication? The Pt's Hemoglobin was 12 on 03/14/22 documented in this encounter Plan of Treatment Upcoming Encounters Date Type Department Care Team (Late st Contact Info) Description 06/09/2025 1:30 PM EST Lab [address] [address] 06/09/2025 2:30 PM EST Follow-Up [address] [address] Charlie Reich MD [address] [place] [phone] documented as of this encounter Visit Diagnoses Not on filedocumented in this encounter Care Teams Food And Nutrition Professor Relationship Specialty Start Date End Date Ref, Has No Pcp Or DO NOT EDIT THIS RECORD VIA PROVIDER ON THE FLY PCP - General Soldering Machine Feeder 06/20/24 documented as of this encounter
--- OUTSIDE RECORDS SUMMARY | 2025-03-27 12:01 | XMS_ITS | Encounter Summary ---
Author Organization [facility] Address [address] [place] [address] Care Team Providers Care Solar Designer/Installer Name Role Phone Ref, Has No Pcp Or Primary Care Provider Unavail able Encounter Details Date Type Department Care Team (Late st Contact Info) Description 05/01/2018 Lab Requisition [facility] [address] [place] [address] Charlie Reich MD [address] [place] [phone] Social History Tobacco Use Types Packs/Day Years Used Date Smoking Tobacco: Never Assessed Sex and Gender Information Value Date Recorded Sex Assigned at Male 11/21/2018 6:42 PM EDT Legal Sex Male 9:11 AM EST Gender Identity Male 11/21/2018 6:42 PM EDT Sexual Orientation Straight 11/21/2018 6: 42 PM EDT documented as of this encounter Plan of Treatment Upcoming Encounters Date Type Department Care Team (Late st Contact Info) Description 06/09/2025 1:30 PM EST Lab [facility] [address] [place] [address] 06/09/2025 2:30 PM EST Follow-Up [facility] [address] [place] [address] Charlie Reich MD [address] [place] [address] documented as of this encounter Procedures * Due to [facility] law, this organization might not be sharing negative HIV tests. Procedure Name Priority Date/Time Associated Diagnosis Comments TISSUE EXAM Routine 05/01/2018 2:23 PM EST documented in this encounter Results * Due to [facility] law, this organization might not be sharing negative HIV tests. * Tissue Exam (05/01/2018 2:23 PM EST) Final Diagnosis Review of Outside Slides Received from [facility], [place] [address] Labeled [id number] Procedure Date : BONE MARROW, BIOPSY AND ASPIRATE: DIAGNOSIS: - See Comment. BONE MARROW BIOPSY: The bone biopsy is nearly completely acellular with a small focus of marrow showing maturing trilineage hematopoiesis with complete myeloid maturation. BONE MARROW ASPIRATE: An aspirate smear is not provided for review. ANCILLARY STUDIES: By report, flow cytometry analysis performed by the referring institution showed an increased population of CD34+ myeloid blasts comprising 11.2% of the cellularity. 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 COMMENT: The biopsy shows a nearly acellular marrow. 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 The differential diagnosis includes a hypoplastic myelodysplastic syndrome with increased blasts, aplastic anemia, or drug/metabolic/aut oimmune etiologies. Close clinical followup and repeat biopsy is recommended, if clinically indicated. [employer] MANUAL 05/03/2018 1:25 PM EST [facility] at 1324 EST Clinical History Pancytopenia of unclear origin-chronic x2 years, worsening [place] MANUAL 05/03/2018 1:25 PM EST [facility] Gross Description Client Facility: [facility] Slide Identification: [id number] Number of Glass Slides Received: 9 Number of Blocks Received: 0 Client Pathologist: Dr. Julia Lr Accompanying Report Received: Yes [employer] MANUAL 05/03/2018 1:25 PM EST [facility] Embedded Images [facility] MANUAL 05/03/2018 1:25 PM EST [facility] Resulting Agency Case was signed out at [facility], Department of Pathology, [facility] CLIA [id number] [facility] MANUAL 05/03/2018 1:25 PM EST [facility] Report Header Surgical Pathology Report Case: [id number] Authorizing Provider: Charlie Reich MD Collected: 05/01/2018 1423 Ordering Location: [facility] Received: 05/01/2018 1424 [facility] Pathologist: Jarek Garcia MD PhD Specimen: Bone, NOS, Outside Slide [id number] Bone Marrow Aspirate, Clot, and Core Biopsy 05/03/2018 1:25 PM EST [facility] Tissue specimen (specimen) Specimen from bone / Unknown 05/01/2018 2:23 PM EST 05/01/2018 2:24 PM EST us Charlie Reich MD LAB PATHOLOGY/CYTOLOGY O RDERABLES Final Result [facility] [address] [place] [address], documented in this encounter Visit Diagnoses Not on filedocumented in this encounter Additional Health Concerns Infection Onset Date Last Indicated Resolved Time R/O Respiratory Virus Infection 03/14/2019 9 03/15/2019 2:18 PM EDT COVID-19 - Confirmed infection 02/07/2022 02/07/2022 03/13/2022 8:41 AM EDT COVID-19 - Suspected infection 03/14/2022 03/14/2022 03/14/2022 3:09 PM EDT documented as of this encounter Care Teams Solar Designer/Installer Relationship Specialty Start Date End Date Ref, Has No Pcp Or DO NOT EDIT THIS RECORD VIA PROVIDER ON THE FLY PCP - General Firer Retort 06/20/24 documented as of this encounter
--- OUTSIDE RECORDS SUMMARY | 2025-03-27 12:02 | XMS_ITS | Encounter Summary ---
Author Organization [facility] Address [address] [place] [address] Care Team Providers Care Batch Roller Operator Name Role Phone Ref, Has No Pcp Or Primary Care Provider Unavail able Encounter Details Date Type Department Care Team (Late st Contact Info) Description 08/10/2020 Orders Only [facility] [address] [place] [address] Warner Archuleta, [facility] Social History Tobacco Use Types Packs/Day Years [...] Info) Description 06/09/2025 1:30 PM EST Lab [facility] [address] [place] [address] 06/09/2025 2:30 PM EST Follow-Up [facility] [address] [place] [address] Charlie Reich MD [address] [place] [address] documented as of this encounter Visit Diagnoses Not on filedocumented in this encounter Additional Health Concerns Infection Onset Date Last Indicated Resolved Time COVID-19 - Confirmed infection 02/07/2022 02/07/2022 03/13/2022 8:41 AM EDT COVID-19 - Suspected infection 03/14/2022 03/14/2022 03/14/2022 3:09 PM EDT documented as of this encounter Care Teams Batch Roller Operator Relationship Specialty Start Date End Date Ref, Has No Pcp Or DO NOT EDIT THIS RECORD VIA PROVIDER ON THE FLY PCP - General Clinical Research Management Associate 06/20/24 documented as of this encounter
--- OUTSIDE RECORDS SUMMARY | 2025-03-27 12:02 | XMS_ITS | Clinical Summary ---
Author Organization [facility] Address [address] [id number] Care Team Providers Care Contestant Coordinator Name Role Phone Ref, Has No Pcp Or Primary Care Provider Unavail able Allergies Active Allergy Reactions Criticality Noted Date Comments Bee Venom Protein (Honey Bee) Rash High 11/25/2018 Has an EPI pen at home. Medications docusate sodium (COLACE) 100 mg capsule Take 1 capsule (100 mg total) by mouth 2 times a day. 9 Active Freestyle lancets 28 gauge Test daily before all meals/snacks and once before bedtime. 3 each 0 Active FREESTYLE FREEDOM LITE meterIndications:S teroid-induced hyperglycemia Use to test blood sugars as directed 1 each 0 Active alcohol swabs pads, medicated Test daily before all meals/snacks and once before bedtime. 400 each 3 0 Active Freestyle Lite test strips USE TO TEST THREE TIMES A DAY DIRECTED 300 strip 0 Active amoxicillin (AMOXIL) 500 mg capsule Take 4 capsules by mouth 2 hours prior to procedure and 2 capsules 6 hours post 6 capsule 2 2 Active EPINEPHrine (EPIPEN) 0.3 mg/0.3 mL injection syringe Inject 1 Syringe (0.3 mg total) into the outer thigh muscle as directed as needed for anaphylaxis. 2 each 3 3 Active fluticasone propion-salmeteroL (ADVAIR DISKUS) 250-50 mcg inhaler Inhale 1 puff by mouth 2 times a day. Rinse mouth with water after use. Do not swallow. 60 each 3 4 Active folic acid (FOLVITE) 1 mg tablet TAKE 1 TABLET (1 MG TOTAL) BY MOUTH EVERY DAY 90 tablet 11 4 Active LORazepam (ATIVAN) 0.5 mg tablet Take 1 tablet (0.5 mg total) by mouth daily as needed for anxiety. 90 tablet 4 Active predniSONE (DELTASONE) 5 mg tablet TAKE 1 TABLET EVERY OTHER DAY 45 tablet 3 4 Active sertraline (ZOLOFT) 100 mg tablet TAKE 2 TABLETS BY MOUTH EVERY NIGHT 180 tablet 3 4 Active amLODIPine (NORVASC) 10 mg tablet TAKE 1 TABLET BY MOUTH EVERY DAY 90 tablet 11 5 Active ursodioL (ACTIGALL) 300 mg capsule TAKE 1 CAPSULE (300 MG TOTAL) BY MOUTH ONCE A DAY. 90 capsule 11 5 Active budesonide (ENTOCORT EC) 3 mg EC capsule TAKE 1 CAPSULE BY MOUTH THREE TIMES A DAY 270 capsule 2 5 Active tacrolimus (PROGRAF) 0.5 mg capsule Take 1 capsule (0.5 mg total) by mouth once a day. 90 capsule 5 5 Active ergocalciferol (VITAMIN D2) 1,250 mcg (50,000 unit) capsule TAKE 1 CAPSULE WEEKLY ON SUNDAY 13 capsule 3 5 Active testosterone 20.25 mg/1.25 gram (1.62 %) gel in metered-dose pumpIndications:Hy pogonadism, male APPLY 2 PUMPS ON THE SKIN DAILY 75 g 5 Active Active Problems Problem Noted Date Diagnosed Date Hypogonadism, male 06/16/2022 Impaired fasting blood sugar 06/16/2022 Age-related nuclear cataract of both eyes 2019 Overview (05/03/2020): mild monitor Anatomical narrow angle, bilateral 05/03/2020 Type 2 diabetes mellitus wit h hyperglycemia, with long-term current use of insulin 08/01/2019 Current use of insulin 08/01/2019 CKD (chronic kidney disease) stage 3, GFR 30-59 ml/min 06/25/2019 Assessment & Plan (07/02/2019 5:58 AM EST): Follows with Dr. Fan outpatient. Baseline Cr ~1.9. Presented with elevated Cr of 2.53 in setting of hyperglycemia. Cr downtrended to 1.9 after insulin infusion. -Daily BMP Assessment & Plan (06/25/2019 7:43 PM EST): Follows with Dr Rodriguez in the out-patient setting. sCr highly variable in the past but appears to have a prior baseline of 1.9. 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 His skin rash resolved with triamcinolone cream. Patient was recently hospitalized in early June 2019 for worsening LFTs and confirmed by biopsy to have GVHD. At discharge on 06/25, LFTs were improving. He is now on tacrolimus 1.5mg BID, jakofi 5mg BID, Budesonide 3mg TID and prednisone 60mg daily. 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 -continue home Zoloft and ativan MDS (myelodysplastic syndrome) 05/07/2018 Assessment & Plan (07/02/2019 2:56 PM EST): MDS with RAEB 2 based on original diagnosis. Follows with Dr. Reich in clinic. 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 He received thio/flu/teofilo with post transplant cytoxan. Course was complicated by thrombotic microangiography and remained on steroids. His 6 month bmbx shows a CR with chimerism showing no patient DNA with CD34 with whole marrow showing low trace patient DNA (<1%). -Continue outpatient management -continue home Cresemba 372mg daily -continue Valtrex 500mg QHS Resolved Problems Problem Noted Date Diagnosed Date Resolved Date Type 2 diabetes mellitus without retinopathy 0 12/20/2021 Refractive error 05/03/2020 09/26/2022 Steroid-induced hyperglycemia 08/22/2019 09/26/2022 Adverse effect of glucocorti coid or synthetic analogue 08/19/2019 03/09/2020 Weakness of both legs 07/03/20192019 Assessment & Plan (07/03/2019 3:21 PM EST): Patient presents with weakness of bilateral lower extremities in the setting of severe hyperglycemia and chronic deconditioning. Patient evaluated by PT who recommend outpatient rehab due to deconditioning. -rehab on discharge Pneumonia 07/02/2019 07/04/2019 Assessment & Plan (07/03/2019 3:18 PM EST): CXR on admission showed RUL opacity concerning for pneumonia. He was given 1 dose of azithromycin 500mg, zosyn 4.5g and vancomycin 1g. MiniRVP was negative. Patient denies SOB and saturating fine on room air but has cough on exam. Previous infectious workup during last hospitalization a week ago was negative for TB and blood cultures had NGTD. Suspect that radiographic finding represents residual from previously treated PNA during previous admission. -Hold antibiotics given lack of infectious symptoms -patient currently without signs of infections off antibiotics -Blood cultures NGTD Steroid-induced hyperglycemia 07/02/2019 07/04/2019 Assessment & Plan (07/03/2019 3:03 PM EST): Patient was recently hospitalized for GVHD to the liver and received IV solumedrol and was discharged on prednisone 90mg. He developed symptoms of hyperglycemia 3 days prior to admission, with polyuria, polydipsia, fatigue and LE weakness. His glucose was found to be at 1008 on day of admission. His glucose improved on an insulin drip in the ED. Glucose normalized to 100s. -NPH 12 units with AM prednisone -Diabetes team following -FSBS qAC and qHS -LDISS qAC and qHS Hyponatremia 07/02/2019 07/04/2019 Assessment & Plan (07/02/2019 2:41 PM EST): Presented with Na of 117 in setting of hyperglycemia (glucose 1008). Corrected Na is 139 suggesting pseudohypnatremia. After insulin infusion, glucose normalized to 160s and Na was 139. -daily BMP Hypertension 07/02/2019 03/09/2020 Assessment & Plan (07/02/2019 2:48 PM EST): Continue on home amlodipine 10mg daily. HTN thought to be related to steroid dose. Consider stopping as steroids are tapered off. 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 Is on Jakafi therapy as per hematology. Would expect that as liver function improves that his renal function would as well. Discharge planning is in process however, if Mr Rogers were to remain, we will obtain urine for microscopy. Assessment & Plan (12/29/2018 9:14 PM EDT): Patient tolerated HD without complications. Says he does not notice any difference in how he feels. Will monitor labs and I/O closely. Will assess in am for futher need of dialysis Metabolic acidosis 12/19/2018 0 Assessment & Plan (06/25/2019 7:45 PM EST): Occurring in the setting of CKD. Is Mild at this time. Would recommend initiation of Sodium bicarbonate at 325mg PO BID Assessment & Plan (12/28/2018 11:32 PM EDT): Suggest d/c sodium bicarbonate for now. Has improved with dialysis Febrile neutropenia 12/08/2018 01/02/20 19 Acute respiratory failure 12/07/2018 Mucositis due to antineoplastic therapy 12/06/2018 01/01/2019 Encounter for antineoplastic chemotherapy 12/06/2018 01/01/2019 Pancytopenia due to antineop lastic chemotherapy 12/06/2018 03/09/2020 Fluid overload, unspecified 12/06/2018 01/01/2019 Assessment & Plan (12/29/2018 9:11 PM EDT): Patient's fluid status improved. -suggest furosemide 80 mg iv in am Cystitis, acute hemorrhagic 12/06/2018 01/01/2019 Bone marrow transplant candidate 11/20/2018 01/17/2019 Bacteremia 11/20/2018 02/04/2019 Overview (12/17/2018): Added automatically from request for surgery [id number] Assessment & Plan (12/29/2018 9:13 PM EDT): On daily ceftriaxone. If patient with continued need of HD , can coordinate antibiotics with dialysis. 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 12/29/[address] [address] Nelson Zapien NP from Last 3 Months Immunizations Immunization Administration Dates Next Due Covid-19, Pfizer, mRNA, [place] valent, PF 30 mcg/0.3 mL dose (for ages 12 and older) 01/25/2021 [id number] 11/09/2020,05/28/2020,12/30/2019 Hepatitis A Vaccine, Adult Dosage 2020,12/30/2019,08/14/2018,08/06 Hepatitis B adult (ENGERIX-B ADULT) vaccine 1 mL IM 05/28/2020,12/30/2019 Hepatitis B vaccine (HEPLISA V-B) vaccine 0.5 mL IM 05/28/2020,12/30/2019 Influenza Whole 04/22/2019, 0,04/14/2009,04/02,04/30/2007 Influenza, Injectable, Quadr ivalent, Preservative Free 03/14/2022,04/22/2019 Influenza, Trivalent, MDV, Injectable ,05/06/2017,03/14/2015,07/16 Measles, Mumps, and Rubella Vaccine 11/09/2020 Meningococcal ACWY Vaccine, Unspecified Formulation 05/28/2020,12/30/2019 Meningococcal Polysaccharide (Groups A, C, Y and W-135) Diphtheria Toxoid Conjugate Vaccine (MCV4P) 05/28/2020,12/30/2019 Pneumococcal Conjugate Vacci ne, 13 Valent 11/09/2020,05/28/2020,12/30/2019,03/08 Pneumococcal Polysaccharide Vaccine, 23 Valent 07/01/2021,04/29/2008 Tetanus Toxoid, Reduced Diph theria Toxoid, and Acellular Pertussis Vaccine, Adsorbed 07/18/2012 Tetanus Toxoid, Unspecified Formulation 06/11/2000 Zoster Vaccine Recombinant 05/28/2020,12/30/2019 Family History Medical History Relation Name Comments COPD Father Diabetes Father Hypertension Mother Basal cell carcinoma Sister 1 Relation Name Status Comments Father Mother Sister 1 Alive Sister 2 Alive Sister 3 Alive Sister 4 Alive Social History Tobacco Use Types Packs/Day Years Used Date Smoking Tobacco: Former E-Cigarettes 11/25/1977 - 11/21/2018 Smokeless Tobacco: Never Tobacco Cessation:Counseling Given: Not Answered Comments:Pt to start on nicotine patch Alcohol Use Standard Drinks/Week Comments Yes 3 (1 standard drink = 0.6 oz pur e alcohol) 3-6/week Sex and Gender Information Value Date Recorded Sex Assigned at Male 11/21/2018 6:42 PM EDT Legal Sex Male 9:11 AM EST Gender Identity Male 11/21/2018 6:42 PM EDT Sexual Orientation Straight 11/21/2018 6: 42 PM EDT Last Filed Vital Signs Vital Sign Reading Time Taken Comments Blood Pressure 135/82 12/08/2024 1:13 PM EDT Pulse 89 12/08/2024 1:13 PM EDT Temperature 36.8 C (98.2 F) 12/08/2024 1:13 PM EDT Respiratory Rate 16 12/08/2024 1:13 PM EDT Oxygen Saturation 97% 12/08/2024 1:13 PM EDT Inhaled Oxygen Concentration - - Weight 78.6 kg (173 lb 4.5 oz) 12/08/2024 1:13 P M EDT Height 177.8 cm (5' 10 ) 04/12/2020 3:40 PM EST Body Mass Index 24.86 04/12/2020 3:40 PM EST Plan of Treatment Upcoming Encounters Date Type Department Care Team (Late st Contact Info) Description 06/09/2025 1:30 PM EST Lab [facility] [address] [place] [address] 06/09/2025 2:30 PM EST Follow-Up [facility] [address] [place] [address] Charlie Reich MD [address] [place] [address] Health Maintenance Due Date Last Done Comments Cologuard 1958 Colonoscopy 1958 Sigmoidoscopy 1958 Urine Microalbumin 01/25/1968 Colon Cancer Screening 01/02/2020 FOBT / Fit Test 01/02/2020 01/01/2019, 12/10, 12/28/2018, Additional history exists PTH 01/04/2020 01/03/2019, 12/27/2018 Phosphorus 07/01/2020 07/01/2019, 06/11, 06/25/2019, Additional history exists Ophthalmology Exam 05/03/2021 05/03/2020, 07/03/2019, 05/03/2020, Additional history exists Hemoglobin A1C 03/05/2022 09/02/2021, 06/12, 05/13/2021, Additional history exists 25 Hydroxy / Vitamin D 12/20/2022 , 01/03/2021, 07/20/2020, Additional history exists Abdominal Aortic Aneurysm (A AA) Screening 2023 CT Lung Cancer Screening (Baseline) 05/04/2024 05/04/2023, 06/20/2019, 12/15/2018 Alcohol/Substance Use Screening 06/11/2024 Depression Screening and Follow-Up 06/11/2024 Health Care Proxy Review 06/11/2024 Social Drivers of Health Zeinab ual Screening 06/11/2024 COVID-19 Vaccine (2024-07 6 season) 2025 03/11/2025, 04/23/2023, 12/23/2022, Additional history exists Basic Metabolic Panel 06/09/2025 12/08/2024 , 09/12/2024, 06/18/2024, Additional history exists Hemoglobin 12/08/2025 12/08/2024, 04/0 09/2024, 06/18/2024, Additional history exists Pneumococcal Vaccine: 50+ Ye ars (4 of 4 - PCV20 or PCV21) 07/01/2026 07/01/2021, 11/09/2020, 05/28/2020, Additional history exists DTaP,Tdap,and Td Vaccines (5 - Td or Tdap) 11/09/2030 11/09/2020, 05/28/2020, 12/30/2019, Additional history exists Hepatitis C Screening Completed 06/17/2019 , 12/26/2018, 11/12/2018, Additional history exists Hepatitis B Vaccines Completed 05/28/2020, 05/28/2020, 12/30/2019, Additional history exists Zoster Vaccines Completed 05/28/2020, 12/10, 08/28/2018 RSV Vaccine (60+ years old a nd patients) Completed 04/23/2023 CT Lung Cancer Screening (12 months, previous LungRADS 1 or 2) Discontinued 05/04/2023, 06/20/19, 12/15/2018 Influenza Vaccine Completed 03/11/2025, , 03/14/2022, Additional history exists Medical Devices Implanted Type Area Pipeline Superintendent Division Device Identifier Shelf Expiration Date Model / Serial / Lot Catheter Glidepath Hemodialysis 14.5fr X 23cm - [id number] Implanted:Qty: 1 on 12/26/2018 at [facility] Catheter [employer] [id number] 01/09/2020 [id number] / / [id number] Procedures * Due to [place] state law, this organization might not be sharing negative HIV tests. Procedure Name Priority Date/Time Associated Diagnosis Comments CBC AUTO DIFFERENTIAL STAT 12/08/2024 1:08 PM EDT MDS (myelodysplastic syndrome) (HCC) COMPREHENSIVE METABOLIC PANEL STAT 12/08/2024 1:08 PM EDT MDS (myelodysplastic syndrome) (HCC) AMB EXTERNAL CT CHEST, OUTSIDE RESULT 05/04/2023 VITAMIN D, 25-HYDROXY, TOTAL, IMMUNOASSAY Routine 12/20/2021 2:12 PM EDT S/P allogeneic bone marrow transplant HEMOGLOBIN A1C Routine 01/03/2021 12:40 PM EDT MDS (myelodysplastic syndrome) PHOSPHORUS STAT 07/01/2019 5:31 PM EST HEPATITIS PANEL, ACUTE Timed 06/17/2019 10:37 AM EST PTH, INTACT (WITHOUT CALCIUM) Routine 01/03/2019 12:03 PM EDT Secondary hyperparathyroidism of renal origin 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 * (ABNORMAL) CBC Auto Differential (12/08/2024 1:08 PM EDT) WBC 7.8 3.8 - 10.8 10*3/uL 12/08/2024 1:43 PM EDT [facility] RBC 3.98(L) 4.20 - 5.80 10*6/uL 12/08/2024 1:43 PM EDT [facility] Hemoglobin 12.4(L) 13.2 - 17.1 g/dL 12/08/2024 1:43 PM EDT [facility] Hematocrit 37.8(L) 38.5 - 50.0 % 12/08/2024 1:43 PM EDT [facility] MCV 95.0 80.0 - 100.0 fL 12/08/2024 1:43 PM EDT [facility] MCH 31.2 27.0 - 33.0 pg 12/08/2024 1:43 PM EDT [facility] MCHC 32.8 32.0 - 36.0 g/dL 12/08/2024 1:43 PM EDT [facility] RDW 14.5 11.0 - 15.0 % 12/08/2024 1:43 PM EDT [facility] Platelets 204 140 - 400 10*3/uL 12/08/2024 1:43 PM EDT [facility] MPV 10.0 7.5 - 12.5 fL 12/08/2024 1:43 PM EDT [facility] Neutrophil % 67.8 % 12/08/2024 1:43 PM EDT [facility] Immature Grans % 0.4 0.0 - 0.9 % 12/08/2024 1:43 PM EDT [facility] Lymphocyte % 17.9 % 12/08/2024 1:43 PM EDT [facility] Monocyte % 10.9 % 12/08/2024 1:43 PM EDT [facility] Eosinophil % 2.1 % 12/08/2024 1:43 PM EDT [facility] Basophil % 0.9 % 12/08/2024 1:43 PM EDT [facility] Neutrophil # 5.29 1.50 - 7.80 10*3/uL 12/08/2024 1:43 PM EDT [facility] Immature Grans # 0.03 <=0.03 10*3/uL 12/08/2024 1:43 PM EDT [facility] Lymphocyte # 1.40 0.85 - 3.90 10*3/uL 12/08/2024 1:43 PM EDT [facility] Monocyte # 0.90 0.20 - 0.95 10*3/uL 12/08/2024 1:43 PM EDT [facility] Eosinophil # 0.20 0.02 - 0.50 10*3/uL 12/08/2024 1:43 PM EDT [facility] Basophil # 0.10 0.00 - 0.20 10*3/uL 12/08/2024 1:43 PM EDT [facility] nRBC % 0.0 /100 WBCs 12/08/2024 1:43 PM EDT [facility] nRBC # <0.01 <0.01 10*3/uL 12/08/2024 1:43 PM EDT [facility] Total Neutrophil #, Preliminary 5.29 1.50 - 7.80 10*3/uL 12/08/2024 1:43 PM EDT [facility] Blood Structure of peripheral vein / Unknown Venipuncture / Unknown 12/08/2024 1:08 PM EDT 12/08/2024 1:30 PM EDT us Charlie Reich MD LAB BLOOD ORDERABLES Fin al Result [facility] [address] [place] [address], [place] * (ABNORMAL) Comprehensive Metabolic Panel (12/08/2024 1:08 PM EDT) NA 137 135 - 145 mmol/L 12/08/2024 2:04 PM EDT [facility] K 4.0 3.5 - 5.3 mmol/L 12/08/2024 2:04 PM EDT [facility] Cl 103 98 - 107 mmol/L 12/08/2024 2:04 PM EDT [facility] CO2 21(L) 22 - 32 mmol/L 12/08/2024 2:04 PM EDT [facility] Anion Gap 13 5 - 15 12/08/2024 2:04 PM EDT [facility] Glucose 156(H) 65 - 99 mg/dL 12/08/2024 2:04 PM EDT [facility] Creatinine 2.20(H) 0.60 - 1.30 mg/dL 12/08/2024 2:04 PM EDT [facility] Calcium 9.2 8.6 - 10.5 mg/dL 12/08/2024 2:04 PM EDT [facility] Total Protein 8.0 6.0 - 8.0 g/dL 12/08/2024 2:04 PM EDT [facility] Albumin 4.0 3.5 - 5.2 g/dL 12/08/2024 2:04 PM EDT [facility] Bilirubin, Total 0.3 0.2 - 1.2 mg/dL 12/08/2024 2:04 PM EDT [facility] Alkaline Phosphatase 95 35 - 129 U/L 12/08/2024 2:04 PM EDT [facility] AST 55(H) 10 - 40 U/L 12/08/2024 2:04 PM EDT [facility] ALT 42(H) 10 - 40 U/L 12/08/2024 2:04 PM EDT [facility] BUN 36(H) 7 - 23 mg/dL 12/08/2024 2:04 PM EDT [facility] eGFR 32(L) >=60 mL/min/1 .73m2 12/08/2024 2:04 PM EDT [facility] Comment:The estimated glomer ular filtration rate (eGFR) is calculated using a new formula developed by the NKF-ASN task force to eliminate race-based correction factors. The new formula uses serum/plasma creatinine, age, and gender to determine eGFR. A value below 60mls/min might indicate kidney disease and will be flagged. For additional information, see Jamie et al, Am J Kidney Dis. 2021;79(2):268- 288, A Unifying Approach for GFR estimation: Recommendations of the NKF-ASN Task Force on Reassessing the Inclusion of Race in Diagnosing Kidney Disease . Globulin, Total 4.0 2.1 - 4.2 g/dL 12/08/2024 2:04 PM EDT [facility] A/G Ratio 1.0(L) 1.5 - 3.0 12/08/2024 2:04 PM EDT [facility] Blood Structure of peripheral vein / Unknown Venipuncture / Unknown 12/08/2024 1:08 PM EDT 12/08/2024 1:33 PM EDT Charlie Reich MD LAB BLOOD ORDERABLES Fin al Result [facility] [address] [place] [id number], * AMB EXTERNAL CT CHEST, OUTSIDE RESULT (05/04/2023) Anatomical Region Laterality Modality Other 05/04/2023 us Onbase Scan Marcus AMB EXTERNAL RESULT PROCEDURE S Final Result * Vitamin D, 25-Hydroxy, Total, Immunoassay (12/20/2021 2:12 PM EDT) Calcidiol+ercalc idiol 46 30 - 100 ng/mL 12/21/2021 10:40 AM EDT [employer] [facility] Comment: Vitamin D Status 25-OH Vitamin D: Deficiency: <20 ng/mL Insufficiency: 20 - 29 ng/mL Optimal: > or = 30 ng/mL For 25-OH Vitamin D testing on patients on D2-supplementation and patients for whom quantitation of D2 and D3 fractions is required, the ShakerAssureD(TM) 25-OH VIT D, (D2,D3), LC/MS/MS is recommended: order code 17427 (patients >2yrs). See Note 1 Note 1 For additional information, please refer to http://education.[employer]/faq/YOL782 (This link is being provided for informational/ educational purposes only.) Blood Structure of peripheral vein / Unknown Venipuncture / Unknown 12/20/2021 2:12 PM EDT 12/20/2021 2:26 PM EDT Amy MCGRATH - 12/21/2021 10:40 AM EDT [facility] Received Date: us Charlie Reich MD LAB BLOOD ORDERABLES Fin al Result [facility] [facility] [address] [facility] [address], [place] [address], [employer] [address] [facility] [address], [place] [address], * (ABNORMAL) Hemoglobin A1c (01/03/2021 12:40 PM EDT) Hemoglobin A1C 6.0(H) <5.7 % of total Hgb 01/04/2021 6:35 AM EDT [employer] Comment: For someone without known diabetes, a hemoglobin A1c value between 5.7% and 6.4% is consistent with prediabetes and should be confirmed with a follow-up test. For someone with known diabetes, a value <7% indicates that their diabetes is well controlled. A1c targets should be individualized based on duration of diabetes, age, comorbid conditions, and other considerations. This assay result is consistent with an increased risk of diabetes. Currently, no consensus exists regarding use of hemoglobin A1c for diagnosis of diabetes for children. eAG (MG/DL) 126 (calc) 01/04/2021 6:35 AM EDT [employer] eAG (MMOL/L) 7.0 (calc) 01/04/2021 6:35 AM EDT [employer] Blood Structure of peripheral vein / Unknown Venipuncture / Unknown 01/03/2021 12:40 PM EDT 01/03/2021 1:02 PM EDT [facility] [employer] [facility] - 01/04/2021 6:35 AM EDT [facility] Received Date: Rosi BUSTILLOS LAB BLOOD ORDERABLES Sowmya l Result [facility] [address] [facility] [address], [place] [address], [place] [phone] [facility] [employer] [facility] [address] [facility] [address], [place] [address], [place] [phone] * Phosphorus (07/01/2019 5:31 PM EST) Phosphorus 3.7 2.5 - 4.5 mg/dL 07/01/2019 6:32 PM EST [facility] Blood specimen (specimen) Structure of peripheral vein / Unknown Venipuncture / Unknown 07/01/2019 5:31 PM EST 07/01/2019 5:49 PM EST Rosie Ortez MD LAB BLOOD ORDERABLES Final R esult [facility] [address] [place] [id number], [place] * Hepatitis Panel, Acute (06/17/2019 10:37 AM EST) Pathologist [facility] Hepatitis A IgM NON-REACT TAN NON-REACT TAN 06/18/2019 12:58 AM EST [facility] Hepatitis B Surface Antigen NON-REACT TAN NON-REACT TAN 06/18/2019 12:58 AM EST [facility] Hepatitis B Core Antibody NON-REACT TAN NON-REACT TAN 06/18/2019 12:58 AM EST [facility] Hepatitis C Antibody NON-REACT TAN NON-REACT TAN 06/18/2019 12:58 AM EST [facility] Signal To Cut-Off 0.01 <1.00 06/18/2019 12:58 AM EST [facility] Comment: HCV antibody was non-reactive. There is no laboratory evidence of HCV infection. In most cases, no further action is required. However, if recent HCV exposure is suspected, a test for HCV RNA (test code 07302) is suggested. For additional information please refer to [email or web address]/KUE94z8 (This link is being provided for informational/ educational purposes only.) For additional information, please refer to [email or web address] (This link is being provided for informational/ educational purposes only.) Blood specimen (specimen) Implantable venous catheter submitted as specimen / Unknown Existing Catheter / Unknown 06/17/2019 10:37 AM EST 06/17/2019 10:55 AM EST Narrative [facility] - 06/18/2019 12:58 AM EST [facility] Received Date: Hamlet Sanford MD PhD LAB BLOOD ORDERABLES Final Result [address], [place] [address], [facility] [address], [place] [address], * (ABNORMAL) PTH, intact (01/03/2019 12:03 PM EDT) Parathyroid Hormone, Intact 135(H) 14 - 64 pg/mL 01/06/2019 11:04 AM EDT [employer] [facility] Comment: Interpretive Guide Intact PTH Calcium ------- Normal Parathyroid Normal Normal Hypoparathyroidism Low or Low Normal Low Hyperparathyroidism Primary Normal or High High Secondary High Normal or Low Tertiary High High Non-Parathyroid Hypercalcemia Low or Low Normal High Blood specimen (specimen) Implantable venous catheter submitted as specimen / Unknown Existing Catheter / Unknown 01/03/2019 12:03 PM EDT 01/03/2019 12:14 PM EDT Narrative [facility] - 01/06/2019 11:04 AM EDT [facility] Received Date:[id number] Tino Olivares MD LAB BLOOD ORDERABLES Final Result [facility] [address], [place] [address], [place] [phone] [facility] [address], [place] [address], [place] [phone] * (ABNORMAL) POCT Occult Blood Stool (GUAIAC) (01/01/2019 12:05 AM EDT) Internal Positive Control Pass Yes Internal Negative Control Pass Yes BLOOD, STOOL, MANUAL Positive(A ) Negative Stool specimen (specimen) 01/01/2019 12:05 AM EDT Charlie Reich MD POINT OF CARE TEST ORDER SUGAR Final Result from Last 3 Months or Most Recently Relevant to Health Maintenance Insurance MEDICARE Advance Directives Documents on File Type Date Recorded Patient Brick Layer Expl [facility] Health Care Proxy 11/23/2018 8:45 AM Rossi Rogers HCP 11/22/18 * Full Code (Latest Code Status on File) Date Activated Date Inactivated Comments 07/02/2019 4:50 AM 07/04/2019 9:06 PM * Full Code Date Activated Date Inactivated Comments 06/16/2019 3:16 PM 06/26/2019 4:59 PM * Full Code Date Activated Date Inactivated Comments 03/11/2019 6:43 AM 03/13/2019 12:54 AM * Full Code Date Activated Date Inactivated Comments 01/17/2019 11:28 AM 01/18/2019 2:43 AM * Full Code Date Activated Date Inactivated Comments 01/15/2019 11:34 AM 01/16/2019 2:43 AM Healthcare Agents on File Name Relationship Healthcare Agent Relationship Communication Rossi Rogers Spouse Health Care Agent Bindu Rogers Daughter Alternate Health Care Ag ent Care Teams Contestant Coordinator Relationship Specialty Start Date End Date Ref, Has No Pcp Or DO NOT EDIT THIS RECORD VIA [facility] THE [employer] PCP - General Clip Baker 06/20/24
--- OUTSIDE RECORDS SUMMARY | 2025-03-27 12:02 | XMS_ITS | Encounter Summary ---
Author Organization [facility] Address [address] [place] [address] Care Team Providers Care Hot Mill Operator Name Role Phone Ref, Has No Pcp Or Primary Care Provider Unavail able Encounter Details Date Type Department Care Team (Late st Contact Info) Description 01/17/2021 Orders Only [facility] [address] [place] [address] Warner Archuleta, formerly [facility] Social History Tobacco Use Types Packs/Day Years [...] Info) Description 06/09/2025 1:30 PM EST Lab [facility] [address] [place] [address] 06/09/2025 2:30 PM EST Follow-Up [facility] [address] [place] [address] Charlie Reich MD [address] [place] [address] documented as of this encounter Visit Diagnoses Not on filedocumented in this encounter Additional Health Concerns Infection Onset Date Last Indicated Resolved Time COVID-19 - Confirmed infection 02/07/2022 02/07/2022 03/13/2022 8:41 AM EDT COVID-19 - Suspected infection 03/14/2022 03/14/2022 03/14/2022 3:09 PM EDT documented as of this encounter Care Teams Hot Mill Operator Relationship Specialty Start Date End Date Ref, Has No Pcp Or DO NOT EDIT THIS RECORD VIA [facility] [employer] [facility] PCP - General International Manager 06/20/24 documented as of this encounter
--- OUTSIDE RECORDS SUMMARY | 2025-03-27 12:02 | XMS_ITS ---
Author Organization [facility] Address [address] [place] [address] Care Team Providers Care Vibrator Operator Name Role Phone Ref, Has No Pcp Or Primary Care Provider Unavail able Active Problems Problem Noted Date Diagnosed Date [...] (07/02/2019 5:58 AM EST): Follows with Dr. Rodriguez outpatient. Baseline Cr ~1.9. 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 Past Treatment and Therapy Plans Oncology Treatment Plan Name Start Date Discontinue Date Treatment Medications Discontinue Reason Plan Provider Cycles Thiotepa / Fludarabine / Melphalan, Conditioning (Allo HSCT) - INPT 9 12/23/2018 albuterol 2.5 mg/3 mL (0.083%)EPINEPHr ine (ADRENALIN) 1:1,000 (1 mg/mL)fludarabin e chemo IVPBmelphalan (EVOMELA) chemo IVPB 100 mLpalonosetron (ALOXI)sodium chloride 0.9% (NS)thiotepa chemo IVPB 500 mL Therapy Complete Charlie Reich MD 1 of 1 cycle started Oncology Treatment Supplemental Plan Name Start Date Discontinue Date Treatment Medications Discontinue Reason Plan Provider Cycles Cyclophosphamide / Sirolimus (Immunosuppression Supplemental) - INPT 11/29/19 19 12/23/2018 cyclophosphamide (CYTOXAN) chemo IVPB in 500 mLmesna (MESNEX) IVPB 50 mLmesna (MESNEX) IVPB 500 mLpalonosetron (ALOXI) Therapy Complete Charlie Reich MD 1 of 1 cycle started Therapy Plan Orders 2 Plan Name Start Date Discontinue Date Treatment Medications Discontinue Reason Plan Provider darbepoetin monster (ARANESP) every 2-4 weeks 04/04/2019 04/22/2020 darbepoetin monster (ARANESP) Physician Determines it is in Best Interest of Patient Charlie Reich MD Therapy Plan Orders Supplemental Plan Name Start Date Discontinue Date Treatment Medications Discontinue Reason Plan Provider ADULT ONCOLOGY CENTRAL [facility] 01/03/2019 07/31/2019 No medications scheduled. 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 Is on Jakafi therapy as per [...] futher need of dialysis Metabolic acidosis 12/19/2018 09/29/202 0 Assessment & Plan (06/25/2019 7:45 PM [...] (12/17/2018): Added automatically from request for surgery [id number] Assessment & Plan (12/29/2018 9:13 PM EDT): [...]
== END 2025-03-27 10:34 | disposition home or self-care (01) ==
LOC: HO.HOS 10:12
PROVIDERS: Visit Provider Physician Assistant
DX: M70.31 Other bursitis of elbow, right elbow (principal); M70.32 Other bursitis of elbow, left elbow
CPT/HCPCS: 99203; G2211

== ENCOUNTER → 2025-03-27 10:17 | Outpatient (BNV) | payer OTHER, SELFPAY | PROVIDERS: Visit Provider Radiology Diagnostic Radiology | DX: M25.522 Pain in left elbow (principal) | CPT/HCPCS: 73080 ==